=== PATIENT | female | born 1960 | race Two or more races ===

== ENCOUNTER → 2019-04-19 13:14 | Outpatient (BNVA) | payer MEDICARE, MEDICAID, SELFPAY | PROVIDERS: Family Provider Internal Medicine; PCP Internal Medicine; Visit Provider Specialist | DX: G43.711 Chronic migraine without aura, intractable, with status migrainosus (principal) | CPT/HCPCS: 64615; J0585 ==

== ENCOUNTER 2019-05-02 14:40 | Outpatient (CLI) | payer MEDICARE, MEDICAID, SELFPAY ==
--- NOTE | 2019-05-02 14:50 | XRR_ITS ---
PROCEDURE INFORMATION: Exam: XR Chest, 2 Views Exam date and time: 05/02/2019 2:54 PM Age: 58 years old Clinical indication: Chest pain; Additional info: Back pain L thoracic region/copd TECHNIQUE: Imaging protocol: XR of the chest Views: 2 views. COMPARISON: CR Chest 2 views* [id number] 03/19/2019 4:09 PM FINDINGS: Lungs: Diffuse diffuse hyperexpanded lungs consistent with bilateral COPD the lungs are otherwise clear. Pleural space: Unremarkable. No pleural effusion. No pneumothorax. Heart/Mediastinum: Unremarkable. No cardiomegaly. Bones/joints: Unremarkable. Similar findings are seen compared to prior XR/XR chest 2V* [id number] IMPRESSION: Stable COPD Otherwise No acute findings.
== END 2019-05-02 14:41 | disposition home or self-care (01) ==
LOC: RAD 14:45
PROVIDERS: Family Provider Internal Medicine; PCP Internal Medicine; Visit Provider Nurse Practitioner Family
DX: J41.1 Mucopurulent chronic bronchitis (principal)
CPT/HCPCS: 71046

== ENCOUNTER → 2019-08-09 13:37 | Outpatient (BNVA) | payer MEDICARE, MEDICAID, SELFPAY | PROVIDERS: Family Provider Internal Medicine; PCP Internal Medicine; Visit Provider Specialist | DX: G43.711 Chronic migraine without aura, intractable, with status migrainosus (principal); G25.81 Restless legs syndrome | CPT/HCPCS: 64615; 99213; J0585 ==

== ENCOUNTER 2019-10-29 13:50 | Outpatient (CLI) | payer MEDICARE, MEDICAID, SELFPAY ==
[2019-10-29 14:12] LABS: Basophils # 0.1 10^3/uL (0.0-0.1); Basophils % 0.6 %; Eosinophils # 0.1 10^3/uL (0.0-0.8); Hematocrit 38.7 % (37.0-47.0); Hemoglobin 12.5 g/dL (11.5-15.3); Lymphocytes # 1.4 10^3/uL (0.8-4.8); Mean Corpuscular HGB Conc 32.3 g/dL (30.0-36.0); Mean Corpuscular Hemoglobin 30.3 pg (28.0-34.0); Mean Corpuscular Volume 93.9 fL (81-99); Mean Platelet Volume 10.3 fL (7.4-10.4); Monocytes # 0.7 10^3/uL (0.2-0.9); Monocytes % 9.1 %; Neutrophils # 5.81 10^3/uL (1.8-7.7); Neutrophils % 72.1 %; Nucleated Red Blood Cells % 0 %; Platelet Count 280 10^3/cmm (130-400); Red Blood Count 4.12 10^6/uL (4.1-5.3); Red Cell Distribution Width 13.5 % (12.1-15.1); White Blood Count 8.1 10^3/uL (4.0-10.0)
[2019-10-29 15:07] LABS: Alanine Aminotransferase 17 U/L (0-33); Albumin Level 4.5 g/dL (3.5-5.2); Alkaline Phosphatase 84 IU/L (35-105); Anion Gap 11.2 (5-19); Aspartate Amino Transferase 27 U/L (0-32); Blood Urea Nitrogen 11 mg/dL (6-20); Calcium 10.2 mg/dL (8.5-10.5); Carbon Dioxide 31 mmol/L (22-29); Chloride 102 mmol/L (98-107); Globulin 2.6 g/dL (1.3-4.6); Glucose 94 mg/dL (65-115); Osmolality Calculated 286 mOsm/kg (285-295); Potassium 4.2 mmol/L (3.5-5.1); Sodium 140 mmol/L (136-145); Total Bilirubin 0.6 mg/dL (0.15-1.2); Total Protein 7.1 g/dL (6.6-8.7)
== END 2019-10-29 13:51 | disposition home or self-care (01) ==
LOC: LAB 13:54
PROVIDERS: Family Provider Internal Medicine; PCP Internal Medicine; Visit Provider Internal Medicine Critical Care Medicine
DX: J44.9 Chronic obstructive pulmonary disease, unspecified (principal)
CPT/HCPCS: 36415; 80053; 85025

== ENCOUNTER 2019-11-12 11:00 | Outpatient (CLI) | payer MEDICARE, MEDICAID, SELFPAY | END 2019-11-12 11:01 | disposition home or self-care (01) | LOC: SLEEP 11-15 14:45 | PROVIDERS: Family Provider Internal Medicine; PCP Internal Medicine; Visit Provider Internal Medicine Critical Care Medicine | DX: J44.9 Chronic obstructive pulmonary disease, unspecified (principal) | CPT/HCPCS: 94762 ==

== ENCOUNTER 2019-11-12 13:25 | Outpatient (CLI) | payer MEDICARE, MEDICAID, SELFPAY ==
--- NOTE | 2019-11-12 13:29 | CT_ITS ---
WS: [id number] CT LUNG CANCER SCREENING DLP: 87.15 mGy.cm DIvol: 2.43 mGy CLINICAL INFORMATION SCREENING VISIT: Baseline COMPARISON: 11/13/2014 FINDINGS Diagnostic quality: Satisfactory Comments: None. Lung Nodules: None. Lungs: Marked pulmonary hyperexpansion. There is extensive bullous and bleb disease bilaterally but g reatest in the upper lung dawson. Pleural thickening and scarring present bilaterally. No effusions. Heart: Normal size. Other findings: Mild atherosclerosis aorta. No aneurysmal dilatation. Pulmonary artery size is equal to the aorta. No coronary artery calcifications. Mild anterior compression of T12. CT/CT lung screening [id number] IMPRESSION: LUNG-RADS: 1-Negative FOLLOW UP: 12 Month: Continue annual screening with LDCT
[2019-11-12 13:49] VITALS: O2SAT 93
--- NOTE | 2019-11-12 13:59 | PFTS_ITS ---
Date of Study:11/12/19 Date of Dictation: MECHANICS: Forced vital capacity (FVC) is reduced. Forced expiratory volume in one second (FEV1) is reduced. FEV1/FVC is reduced. FLOW VOLUME LOOP: Reduced flow at all lung volumes with significant scooping. LUNG VOLUMES: Total lung capacity (TLC) is normal. Residual volume (RV) is increased. DIFFUSING CAPACITY FOR CARBON MONOXIDE: Severely reduced. INTERPRETATION: The pulmonary function tests are consistent with very severe airflow obstruction. There is postbronchodilator response. Lung volumes are consistent with air trapping. Gas exchange (DLCO) is severely reduced. MTDD
== END 2019-11-12 13:26 | disposition home or self-care (01) ==
LOC: CT 13:26
PROVIDERS: Family Provider Internal Medicine; PCP Internal Medicine; Visit Provider Internal Medicine
DX: Z87.891 Personal history of nicotine dependence (principal); Z12.2 Encounter for screening for malignant neoplasm of respiratory organs; J44.9 Chronic obstructive pulmonary disease, unspecified
CPT/HCPCS: 94060; 94726; 94729; 94762; G0297; J7611

== ENCOUNTER → 2019-11-29 10:45 | Outpatient (BNVA) | payer MEDICARE, MEDICAID, SELFPAY | PROVIDERS: Family Provider Internal Medicine; PCP Internal Medicine; Visit Provider Specialist | DX: G43.711 Chronic migraine without aura, intractable, with status migrainosus (principal); G25.81 Restless legs syndrome | CPT/HCPCS: 64615; 99213; J0585 ==

== ENCOUNTER 2019-12-20 12:51 | Outpatient (RCR) | payer MEDICARE, MEDICAID, SELFPAY | END 2020-01-09 23:59 | disposition home or self-care (01) | LOC: PULRHB 12:51 | PROVIDERS: PCP Internal Medicine; Visit Provider Internal Medicine | DX: J44.9 Chronic obstructive pulmonary disease, unspecified (principal) | CPT/HCPCS: 94618; G0424 ==

== ENCOUNTER → 2020-01-02 14:25 | Outpatient (BNVA) | payer MEDICARE, MEDICAID, SELFPAY | PROVIDERS: PCP Internal Medicine; Visit Provider Specialist | DX: G43.711 Chronic migraine without aura, intractable, with status migrainosus (principal); G25.81 Restless legs syndrome; F17.200 Nicotine dependence, unspecified, uncomplicated; F41.9 Anxiety disorder, unspecified | CPT/HCPCS: 99213 ==

== ENCOUNTER 2020-01-10 06:00 | Outpatient (RCR) | payer MEDICARE, MEDICAID, SELFPAY | END 2020-02-09 23:59 | disposition home or self-care (01) | LOC: PULRHB 06:00 | PROVIDERS: PCP Internal Medicine; Visit Provider Internal Medicine | DX: J44.9 Chronic obstructive pulmonary disease, unspecified (principal) | CPT/HCPCS: G0424 ==

== ENCOUNTER 2020-01-23 13:02 | Outpatient (CLI) | payer MEDICARE, MEDICAID, SELFPAY ==
[2020-01-23 13:37] LABS: Basophils # 0.1 10^3/uL (0.0-0.1); Basophils % 1.4 %; Eosinophils # 0.1 10^3/uL (0.0-0.8); Eosinophils % 1.4 %; Hemoglobin 12.3 g/dL (11.5-15.3); Lymphocytes # 1.4 10^3/uL (0.8-4.8); Lymphocytes % 41.5 %; Mean Corpuscular HGB Conc 32.4 g/dL (30.0-36.0); Mean Corpuscular Hemoglobin 30.3 pg (28.0-34.0); Mean Corpuscular Volume 93.6 fL (81-99); Mean Platelet Volume 10.6 fL (7.4-10.4); Monocytes # 0.5 10^3/uL (0.2-0.9); Neutrophils # 1.48 10^3/uL (1.8-7.7); Neutrophils % 42.7 %; Nucleated Red Blood Cells % 0 %; Platelet Count 242 10^3/cmm (130-400); Red Blood Count 4.06 10^6/uL (4.1-5.3); Red Cell Distribution Width 12.9 % (12.1-15.1); White Blood Count 3.5 10^3/uL (4.0-10.0)
== END 2020-01-23 13:03 | disposition home or self-care (01) ==
LOC: ONCMED 13:05
PROVIDERS: PCP Internal Medicine; Visit Provider Internal Medicine Hematology & Oncology
DX: D70.9 Neutropenia, unspecified (principal)
CPT/HCPCS: 36415; 80500; 85025

== ENCOUNTER 2020-01-24 05:47 | Outpatient (CLI) | payer MEDICARE, MEDICAID, SELFPAY ==
--- NOTE | 2020-01-24 10:41 | ONC CON_ITS ---
Dr. Marcus New Patient Note Patient: Mely Wang Unit #: [id number]: [id number] Dicatated By: Nathaly Marcus M.D.Date of Visit: Jan 24, 2020 Onc MED New Patient/Consult Referring Physician: No 'Referrals from' exist for this patient. History of Present Illness: Ms. Mely Wang, is a 59-year-old female with history of COPD, on home oxygen, neuropathy, migraine, chronic smoking, was found to have isolated leukopenia/neutropenia during her routine labs checked on January 02, 2020 had repeat labs on January 15, 2020 showed further drop in her white blood count to 2.8 with a neutrophil 1.2 and normal hemoglobin and platelet count, patient was referred to hematology clinic for evaluation. Patient denies any history of recurrent infection or recent acute infection, denies any flulike symptoms recently. Denies any night sweats, denies any abdominal fullness, denies any peripheral lymphadenopathy, denies any weight loss, denies any sore throat, denies any signs symptom suggestive of urine tract infection. Patient denies alcohol use. Denies any recent traveling. Denies any tick bite. Denies any change in medication recently but in addition to her prescribed medication she is also taking lots of supplements and wpfm-act-qcguerz health supplements including biotin, hair skin nails capsules, multivitamin, and prescribed medication including Lyrica, methocarbamol, Daliresp, amitriptyline, and Percocet Past Medical History: Ms. Wang's medical history consists of chronic obstructive pulmonary disease and peripheral neuropathy. Past Surgical History: Ms. Wang's surgical/procedural history consists of hysterectomy/bilateral salpingectomy-oophorectomy. Medications: Amitriptyline HCl 1 Tablet (of 25 mg) Oral at bedtime, B Complex 1 CA 125 Units/mL Capsule Oral daily, Biotin 1 Capsule (of 5000 mcg) Oral daily, Hvshpytcej-LLPE-Bmqsktdp 1 Tablet (of 50-325-40 mg) Oral q 6 hours PRN, Daliresp 1 Tablet (of 500 mcg) Oral daily, Hair Skin Nails 1 Capsule Oral daily, HYDROcodone-Acetaminophen 1 - 2 Tablet (of 5-325 mg) Oral q 4 hours PRN, Methocarbamol 0.5 - 1 Tablet (of 500 mg) Oral t.i.d. PRN, Multivitamin 1 Tablet Oral daily, Pregabalin 1 Capsule (of 150 mg) Oral t.i.d., rOPINIRole HCl 1 Tablet (of 2 mg) Oral t.i.d., valACYclovir HCl 1 Tablet (of 1 g) Oral b.i.d. PRN, Vitamin C 1 Capsule (of 500 mg) Oral daily, Vitamin D3 1 Capsule Oral daily, Vitamin E 1 Capsule Oral daily Allergies: Albuterol Sulfate and Aspirin. Social History: Ms. Wang is legally . Ms. Wang quit smoking less than one year ago but had smoked 1.0 pack/day for 42 years. She has no history of drinking. Family History: There is no documented family history. Review Of Symptoms: Review of Systems is not available for this patient. Vital Signs: Most recent vitals are not available for this patient. Performance Status: 1 - No physically strenuous activity, but ambulatory and able to carry out light or sedentary work (e.g. office work, light house work). (ECOG) Physical Examination: ENMT - No mouth sores, no thrush, no jaundice, Respiratory - Poor air entry otherwise clear, Cardiovascular - Regular rate and rhythm of heart, Abdomen - Soft, bowel sounds present, Extremities - No visible edema. Lab/Imaging: Most recent lab results are not available for this patient. Impression: Isolated leukopenia/neutropenia initially seen on January 02, 2020 at that time her CBC shows white blood count 3.2 hemoglobin 12.7 hematocrit 38.3 platelets 247,000 with a normal differential and repeat CBC on January 15, 2020 showed white blood count 2.8 with a neutrophil 1.2, normal hemoglobin and platelets. Etiology unclear could be medications or subacute infections or nutritional like B12 deficiency, or endocrine like hypothyroidism or underlying myelodysplasia. COPD, on home oxygen Neuropathy Plan: Discussed with patient regarding her labs white blood count 3.5 hemoglobin 12.3 hematocrit 38 platelets 248,000 ANC 1480 Clinically, patient is doing well with no signs symptom suggestive of infection, her CBC shows mild isolated leukopenia/neutropenia with a normal hemoglobin and platelet count. Etiology, could be multifactorial but most likely medication induced or could be nutritional/endocrinopathy, or underlying myelodysplasia or idiopathic At this point, will review peripheral blood smear, we will hold all her health supplements/multivitamin for 2 weeks and then patient return to clinic in 2 weeks with CBC if her neutropenia/leukopenia resolves then we will retry her supplements one by one to identify the agent causing neutropenia/leukopenia on the other hand if her white blood count still low then will consider exploring prescribed medication as a possibility of causing isolated leukopenia and if still remained inconclusive, will consider B12 level, folate level, copper level and TSH and abdominal sonogram to rule out splenomegaly, if normal, then will consider bone marrow evaluation. Return to clinic in 2 weeks with CBC. Signed By: Nathaly Marcus M.D. <<Signature on File>>
[2020-01-24 21:48] LABS: LAB Peripheral Smear Sent for Review
== END 2020-01-24 05:48 | disposition home or self-care (01) ==
LOC: ONCMED 05:49
PROVIDERS: PCP Internal Medicine; Visit Provider Internal Medicine Hematology & Oncology
DX: D70.9 Neutropenia, unspecified (principal); J44.9 Chronic obstructive pulmonary disease, unspecified; Z99.81 Dependence on supplemental oxygen; G62.9 Polyneuropathy, unspecified
CPT/HCPCS: 99203

== ENCOUNTER 2020-02-05 07:58 | Outpatient (CLI) | payer MEDICARE, MEDICAID, SELFPAY ==
[2020-02-05 11:14] LABS: Basophils % 1.3 %; Eosinophils % 1.3 %; Hematocrit 38.3 % (37.0-47.0); Hemoglobin 12.2 g/dL (11.5-15.3); Lymphocytes # 1.1 10^3/uL (0.8-4.8); Lymphocytes % 35.5 %; Mean Corpuscular HGB Conc 31.9 g/dL (30.0-36.0); Mean Corpuscular Hemoglobin 30.2 pg (28.0-34.0); Mean Corpuscular Volume 94.8 fL (81-99); Mean Platelet Volume 10.5 fL (7.4-10.4); Monocytes # 0.5 10^3/uL (0.2-0.9); Neutrophils % 45.6 %; Nucleated Red Blood Cells % 0 %; Platelet Count 216 10^3/cmm (130-400); Red Blood Count 4.04 10^6/uL (4.1-5.3); Red Cell Distribution Width 13.2 % (12.1-15.1); White Blood Count 3.1 10^3/uL (4.0-10.0)
[2020-02-05 11:38] LABS: Alanine Aminotransferase 13 U/L (0-33); Albumin Level 4.4 g/dL (3.5-5.2); Alkaline Phosphatase 57 IU/L (35-105); Anion Gap 8.5 (5-19); Aspartate Amino Transferase 21 U/L (0-32); Blood Urea Nitrogen 10 mg/dL (6-20); Carbon Dioxide 30 mmol/L (22-29); Chloride 106 mmol/L (98-107); Globulin 2.3 g/dL (1.3-4.6); Glucose 92 mg/dL (65-115); Osmolality Calculated 289 mOsm/kg (285-295); Potassium 4.5 mmol/L (3.5-5.1); Sodium 140 mmol/L (136-145); Total Bilirubin 0.5 mg/dL (0.15-1.2); Total Protein 6.7 g/dL (6.6-8.7)
== END 2020-02-05 07:59 | disposition home or self-care (01) ==
LOC: ONCMED 08:00
PROVIDERS: PCP Internal Medicine; Visit Provider Internal Medicine Hematology & Oncology
DX: D70.9 Neutropenia, unspecified (principal)
CPT/HCPCS: 36415; 80053; 80500; 85025

== ENCOUNTER 2020-02-06 05:43 | Outpatient (CLI) | payer MEDICARE, MEDICAID, SELFPAY ==
--- NOTE | 2020-02-06 09:59 | ONC FU_ITS ---
Dr. Marcus follow up note Patient: Mely Wang Unit #: [id number]: 1960 Dicatated By: Nathaly Marcus M.D.Date of Visit:Feb 06, 2020 Onc Med Follow-up/Prog Note History of Present Illness: Ms. Mely Wang, is a 59-year-old female with history of COPD, on home oxygen, neuropathy, migraine, chronic smoking, was found to have isolated leukopenia/neutropenia during her routine labs checked on January 02, 2020 had repeat labs on January 15, 2020 showed further drop in her white blood count to 2.8 with a neutrophil 1.2 and normal hemoglobin and platelet count, patient was referred to hematology clinic for evaluation. Patient denies any history of recurrent infection or recent acute infection, denies any flulike symptoms recently. Denies any night sweats, denies any abdominal fullness, denies any peripheral lymphadenopathy, denies any weight loss, denies any sore throat, denies any signs symptom suggestive of urine tract infection. Patient denies alcohol use. Denies any recent traveling. Denies any tick bite. Denies any change in medication recently but in addition to her prescribed medication she is also taking lots of supplements and icuk-rjh-lunjdsn health supplements including biotin, hair skin nails capsules, multivitamin, and prescribed medication including Lyrica, methocarbamol, Daliresp, amitriptyline, and Percocet Came for follow-up, denies any specific complaints, no fever chills, no nausea or vomiting, no diarrhea or constipation, no sinus problem no dysuria. Medications: Amitriptyline HCl 1 Tablet (of 25 mg) Oral at bedtime, B Complex 1 CA 125 Units/mL Capsule Oral daily, Biotin 1 Capsule (of 5000 mcg) Oral daily, Mqclalmddu-QPLW-Ecldvmqs 1 Tablet (of 50-325-40 mg) Oral q 6 hours PRN, Daliresp 1 Tablet (of 500 mcg) Oral daily, Hair Skin Nails 1 Capsule Oral daily, HYDROcodone-Acetaminophen 1 - 2 Tablet (of 5-325 mg) Oral q 4 hours PRN, Methocarbamol 0.5 - 1 Tablet (of 500 mg) Oral t.i.d. PRN, Multivitamin 1 Tablet Oral daily, Pregabalin 1 Capsule (of 150 mg) Oral t.i.d., rOPINIRole HCl 1 Tablet (of 2 mg) Oral t.i.d., valACYclovir HCl 1 Tablet (of 1 g) Oral b.i.d. PRN, Vitamin C 1 Capsule (of 500 mg) Oral daily, Vitamin D3 1 Capsule Oral daily, Vitamin E 1 Capsule Oral daily Allergies: Albuterol Sulfate and Aspirin. Review of Systems: Review of Systems is not available for this patient. Vital Signs: Performed on Feb 06, 2020 09:25 Height - 67.5 in Weight - 115.4 lbs (HIGH) BSA - 1.61 sq.m BMI - 17.81 (LOW) Temperature - 98.0 F (LOW) Pulse - 64 /min Respiration - 16 /min BP - 125/76 mm(hg) O2 Sat - 100 % Pain - 6 Performance Status: 0 - Fully active, able to carry on all predisease activities without restrictions. (ECOG) Physical Examination: ENMT - No mouth sores, no thrush, no jaundice, Respiratory - Lungs are clear to auscultation, Cardiovascular - Regular rate and rhythm of heart, Abdomen - Soft, bowel sounds present, Extremities - No visible edema. Lab/Imaging: Test performed on Feb 05, 2020 10:45 WBC 3.1 10 3/uL RBC 4.04 10 6/uL HGB 12.2 g/dL HCT 38.3 % MCV 94.8 fL MCH 30.2 pg MCHC 31.9 g/dL RDW 13.2 % Platelet Count 216 10 3/cmm MPV 10.5 fL Neutrophils 1.40 10 3/uL Lymphocytes 1.1 10 3/uL Monocytes 0.5 10 3/uL Eosinophils 0.0 10 3/uL Basophils 0.0 10 3/uL Neutrophil % 45.6 % Lymphocyte % 35.5 % Monocyte % 16.0 % Eosinophil % 1.3 % Basophils % 1.3 % NRBC % 0 % Impression: Isolated leukopenia/neutropenia initially seen on January 02, 2020 at that time her CBC shows white blood count 3.2 hemoglobin 12.7 hematocrit 38.3 platelets 247,000 with a normal differential and repeat CBC on January 15, 2020 showed white blood count 2.8 with a neutrophil 1.2, normal hemoglobin and platelets. Etiology unclear could be medications or subacute infections or nutritional like B12 deficiency, or endocrine like hypothyroidism or underlying myelodysplasia. COPD, on home oxygen Neuropathy Plan: Discussed with patient regarding her labs white blood count 3.1k compared to 3500 on January 23, 2020 ANC 1400, hemoglobin 12.2 g hematocrit 38.3 platelets 216,000 CMP within normal limits Peripheral blood smear was not done Clinically, patient doing well, no new signs symptom, she is off opnx-wkd-jnnzokq supplements for the last 2 weeks, her follow-up labs showed no improvement in her isolated leukopenia/neutropenia, at this point we will proceed with B12 level, folate, copper and TSH level and also consider abdominal sonogram to rule out splenomegaly and then she will return to clinic in 2 weeks. In the meantime also review her peripheral blood smear if above-mentioned work-up remained inconclusive then We may consider bone marrow evaluation. Signed By: Nathaly Marcus M.D. <<Signature on File>>
[2020-02-07 07:11] LABS: LAB Peripheral Smear Sent for Review
[2020-02-07 07:26] LABS: Thyroid Stimulating Hormone 0.35 uIU/mL (0.27-4.20); Vitamin B12 1629 pg/mL (232-1245)
[2020-02-09 12:03] LABS: Copper Level 106 mcg/dL (70-175)
== END 2020-02-06 05:44 | disposition home or self-care (01) ==
LOC: ONCMED 05:45
PROVIDERS: PCP Internal Medicine; Visit Provider Internal Medicine Hematology & Oncology
DX: D70.9 Neutropenia, unspecified (principal); J44.9 Chronic obstructive pulmonary disease, unspecified; G62.9 Polyneuropathy, unspecified; Z99.81 Dependence on supplemental oxygen
CPT/HCPCS: 36415; 82525; 82607; 84443; 99214

== ENCOUNTER 2020-02-10 06:00 | Outpatient (RCR) | payer MEDICARE, MEDICAID, SELFPAY | END 2020-03-10 23:59 | disposition home or self-care (01) | LOC: PULRHB 06:00 | PROVIDERS: PCP Internal Medicine; Visit Provider Internal Medicine | DX: J44.9 Chronic obstructive pulmonary disease, unspecified (principal) | CPT/HCPCS: G0424 ==

== ENCOUNTER 2020-02-18 07:57 | Outpatient (CLI) | payer MEDICARE, MEDICAID, SELFPAY ==
--- NOTE | 2020-02-18 08:16 | US_ITS ---
WS: [id number] ULTRASOUND ABDOMEN CLINICAL INFORMATION: LEUKOPENIA/NEUTROPENIA COMPARISON: None. FINDINGS: Liver Size: Normal Echogenicity: Normal. Surface nodularity: None. Mass (size and location): None. Bile ducts Intrahepatic ducts: Normal. Common bile duct diameter: 0.2 cm. Gallbladder Normal. Gallstones: None. Gallbladder sludge: None. Gallbladder wall thickening: None. Pericholecystic fluid: None. Sonographic Dorantes sign: Absent. Pancreas Normal as visualized. Spleen Splenomegaly: None. Craniocaudal length: 9.2 cm. Right kidney: Normal. Hydronephrosis: None. Size: 11.1 cm x 7.4 cm x 7.1 cm Left kidney: Normal. Hydronephrosis: None. Size: 10.7 cm x 4.8 cm x 4.8 cm. Abdominal aorta and IVC Visualized portions are normal. Ascites: None. US/US abdomen complete* [id number] IMPRESSION: 1. Normal abdominal ultrasound 2. No hydronephrosis in either kidney. 3. Normal spleen measuring 9.2 CM.
== END 2020-02-18 07:58 | disposition home or self-care (01) ==
LOC: RAD 08:07
PROVIDERS: PCP Internal Medicine; Visit Provider Internal Medicine Hematology & Oncology
DX: D70.9 Neutropenia, unspecified (principal)
CPT/HCPCS: 76700

== ENCOUNTER 2020-02-27 05:44 | Outpatient (CLI) | payer MEDICARE, MEDICAID, SELFPAY ==
[2020-02-27 08:30] LABS: Basophils % 0.9 %; Eosinophils # 0.1 10^3/uL (0.0-0.8); Eosinophils % 1.5 %; Hematocrit 38.2 % (37.0-47.0); Hemoglobin 12.1 g/dL (11.5-15.3); Lymphocytes # 1.3 10^3/uL (0.8-4.8); Lymphocytes % 37.5 %; Mean Corpuscular HGB Conc 31.7 g/dL (30.0-36.0); Mean Corpuscular Hemoglobin 30.2 pg (28.0-34.0); Mean Corpuscular Volume 95.3 fL (81-99); Mean Platelet Volume 10.5 fL (7.4-10.4); Monocytes # 0.4 10^3/uL (0.2-0.9); Monocytes % 12.7 %; Neutrophils % 47.1 %; Nucleated Red Blood Cells % 0 %; Platelet Count 212 10^3/cmm (130-400); Red Blood Count 4.01 10^6/uL (4.1-5.3); Red Cell Distribution Width 13.1 % (12.1-15.1); White Blood Count 3.4 10^3/uL (4.0-10.0)
[2020-02-27 08:50] LABS: Alanine Aminotransferase 15 U/L (0-33); Albumin Level 4.1 g/dL (3.5-5.2); Alkaline Phosphatase 56 IU/L (35-105); Anion Gap 10.7 (5-19); Aspartate Amino Transferase 23 U/L (0-32); Blood Urea Nitrogen 11 mg/dL (6-20); Calcium 9.8 mg/dL (8.5-10.5); Carbon Dioxide 30 mmol/L (22-29); Chloride 102 mmol/L (98-107); Globulin 2.4 g/dL (1.3-4.6); Glomerular Filtration Rate 127.2 mL/min (90-130); Glucose 104 mg/dL (65-115); Osmolality Calculated 288 mOsm/kg (285-295); Potassium 3.7 mmol/L (3.5-5.1); Sodium 139 mmol/L (136-145); Total Bilirubin 0.4 mg/dL (0.15-1.2); Total Protein 6.5 g/dL (6.6-8.7)
--- NOTE | 2020-02-27 14:19 | ONC FU_ITS ---
Dr. Marcus follow up note Patient: Mely Wang Unit #: [id number]: 1960 Dicatated By: Nathaly Marcus M.D.Date of Visit:Feb 27, 2020 Onc Med Follow-up/Prog Note History of Present Illness: Ms. Mely Wang, is a 59-year-old female with history of COPD, on home oxygen, neuropathy, migraine, chronic smoking, was found to have isolated leukopenia/neutropenia during her routine labs checked on January 02, 2020 had repeat labs on January 15, 2020 showed further drop in her white blood count to 2.8 with a neutrophil 1.2 and normal hemoglobin and platelet count, patient was referred to hematology clinic for evaluation. Patient denies any history of recurrent infection or recent acute infection, denies any flulike symptoms recently. Denies any night sweats, denies any abdominal fullness, denies any peripheral lymphadenopathy, denies any weight loss, denies any sore throat, denies any signs symptom suggestive of urine tract infection. Patient denies alcohol use. Denies any recent traveling. Denies any tick bite. Denies any change in medication recently but in addition to her prescribed medication she is also taking lots of supplements and xwxf-rau-wsrakbn health supplements including biotin, hair skin nails capsules, multivitamin, and prescribed medication including Lyrica, methocarbamol, Daliresp, amitriptyline, and Percocet Came for follow-up, denies any specific complaints, no fever chills, no nausea or vomiting, no diarrhea constipation, no dysuria no hematuria, no nosebleed and no gum bleed no sinus tenderness. Medications: Amitriptyline HCl 1 Tablet (of 25 mg) Oral at bedtime, B Complex 1 CA 125 Units/mL Capsule Oral daily, Biotin 1 Capsule (of 5000 mcg) Oral daily, Pkmrxzajqw-ZZXY-Nuhndokt 1 Tablet (of 50-325-40 mg) Oral q 6 hours PRN, Daliresp 1 Tablet (of 500 mcg) Oral daily, Hair Skin Nails 1 Capsule Oral daily, HYDROcodone-Acetaminophen 1 - 2 Tablet (of 5-325 mg) Oral q 4 hours PRN, Methocarbamol 0.5 - 1 Tablet (of 500 mg) Oral t.i.d. PRN, Multivitamin 1 Tablet Oral daily, Pregabalin 1 Capsule (of 150 mg) Oral t.i.d., rOPINIRole HCl 1 Tablet (of 2 mg) Oral t.i.d., valACYclovir HCl 1 Tablet (of 1 g) Oral b.i.d. PRN, Vitamin C 1 Capsule (of 500 mg) Oral daily, Vitamin D3 1 Capsule Oral daily, Vitamin E 1 Capsule Oral daily Allergies: Albuterol Sulfate and Aspirin. Review of Systems: Review of Systems is not available for this patient. Vital Signs: Performed on Feb 27, 2020 10:12 Height - 67.50 in Weight - 114.2 lbs (LOW) BSA - 1.60 sq.m BMI - 17.62 (LOW) Temperature - 97.9 F (LOW) Pulse - 68 /min Respiration - 16 /min BP - 116/74 mm(hg) O2 Sat - 99 % Pain - 0 Performance Status: 0 - Fully active, able to carry on all predisease activities without restrictions. (ECOG) Physical Examination: ENMT - No mouth sores, no thrush, no jaundice, Respiratory - Lungs are clear to auscultation, Cardiovascular - Regular rate and rhythm of heart, Abdomen - Soft, bowel sounds present, Extremities - No visible edema or rash. Lab/Imaging: Test performed on Feb 06, 2020 10:10 Copper 106 mcg/dL Test performed on Feb 05, 2020 10:45 Sodium 140 mmol/L TSH 0.35 uIU/mL Vitamin B12 1629 pg/mL Potassium 4.5 mmol/L Chloride 106 mmol/L CO2 30 mmol/L Anion Gap 8.5 BUN 10 mg/dL Creatinine 0.6 mg/dL Cr Clearance (Est) 85.49 mL/min eGFR 103.0 mL/min Glucose 92 mg/dL Osmolality - Calculated 289 mOsm/kg Calcium 10.0 mg/dL Protein, Total 6.7 g/dL Albumin 4.4 g/dL Globulin 2.3 g/dL Bilirubin, Total 0.5 mg/dL ALT (SGPT) 13 U/L AST (SGOT) 21 U/L Alkaline Phosphatase 57 IU/L WBC 3.1 10 3/uL RBC 4.04 10 6/uL HGB 12.2 g/dL HCT 38.3 % MCV 94.8 fL MCH 30.2 pg MCHC 31.9 g/dL RDW 13.2 % Platelet Count 216 10 3/cmm MPV 10.5 fL Neutrophils 1.40 10 3/uL Lymphocytes 1.1 10 3/uL Monocytes 0.5 10 3/uL Eosinophils 0.0 10 3/uL Basophils 0.0 10 3/uL Neutrophil % 45.6 % Lymphocyte % 35.5 % Monocyte % 16.0 % Eosinophil % 1.3 % Basophils % 1.3 % NRBC % 0 % Impression: Isolated leukopenia/neutropenia initially seen on January 02, 2020 at that time her CBC shows white blood count 3.2 hemoglobin 12.7 hematocrit 38.3 platelets 247,000 with a normal differential and repeat CBC on January 15, 2020 showed white blood count 2.8 with a neutrophil 1.2, normal hemoglobin and platelets. Etiology unclear could be medications or subacute infections or nutritional like B12 deficiency, or endocrine like hypothyroidism or underlying myelodysplasia. Serum copper 106 normal being 70-1 75, B12 1629, TSH 0.35, abdominal sonogram done on February 18, 2020 showed spleen size normal COPD, on home oxygen Neuropathy Plan: Discussed with patient regarding her labs white blood count 3.4 hemoglobin 12.1 hematocrit 38.2 platelets 212,000 ANC 1600, copper 106, B12 1629, TSH 0.35, ultrasound abdomen shows no splenomegaly Clinically, patient doing well with no new signs symptoms follow-up labs shows white blood count has improved but still low, today 3400 compared to 3100 on February 05, 2020. Her abdominal sonogram shows no splenomegaly her copper level is normal as well as B12 level and TSH, discussed with patient regarding bone marrow evaluation to rule out primary bone marrow disorder. Patient wants to wait and watch unless white blood count continues to go down. In that case we will see her back in 2 months with CBC if there is no improvement or there is a worsening of isolated leukopenia/neutropenia will consider bone marrow evaluation Signed By: Nathaly Marcus M.D. <<Signature on File>>
== END 2020-02-27 05:45 | disposition home or self-care (01) ==
LOC: ONCMED 05:47
PROVIDERS: PCP Internal Medicine; Visit Provider Internal Medicine Hematology & Oncology
DX: D70.9 Neutropenia, unspecified (principal); J44.9 Chronic obstructive pulmonary disease, unspecified; G62.9 Polyneuropathy, unspecified; F17.200 Nicotine dependence, unspecified, uncomplicated; Z99.81 Dependence on supplemental oxygen
CPT/HCPCS: 36415; 80053; 85025; G0463

== ENCOUNTER 2020-03-12 08:51 | Outpatient (CLI) | payer MEDICARE, MEDICAID, SELFPAY ==
--- NOTE | 2020-03-12 09:00 | MR_ITS ---
WS: [id number] MRI HEAD WITH CONTRAST WITH ATTENTION TO THE INTERNAL AUDITORY CANALS TECHNIQUE: Sagittal T1, T2 axial, T2 axial flair, axial susceptibility weighted imaging, axial diffus ion weighted images, and coronal T2 images were obtained. Pre and post T1 axial and post T1 coronal i mages. ADC and FSPGR images. Post gadolinium images with attention to the internal auditory canals. A xial fiesta imaging. CLINICAL INFORMATION: BILATERAL TINNITUS COMPARISON: MRI 4 12,016 FINDINGS: No evidence of restricted diffusion to suggest acute ischemia. Ventricular system and basal cisterns are patent. Normal more-white differentiation. No hydrocephalus. No suspicious intracranial signal ab normalities. Normal posterior fossa. Normal vascular flow voids at base. No extra-axial fluid collect ions. Paranasal sinuses and mastoid air cells are well aerated. Mild mucosal thickening ethmoid air c ells. No hemosiderin on susceptibly weighted images. Proximal 7th and 8th cranial nerves are normal in appearance. Normal trigeminal nerve root entry zone s. No evidence of enhancing IAC or CP angle mass. Normal optic chiasm and pituitary infundibulum. Nor mal cavernous sinuses and Meckel's cave. No abnormal intracranial enhancement. Normal dural venous si nuses. 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 Mild crowding of the foramen magnum. No hydrocephalus. MR/MR iac's wo/w con* [id number] IMPRESSION: 1. No evidence of enhancing IAC or CP angle mass. Normal trigeminal nerve root entry zones. 2. Proximal 7th and 8th cranial nerves appear normal. 3. No suspicious intracranial signal abnormalities. 4. Paranasal sinuses and mastoid air cells are well aerated. 5. No abnormal intracranial enhancement. 6. Incidental cerebellar tonsillar ectopia unchanged. No hydrocephalus.
== END 2020-03-12 08:52 | disposition home or self-care (01) ==
LOC: RADSHAW 08:55
PROVIDERS: PCP Internal Medicine; Visit Provider Specialist
DX: H93.13 Tinnitus, bilateral (principal)
CPT/HCPCS: 70553; A9579

== ENCOUNTER → 2020-03-27 11:04 | Outpatient (BNVA) | payer MEDICARE, MEDICAID, SELFPAY | PROVIDERS: PCP Internal Medicine; Visit Provider Specialist | DX: G43.711 Chronic migraine without aura, intractable, with status migrainosus (principal); G25.81 Restless legs syndrome; F41.9 Anxiety disorder, unspecified; J44.9 Chronic obstructive pulmonary disease, unspecified; D70.9 Neutropenia, unspecified; Z87.891 Personal history of nicotine dependence | CPT/HCPCS: 64615; 99214; J0585 ==

== ENCOUNTER 2020-04-28 11:05 | Outpatient (CLI) | payer MEDICARE, MEDICAID, SELFPAY ==
[2020-04-28 11:55] LABS: Basophils # 0.1 10^3/uL (0.0-0.1); Basophils % 1.1 %; Eosinophils % 0.9 %; Hemoglobin 12.2 g/dL (11.5-15.3); Lymphocytes # 0.9 10^3/uL (0.8-4.8); Lymphocytes % 20.4 %; Mean Corpuscular HGB Conc 32.1 g/dL (30.0-36.0); Mean Corpuscular Volume 96.7 fL (81-99); Mean Platelet Volume 10.6 fL (7.4-10.4); Monocytes # 0.5 10^3/uL (0.2-0.9); Monocytes % 11.4 %; Nucleated Red Blood Cells % 0 %; Platelet Count 246 10^3/cmm (130-400); Red Blood Count 3.93 10^6/uL (4.1-5.3); Red Cell Distribution Width 13.2 % (12.1-15.1); White Blood Count 4.6 10^3/uL (4.0-10.0)
[2020-04-28 12:27] LABS: Alanine Aminotransferase 19 U/L (0-33); Albumin Level 4.3 g/dL (3.5-5.2); Alkaline Phosphatase 67 IU/L (35-105); Anion Gap 11.1 (5-19); Aspartate Amino Transferase 27 U/L (0-32); Blood Urea Nitrogen 12 mg/dL (6-20); Calcium 9.9 mg/dL (8.5-10.5); Carbon Dioxide 28 mmol/L (22-29); Chloride 103 mmol/L (98-107); Globulin 2.5 g/dL (1.3-4.6); Glucose 104 mg/dL (65-115); Osmolality Calculated 286 mOsm/kg (285-295); Potassium 4.1 mmol/L (3.5-5.1); Sodium 138 mmol/L (136-145); Total Bilirubin 0.4 mg/dL (0.15-1.2); Total Protein 6.8 g/dL (6.6-8.7)
--- NOTE | 2020-04-28 13:22 | ONC FU_ITS ---
Dr. Marcus follow up note Patient: Mely Wang Unit #: [id number]: 1960 Dicatated By: Nathaly Marcus M.D.Date of Visit:Apr 28, 2020 Onc Med Follow-up/Prog Note History of Present Illness: Ms. Mely Wang, is a 59-year-old female with history of COPD, on home oxygen, neuropathy, migraine, chronic smoking, was found to have isolated leukopenia/neutropenia during her routine labs checked on January 02, 2020 had repeat labs on January 15, 2020 showed further drop in her white blood count to 2.8 with a neutrophil 1.2 and normal hemoglobin and platelet count, patient was referred to hematology clinic for evaluation. Patient denies any history of recurrent infection or recent acute infection, denies any flulike symptoms recently. Denies any night sweats, denies any abdominal fullness, denies any peripheral lymphadenopathy, denies any weight loss, denies any sore throat, denies any signs symptom suggestive of urine tract infection. Patient denies alcohol use. Denies any recent traveling. Denies any tick bite. Denies any change in medication recently but in addition to her prescribed medication she is also taking lots of supplements and nhoi-vfh-kdqxkue health supplements including biotin, hair skin nails capsules, multivitamin, and prescribed medication including Lyrica, methocarbamol, Daliresp, amitriptyline, and Percocet Came for follow-up, denies any specific complaints, no fever chills, no nausea or vomiting, no diarrhea constipation, no fever chills Medications: Amitriptyline HCl 1 Tablet (of 25 mg) Oral at bedtime, B Complex 1 CA 125 Units/mL Capsule Oral daily, Biotin 1 Capsule (of 5000 mcg) Oral daily, Xvziateiur-SJVF-Sumcvnpg 1 Tablet (of 50-325-40 mg) Oral q 6 hours PRN, Daliresp 1 Tablet (of 500 mcg) Oral daily, Gabapentin 2 Caplet (of 100 mg) Capsule Oral t.i.d., Hair Skin Nails 1 Capsule Oral daily, HYDROcodone-Acetaminophen 1 - 2 Tablet (of 5-325 mg) Oral q 4 hours PRN, Methocarbamol 0.5 - 1 Tablet (of 500 mg) Oral t.i.d. PRN, Multivitamin 1 Tablet Oral daily, Pregabalin 1 Capsule (of 150 mg) Oral t.i.d., rOPINIRole HCl 1 Tablet (of 2 mg) Oral t.i.d., Trilogy Aerosol, powder Inhalation Take as Directed, valACYclovir HCl 1 Tablet (of 1 g) Oral b.i.d. PRN, Vitamin C 1 Capsule (of 500 mg) Oral daily, Vitamin D3 1 Capsule Oral daily, Vitamin E 1 Capsule Oral daily Allergies: Albuterol Sulfate and Aspirin. Review of Systems: Review of Systems is not available for this patient. Vital Signs: Vitals are not available for this patient. Performance Status: 2 - Ambulatory/capable of all self-care, unable to perform any work activities. Up and about more than 50% of waking hours. (ECOG) Physical Examination: ENMT - No mouth sores, no thrush, no jaundice no peripheral lymphadenopathy, Respiratory - Poor air entry otherwise clear, Cardiovascular - Regular rate and rhythm of heart, Abdomen - Soft, bowel sounds present, Extremities - No visible edema. Lab/Imaging: Test performed on Feb 27, 2020 08:12 Sodium 139 mmol/L Potassium 3.7 mmol/L Chloride 102 mmol/L CO2 30 mmol/L Anion Gap 10.7 BUN 11 mg/dL Creatinine 0.5 mg/dL Cr Clearance (Est) 101.52 mL/min eGFR 127.2 mL/min Glucose 104 mg/dL Osmolality - Calculated 288 mOsm/kg Calcium 9.8 mg/dL Protein, Total 6.5 g/dL Albumin 4.1 g/dL Globulin 2.4 g/dL Bilirubin, Total 0.4 mg/dL ALT (SGPT) 15 U/L AST (SGOT) 23 U/L Alkaline Phosphatase 56 IU/L WBC 3.4 10 3/uL RBC 4.01 10 6/uL HGB 12.1 g/dL HCT 38.2 % MCV 95.3 fL MCH 30.2 pg MCHC 31.7 g/dL RDW 13.1 % Platelet Count 212 10 3/cmm MPV 10.5 fL Neutrophils 1.60 10 3/uL Lymphocytes 1.3 10 3/uL Monocytes 0.4 10 3/uL Eosinophils 0.1 10 3/uL Basophils 0.0 10 3/uL Neutrophil % 47.1 % Lymphocyte % 37.5 % Monocyte % 12.7 % Eosinophil % 1.5 % Basophils % 0.9 % NRBC % 0 % Test performed on Feb 06, 2020 10:10 Copper 106 mcg/dL Test performed on Feb 05, 2020 10:45 TSH 0.35 uIU/mL Vitamin B12 1629 pg/mL Impression: Isolated leukopenia/neutropenia initially seen on January 02, 2020 at that time her CBC shows white blood count 3.2 hemoglobin 12.7 hematocrit 38.3 platelets 247,000 with a normal differential and repeat CBC on January 15, 2020 showed white blood count 2.8 with a neutrophil 1.2, normal hemoglobin and platelets. Etiology unclear could be medications or subacute infections or nutritional like B12 deficiency, or endocrine like hypothyroidism or underlying myelodysplasia. Serum copper 106 normal being 70-1 75, B12 1629, TSH 0.35, abdominal sonogram done on February 18, 2020 showed spleen size normal COPD, on home oxygen Neuropathy Plan: Discussed with patient regarding her labs white blood count 4.6 compared to 3.4 on February 27, 2020 hemoglobin 12.2 hematocrit 38 platelets 246,000 CMP within normal limits Clinically, patient is doing well with no signs symptom suggestive of infections or any other new symptom, her follow-up CBC done today showed normalization of mild leukopenia and hemoglobin and platelet count remained within normal range and CMP is also within normal range and peripheral blood smear done earlier showed no evidence of abnormal cell. At this point as her follow-up CBC shows resolution of leukopi???a with normal differential and normal hemoglobin/platelets, will continue to monitor and she will return to clinic in 3 months with CBC and if remains within normal range, then will see her on as-needed basis. Signed By: Nathaly Marcus M.D. <<Signature on File>>
== END 2020-04-28 11:06 | disposition home or self-care (01) ==
LOC: ONCMED 11:09
PROVIDERS: PCP Internal Medicine; Visit Provider Internal Medicine Hematology & Oncology
DX: D70.9 Neutropenia, unspecified (principal)
CPT/HCPCS: 36415; 80053; 85025; G0463

== ENCOUNTER 2020-06-05 11:47 | Outpatient (CLI) | payer MEDICARE, MEDICAID, SELFPAY ==
--- NOTE | 2020-06-05 11:55 | USCV_ITS ---
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 Dr Kulwinder Vo MD [facility] (Electronically Signed) Final Date: 05 June 2020 19:59 S
== END 2020-06-05 11:48 | disposition home or self-care (01) ==
LOC: RAD 11:49
PROVIDERS: PCP Internal Medicine; Visit Provider Internal Medicine
DX: I73.00 Raynaud's syndrome without gangrene (principal)
CPT/HCPCS: 93922

== ENCOUNTER 2020-06-11 09:39 | Outpatient (CLI) | payer MEDICARE, MEDICAID, SELFPAY ==
--- NOTE | 2020-06-11 09:44 | XR_ITS ---
WS: [id number] Right hand, 3 views, 06/11/2020 Clinical Data: FALL/RIGHT THUMB PAIN Comparison: Right hand, 10/29/2014. Findings: No new fractures or dislocations are seen. The soft tissues are unremarkable. The joint s paces are normal There is an old fracture of the distal right fifth metacarpal. The right thumb is normal. XR/XR hand RT min 3V* [id number] Impression: Negative right hand.
--- NOTE | 2020-06-11 09:44 | XR_ITS ---
WS: [id number] Right elbow, 3 views, 06/11/2020 Clinical Data: UNSPECIFIED FALL/RIGHT JOINT ELBOW PAIN Comparison: None. Findings: No fractures or dislocations are seen. The radial head is normal. The soft tissues are unremarkable. XR/XR elbow RT min 3V* [id number] Impression: Negative right elbow.
== END 2020-06-11 09:40 | disposition home or self-care (01) ==
LOC: RAD 09:43
PROVIDERS: PCP Internal Medicine; Visit Provider Nurse Practitioner Family
DX: M25.521 Pain in right elbow (principal); M79.644 Pain in right finger(s); W19.XXXA Unspecified fall, initial encounter
CPT/HCPCS: 73080; 73130

== ENCOUNTER 2020-06-26 07:47 | Outpatient (CLI) | payer MEDICARE, MEDICAID, SELFPAY ==
--- NOTE | 2020-06-26 08:06 | CT_ITS ---
WS: [id number] CT scan of the lower extremity arteries. Additional two-dimensional coronal and sagittal reconstructi on was performed. MIP images were also performed. 06/26/2020 Clinical Data: PERIPHERAL ARTERY DISEASE Comparison: CTA of the abdominal aorta with lower extremity runoff, 09/18/2015. DLP: 1121.[address] scans at [facility] use at least one of these dose optimization techniques: automat ed exposure control; mA and/or kV adjustment per patient size (includes targeted exams where dose is matched to clinical indication); or iterative reconstruction. Findings: Vascular: Abdominal aorta is normal in size. The bifurcation of the common iliac vessels is normal. Bilaterally the common femoral, deep femoral popliteal and arteries of the trifurcation show no stenoses or occl usions. There has been no change from the previous study. Soft tissues of the lower abdomen and pelvis: The gallbladder and lower portion of the liver are unremarkable. The portions of the small bowel and colon which are visualized demonstrate only fecal material in the colon. The bladder is unremarkable. The bones of the lumbar spine, pelvis and lower extremities show no abnormalities. There is a fusion of the left great toe. There is a metal foreign body adjacent to the distal portion of the right fir st metatarsal. The soft tissues are normal. [place] [id number] Impression: Negative for stenosis or occlusion of the abdominal aorta, pelvic arteries and arteries of the lower extremities.
[2020-06-26] MEDS: iohexol 350 mg/mL 100 mL Btl IV (08:39)
== END 2020-06-26 07:48 | disposition home or self-care (01) ==
LOC: RADWPI 07:48
PROVIDERS: PCP Internal Medicine; Visit Provider Internal Medicine
DX: I73.9 Peripheral vascular disease, unspecified (principal)
CPT/HCPCS: 73706; Q9967

== ENCOUNTER 2020-07-30 12:28 | Outpatient (CLI) | payer MEDICARE, MEDICAID, SELFPAY ==
[2020-07-30 13:19] LABS: Basophils # 0.1 10^3/uL (0.0-0.1); Basophils % 1.3 %; Eosinophils # 0.1 10^3/uL (0.0-0.8); Eosinophils % 1.1 %; Hematocrit 36.7 % (37.0-47.0); Hemoglobin 11.9 g/dL (11.5-15.3); Lymphocytes % 22.4 %; Mean Corpuscular HGB Conc 32.4 g/dL (30.0-36.0); Mean Corpuscular Hemoglobin 30.5 pg (28.0-34.0); Mean Corpuscular Volume 94.1 fL (81-99); Mean Platelet Volume 10.4 fL (7.4-10.4); Monocytes # 0.7 10^3/uL (0.2-0.9); Monocytes % 14.3 %; Neutrophils # 2.76 10^3/uL (1.8-7.7); Neutrophils % 60.7 %; Nucleated Red Blood Cells % 0 %; Platelet Count 249 10^3/cmm (130-400); Red Cell Distribution Width 12.4 % (12.1-15.1); White Blood Count 4.6 10^3/uL (4.0-10.0)
--- NOTE | 2020-07-30 16:20 | ONC FU_ITS ---
Dr. Marcus follow up note Patient: Mely Wang Unit #: [id number]: 1960 Dicatated By: Nathaly Marcus M.D.Date of Visit:Jul 30, 2020 Onc Med Follow-up/Prog Note History of Present Illness: Ms. Mely Wang, is a 59-year-old female with history of COPD, on home oxygen, neuropathy, migraine, chronic smoking, was found to have isolated leukopenia/neutropenia during her routine labs checked on January 02, 2020 had repeat labs on January 15, 2020 showed further drop in her white blood count to 2.8 with a neutrophil 1.2 and normal hemoglobin and platelet count, patient was referred to hematology clinic for evaluation. Patient denies any history of recurrent infection or recent acute infection, denies any flulike symptoms recently. Denies any night sweats, denies any abdominal fullness, denies any peripheral lymphadenopathy, denies any weight loss, denies any sore throat, denies any signs symptom suggestive of urine tract infection. Patient denies alcohol use. Denies any recent traveling. Denies any tick bite. Denies any change in medication recently but in addition to her prescribed medication she is also taking lots of supplements and wesj-gae-jlyuvgi health supplements including biotin, hair skin nails capsules, multivitamin, and prescribed medication including Lyrica, methocarbamol, Daliresp, amitriptyline, and Percocet Came for follow-up, denies any specific complaints, no fever chills, no nausea or vomiting, no diarrhea or constipation, no recurrent infections, no abdominal fullness, no peripheral lymphadenopathy, no night sweats Medications: Amitriptyline HCl 1 Tablet (of 25 mg) Oral at bedtime, B Complex 1 CA 125 Units/mL Capsule Oral daily, Biotin 1 Capsule (of 5000 mcg) Oral daily, Jgxdslvanx-TRVI-Agavyqkh 1 Tablet (of 50-325-40 mg) Oral q 6 hours PRN, Cetirizine HCl (10 mg) Capsule Oral daily, Daliresp 1 Tablet (of 500 mcg) Oral daily, DULoxetine HCl (30 mg) Capsule Delayed Release Particles Oral daily, Gabapentin 2 Caplet (of 100 mg) Capsule Oral t.i.d., Hair Skin Nails 1 Capsule Oral daily, HYDROcodone-Acetaminophen 1 - 2 Tablet (of 5-325 mg) Oral q 4 hours PRN, Methocarbamol 0.5 - 1 Tablet (of 500 mg) Oral t.i.d. PRN, Multivitamin 1 Tablet Oral daily, Pregabalin 1 Capsule (of 150 mg) Oral t.i.d., rOPINIRole HCl 1 Tablet (of 2 mg) Oral t.i.d., Trilogy Aerosol, powder Inhalation Take as Directed, valACYclovir HCl 1 Tablet (of 1 g) Oral b.i.d. PRN, Vitamin C 1 Capsule (of 500 mg) Oral daily, Vitamin D3 1 Capsule Oral daily, Vitamin E 1 Capsule Oral daily Allergies: Albuterol Sulfate and Aspirin. Review of Systems: Review of Systems is not available for this patient. Vital Signs: Performed on Jul 30, 2020 14:12 Height - 67.50 in Weight - 123 lbs (HIGH) BSA - 1.65 sq.m BMI - 18.98 Temperature - 95.7 F (LOW) Pulse - 71 /min Respiration - 18 /min BP - 121/74 mm(hg) O2 Sat - 99 % Pain - 6 Fatigue - 5 Performance Status: 0 - Fully active, able to carry on all predisease activities without restrictions. (ECOG) Physical Examination: ENMT - No mouth sores, no thrush, no jaundice, Respiratory - Poor air entry otherwise clear, Cardiovascular - Regular rate and rhythm of heart, Abdomen - Soft, bowel sounds present, Extremities - No visible edema. Lab/Imaging: Test performed on Apr 28, 2020 11:28 Sodium 138 mmol/L Potassium 4.1 mmol/L Chloride 103 mmol/L CO2 28 mmol/L Anion Gap 11.1 BUN 12 mg/dL Creatinine 0.6 mg/dL Cr Clearance (Est) 83.71 mL/min eGFR 103.0 mL/min Glucose 104 mg/dL Osmolality - Calculated 286 mOsm/kg Calcium 9.9 mg/dL Protein, Total 6.8 g/dL Albumin 4.3 g/dL Globulin 2.5 g/dL Bilirubin, Total 0.4 mg/dL ALT (SGPT) 19 U/L AST (SGOT) 27 U/L Alkaline Phosphatase 67 IU/L WBC 4.6 10 3/uL RBC 3.93 10 6/uL HGB 12.2 g/dL HCT 38.0 % MCV 96.7 fL MCH 31.0 pg MCHC 32.1 g/dL RDW 13.2 % Platelet Count 246 10 3/cmm MPV 10.6 fL Neutrophils 3.00 10 3/uL Lymphocytes 0.9 10 3/uL Monocytes 0.5 10 3/uL Eosinophils 0.0 10 3/uL Basophils 0.1 10 3/uL Neutrophil % 66.0 % Lymphocyte % 20.4 % Monocyte % 11.4 % Eosinophil % 0.9 % Basophils % 1.1 % NRBC % 0 % Test performed on Feb 06, 2020 10:10 Copper 106 mcg/dL Test performed on Feb 05, 2020 10:45 TSH 0.35 uIU/mL Vitamin B12 1629 pg/mL Impression: Isolated leukopenia/neutropenia initially seen on January 02, 2020 at that time her CBC shows white blood count 3.2 hemoglobin 12.7 hematocrit 38.3 platelets 247,000 with a normal differential and repeat CBC on January 15, 2020 showed white blood count 2.8 with a neutrophil 1.2, normal hemoglobin and platelets. Etiology unclear could be medications or subacute infections or nutritional like B12 deficiency, or endocrine like hypothyroidism or underlying myelodysplasia. Serum copper 106 normal being 70-1 75, B12 1629, TSH 0.35, abdominal sonogram done on February 18, 2020 showed spleen size normal COPD, on home oxygen Neuropathy Plan: Discussed with patient regarding her labs white blood count 4.6 hemoglobin 11.9 hematocrit 36.7 platelets 249,000 Clinically, patient doing well with no new signs symptoms or follow-up CBC shows in normal range including white blood cell and neutrophils. No further work-up at this point, patient will follow with her PMD on regular basis and will see her on as-needed basis Signed By: Nathaly Marcus M.D. <<Signature on File>>
== END 2020-07-30 12:29 | disposition home or self-care (01) ==
LOC: ONCMED 12:31
PROVIDERS: PCP Internal Medicine; Visit Provider Internal Medicine Hematology & Oncology
DX: D70.9 Neutropenia, unspecified (principal); D51.9 Vitamin B12 deficiency anemia, unspecified; E03.9 Hypothyroidism, unspecified; J44.9 Chronic obstructive pulmonary disease, unspecified; Z99.81 Dependence on supplemental oxygen; G62.9 Polyneuropathy, unspecified; Z79.899 Other long term (current) drug therapy
CPT/HCPCS: 36415; 85025; G0463

== ENCOUNTER 2020-08-05 14:02 | Outpatient (CLI) | payer MEDICARE, MEDICAID, SELFPAY | END 2020-08-05 14:03 | LOC: SPT 14:03 | PROVIDERS: PCP Internal Medicine; Visit Provider Orthopaedic Surgery | DX: Z46.89 Encounter for fitting and adjustment of other specified devices (principal); S53.31XD Traumatic rupture of right ulnar collateral ligament, subsequent encounter; X58.XXXD Exposure to other specified factors, subsequent encounter | CPT/HCPCS: 97760; L3923 ==

== ENCOUNTER 2020-09-16 15:24 | Outpatient (CLI) | payer BC, MEDICAID, SELFPAY ==
--- NOTE | 2020-09-16 15:41 | XR_ITS ---
WS: [id number] PROCEDURE: XR chest 2V* [id number] CLINICAL INFORMATION: UPPER RESPIRATORY INFECTION, ACUTE COMPARISON: Comparison May 02, 2019 FINDINGS: Heart: Normal cardiac silhouette. Lungs: Hyperinflation. Advanced chronic emphysematous changes. Tiny amount of infiltrate in the left lower lobe posteriorly. Biapical fibrosis. Bones: Mild thoracic kyphosis. Osteopenia. a XR/XR chest 2V* [id number] IMPRESSION: 1. Hyperinflation with moderate chronic emphysematous changes. 2. Tiny amount of infiltrate in the left lower lobe posteriorly. Recommend cor relation for pneumonitis. 3. No other significant changes from previous.
== END 2020-09-16 15:25 | disposition home or self-care (01) ==
PROVIDERS: PCP Internal Medicine; Visit Provider Internal Medicine
DX: J06.9 Acute upper respiratory infection, unspecified (principal)
CPT/HCPCS: 71046

== ENCOUNTER 2020-12-30 09:44 | Outpatient (CLI) | payer MEDICARE, MEDICAID, SELFPAY ==
--- NOTE | 2020-12-30 09:50 | CT_ITS ---
WS: [id number] LDCT LUNG CANCER SCREENING TECHNIQUE: Noncontrast CT of the chest with coronal and sagittal reformatted images. CLINICAL INFORMATION: History of Nicotine Dependence COMPARISON: None. DLP: 58.15 mGy.cm DIvol: 1.[address] scans at [facility] use at least one of these dose optimization techniques: automat ed exposure control; mA and/or kV adjustment per patient size (includes targeted exams where dose is matched to clinical indication); or iterative reconstruction. FINDINGS: Advanced chronic emphysematous changes. Bulla formation in the upper lobes. Micronodular and hazy yara undglass infiltrates within the right middle lobe and right lower lobe. This is likely infectious or inflammatory. Noncalcified nodule right middle lobe measuring 4 mm and right lower lobe measuring 4 mm. 5 mm subple ural nodule right lower lobe laterally along the fissure. Normal thyroid gland. No mediastinal or hilar lymphadenopathy. Aortic calcification. Chronic anterior wedging T12. CT/CT lung screening [id number] IMPRESSION: Small amount of Micronodular hazy infiltrates in right middle lobe and right lower lobe likely infectious or inflammatory. LUNG-RADS: 2S-Benign Appearance or Behavior with Significant Findings FOLLOW UP: 12 Month: Continue annual screening with LDCT
== END 2020-12-30 09:45 | disposition home or self-care (01) ==
LOC: CT 09:47
PROVIDERS: PCP Internal Medicine; Visit Provider Internal Medicine Critical Care Medicine
DX: Z12.2 Encounter for screening for malignant neoplasm of respiratory organs (principal); Z87.891 Personal history of nicotine dependence; R91.8 Other nonspecific abnormal finding of lung field
CPT/HCPCS: 71271

== ENCOUNTER 2021-04-22 12:18 | Emergency (ER) | payer MEDICARE, MEDICAID, SELFPAY ==
[2021-04-22 12:42] VITALS: BP 96/60; PULSE 83; RESP 24; TEMP 36.7; O2SAT 90; BMI 18.8
--- NOTE | 2021-04-22 13:06 | XRR_ITS ---
PROCEDURE INFORMATION: Exam: XR Chest Exam date and time: 04/22/2021 1:06 PM Age: 60 years old Clinical indication: Cough and shortness of breath; Additional info: Chest pain dyspnea TECHNIQUE: Imaging protocol: XR of the chest. Views: 1 view. COMPARISON: CR XR chest 2V* [id number] 09/16/2020 3:48 PM FINDINGS: Lungs: There are bibasilar interstitial pulmonary infiltrates. These are more prominent than on previous radiographs could be due to an interstitial pneumonia. Pleural spaces: Unremarkable. No pleural effusion. No pneumothorax. Heart/Mediastinum: Unremarkable. No cardiomegaly. Bones/joints: Unremarkable. XR/XR chest 1V portable [id number] IMPRESSION: There are bibasilar interstitial pulmonary infiltrates. This could be due to an interstitial viral pneumonia.
--- NOTE | 2021-04-22 13:07 | ECG_ITS ---
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 Measurements Intervals [place] Rate: 78 P: 86 ME: 153 QRS: 73 QRSD: 105 T: 89 QT: 375 QTc: 428 Interpretive Statements SINUS RHYTHM INCOMPLETE RIGHT BUNDLE BRANCH BLOCK [90+ ms QRS DURATION, TERMINAL R IN V1/V2, 40+ ms S IN I/aVL/V4/V5/V6] MODERATE T-WAVE ABNORMALITY, CONSIDER ANTEROLATERAL ISCHEMIA [-0.1+ mV T-WAVE IN V3-V6] Compared to ECG 04/22/2021 12:55:30 T-wave abnormality now present Possible ischemia now present Myocardial infarct finding no longer present ST (T wave) deviation no longer present Electronically Signed On 04-22-2021 19:58:04 HEATER WORKER by Kulwinder Vo M.D. [id number]
[2021-04-22 13:26] LABS: Basophils # 0.1 10^3/uL (0.0-0.1); Basophils % 0.4 %; Hematocrit 39.7 % (37.0-47.0); Hemoglobin 12.9 g/dL (11.5-15.3); Lymphocytes # 0.4 10^3/uL (0.8-4.8); Lymphocytes % 2.1 %; Mean Corpuscular HGB Conc 32.5 g/dL (30.0-36.0); Mean Corpuscular Hemoglobin 29.1 pg (28.0-34.0); Mean Corpuscular Volume 89.6 fl (81-99); Mean Platelet Volume 10.5 fL (7.4-10.4); Monocytes # 1.1 10^3/uL (0.2-0.9); Monocytes % 5.7 %; Neutrophils # 18.08 10^3/uL (1.8-7.7); Neutrophils % 91.4 %; Nucleated Red Blood Cells % 0 %; Platelet Count 307 10^3/cmm (130-400); Red Blood Count 4.43 10^6/uL (4.1-5.3); Red Cell Distribution Width 13.7 % (12.1-15.1); White Blood Count 19.8 10^3/uL (4.0-10.0)
--- NOTE | 2021-04-22 13:33 | W.ED.GENADLT ---
HPI - General Adult General: Chief complaint: Shortness of Breath/Dyspnea Stated complaint: Trouble Breathing/Congestion/Fatigue Time Seen by Provider: 04/22/21 12:57 History of Present Illness: HPI narrative: Patient is a 60-year-old female with history of COPD on 2 L home oxygen presenting to the emergency room with increased dyspnea and chest pressure since this morning. Patient tells me that when she woke up this morning, she had significant chest pressure sensation lasting for few minutes at a time. Since then, patient also feels short of breath. Over the last 3 days, patient has had increased work of breathing and inability to tolerate activity without feeling fatigued. Patient also reports exertional shortness of breath. She has no cardiac history, no family history of cardiac diseases, denies smoking, or any recent drug use. Denies any nausea/vomiting, fever/chills, cough, runny nose, sore throat, abdominal pain, diarrhea, melena/hematochezia, or urinary complaints. Onset: 6 hrs ago chest pain and dyspnea, 2 days of exertional dyspnea Duration:6 hrs Location:home Severity:moderate Associated symptoms: Reports chest pain, dyspnea and palpitations; Deny nausea, rash or vomiting Review of Systems Const: Denies: fever(s) or chills Eyes: Denies: change in vision ENMT: Denies: mouth pain Card: Reports: chest pain and palpitations Resp: Reports: dyspnea; Denies: non-productive cough GI: Denies: abdominal pain, nausea, vomiting or diarrhea : Denies: dysuria Musc: Denies: extremity pain Skin/Breast: Denies: rash or new lesions Neuro: Denies: weakness in extremities Psych: Reports: other (Normal mood) Familia/Lymph: Denies: easy bruising [facility] ED PFSH: Medical History (Updated 04/22/21 @ 15:25 by Malou Preston MD) Chronic obstructive pulmonary disease Social History Smoking and tobacco status: former smoker Quit status (tobacco): has quit using tobacco Year quit tobacco: 2019 1PPD x 42 Years Second hand smoke exposure: Yes Smoking risk assessment/counseling performed?: No Alcohol intake: never Desire information about alcohol rehabilitation?: No Counseling given: No Desire information about substance/drug rehabilitation?: No Counseling given: No Lives independently: Yes Household members: none Marital status: Legally Current occupational status: disabled History of recent travel: No Current gender identity: Female Physical Exam Const: COMMON NORMALS: alert HENMT: COMMON NORMALS: atraumatic HEAD & SCALP: atraumatic MOUTH: moist mucous membranes not abnormal Eye: COMMON NORMALS: EOMs intact bilaterally and conjunctivae normal CONJUNCTIVA: Yes conjunctivae normal Neck/C-Spine: COMMON NORMALS: full ROM and supple Resp: COMMON NORMALS: normal respiratory effort and clear to auscultation bilaterally AUSCULTATION: clear to auscultation bilaterally Cardio: COMMON NORMALS: regular rate RATE: regular rate GI: COMMON NORMALS: Soft to palpation and non-tender PALPATION: Yes Soft to palpation Extremity: COMMON NORMALS: full ROM Neuro: SENSORIUM/ORIENTATION: Yes alert MOTOR EXAM: No Abnormal motor strength present and Other motor observations present (no focal motor deficits) Psych: COMMON NORMALS: speech normal SPEECH: Yes normal speech MOOD & AFFECT: Yes euthymic mood Course Vital Signs: Vital signs: Vital Signs Temperature 98.0 F 04/22/21 12:42 Pulse Rate 69 04/22/21 16:16 Respiratory Rate 18 04/22/21 16:16 Blood Pressure 98/59 04/22/21 16:16 Pulse Oximetry 99 04/22/21 16:16 MDM - General Adult MDM Narrative: Medical decision making narrative: Patient is a 60-year-old female with history of COPD on 2 L oxygen presenting to the emergency room for evaluation of dyspnea and chest pain since this morning. Exam: Patient is noted to be on 3 L satting at 94%. Patient has no coarse breath sounds or wheezing. X-ray chest showed interstitial pattern consistent with possible pneumonia. White count of 18-19.8. COVID antigen negative. COVID PCR pending. Patient was observed in the emergency room no respiratory distress. Patient is on 2.5 L of oxygen with sats greater than 94%. WBC of 19K and XR consistent with PNA (w/ covid antigen negative) AND mild increased shortness of breath and oxygen requirement, I have offered admission versus discharge. Patient elects to go home at this time for outpatient antibiotic treatment. I have given patient strict return precaution for any worsening dyspnea, chest pain, cough, fever, any new or concerning issues, worsening hypoxemia or inability to tolerate medicine. EKG showing regular sinus rhythm at HT of [78]. Normal axis. No ST elevations/depressions to suggest coronary occlusion.T wave inversions in V3-V6, no prior EKG for comparison Normal MA, QRS, QT intervals. Given T wave inversion in V3-V6 w/ no prior EKG, I have given patient follow up with our patient case coordinator to be seen by Cardiologists for cardiac evaluation. Patient aware of a call from our patient case coordinator to schedule for appointment(s) and verbalizes understanding of the importance of following up. I do not think patient's symptoms Doubt ACS/PE or other emergent causes of chest pain currently patient has had 2 negative troponins, patient is not currently actively having chest pain. Patient has a white count of 19.8 with finding on chest x-ray consistent with pneumonia. No suspicion for aortic dissection given no widened mediastinum, 2+ upper extremity pulses, or tearing pain. No suspicion for PE given no pleuritic chest pain, recent immobilization or surgery hemoptysis, or other VTE risk factors. EKG is non-ischemic. XR normal. Rx: doxycycline and augmentin for outpatient treatment of PNA w/ comorbidities I have given patient follow up with our patient case coordinator to be seen by our PCP Dr. Narcisa Tejeda for reevaluation in 48-72 for pneumonia. Patient aware of a call from our patient case coordinator to schedule for appointment(s) and verbalizes understanding of the importance of following up. Disposition: Discharge. Patient counseled regarding diagnostic impression, treatment plan. Patient given ED strict return precautions to return for continuation, worsening, or development of new symptoms. Instructed to f/u w/ PCP and Cardiology regarding symptoms today. Patient verbalized understanding. Lab Data: Labs: Lab Results 04/22/21 04/22/21 04/22/21 13:13 13:13 13:13 WBC 19.8 10^3/uL H 10 ^3/uL (4.0-10.0) RBC 4.43 10^6/uL 10^6 /uL (4.1-5.3) Hgb 12.9 g/dL g/dL (11.5-15.3) Hct 39.7 % % (37.0-47.0) MCV 89.6 fl fl (81-99) MCH 29.1 pg pg (28.0-34.0) MCHC 32.5 g/dL g/dL (30.0-36.0) RDW 13.7 % % (12.1-15.1) Plt Count 307 10^3/cmm 10^3 /cmm (130-400) MPV 10.5 fL H fL (7.4-10.4) Neut % (Auto) 91.4 % % Lymph % (Auto) 2.1 % % [place] % (Auto) 5.7 % % Eos % (Auto) 0.0 % % Baso % (Auto) 0.4 % % Neut # (Auto) 18.08 10^3/uL H 1 0^3/uL (1.8-7.7) Lymph # (Auto) 0.4 10^3/uL L 10^ 3/uL (0.8-4.8) [place] # (Auto) 1.1 10^3/uL H 10^ 3/uL (0.2-0.9) Eos # (Auto) 0.0 10^3/uL 10^3/ uL (0.0-0.8) Baso # (Auto) 0.1 10^3/uL 10^3/ uL (0.0-0.1) Nucleated RBC % (a uto) 0 % % Nucleated RBCs # 0.0 /100WBC /100W BC Sodium 136 mmol/L mmol/L (136-145) Potassium 4.2 mmol/L mmol/L (3.5-5.1) Chloride 101 mmol/L mmol/L (98-107) Carbon Dioxide 21 mmol/L L mmol/ L (22-29) Anion Gap 18.2 (5-19) BUN 17 mg/dL mg/dL (6-20) Creatinine 0.4 mg/dL L mg/dL (0.5-0.9) GFR Calculation 163.9 mL/min H mL /min (90-130) Glucose 113 mg/dL mg/dL (65-115) Calculated Osmolal ity 284 mOsm/kg L mOs m/kg (285-295) Calcium 9.4 mg/dL mg/dL (8.5-10.5) Total Bilirubin 0.4 mg/dL mg/dL (0.15-1.2) AST 26 U/L U/L (0-32) ALT 13 U/L U/L (0-33) Alkaline Phosphata se 114 IU/L H IU/L (35-105) Troponin T Baselin e 6 ng/L ng/L (0-10) Troponin T 120 Min marshall Delta Troponin T NT-Pro-B Natriuret Pep 132 pg/mL H pg/mL (0-125) Total Protein 6.6 g/dL g/dL (6.6-8.7) Albumin 4.1 g/dL g/dL (3.5-5.2) Globulin 2.5 g/dL g/dL (1.3-4.6) Lipase 16 U/L U/L (13-60) Coronavirus 229E ( PCR) Human Metapneumovi r PCR Entero/Rhino (PCR) SARS-CoV-2 (PCR) SARS-CoV-2 Ag (Rap id) 04/22/21 04/22/21 04/22/21 14:03 14:28 14:53 WBC RBC Hgb Hct MCV MCH MCHC RDW Plt Count MPV Neut % (Auto) Lymph % (Auto) [place] % (Auto) Eos % (Auto) Baso % (Auto) Neut # (Auto) Lymph # (Auto) [place] # (Auto) Eos # (Auto) Baso # (Auto) Nucleated RBC % (a uto) Nucleated RBCs # Sodium Potassium Chloride Carbon Dioxide Anion Gap BUN Creatinine GFR Calculation Glucose Calculated Osmolal ity Calcium Total Bilirubin AST ALT Alkaline Phosphata se Troponin T Baselin e Troponin T 120 Min marshall 6.00 ng/L ng/L (0-10) Delta Troponin T 0 ABS# ABS# (0-10) NT-Pro-B Natriuret Pep Total Protein Albumin Globulin Lipase Coronavirus 229E ( PCR) Not detected (NOT DETECT) Human Metapneumovi r PCR Entero/Rhino (PCR) SARS-CoV-2 (PCR) Not detected (NOT DETECT) SARS-CoV-2 Ag (Rap id) Negative (Negative) 04/22/21 16:10 WBC RBC Hgb Hct MCV MCH MCHC RDW Plt Count MPV Neut % (Auto) Lymph % (Auto) [place] % (Auto) Eos % (Auto) Baso % (Auto) Neut # (Auto) Lymph # (Auto) [place] # (Auto) Eos # (Auto) Baso # (Auto) Nucleated RBC % (a uto) Nucleated RBCs # Sodium Potassium Chloride Carbon Dioxide Anion Gap BUN Creatinine GFR Calculation Glucose Calculated Osmolal ity Calcium Total Bilirubin AST ALT Alkaline Phosphata se Troponin T Baselin e Troponin T 120 Min marshall Delta Troponin T NT-Pro-B Natriuret Pep Total Protein Albumin Globulin Lipase Coronavirus 229E ( PCR) Human Metapneumovi r PCR Not detected (NOT DETECT) Entero/Rhino (PCR) Detected A (NOT DETECT) SARS-CoV-2 (PCR) SARS-CoV-2 Ag (Rap id) Imaging Data^: Other Imaging: Radiologist's impression: [employer] [id number] ReportSigned Patient: eMly Wang #: [id number]: 1960Acct#:[id number]/Sex: 60 / FADM Date: 04/22/21Loc: ERRoom/Bed:Attending Dr: Ordering Provider/Ordering MD: Malou Preston MD Date of Service: 04/22/21 Procedure(s): XR chest 1V portable [id number] Accession Number(s): [id number] Report Number: [id number] PROCEDURE INFORMATION: Exam: XR Chest Exam date and time: 04/22/2021 1:06 PM Age: 60 years old Clinical indication: Cough and shortness of breath; Additional info: Chest pain dyspnea TECHNIQUE: Imaging protocol: XR of the chest. Views: 1 view. COMPARISON: CR XR chest 2V* [id number] 09/16/2020 3:48 PM FINDINGS: Lungs: There are bibasilar interstitial pulmonary infiltrates. These are more prominent than on previous radiographs could be due to an interstitial pneumonia. Pleural spaces: Unremarkable. No pleural effusion. No pneumothorax. Heart/Mediastinum: Unremarkable. No cardiomegaly. Bones/joints: Unremarkable. XR/XR chest 1V portable [id number] IMPRESSION: There are bibasilar interstitial pulmonary infiltrates. This could be due to an interstitial viral pneumonia. Dictated By:Rosalie Sands By:Rosalie Sands Date/Time:04/22/21 1336DD/ 1306 Discharge Plan Discharge Patient Disposition: Home Clinical Impression: Pneumonia, Dyspnea, Chest pain Condition: Stable Prescriptions: New acetaminophen 500 mg tablet 500 mg PO Q6H PRN (Reason: pain) 5 Days Qty: 20 RF: 0 doxycycline hyclate 100 mg capsule 100 mg PO BID 7 Days Qty: 14 RF: 0 Augmentin 875-125 mg tablet 1 tab PO Q12H 7 Days Qty: 14 RF: 0 No Action fluticasone propionate [Flonase Allergy Relief] 50 mcg/actuation spray,suspension 2 spray intranasal DAILY PRNRF: 0 amitriptyline 100 mg tablet 25 mg PO ONCE RF: 0 pregabalin [Lyrica] 150 mg capsule 150 mg PO TID Qty: 90 RF: 5 Aimovig Autoinjector 70 mg/mL auto-injector 70 mg SUBCUT .Monthly RF: 0 duloxetine 60 mg capsule,delayed release(DR/EC) 60 mg PO DAILY RF: 0 cetirizine [Zyrtec] 10 mg tablet 10 mg PO DAILY RF: 0 biotin 1 mg tablet 1 mg PO ONCE RF: 0 Botox 100 unit recon soln 155 unit SUBCUT ONCE RF: 0 Daliresp 500 mcg tablet 500 mcg PO ONCE RF: 0 multivitamin with minerals [Hair,Skin and Nails] Tablet 1 tab PO ONCE RF: 0 methocarbamol 500 mg tablet 500 mg PO TID RF: 0 Multiple Vitamin, Womens Tablet PO RF: 0 vitamin B complex [B Complex-Vitamin B12] Tablet 1 tab PO ONCE RF: 0 cholecalciferol (vitamin D3) 50,000 unit capsule 50,000 unit PO ONCE RF: 0 valacyclovir 1 gram tablet 1,000 mg PO BID RF: 0 hydrocodone-acetaminophen [Cornelius] 7.5-325 mg tablet 1 tab PO Q6H PRNRF: 0 magnesium oxide 250 mg magnesium tablet 250 mg PO DAILY RF: 0 albuterol sulfate [ProAir HFA] 90 mcg/actuation HFA aerosol inhaler 2 puff INHALATION Q6H PRNRF: 0 (DME) hand based thumb spica fast form See Rx Instructions .Route .MEDSUPPLY Qty: 1 RF: 0 ropinirole 2 mg tablet 2 mg PO TID Qty: 90 RF: 0 Trelegy Ellipta 100-62.5-25 mcg blister with device See Rx Instructions .ROUTE .COMPLEX Qty: 60 RF: 4 Discharge Orders: Discharge ED (Routine); Ordered 04/22/21 Ordered By: Malou Ansari: Narcisa Tejeda MD [Primary Care Provider] - Discharge Diet: Advance as tolerated Discharge Activity: Resume usual activity Patient Instructions: Pneumonia (ED) Activity Restrictions/Additional Instructions: Come back to the emergency room if your symptoms worsen, have any shortness of breath, fever/chills, dehydration, inability tolerate p.o., any difficulty breathing, or any new or concerning complaints. Our patient case coordinator will have you follow-up with a [employer] in the next few days for evaluation of your EKG. You would be expected to have a phone call with our patient case coordinator who will put you on the schedule. Coding Level of Care Code ED Chuck Wagon Cook for Chg Fwd Exam Comprehensive
[2021-04-22 13:46] VITALS: PULSE 77; RESP 16; O2SAT 93
[2021-04-22] MEDS: ipratropium-albuterol 3 mL Neb INHALATION ×3 (13:46→13:59)
[2021-04-22 13:50] LABS: Troponin(5th) Baseline 6 ng/L (0-10)
[2021-04-22 13:59] LABS: Alanine Aminotransferase 13 U/L (0-33); Albumin Level 4.1 g/dL (3.5-5.2); Alkaline Phosphatase 114 IU/L (35-105); Anion Gap 18.2 (5-19); Aspartate Amino Transferase 26 U/L (0-32); Blood Urea Nitrogen 17 mg/dL (6-20); Calcium 9.4 mg/dL (8.5-10.5); Carbon Dioxide 21 mmol/L (22-29); Chloride 101 mmol/L (98-107); Globulin 2.5 g/dL (1.3-4.6); Glomerular Filtration Rate 163.9 mL/min (90-130); Glucose 113 mg/dL (65-115); Lipase 16 U/L (13-60); NT Pro B Type Natriuretic Pept 132 pg/mL (0-125); Osmolality Calculated 284 mOsm/kg (285-295); Potassium 4.2 mmol/L (3.5-5.1); Sodium 136 mmol/L (136-145); Total Bilirubin 0.4 mg/dL (0.15-1.2); Total Protein 6.6 g/dL (6.6-8.7)
[2021-04-22] MEDS: cefTRIAXone 1,000 MG in sodium chloride 0.9% (plus) 50 ML 100 MG IV (14:03)
[2021-04-22 14:05] VITALS: PULSE 78; RESP 16; O2SAT 93
[2021-04-22 15:06] LABS: SARS Covid-2 Antigen Negative (Negative)
[2021-04-22 15:33] LABS: Troponin 5 2HR Delta 0 ABS# (0-10)
[2021-04-22 16:02] LABS: Adenovirus Not Detected (NOT DETECT); Chlamydia Pneumoniae Not Detected (NOT DETECT); Coronavirus 229E,HKU1,NL63,OC4 Not Detected (NOT DETECT); Human Metapneumovirus Not Detected (NOT DETECT); Human Rhinovirus/Enterovirus Detected (NOT DETECT); Influenza A Not Detected (NOT DETECT); Influenza A H1 Not Detected (NOT DETECT); Influenza A H1-2009 Not Detected (NOT DETECT); Influenza A H3 Not Detected (NOT DETECT); Influenza B Not Detected (NOT DETECT); Mycoplasma Pneumoniae Not Detected (NOT DETECT); Parainfluenza Virus Type 1 Not Detected (NOT DETECT); Parainfluenza Virus Type 2 Not Detected (NOT DETECT); Parainfluenza Virus Type 3 Not Detected (NOT DETECT); Parainfluenza Virus Type 4 Not Detected (NOT DETECT); Respiratory Syncytial Virus A Not Detected (NOT DETECT); Respiratory Syncytial Virus B Not Detected (NOT DETECT); SARS-COV-2 Not Detected (NOT DETECT)
[2021-04-22 16:11] LABS: Human Metapneumovirus Not Detected (NOT DETECT); Human Rhinovirus/Enterovirus Detected (NOT DETECT); Results from GEN
[2021-04-22 16:16] VITALS: BP 98/59; PULSE 69; RESP 18; O2SAT 99
--- NOTE | 2021-04-22 19:07 | ECG_ITS ---
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 Measurements Intervals Lorman Rate: 85 P: 81 IN: 157 QRS: 84 QRSD: 93 T: 87 QT: 357 QTc: 426 Interpretive Statements SINUS RHYTHM LOW QRS VOLTAGE IN EXTREMITY LEADS [QRS DEFLECTION < 0.5 mV IN LIMB LEADS] INCOMPLETE RIGHT BUNDLE BRANCH BLOCK [90+ ms QRS DURATION, TERMINAL R IN V1/V2, 40+ ms S IN I/aVL/V4/V5/V6] SEPTAL MYOCARDIAL INFARCTION , OF INDETERMINATE AGE [40+ ms Q WAVE IN V1/V2] MARKED ST ELEVATION, CONSIDER INFERIOR INJURY [MARKED ST ELEVATION W/O NORMALLY INFLECTED T-WAVE IN II/aVF] ACUTE FL Compared to ECG 07/30/2016 04:15:12 Low QRS voltage now present Incomplete right bundle-branch block now present Myocardial infarct finding now present ST (T wave) deviation now present T-wave abnormality no longer present Electronically Signed On 04-22-2021 20:11:01 MEDICAL CSR by Kulwinder Vo M.D. [email or web address]
== END 2021-04-22 16:17 | disposition home or self-care (01) ==
PROVIDERS: Emergency Provider Emergency Medicine; PCP Internal Medicine
DX: R06.00 Dyspnea, unspecified (principal); R07.9 Chest pain, unspecified; J18.9 Pneumonia, unspecified organism; J44.0 Chronic obstructive pulmonary disease with (acute) lower respiratory infection; Z99.81 Dependence on supplemental oxygen; Z20.822 Contact with and (suspected) exposure to COVID-19
CPT/HCPCS: 71045; 80053; 83690; 83880; 84484; 85025; 87426; 87635; 87801; 93005; 94640; 96365; 99283; J0696

== ENCOUNTER 2021-05-05 12:23 | Outpatient (CLI) | payer MEDICARE, MEDICAID, SELFPAY ==
--- NOTE | 2021-05-05 12:54 | XR_ITS ---
WS: [email or web address] Chest 2 views, 05/05/2021 Clinical Data: COPD/FOLLOW UP PNEUMONIA Comparison: Portable chest, 04/22/2021. Findings: No nodules, masses or effusions are seen. The heart is normal. The pulmonary vascularity is not increased. No pneumothorax is seen. The bilateral patchy pulmonary opacities have cleared signif icantly. The diaphragms are flattened. There is bullous emphysema and scarring in both upper lobes. XR/XR chest 2V* [id number] Impression: 1. Significant clearing of bibasilar pulmonary opacities and there is only a sm all residual. 2. Chronic pulmonary disease with hyperinflation.
== END 2021-05-05 12:24 | disposition home or self-care (01) ==
PROVIDERS: PCP Internal Medicine; Visit Provider Internal Medicine
DX: J44.9 Chronic obstructive pulmonary disease, unspecified (principal); J18.9 Pneumonia, unspecified organism
CPT/HCPCS: 71046

== ENCOUNTER → 2021-06-17 08:37 | Outpatient (BNVA) | payer MEDICARE, MEDICAID, SELFPAY | PROVIDERS: PCP Internal Medicine; Visit Provider Internal Medicine Rheumatology | DX: I73.00 Raynaud's syndrome without gangrene (principal); M19.90 Unspecified osteoarthritis, unspecified site; R76.8 Other specified abnormal immunological findings in serum; Z79.899 Other long term (current) drug therapy; Z11.59 Encounter for screening for other viral diseases; Z11.1 Encounter for screening for respiratory tuberculosis; J44.9 Chronic obstructive pulmonary disease, unspecified; Z82.61 Family history of arthritis; M62.838 Other muscle spasm | CPT/HCPCS: 71046; 73130; 82040; 82306; 82310; 83735; 84100; 84132; 85025; 85651; 86038; 86140; 86200; 86431; 86480; 86704; 86803; 87340; 87522; 99204 ==

== ENCOUNTER 2021-06-17 10:54 | Outpatient (CLI) | payer MEDICARE, MEDICAID, SELFPAY ==
--- NOTE | 2021-06-17 11:16 | XR_ITS ---
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 Findings: No new fractures or dislocations are seen. The soft tissues are unremarkable. The joint s paces are normal There is an old fracture of the head of the right fifth metacarpal. No periarticular demineralization or calcifications are seen. XR/XR hand RT min 3V* [id number] Impression: Negative right hand.
--- NOTE | 2021-06-17 11:16 | XR_ITS ---
WS: [id number] Chest 2 views, 06/17/2021 Clinical Data: Z79.899 - Other fpc (current) drug therapy Comparison: PA and lateral chest, 05/05/2021. Findings: No nodules, masses or effusions are seen. The heart is normal. The pulmonary vascularity is not increased. No pneumonia or pneumothorax is seen. The diaphragms are flattened. There is bullous emphysema and apical fibrotic changes. XR/XR chest 2V* [id number] Impression: Hyperinflation.
--- NOTE | 2021-06-17 11:16 | XR_ITS ---
WS: [email or web address] Left hand, 3 views, 06/17/2021 Clinical Data: Z79.899 - Other fdc (current) drug therapy Comparison: None. Findings: No fractures or dislocations are seen. The soft tissues are unremarkable. The joint spaces are normal No periarticular demineralization or calcifications are seen. XR/XR hand LT min 3V* [id number] Impression: Negative left hand.
[2021-06-17 11:45] LABS: Basophils # 0.1 10^3/uL (0.0-0.1); Basophils % 1.5 %; Eosinophils # 0.1 10^3/uL (0.0-0.8); Eosinophils % 1.3 %; Hemoglobin 12.5 g/dL (11.5-15.3); Lymphocytes # 0.9 10^3/uL (0.8-4.8); Lymphocytes % 23.1 %; Mean Corpuscular HGB Conc 32.1 g/dL (30.0-36.0); Mean Corpuscular Hemoglobin 29.5 pg (28.0-34.0); Mean Platelet Volume 10.3 fL (7.4-10.4); Monocytes # 0.6 10^3/uL (0.2-0.9); Monocytes % 14.9 %; Neutrophils % 58.9 %; Nucleated Red Blood Cells % 0 %; Platelet Count 285 10^3/cmm (130-400); Red Blood Count 4.24 10^6/uL (4.1-5.3); Red Cell Distribution Width 14.2 % (12.1-15.1); White Blood Count 3.9 10^3/uL (4.0-10.0)
[2021-06-17 11:48] LABS: Erythrocyte Sedimentation Rate 6 mm/hr (0-15)
[2021-06-17 12:44] LABS: Hepatitis B Core AB, Total Equivocal (Nonreactive); Hepatitis B Surface Antigen Non-Reactive (Nonreactive); Hepatitis C Virus Antibody Reactive (Nonreactive)
[2021-06-17 13:40] LABS: Calcium 10.9 mg/dL (8.5-10.5); Magnesium 2.1 mg/dL (1.7-2.3); Phosphorus 3.5 mg/dL (2.5-4.5); Potassium 4.2 mmol/L (3.5-5.1)
[2021-06-17 14:26] LABS: Albumin Level 4.5 g/dL (3.5-5.2)
[2021-06-17 14:42] LABS: 25 Hydroxy Vitamin D 94 ng/mL (30-100)
[2021-06-18 15:32] LABS: Anti-Nuclear Antibody Screen NEGATIVE (NEGATIVE)
[2021-06-18 19:28] LABS: HEP C RNA Viral Load Quant <1.18 NOT DETECTED Log IU/mL (NOT DETECTED); HEP C RNA Viral Load Quant <15 NOT DETECTED IU/mL (NOT DETECTED)
[2021-06-19 13:28] LABS: Quantiferon Mitogen 5.85 IU/mL; Quantiferon Nil 0.01 IU/mL; Quantiferon TB Gold NEGATIVE (NEGATIVE)
== END 2021-06-17 10:55 | disposition home or self-care (01) ==
LOC: RAD 10:57
PROVIDERS: PCP Internal Medicine; Visit Provider Internal Medicine Rheumatology
DX: M19.90 Unspecified osteoarthritis, unspecified site (principal); M62.838 Other muscle spasm; Z79.899 Other long term (current) drug therapy; Z11.59 Encounter for screening for other viral diseases
CPT/HCPCS: 71046; 73130; 82040; 82306; 82310; 83735; 84100; 84132; 85025; 85651; 86038; 86140; 86200; 86431; 86480; 86704; 86803; 87340; 87522

== ENCOUNTER → 2021-06-25 14:03 | Outpatient (BNVA) | payer MEDICARE, MEDICAID, SELFPAY | PROVIDERS: PCP Internal Medicine; Visit Provider Internal Medicine Critical Care Medicine | DX: R94.31 Abnormal electrocardiogram [ECG] [EKG] (principal); J44.9 Chronic obstructive pulmonary disease, unspecified; R07.9 Chest pain, unspecified; G43.711 Chronic migraine without aura, intractable, with status migrainosus; F41.9 Anxiety disorder, unspecified; R76.8 Other specified abnormal immunological findings in serum; I73.00 Raynaud's syndrome without gangrene | CPT/HCPCS: 99204; 99214 ==

== ENCOUNTER 2021-07-09 09:12 | Outpatient (CLI) | payer MEDICARE, MEDICAID, SELFPAY ==
[2021-07-09 09:17] VITALS: BMI 20.5
--- NOTE | 2021-07-09 09:20 | ECG_ITS ---
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 Interpretive Statements NAME OF STUDY: LEXISCAN SESTAMIBI STRESS TEST INDICATION: Chest Pain, Abnormal EKG PROCEDURE: At the baseline, the blood pressure was 121/78 mmHg, oxygen saturation 94% with a heart rate of 61 bpm. The electrocardiogram showed normal sinus rhythm, normal axis. Right bundle branch block. ST depression T wave inversion in V4 and V5. The Lexiscan was infused over a period of 20 seconds. A total of 0.4 milligrams of Lexiscan was infused. The stress phase was continued for a total of 5 minutes. Heart rate at the end of the stress phase was 82 bpm, oxygen saturation 96% with a blood pressure of 105/64 mmHg. The EKG at the peak infusion revealed sinus rhythm at 83 bpm with no significant ST-T wave changes. Sestamibi was injected 20 seconds after the Lexiscan infusion. Blood pressure at the end of the recovery phase was 111/67 mmHg, oxygen saturation 94% with a heart rate of 77 beats per minute. CONCLUSION: 1. No significant EKG changes with the LexiScan infusion. 2. No LexiScan induced chest pain or cardiac arrhythmia. 3. Normal blood pressure and heart rate response. 4. Sestamibi/sestamibi perfusion scan pending; see separate report. Electronically Signed On 07-13-2021 14:17:19 CDT by Roberta Hartman M.D. [id number]
--- NOTE | 2021-07-09 09:20 | NMCV_ITS ---
NM liam perf SPECT r/s* [id number] AugustMely Age: 60 Gender: F : 1960 Exam Date: 07/09/2021 10:37 Ordering Phys: Roberta Hartman MD ([email or web address]) Technologist: LILLY Lea Exam Location: [facility] Indications: ABNORMAL EKG STRESS TEST Please see separate stress test report in [facility] for full findings IMAGE PROTOCOL Rest/Stress 1 Lexiscan Day Radiopharmaceutical Dose (mCi) Administration Site Administered by Rest: Tc-99m 10.6 IV LILLY Lea Sestamibi Stress:Tc-99m 32.6 IV LILLY Lea Sestamibi Rest: 09-Jul-2021 60 Discovery 630 Stress: 09-Jul-2021 30 Discovery 630 0.4mg Lexiscan. Images obtained in supine and prone position. SPECT RESULTS Technical Quality: Excellent Raw Data Analysis: Normal Image Corrections: No attenuation or motion correction applied Summed Stress Score: 0 Summed Rest Score: 1 Summed Difference Score: 0 PERFUSION FINDINGS SPECT images demonstrate homogeneous tracer distribution throughout the myocardium on stress images. FUNCTIONAL RESULTS (calculated via Gated SPECT) Stress Image LV EF (%): 80 Stress EDV (mL):80 TID: 1.1 Stress ESV (mL):16 FUNCTIONAL FINDINGS: The left ventricle is normal in size. Transient Ischemia Dilatation of 1.1. There is normal left ventricular systolic function. The left ventricular ejection fraction is normal with a value of 80%. There is normal left ventricular wall thickening with no regional wall motion abnormality. Normal end-diastolic and end-systolic volumes. IMPRESSIONS 1. Myocardial perfusion imaging is normal. Attenuation artifact in apical wall. 2. Overall left ventricular systolic function is normal without regional wall motion abnormalities. 3. The left ventricular ejection fraction is normal with a value of 80%. 4. EKG portion of the study will be reported separately. 5. No prior similar studies to compare. Roberta Hartman MD (Electronically Signed) Final Date: 13 July 2021 13:43 S
[2021-07-09] MEDS: regadenoson 0.4 Mg/5 ml Syringe IVP (11:26)
[2021-07-09 11:43] VITALS: BP 111/76; PULSE 69
== END 2021-07-09 09:13 | disposition home or self-care (01) ==
LOC: CDL 09:13
PROVIDERS: PCP Internal Medicine; Visit Provider Internal Medicine Cardiovascular Disease
DX: R07.9 Chest pain, unspecified (principal); R94.31 Abnormal electrocardiogram [ECG] [EKG]
CPT/HCPCS: 78452; 93017; A9500; J2785

== ENCOUNTER 2021-07-27 15:37 | Outpatient (CLI) | payer MEDICARE, MEDICAID, SELFPAY ==
--- NOTE | 2021-07-27 | MM_ITS ---
WS: [email or web address] VIEWS: MLO and CC views both breasts. 3D digital tomosynthesis is also included in this exam. Comparison made with prior exam of 06/18/2010, 07/19/2014, 09/10/2015, 10/27/2016, and 08/15/2018.. Findings: There was no sign of mass, architectural distortion or suspicious calcification in either breast. Sta ble appearing nodular densities in both breasts. Scattered fibroglandular densities MM/[place] [id number] Impression: BI-RADS: 2-Benign FOLLOW-UP: 1 Year Follow-up This mammogram was also analyzed by the Computer Aided Detection System R2 Imag e Medical Lab Specialist.
== END 2021-07-27 15:38 | disposition home or self-care (01) ==
LOC: RAD 15:39
PROVIDERS: PCP Internal Medicine; Visit Provider Internal Medicine
DX: Z12.31 Encounter for screening mammogram for malignant neoplasm of breast (principal)
CPT/HCPCS: 77063; 77067

== ENCOUNTER 2021-08-11 09:06 | Inpatient (IN) | payer MEDICARE, MEDICAID, SELFPAY ==
[2021-08-11] VITALS (23 sets, daily range): BP systolic 83–108; BP diastolic 51–67; PULSE 10–118; RESP 15–28; TEMP 36.1–37.3; O2SAT 85–95; BMI 19.4
--- NOTE | 2021-08-11 09:25 | ED_ITS ---
HPI - SOB/Dyspnea General: Chief Complaint: Shortness of Breath/Dyspnea Stated Complaint: SOB Time Seen by Provider: 08/11/21 09:21 Source: patient Mode of arrival: ambulatory Limitations: no limitations History of Present Illness: HPI Narrative: 60-year-old female presents emergency room with complaints of shortness of breath the last 2 days. She has a history of COPD stop smoking a few years ago she is currently chronically on 2 L by nasal cannula with a concentrator. Her oxygen sats are 85% on the 2 L which initially presented toTriage. She has some mild chest comfort radiating to her back she has no history of coronary disease she has increasing productive cough of sputum that changed in color and character and quantity. She is denies any fever sweats or chills. Patient has known COPD is using a regular maintenance medicine but has not used any albuterol recently. She has no known history of coronary artery disease. She has been increasing her oxygen at home but is getting minimal relief. She does state that her chest discomfort and back discomfort are when she takes a deep breath. MD elicited complaint: shortness of breath and cough Pertinent past history: COPD Context: occurred during exertion Timing: constant Severity: moderate Exacerbating factors: exertion, coughing, inspiration and talking Relieving factors: oxygen and rest Known history of: COPD Associated symptoms: Reports chest congestion, chest pain and cough; Deny abdominal pain, diaphoresis, dizziness, extremity pain, fever(s), hemoptysis, lightheadedness, myalgias, nausea, orthopnea, palpitations, paresthesias, polydipsia, polyuria, rash, sense of impending doom, syncope or vomiting Treatment prior to arrival: oxygen Related Data: Home oxygen amount: 2 liters Review of Systems Const: Reports: malaise; Denies: fever(s), chills, body aches, change in appetite, fatigue or diaphoresis ENMT: Denies: throat pain, ear or mastoid pain, nasal discharge or nasal congestion Card: Reports: chest pain; Denies: palpitations, lightheadedness, syncope or orthopnea Resp: Reports: dyspnea, productive cough, wheezing and chest congestion; Denies: hemoptysis GI: Denies: abdominal pain, nausea or vomiting : Denies: flank pain, difficulty voiding, dysuria, urinary frequency or urinary urgency Musc: Reports: back pain; Denies: neck pain or extremity pain Skin/Breast: Denies: rash or pruritus Neuro: Denies: dizziness Endo: Denies: polyuria or polydipsia PFSH ED PFSH: Medical History Allergies Back pain Chronic obstructive pulmonary disease H/O nephrolithotomy with removal of calculi Hepatitis C antibody positive in blood High risk medication use Inflammatory arthritis Kidney stones Muscle spasm Raynaud phenomenon Surgical History History of delivery x2 History of hysterectomy with bilateral oophorectomy Family History Other Acute rheumatoid arthritis CAD (coronary artery disease) Cancer Chronic kidney disease (CKD) Diabetes Hypertension Lung disease Stroke Denies family history of Lupus Hyperlipidemia Social History Smoking and tobacco status: former smoker Quit status (tobacco): has quit using tobacco Year quit tobacco: 2019PD x 42 Years Second hand smoke exposure: Yes Smoking risk assessment/counseling performed?: No Alcohol intake: never Desire information about alcohol rehabilitation?: No Counseling given: No Desire information about substance/drug rehabilitation?: No Counseling given: No Lives independently: Yes Household members: none Marital status: Legally Current occupational status: disabled History of recent travel: No Current gender identity: Female Physical Exam Const: COMMON NORMALS: no acute distress GENERAL APPEARANCE: cooperative and comfortable ORIENTATION/CONSCIOUSNESS: Yes awake, Yes oriented to person, Yes oriented to place and Yes oriented to time HENMT: COMMON NORMALS: normocephalic, atraumatic and hearing grossly normal bilaterally HEAD & SCALP: normocephalic and atraumatic Resp: COMMON NORMALS: normal respiratory effort, No retractions and No use of accessory muscles AUSCULTATION: crackles Laterality: bilateral and posterior and wheezes expiratory wheezes Cardio: COMMON NORMALS: regular rhythm and No murmurs present (Cardio) RATE: tachycardic RHYTHM: regular rhythm GI: COMMON NORMALS: Soft to palpation and No hepatosplenomegaly present AUSCULTATION: Yes normoactive bowel sounds PALPATION: Yes Soft to palpation, No Tenderness to palpation present (GI), No Guarding due to palpation present (GI) and Yes No hepatosplenomegaly present Extremity: COMMON NORMALS: normal to inspection, capillary refill normal, no clubbing, cyanosis or edema, no calf tenderness and no pedal edema Neuro: SENSORIUM/ORIENTATION: Yes oriented to person, Yes oriented to place and Yes oriented to time Skin: COMMON NORMALS: no rashes or lesions noted GENERAL SKIN EXAM: no rash es or lesions noted Course Vital Signs: Vital signs: Vital Signs Temperature 99.1 F 08/11/21 09:25 Pulse Rate 90 08/11/21 12:04 Respiratory Rate 22 H 08/11/21 12:04 Blood Pressure 106/63 08/11/21 12:04 Pulse Oximetry 95 08/11/21 12:04 MDM - SOB/Dyspnea Medical Decision Making COPD exacerbation right lower lobe pneumonia discussed with hospitalist. Patient requiring high flow oxygen at 50% white count 20,000 with a left shift cultures done we will admit Medical Records I reviewed the patient's medical records. Lab Data I reviewed the patient's lab results. : 08/11/21 09:30 08/11/21 09:30 Labs/Radiology: Radiology Impressions Chest X-Ray 08/11/21 09:26 IMPRESSION: Right basilar pneumonia. Laboratory Results WBC 20.8 10^3/uL (4.0-10.0) H 08/11/21 09:30 RBC 4.43 10^6/uL (4.1-5.3) 08/11/21 09:30 Hgb 12.7 g/dL (11.5-15.3) 08/11/21 09:30 Hct 38.7 % (37.0-47.0) 08/11/21 09:30 MCV 87.4 fl (81-99) 08/11/21 09:30 MCH 28.7 pg (28.0-34.0) 08/11/21 09:30 MCHC 32.8 g/dL (30.0-36.0) 08/11/21 09:30 RDW 13.9 % (12.1-15.1) 08/11/21 09:30 Plt Count 383 10^3/cmm (130-400) 08/11/21 09:30 MPV 9.9 fL (7.4-10.4) 08/11/21 09:30 Neut % (Auto) 93.3 % 08/11/21 09:30 Lymph % (Auto) 1.2 % 08/11/21 09:30 [place] % (Auto) 4.5 % 08/11/21 09:30 Eos % (Auto) 0.0 % 08/11/21 09:30 Baso % (Auto) 0.6 % 08/11/21 09:30 Neut # (Auto) 19.37 10^3/uL (1.8-7.7) H 08/11/21 09:30 Lymph # (Auto) 0.2 10^3/uL (0.8-4.8) L 08/11/21 09:30 [place] # (Auto) 0.9 10^3/uL (0.2-0.9) 08/11/21 09:30 Eos # (Auto) 0.0 10^3/uL (0.0-0.8) 08/11/21 09:30 Baso # (Auto) 0.1 10^3/uL (0.0-0.1) 08/11/21 09:30 Nucleated RBC % (auto) 0 % 08/11/21 09:30 Nucleated RBCs # 0.0 /100WBC 08/11/21 09:30 Specimen Type Arterial 08/11/21 09:49 Sample Site Radial, right 08/11/21 09:49 ABG pH 7.43 (7.35-7.45) 08/11/21 09:49 ABG pCO2 41.6 mmHg (35-45) 08/11/21 09:49 ABG pO2 58.0 mmHg (80.0-100.0) L 08/11/21 09:49 ABG HCO3 27.9 mmol/L (22-26) H 08/11/21 09:49 ABG O2 Saturation 91.1 08/11/21 09:49 ABG Base Excess 3.3 mmol/L (-2.0-2.0) H 08/11/21 09:49 Shayan Test Pos 08/11/21 09:49 Hematocrit 39.0 % (37-47) 08/11/21 09:49 Hgb O2 Saturation 90.4 % (95-100) L 08/11/21 09:49 Carboxyhemoglobin 0.7 %THgb (0.4-20.1) 08/11/21 09:49 Methemoglobin 0.1 % (0.4-1.5) L 08/11/21 09:49 Total Hemoglobin 12.7 g/dL (12-16) 08/11/21 09:49 Sodium 140.0 mmol/L (131-143) 08/11/21 09:49 Potassium 3.2 mmol/L (3.5-5.0) L 08/11/21 09:49 Glucose 119.0 mg/dL (70-115) H 08/11/21 09:49 Ionized Calcium 1.3 mmol/L (1.1-1.4) 08/11/21 09:49 O2 Delivery Device Nc 08/11/21 09:49 FiO2 5.0 % 08/11/21 09:49 Bundles Hanger ID Amanuel 08/11/21 09:49 Sodium 136 mmol/L (136-145) 08/11/21 09:30 Potassium 3.4 mmol/L (3.5-5.1) L 08/11/21 09:30 Chloride 98 mmol/L (98-107) 08/11/21 09:30 Carbon Dioxide 26 mmol/L (22-29) 08/11/21 09:30 Anion Gap 15.4 (5-19) 08/11/21 09:30 BUN 9 mg/dL (6-20) 08/11/21 09:30 Creatinine 0.7 mg/dL (0.5-0.9) 08/11/21 09:30 GFR Calculation 85.9 mL/min (90-130) L 08/11/21 09:30 Glucose 121 mg/dL (65-115) H 08/11/21 09:30 Calculated Osmolality 282 mOsm/kg (285-295) L 08/11/21 09:30 Calcium 9.2 mg/dL (8.5-10.5) 08/11/21 09:30 Total Bilirubin 0.2 mg/dL (0.15-1.2) 08/11/21 09:30 AST 14 U/L (0-32) 08/11/21 09:30 ALT 10 U/L (0-33) 08/11/21 09:30 Alkaline Phosphatase 117 IU/L (35-105) H 08/11/21 09:30 Total Protein 6.9 g/dL (6.6-8.7) 08/11/21 09:30 Albumin 3.6 g/dL (3.5-5.2) 08/11/21 09:30 Globulin 3.3 g/dL (1.3-4.6) 08/11/21 09:30 Discharge Plan Discharge Patient Disposition: Admitted As Inpatient Clinical Impression: Acute exacerbation of chronic obstructive airways disease, Community acquired pneumonia Condition: Stable Prescriptions: No Action fluticasone propionate [Flonase Allergy Relief] 50 mcg/actuation spray,suspension 2 spray intranasal DAILY PRN (Reason: Allergy Symptoms) 0RF Rx Instructions: administer into each nostril Aimovig Autoinjector 70 mg/mL auto-injector 70 mg SUBCUT Q30D 0RF duloxetine 60 mg capsule,delayed release(DR/EC) 60 mg PO DAILY 0RF cetirizine [Zyrtec] 10 mg tablet 10 mg PO BID 0RF prednisone 5 mg tablet 5 mg PO DAILY 30 Days Qty: 30 0RF multivitamin with minerals [Hair,Skin and Nails] Tablet 1 tab PO DAILY 0RF methocarbamol 500 mg tablet 250 - 500 mg PO TID PRN (Reason: Spasms) 0RF biotin 1 mg tablet 1 mg PO DAILY 0RF Daliresp 500 mcg tablet 500 mcg PO DAILY 0RF valacyclovir 1 gram tablet 1,000 mg PO BID PRN (Reason: unknown) 0RF vitamin B complex [B Complex-Vitamin B12] Tablet 1 tab PO DAILY 0RF magnesium oxide 250 mg magnesium tablet 250 mg PO DAILY 0RF albuterol sulfate [ProAir HFA] 90 mcg/actuation HFA aerosol inhaler 2 puff INHALATION QID PRN (Reason: Shortness Of Breath) 0RF hydroxychloroquine 200 mg tablet See Rx Instructions PO .COMPLEX Qty: 45 3RF Rx Instructions: Alternate taking 1 tab today then 2 tabs tomorrow. prednisone 20 mg tablet See Rx Instructions PO .COMPLEX PRN (Reason: joint pain flare) Qty: 30 1RF Rx Instructions: take 1 tab po daily for 3-7 days as needed for arthritis flare cholecalciferol (vitamin D3) 25 mcg (1,000 unit) capsule 25 mcg PO DAILY 0RF ascorbic acid (vitamin C) 500 mg tablet 500 mg PO DAILY 0RF diclofenac sodium [Arthritis Pain (diclofenac)] 1 % gel 2 g topical QID PRN (Reason: Pain) 0RF Rx Instructions: apply to single elbow, wrist or hand; for hand includes palm/fingers/back of hand multivitamin Tablet 1 tab PO DAILY 0RF cyclobenzaprine 10 mg tablet 5 - 10 mg PO Q6H PRN (Reason: Muscle Spasm) 0RF amitriptyline 25 mg tablet 25 mg PO BEDTIME 0RF Calcium 500 500 mg calcium (1,250 mg) Tablet 500 mg PO DAILY 0RF hydrocodone-acetaminophen 7.5-325 mg tablet 1 - 2 tab PO Q4H PRN (Reason: Pain) 0RF pregabalin 200 mg capsule 200 mg PO TID 0RF Trelegy Ellipta 100-62.5-25 mcg blister with device 1 ea inhalation DAILY 0RF Referrals: Narcisa Tejeda MD [Primary Care Provider] - Coding Level of Care Code ED Depilatory Painter for Chg Fwd Exam Detailed
--- NOTE | 2021-08-11 09:26 | ECG_ITS ---
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 Measurements Intervals [place] Rate: 112 P: 70 [place]: 144 QRS: 109 QRSD: 111 T: 72 QT: 350 QTc: 479 Interpretive Statements SINUS TACHYCARDIA POSSIBLE LEFT ATRIAL ENLARGEMENT [-0.1mV P-WAVE IN V1/V2] RIGHT AXIS DEVIATION [QRS AXIS > 100] INCOMPLETE RIGHT BUNDLE BRANCH BLOCK [90+ ms QRS DURATION, TERMINAL R IN V1/V2, 40+ ms S IN I/aVL/V4/V5/V6] POSSIBLE INFERIOR MYOCARDIAL INFARCTION , PROBABLY OLD [30 ms Q WAVE IN II/aVF] MODERATE T-WAVE ABNORMALITY, CONSIDER ANTEROLATERAL ISCHEMIA [-0.1+ mV T-WAVE IN V3-V6] Compared to ECG 04/22/2021 13:01:39 Right-axis deviation now present Myocardial infarct finding now present Sinus rhythm no longer present T-wave abnormality still present Possible ischemia still present Electronically Signed On 08-11-2021 20:50:02 CDT by Demond Early M.D. [email or web address]
--- NOTE | 2021-08-11 09:26 | XRR_ITS ---
PROCEDURE INFORMATION: Exam: XR Chest Exam date and time: 08/11/2021 9:43 AM Age: 60 years old Clinical indication: Cough and dyspnea; Additional info: Dyspnea/cough TECHNIQUE: Imaging protocol: XR of the chest. Views: 1 view. COMPARISON: CR XR chest 2V* [id number] 06/17/2021 11:23 AM FINDINGS: Lungs: There is right basilar consolidation consistent with a pneumonia. Mild atelectasis is present along the left hemidiaphragm. Pleural spaces: Unremarkable. No pleural effusion. No pneumothorax. Heart/Mediastinum: Unremarkable. No cardiomegaly. Bones/joints: Unremarkable. XR/XR chest 1V portable [id number] IMPRESSION: Right basilar pneumonia.
[2021-08-11 09:54] LABS: Basophils # 0.1 10^3/uL (0.0-0.1); Basophils % 0.6 %; Hematocrit 38.7 % (37.0-47.0); Hemoglobin 12.7 g/dL (11.5-15.3); Lymphocytes # 0.2 10^3/uL (0.8-4.8); Lymphocytes % 1.2 %; Mean Corpuscular HGB Conc 32.8 g/dL (30.0-36.0); Mean Corpuscular Hemoglobin 28.7 pg (28.0-34.0); Mean Corpuscular Volume 87.4 fl (81-99); Mean Platelet Volume 9.9 fL (7.4-10.4); Monocytes # 0.9 10^3/uL (0.2-0.9); Monocytes % 4.5 %; Neutrophils # 19.37 10^3/uL (1.8-7.7); Neutrophils % 93.3 %; Nucleated Red Blood Cells % 0 %; Platelet Count 383 10^3/cmm (130-400); Red Blood Count 4.43 10^6/uL (4.1-5.3); Red Cell Distribution Width 13.9 % (12.1-15.1); White Blood Count 20.8 10^3/uL (4.0-10.0)
[2021-08-11] MEDS: levofloxacin-dextrose 5 % 750 MG/150 ML PREMIX 100 MG IV (09:57)
[2021-08-11 09:59] LABS: ABG PCO2 41.6 mmHg (35-45); ABG PH Result 7.43 (7.35-7.45); Base Excess ABG 3.3 mmol/L (-2.0-2.0); Blood Gas Allen Test Pos; Blood Gas Sample Site Radial, right; Blood Gas Sample Type Arterial; Carboxyhemoglobin 0.7 %THgb (0.4-20.1); HCO3 ABG 27.9 mmol/L (22-26); HGB O2 Sat 90.4 % (95-100); Ionized Calcium Level - ABG 1.3 mmol/L (1.1-1.4); Methemoglobin 0.1 % (0.4-1.5); Oxygen Device NC; Oxygen Saturation ABG 91.1; Potassium Level - ABG 3.2 mmol/L (3.5-5.0); Total Hemoglobin 12.7 g/dL (12-16)
[2021-08-11 10:10] LABS: Alanine Aminotransferase 10 U/L (0-33); Albumin Level 3.6 g/dL (3.5-5.2); Alkaline Phosphatase 117 IU/L (35-105); Anion Gap 15.4 (5-19); Aspartate Amino Transferase 14 U/L (0-32); Blood Urea Nitrogen 9 mg/dL (6-20); Calcium 9.2 mg/dL (8.5-10.5); Carbon Dioxide 26 mmol/L (22-29); Chloride 98 mmol/L (98-107); Globulin 3.3 g/dL (1.3-4.6); Glomerular Filtration Rate 85.9 mL/min (90-130); Glucose 121 mg/dL (65-115); Osmolality Calculated 282 mOsm/kg (285-295); Potassium 3.4 mmol/L (3.5-5.1); Sodium 136 mmol/L (136-145); Total Bilirubin 0.2 mg/dL (0.15-1.2); Total Protein 6.9 g/dL (6.6-8.7)
[2021-08-11] MEDS: ipratropium-albuterol 3 mL Neb INHALATION ×2 (10:44→19:56)
--- NOTE | 2021-08-11 12:11 | PC.PHAR ---
pt states she takes care of her own medications-pt states she is not taking amlodipine 2.5mg daily last filled on 07/05/21 90d/s-
[2021-08-11 13:28] LABS: Adenovirus Not Detected (NOT DETECT); Chlamydia Pneumoniae Not Detected (NOT DETECT); Coronavirus 229E,HKU1,NL63,OC4 Not Detected (NOT DETECT); Human Metapneumovirus Not Detected (NOT DETECT); Human Rhinovirus/Enterovirus Not Detected (NOT DETECT); Influenza A Not Detected (NOT DETECT); Influenza A H1 Not Detected (NOT DETECT); Influenza A H1-2009 Not Detected (NOT DETECT); Influenza A H3 Not Detected (NOT DETECT); Influenza B Not Detected (NOT DETECT); Mycoplasma Pneumoniae Not Detected (NOT DETECT); Parainfluenza Virus Type 1 Not Detected (NOT DETECT); Parainfluenza Virus Type 2 Not Detected (NOT DETECT); Parainfluenza Virus Type 3 Not Detected (NOT DETECT); Parainfluenza Virus Type 4 Not Detected (NOT DETECT); Respiratory Syncytial Virus A Not Detected (NOT DETECT); Respiratory Syncytial Virus B Not Detected (NOT DETECT); SARS-COV-2 Not Detected (NOT DETECT)
--- NOTE | 2021-08-11 13:30 | CT_ITS ---
WS: [id number] CTA OF THE CHEST WITH PULMONARY EMBOLISM PROTOCOL TECHNIQUE: High-resolution contrast enhanced CTA of the chest with coronal and sagittal reformatted i mages with pulmonary embolism protocol. MIP images are also reviewed. CLINICAL INFORMATION: sob COMPARISON: CTA chest . CT lung screen December 30, 2020 DLP: 492.[address] scans at [facility] use at least one of these dose optimization techniques: automated e xposure control; mA and/or kV adjustment per patient size (includes targeted exams where dose is matc hed to clinical indication); or iterative reconstruction. FINDINGS: Proximal main pulmonary artery arteries are normal. Normal segmental and subsegmental pulmonary arter ies. No evidence of pulmonary embolus. Aortic calcification. Normal caliber thoracic aorta. No medias tinal or hilar lymphadenopathy. Adrenal glands are normal. Small esophageal hiatal hernia. Normal celiac and SMA in the upper abdomen . No axillary lymphadenopathy. Advanced chronic emphysematous changes. Patchy infiltrates with partial airspace consolidation RIGHT lower lobe. Recommend correlation for pneumonia. Hazy groundglass opacities in the lingula and LEFT u pper lobe subpleural in location likely infectious or inflammatory. Compressive atelectasis LEFT lowe r lobe. Mild thoracic kyphosis. Mild thoracic curve. Mild chronic anterior wedging T12 vertebral body . CT/CT angio chest PE protcl [id number] IMPRESSION: 1. Proximal main pulmonary arteries are normal. Normal segmental and subsegmen elisha pulmonary arteries. No evidence of pulmonary embolus. 2. Patchy airspace infiltrates in the RIGHT lower lobe with partial consolidat ion. Recommend correlation for pneumonia. 3. Hazy ground glass infiltrates in the lingula and LEFT upper lobe subpleural in location likely infectious or inflammatory. 4. Slight atelectasis LEFT lower lobe with endobronchial secretions. 5. Advanced chronic emphysematous changes. 6. No mediastinal or hilar lymphadenopathy. 7. Small esophageal hiatal hernia.
--- NOTE | 2021-08-11 13:30 | ECG_ITS ---
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 Measurements Intervals [place] Rate: 79 P: 75 [place]: 177 QRS: 56 QRSD: 113 T: 68 QT: 385 QTc: 443 Interpretive Statements SINUS RHYTHM LOW QRS VOLTAGE IN EXTREMITY LEADS [QRS DEFLECTION < 0.5 mV IN LIMB LEADS] INCOMPLETE RIGHT BUNDLE BRANCH BLOCK [90+ ms QRS DURATION, TERMINAL R IN V1/V2, 40+ ms S IN I/aVL/V4/V5/V6] NONSPECIFIC ST & T-WAVE ABNORMALITY Compared to ECG 08/11/2021 09:41:23 Low QRS voltage now present Sinus tachycardia no longer present Right-axis deviation no longer present Myocardial infarct finding no longer present Possible ischemia no longer present T-wave abnormality still present Electronically Signed On 08-11-2021 20:48:13 CDT by Demond Early M.D. [id number]
--- NOTE | 2021-08-11 13:36 | PM.HP ---
Providers/Chief Complaint Admitting Physician: Jassi Cruz MD Primary Care Provider: Narcisa Tejeda MD Chief Complaint: SOB History of Present Illness Mely Wang is a 60 year old female with a past medical history of gold D COPD, on 2 L, centrilobular and paraseptal emphysema with bullous disease, hep C, hypertension, chronic pain on Graham, Soma, Lyrica who presents to [facility] for worsening shortness of breath. Patient tells me for the last few weeks, she has had progressive increased shortness of breath, shortness of breath now progressing to rest, with fatigue, malaise, has not received COVID-vaccine, has received flu vaccine, no fevers, does have a cough, she quit smoking many years ago, no sick contacts, no recent travel. No hemoptysis, no calf pain, no calf swelling. No chest pain, no palpitations. She also has a new rash on her chest, targetoid in appearance, for the last few days, no known history of tick bites Review of Systems Const: Denies: fever(s) or chills Eyes: Denies: change in vision ENMT: Denies: nasal congestion Card: Denies: chest pain or palpitations Resp: Reports: dyspnea and non-productive cough GI: Denies: abdominal pain, nausea, vomiting or diarrhea : Denies: flank pain or dysuria Skin/Breast: Reports: rash Neuro: Denies: headache(s) or vertigo Endo: Denies: polyuria or polydipsia Medications/Allergies Home Medications Medication Instructions Recorded Confirmed Last Taken Type methocarbamol 500 mg tablet 250 - 500 mg PO TID PRN 04/19/19 08/11/21 Unknown History multivitamin with minerals 1 tab PO DAILY 04/19/19 08/11/21 Unknown History (Hair,Skin and Nails) magnesium oxide 250 mg PO DAILY 08/09/19 08/11/21 Unknown History albuterol sulfate 90 mcg/actuation 2 puff INHALATION QID PRN 10/29/19 08/11/21 Unknown History aerosol inhaler (ProAir HFA) fluticasone propionate 50 2 spray INTRANASAL DAILY PRN 03/27/20 08/11/21 Unknown History mcg/actuation nasal spray,suspension (Flonase Allergy Relief) cetirizine 10 mg tablet (Zyrtec) 10 mg PO BID 12/09/20 08/11/21 Unknown History duloxetine 60 mg capsule,delayed 60 mg PO DAILY 12/09/20 08/11/21 08/10/21 History release erenumab-aooe 70 mg/mL 70 mg SUBCUT Q30D ml 12/09/20 08/11/21 Unknown History subcutaneous auto-injector (Aimovig Autoinjector) hydroxychloroquine 200 mg tablet See Rx Instructions PO .COMPLEX 06/17/21 08/11/21 08/10/21 Rx #45 tab 1 tab prednisone 20 mg tablet See Rx Instructions PO .COMPLEX 06/17/21 08/11/21 Unknown Rx PRN #30 tab ascorbic acid (vitamin C) 500 mg 500 mg PO DAILY 06/25/21 08/11/21 Unknown History tablet biotin 1 mg tablet 1 mg PO DAILY tab 06/25/21 08/11/21 Unknown History cholecalciferol (vitamin D3) 25 25 mcg PO DAILY 06/25/21 08/11/21 Unknown History mcg (1,000 unit) capsule diclofenac sodium 1 % topical gel 2 g TOPICAL QID PRN g 06/25/21 08/11/21 Unknown History (Arthritis Pain (diclofenac)) prednisone 5 mg tablet 5 mg PO DAILY 30 Days #30 tab 06/25/21 08/11/21 Unknown Rx roflumilast 500 mcg tablet 500 mcg PO DAILY tab 06/25/21 08/11/21 08/10/21 History (Daliresp) valacyclovir 1 gram tablet 1,000 mg PO BID PRN 06/25/21 08/11/21 Unknown History vitamin B complex (B 1 tab PO DAILY tab 06/25/21 08/11/21 Unknown History Complex-Vitamin B12) amitriptyline 25 mg tablet 25 mg PO BEDTIME 08/11/21 08/11/21 08/10/21 History calcium carbonate 500 mg calcium 500 mg PO DAILY 08/11/21 08/11/21 Unknown History (1,250 mg) tablet cyclobenzaprine 10 mg tablet 5 - 10 mg PO Q6H PRN 08/11/21 08/11/21 Unknown History fluticasone fur. 100 mcg-umeclid 1 ea INHALATION DAILY 08/11/21 08/11/21 Unknown History 62.5 mcg-vilant 25 mcg inhalat.powder (Trelegy Ellipta) hydrocodone 7.5 mg-acetaminophen 1 - 2 tab PO Q4H PRN 08/11/21 08/11/21 Unknown History 325 mg tablet multivitamin 1 tab PO DAILY 08/11/21 08/11/21 Unknown History pregabalin 200 mg capsule 200 mg PO TID 08/11/21 08/11/21 08/10/21 History Allergies Allergy/AdvReac Type Severity Reaction Status Date / Time aspirin Allergy Bleeding Verified 08/11/21 09:27 PFSH Acute PFSH: Medical History Allergies Back pain Chronic obstructive pulmonary disease H/O nephrolithotomy with removal of calculi Hepatitis C antibody positive in blood High risk medication use Inflammatory arthritis Kidney stones Muscle spasm Raynaud phenomenon Surgical History History of delivery x2 History of hysterectomy with bilateral oophorectomy Family History Other Acute rheumatoid arthritis CAD (coronary artery disease) Cancer Chronic kidney disease (CKD) Diabetes Hypertension Lung disease Stroke Denies family history of Lupus Hyperlipidemia Social History Smoking and tobacco status: former smoker Quit status (tobacco): has quit using tobacco Year quit tobacco: 2019 1PPD x 42 Years Second hand smoke exposure: Yes Smoking risk assessment/counseling performed?: No Alcohol intake: never Desire information about alcohol rehabilitation?: No Counseling given: No Desire information about substance/drug rehabilitation?: No Counseling given: No Lives independently: Yes Household members: none Marital status: Legally Current occupational status: disabled History of recent travel: No Current gender identity: Female Vitals/I&O/Wt Last Vital Signs Temp 99.1 F 08/11/21 09:25 Pulse 87 08/11/21 13:03 Resp 26 H 08/11/21 13:03 BP 98/63 08/11/21 13:03 Pulse Ox 95 08/11/21 13:03 08/10/21 08/11/21 08/11/21 22:59 06:59 14:59 Intake Total 150 / 150 Balance 150 / 150 Weight last 48 hrs Weight 56.245 kg Physical Exam Const: COMMON NORMALS: no acute distress and patient oriented x3 GENERAL APPEARANCE: cooperative, well kempt and well developed HENMT: COMMON NORMALS: normocephalic HEAD & SCALP: normocephalic NOSE: Normal external nose present Eye: COMMON NORMALS: Equal, round and reactive pupils present and EOMs intact bilaterally Neck/C-Spine: COMMON NORMALS: full ROM and no lymphadenopathy THYROID: Thyroid normal Lymph: LYMPHATIC: no lymphadenopathy noted Chest: COMMONS NORMALS: normal inspection of the chest Resp: EFFORT & INSPECTION: Yes able to speak in complete sentences and Yes symmetric chest movement AUSCULTATION: diminished lung sounds diffuse Cardio: COMMON NORMALS: regular rate, regular rhythm, S1 normal heart sound present, S2 normal heart sound present, No murmurs present (Cardio) and Peripheral pulses 2+ throughout RATE: regular rate RHYTHM: regular rhythm HEART SOUNDS: S1 normal heart sound present and S2 normal heart sound present PERIPHERAL PULSES: Peripheral pulses 2+ throughout GI: COMMON NORMALS: Normal to inspection, nondistended, normoactive bowel sounds present, Soft to palpation, non-tender and No hepatosplenomegaly present PALPATION: Yes Soft to palpation and Yes No hepatosplenomegaly present Extremity: COMMON NORMALS: normal to inspection, no calf tenderness and no pedal edema Neuro: COMMON NORMALS: patient oriented x3, CN's II-XII intact bilaterally, moves all extremities and no focal motor deficits Psych: COMMON NORMALS: mental status grossly normal, Normal thought process present, cooperative and speech normal APPEARANCE: Yes well kempt SPEECH: Yes normal speech THOUGHT PROCESS: Normal thought process present Skin: COMMON NORMALS: no jaundice NARRATIVE SKIN EXAM: Chest, 2 x 2 centimeter round targetoid lesion Data : 08/11/21 09:30 08/11/21 09:30 Micro: Microbiology 08/11/21 09:30 Blood Culture - Preliminary Blood SPECIMEN COLLECTED 08/11/21 09:30 Blood Culture - Preliminary Blood SPECIMEN COLLECTED A&P Assessment and plan (1) Acute respiratory failure with hypoxia: Status: Acute (2) Acute exacerbation of chronic obstructive airways disease: Status: Acute (3) Community acquired pneumonia: Status: Acute Plan Acute hypoxic respiratory failure -Secondary to COPD, pneumonia -Underlying COPD -Immunocompromised, on Plaquenil -Currently on heated high flow 50% Plan -COVID, rapid flu -Sputum cultures, blood cultures, urine bacterial antigens, Legionella -MRSA nares -For now continue broad-spectrum antibiotic therapy vancomycin, cefepime -Does have a targetoid lesion on the chest, measuring 2 x 2 cm, cover for tick -Tick panel ordered -Solu-Medrol 40 every 8 hours -DuoNeb, budesonide -CT angiogram ordered -Troponin series, BNP -D-dimer -Full code -Lovenox for DVT prophylaxis -Reduced dose of Lyrica 100 every 8 hours -Hold Soma -Continue home [place] -Monitor respiratory status closely Attestations Medical Necessity Statement*: Patient requires hospitalization for acute hypoxic respiratory failure, pneumonia Coding Level of Care Code Acute Civil Defense Director for [facility] Diagnoses Acute respiratory failure with hypoxia J96.01 Acute exacerbation of chronic obstructive airways disease J44.1 Community acquired pneumonia J18.9
[2021-08-11 14:33] LABS: Troponin(5th) Baseline 13 ng/L (0-10)
[2021-08-11] MEDS: iohexol 350 mg/mL 100 mL Btl IV (15:08)
[2021-08-11] MEDS: pantoprazole 40 mg SDV IVP (15:32)
[2021-08-11] MEDS: enoxaparin 40 mg/0.4 mL Syringe SUBCUT (15:32)
[2021-08-11] MEDS: cefepime 2,000 MG in sodium chloride 0.9% (plus) 50 ML 100 MG IV (15:33)
[2021-08-11] MEDS: pregabalin 100 mg Capsule PO ×2 (15:33→20:31)
[2021-08-11] MEDS: vancomycin 750 MG in sodium chloride 0.9% 250 ML 250 MG IV (15:34)
[2021-08-11] MEDS: doxycycline 100 MG in sodium chloride 0.9% (plus) 100 ML IV (16:47)
--- NOTE | 2021-08-11 16:50 | PC.NURSE ---
Pt was admitted to ICU at 1510 via bed on 3L NC. Circular rash was noted to chest area. The only belongings in room are pants, shirt, robe and shoes. Family in room with patient at this time.
[2021-08-11 17:08] LABS: Erythrocyte Sedimentation Rate 29 mm/hr (0-15)
[2021-08-11 17:41] LABS: Troponin 5 2HR 10.06 ng/L (0-10)
[2021-08-11 17:56] LABS: Troponin 5 2HR Delta -2.94 ABS# (0-10)
[2021-08-11 18:01] LABS: D Dimer 1.45 ug/mIFEU (0-0.59)
[2021-08-11 18:25] LABS: NT Pro B Type Natriuretic Pept 496 pg/mL (0-125)
[2021-08-11 18:36] LABS: C Reactive Protein 158.2 mg/L (0.0-4.9)
--- NOTE | 2021-08-11 19:24 | ECG_ITS ---
[facility] Test Date: 2021-08-11 Pat Name: Mely Wang Department: Room: ICU06 Gender: Female Director Money: : [id number] Requested By: Jassi Cruz Order Number: [id number] Howard MD: Demond Early M.D. Measurements Intervals [place] Rate: 75 P: 70 WV: 170 QRS: 59 QRSD: 115 T: 57 QT: 434 QTc: 487 Interpretive Statements SINUS RHYTHM INCOMPLETE RIGHT BUNDLE BRANCH BLOCK [90+ ms QRS DURATION, TERMINAL R IN V1/V2, 40+ ms S IN I/aVL/V4/V5/V6] ST DEVIATION AND MODERATE T-WAVE ABNORMALITY, CONSIDER ANTERIOR ISCHEMIA [-0.1+ mV T-WAVE IN V3/V4] Compared to ECG 08/11/2021 14:07:16 Possible ischemia now present T-wave abnormality still present Electronically Signed On 08-11-2021 22:33:06 CDT by Demond Early M.D. [id number]
[2021-08-11] MEDS: budesonide 0.5 mg/2 mL Neb INHALATION (19:55)
[2021-08-11] MEDS: HYDROcodone-acetaminophen 7.5-325 mg Tablet 1 TAB PO (20:31)
[2021-08-11] MEDS: amitriptyline 25 mg Tablet PO (20:32)
[2021-08-11 22:23] LABS: Troponin 5 6HR 6.96 ng/L (0-10)
[2021-08-11 22:35] LABS: Troponin 5 6HR Delta -6.04 ng/L (0-12)
[2021-08-11 22:38] LABS: Add Urine Microscopic? NO; Bilirubin Urine Neg (Negative); Blood Urine Neg (Negative); Charge for UA Resulting for Rev; Glucose Urine UA Norm (Normal); Ketones Urine 1+ (Negative); Leukocyte Esterase Urine Negative (Negative); Nitrate Urine Negative (Negative); Protein Urine Neg (Negative); Specific Gravity, Urine 1.005 (1.005-1.030); Urine Appearance Clear (CLEAR); Urine Color Yellow (Yellow); Urobilinogen Urine Norm (Negative); pH Urine 5 (5-7)
[2021-08-11 22:45] LABS: Influenza A by IFA Negative (Negative); Influenza B by IFA Negative (Negative)
[2021-08-12] VITALS (24 sets, daily range): BP systolic 82–107; BP diastolic 51–63; PULSE 68–90; RESP 16–23; TEMP 36.6–36.9; O2SAT 90–96
[2021-08-12] MEDS: ipratropium-albuterol 3 mL Neb INHALATION ×6 (00:12→19:51)
[2021-08-12] MEDS: cefepime 2,000 MG in sodium chloride 0.9% (plus) 50 ML 100 MG IV ×2 (02:58→15:21)
[2021-08-12] MEDS: vancomycin 750 MG in sodium chloride 0.9% 250 ML 250 MG IV ×2 (03:37→16:36)
[2021-08-12] MEDS: doxycycline 100 MG in sodium chloride 0.9% (plus) 100 ML IV ×2 (03:37→16:35)
[2021-08-12 04:58] LABS: ABG PCO2 37.7 mmHg (35-45); ABG PH Result 7.45 (7.35-7.45); Arterial Blood Gas Hematocrit 35.8 % (37-47); Base Excess ABG 1.9 mmol/L (-2.0-2.0); Blood Gas Allen Test Pos; Blood Gas Sample Site Brachial, left; Blood Gas Sample Type Arterial; PO2 ABG 54.6 mmHg (80.0-100.0)
[2021-08-12 05:01] LABS: Blood Gas LPM 3.5 %; Blood Gas Operator Identificat JB; Oxygen Device NC
[2021-08-12 06:18] LABS: Basophils # 0.1 10^3/uL (0.0-0.1); Basophils % 0.5 %; Eosinophils % 0.1 %; Hematocrit 34.1 % (37.0-47.0); Lymphocytes # 0.5 10^3/uL (0.8-4.8); Lymphocytes % 2.1 %; Mean Corpuscular HGB Conc 32.3 g/dL (30.0-36.0); Mean Corpuscular Hemoglobin 28.4 pg (28.0-34.0); Mean Corpuscular Volume 88.1 fl (81-99); Monocytes % 4.3 %; Neutrophils # 22.04 10^3/uL (1.8-7.7); Neutrophils % 92.5 %; Nucleated Red Blood Cells % 0 %; Platelet Count 362 10^3/cmm (130-400); Red Blood Count 3.87 10^6/uL (4.1-5.3); White Blood Count 23.8 10^3/uL (4.0-10.0)
--- NOTE | 2021-08-12 07:00 | XRR_ITS ---
PROCEDURE INFORMATION: Exam: XR Chest Exam date and time: 08/12/2021 4:35 AM Age: 60 years old Clinical indication: Condition or disease; Lung condition and disease; Pneumonia; Shortness of breath; Additional info: SOB TECHNIQUE: Imaging protocol: XR of the chest. Views: 1 view. COMPARISON: CR XR chest 1V portable [id number] 08/11/2021 9:43 AM FINDINGS: Tubes, catheters and devices: Monitor leads project over the chest. Lungs: Hyperinflated upper lung zones consistent with emphysema. Persistent lower lung zone and bibasilar pneumonia right greater than left. Pleural spaces: No significant costophrenic angle blunting. No pneumothorax. Heart/Mediastinum: Heart size is normal. Bones/joints: No acute osseous abnormality. XR/XR chest 1V portable [id number] IMPRESSION: 1. Persistent lower lung zone and bibasilar pneumonia right greater than left. 2. Upper lung zone emphysema.
[2021-08-12 07:01] LABS: Alanine Aminotransferase 7 U/L (0-33); Alkaline Phosphatase 105 IU/L (35-105); Anion Gap 13.6 (5-19); Aspartate Amino Transferase 10 U/L (0-32); Blood Urea Nitrogen 12 mg/dL (6-20); Calcium 9.3 mg/dL (8.5-10.5); Carbon Dioxide 26 mmol/L (22-29); Chloride 104 mmol/L (98-107); Globulin 3.3 g/dL (1.3-4.6); Glomerular Filtration Rate 126.7 mL/min (90-130); Glucose 151 mg/dL (65-115); Osmolality Calculated 293 mOsm/kg (285-295); Potassium 3.6 mmol/L (3.5-5.1); Sodium 140 mmol/L (136-145); Total Bilirubin 0.2 mg/dL (0.15-1.2); Total Protein 6.3 g/dL (6.6-8.7)
[2021-08-12 07:04] LABS: Creatine Phosphokinase 14 U/L (26-192); Magnesium 2.1 mg/dL (1.7-2.3); Phosphorus 2.7 mg/dL (2.5-4.5)
[2021-08-12 07:16] LABS: INR 1.42 (0.8-1.2)
[2021-08-12] MEDS: ascorbic acid 500 mg Tablet PO (08:11)
[2021-08-12] MEDS: pregabalin 100 mg Capsule PO ×3 (08:12→20:30)
[2021-08-12] MEDS: cholecalciferol (vitamin D3) 1,000 unit Tablet 1000 UNIT PO (08:12)
[2021-08-12] MEDS: sodium chloride 0.9% 500 ML IV (08:13)
[2021-08-12] MEDS: duloxetine 60 mg Capsule PO (08:13)
[2021-08-12] MEDS: budesonide 0.5 mg/2 mL Neb INHALATION ×2 (08:13→19:51)
--- NOTE | 2021-08-12 09:02 | P.PN_ITS ---
Subjective Subjective: Patient was seen this morning, she is currently 3 L, she tells me that she feels a lot better, no fevers overnight, has a cough, Vitals/I&O/Wt Last Vital Signs Temp 97.0 F L 08/11/21 16:00 Pulse 78 08/12/21 08:00 Resp 22 H 08/12/21 08:00 BP 101/58 08/12/21 08:00 Pulse Ox 93 08/12/21 08:00 08/11/21 08/12/21 08/12/21 22:59 06:59 14:59 Intake Total 400 / 550 400 / 950 Balance 400 / 550 400 / 950 Weight last 48 hrs Weight 61 kg Weight 56.245 kg Physical Exam Const: COMMON NORMALS: no acute distress and patient oriented x3 Resp: COMMON NORMALS: normal respiratory effort, No retractions and No use of accessory muscles OTHER: Decreased breath sounds bilaeral lung field Cardio: COMMON NORMALS: regular rate, regular rhythm, S1 normal heart sound present and S2 normal heart sound present RATE: regular rate RHYTHM: regular rhythm HEART SOUNDS: S1 normal heart sound present and S2 normal heart sound present GI: COMMON NORMALS: Normal to inspection, nondistended, normoactive bowel sounds present, Soft to palpation and non-tender PALPATION: Yes Soft to palpation Extremity: COMMON NORMALS: no pedal edema Neuro: COMMON NORMALS: patient oriented x3 Psych: COMMON NORMALS: mental status grossly normal Data : 08/12/21 05:53 08/12/21 05:53 Micro: Microbiology 08/11/21 20:13 Legionella Urinary Antigen - Final Urine,Clean Catch Bacterial Antigens - Final 08/11/21 09:30 Blood Culture - Preliminary Blood SPECIMEN COLLECTED 08/11/21 09:30 Blood Culture - Preliminary Blood SPECIMEN COLLECTED A&P Assessment and plan (1) Acute respiratory failure with hypoxia: Status: Acute (2) Acute exacerbation of chronic obstructive airways disease: Status: Acute (3) Community acquired pneumonia: Status: Acute Plan Acute hypoxic respiratory failure -Secondary to COPD, pneumonia -Underlying COPD -Immunocompromised, on Plaquenil -Currently on 3 L nasal cannula Plan -COVID, rapid flu negative -Sputum cultures, blood cultures, urine bacterial antigens, Legionella -MRSA nares -For now continue broad-spectrum antibiotic therapy vancomycin, cefepime -Does have a targetoid lesion on the chest, measuring 2 x 2 cm, cover for tick bite -Tick panel ordered -Solu-Medrol 40 every 8 hours -DuoNeb, budesonide -CT angiogram no pulmonary emboli 1.? Proximal main pulmonary arteries are normal. Normal segmental and subsegmental pulmonary arteries. No evidence of pulmonary embolus. 2.? Patchy airspace infiltrates in the RIGHT lower lobe with partial consolidation. Recommend correlation for pneumonia. 3.? Hazy ground glass infiltrates in the lingula and LEFT upper lobe subpleural in location likely infectious or inflammatory. 4.? Slight atelectasis LEFT lower lobe with endobronchial secretions. 5.? Advanced chronic emphysematous changes. 6.? No mediastinal or hilar lymphadenopathy. 7.? Small esophageal hiatal hernia. -Elevated BNP, hold off on Lasix, looks dehydrated we will give fluids -Full code -Lovenox for DVT prophylaxis -Reduced dose of Lyrica 100 every 8 hours -Hold Soma -Continue home [place] -Monitor respiratory status closely Attestations Medical Necessity Statement*: Patient requires hospitalization for acute hypoxic respiratory failure, pneumonia Coding Level of Care Code Acute Highway Engineering Technician for [facility] Diagnoses Acute respiratory failure with hypoxia J96.01 Acute exacerbation of chronic obstructive airways disease J44.1 Community acquired pneumonia J18.9
--- NOTE | 2021-08-12 10:25 | PC.CHAP ---
Pastoral Care Encounter/Spiritual Assessment Type of Contact [] Declined retail management keyholder visit [] Patient/Family/Request visit [] Outpatient visit [] Follow-up visit [] Physician referral [] Code/Alert [x] Routine visit [] Staff referral [] Actively dying [] Patient sleeping [] Family support [] [] Out of room [] Palliative care [] [] Receiving care in room [] Pre-surgical visit [] Trauma [] Long length of stay [x] ICU visit [] Other: Relational/Emotional Strength [] Patient feels connected with others/family/visitors/staff [] Distress [] Loneliness/isolation [] Abandonment Spirituality of Patient [] Person of Candida [] Attends Mandaen of their Candida [] Believes in Prayer [] Reads Bible or Orthodox materials [] There are Spiritual issues to be addressed Anodizer Interventions [x] Prayer [] Active listening [] Non-anxious presence [] Spiritual/emotional support [] Crisis/trauma care [] Spiritual counseling [] Bereavement support [] Provided bereavement packet [] Provided Bible/devotional materials [] Provided toy/stuffed animal, coloring book to patient or family member [] Provided Communion [] Anointing/[place] [] Salvation [x] Completed spiritual assessment [] Other: Impact on Illness or Injury [] Angry [] Fearful [] Anxious [] Often cries [] Exhaustion [] Unable to work [] Unable to attend jewish [] Unable to walk/stand [] Unable to read [] Unable to drive [] Unable to eat/drink [] Unable to sleep [] Unable to be with family [] Patient intubated [] Other: Summary Time spent with patient
--- NOTE | 2021-08-12 10:54 | PC.NURSE ---
Addendum entered by Fredi Odonnell RN 08/12/21 11:27: Pt transferred to [facility]-2. Tolerated well. Assisted to bed. HOB elevated, SR up 1, CLWR. Original Note: Report called to Stormy FISHER.
[2021-08-12] MEDS: HYDROcodone-acetaminophen 7.5-325 mg Tablet 1 TAB PO ×2 (11:38→20:32)
[2021-08-12] MEDS: pantoprazole 40 mg SDV IVP (15:20)
[2021-08-12] MEDS: enoxaparin 40 mg/0.4 mL Syringe SUBCUT (15:20)
[2021-08-12 17:57] LABS: Lyme AB Screen <0.90 index
[2021-08-12] MEDS: amitriptyline 25 mg Tablet PO (20:30)
[2021-08-13] VITALS (13 sets, daily range): BP systolic 108–117; BP diastolic 63–70; PULSE 74–87; RESP 16–18; TEMP 36.4–36.9; O2SAT 81–94
[2021-08-13] MEDS: ipratropium-albuterol 3 mL Neb INHALATION ×3 (00:32→11:23)
[2021-08-13] MEDS: HYDROcodone-acetaminophen 7.5-325 mg Tablet 1 TAB PO ×3 (00:47→11:01)
[2021-08-13] MEDS: cefepime 2,000 MG in sodium chloride 0.9% (plus) 50 ML 100 MG IV (02:03)
[2021-08-13] MEDS: doxycycline 100 MG in sodium chloride 0.9% (plus) 100 ML IV (02:35)
[2021-08-13 03:25] LABS: Basophils # 0.1 10^3/uL (0.0-0.1); Basophils % 0.2 %; Hematocrit 32.2 % (37.0-47.0); Hemoglobin 10.3 g/dL (11.5-15.3); Lymphocytes # 0.4 10^3/uL (0.8-4.8); Lymphocytes % 1.4 %; Mean Corpuscular Hemoglobin 28.4 pg (28.0-34.0); Mean Corpuscular Volume 88.7 fl (81-99); Mean Platelet Volume 10.3 fL (7.4-10.4); Monocytes # 0.5 10^3/uL (0.2-0.9); Monocytes % 1.8 %; Neutrophils # 23.77 10^3/uL (1.8-7.7); Neutrophils % 95.6 %; Nucleated Red Blood Cells % 0 %; Platelet Count 361 10^3/cmm (130-400); Red Blood Count 3.63 10^6/uL (4.1-5.3); Red Cell Distribution Width 14.2 % (12.1-15.1); White Blood Count 24.9 10^3/uL (4.0-10.0)
[2021-08-13 03:40] LABS: INR 1.14 (0.8-1.2)
[2021-08-13 03:55] LABS: Alanine Aminotransferase 8 U/L (0-33); Alkaline Phosphatase 110 IU/L (35-105); Anion Gap 13.4 (5-19); Aspartate Amino Transferase 11 U/L (0-32); Blood Urea Nitrogen 13 mg/dL (6-20); Calcium 9.7 mg/dL (8.5-10.5); Carbon Dioxide 25 mmol/L (22-29); Chloride 104 mmol/L (98-107); Glomerular Filtration Rate 163.9 mL/min (90-130); Glucose 132 mg/dL (65-115); Magnesium 2.1 mg/dL (1.7-2.3); Osmolality Calculated 290 mOsm/kg (285-295); Potassium 3.4 mmol/L (3.5-5.1); Sodium 139 mmol/L (136-145); Total Bilirubin 0.2 mg/dL (0.15-1.2)
[2021-08-13 03:57] LABS: Creatine Phosphokinase 16 U/L (26-192)
--- NOTE | 2021-08-13 04:01 | PC.NURSE ---
VANC TROUGH Vanc trough 7.0. Pharmacy aware and is changing dose
[2021-08-13 04:02] LABS: Creatinine Clr Calc Pharmacy 148.4997
--- NOTE | 2021-08-13 04:02 | PC.PHAR ---
VANCOMYCIN TROUGH 7.0 08/13/21 0200, INCREASE DOSE TO 1GM Q12H Prachi Torres h
[2021-08-13] MEDS: vancomycin 1,000 MG in sodium chloride 0.9% 250 ML 250 MG IV (04:11)
[2021-08-13 06:08] LABS: ABG PCO2 39.3 mmHg (35-45); ABG PH Result 7.42 (7.35-7.45); Arterial Blood Gas Hematocrit 34.8 % (37-47); Blood Gas Allen Test Pos; Blood Gas Sample Site Radial, left; Blood Gas Sample Type Arterial; HCO3 ABG 25.5 mmol/L (22-26); Oxygen Device NC; PO2 ABG 41.7 mmHg (80.0-100.0)
[2021-08-13] MEDS: budesonide 0.5 mg/2 mL Neb INHALATION (07:27)
[2021-08-13] MEDS: duloxetine 60 mg Capsule PO (08:30)
[2021-08-13] MEDS: ascorbic acid 500 mg Tablet PO (08:30)
[2021-08-13] MEDS: calcium carbonate 500 mg Chew Tablet PO (08:30)
[2021-08-13] MEDS: cholecalciferol (vitamin D3) 1,000 unit Tablet 1000 UNIT PO (08:30)
[2021-08-13] MEDS: pregabalin 100 mg Capsule PO (08:31)
[2021-08-13] MEDS: predniSONE 20 mg Tablet 40 MG PO (09:20)
--- NOTE | 2021-08-13 10:21 | P.DS_ITS ---
Discharge Providers Date of Admission: 08/11/21 14:10 Date of Discharge: August 13, 2021 Attending Provider at Admission: Jassi Cruz MD Attending Provider at Discharge: Jassi Cruz MD Primary Care Provider: Narcisa Tejeda MD Diagnoses at Discharge Discharge Diagnosis (1) Acute respiratory failure with hypoxia: Status: Acute (2) Acute exacerbation of chronic obstructive airways disease: Status: Acute (3) Community acquired pneumonia: Status: Acute Reason for Visit Reason for Visit: SOB Hospital Course Hospital Course Mely Wang is a 60 year old female with a past medical history of gold D COPD, on 2 L, 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 Patient was admitted to [facility] for acute respiratory failure secondary to COPD exacerbation, pneumonia, with immunocompromise state on Plaquenil. She received broad-spectrum antibiotic therapy, steroid therapy, oxygen therapy, inhaler therapy, and clinically monitor. Her CT angiogram 1.? Proximal main pulmonary arteries are normal. Normal segmental and subsegmental pulmonary arteries. No evidence of pulmonary embolus. 2.? Patchy airspace infiltrates in the RIGHT lower lobe with partial consolidation. Recommend correlation for pneumonia. 3.? Hazy ground glass infiltrates in the lingula and LEFT upper lobe subpleural in location likely infectious or inflammatory. 4.? Slight atelectasis LEFT lower lobe with endobronchial secretions. 5.? Advanced chronic emphysematous changes. 6.? No mediastinal or hilar lymphadenopathy. 7.? Small esophageal hiatal hernia. - She clinically improved, ambulating without significant symptomatology, discharged on a prednisone burst with oxygen therapy, and Augmentin -Patient was also found to have a targetoid lesion on her chest, with possible history of tick exposure, he was managed with doxycycline, discharged on a total of 14 days of doxycycline follow-up with tick panel as outpatient Physical Exam Const: COMMON NORMALS: no acute distress and patient oriented x3 Resp: COMMON NORMALS: normal respiratory effort, No retractions, No use of accessory muscles and clear to auscultation bilaterally AUSCULTATION: clear to auscultation bilaterally Cardio: COMMON NORMALS: regular rate, regular rhythm, S1 normal heart sound present and S2 normal heart sound present RATE: regular rate RHYTHM: r egular rhythm HEART SOUNDS: S1 normal heart sound present and S2 normal heart sound present GI: COMMON NORMALS: Normal to inspection, nondistended, normoactive bowel sounds present, Soft to palpation and non-tender PALPATION: Yes Soft to palpation Extremity: COMMON NORMALS: no pedal edema Neuro: COMMON NORMALS: patient oriented x3 Discharge Data Studies Completed and Pending Completed Studies During Hospitalization Category Date Time Status CT angio chest PE protcl [id number] Stat Cat Scan 08/11/21 13:30 Completed XR chest 1V portable [id number] Routine Exams 08/12/21 07:00 Completed XR chest 1V portable [id number] Stat Exams 08/11/21 09:26 Completed Pending at discharge Category Date Time Status Arterial Blood Gas Full Stat Lab 08/11/21 09:49 Results Arterial Blood Gas W/O Coox AM LABS Lab 08/13/21 05:56 Received Arterial Blood Gas W/O Coox AM LABS Lab 08/14/21 04:00 Ordered Blood Culture Stat Lab 08/11/21 09:30 Results Complete Blood Count w/Auto AM LABS Lab 08/14/21 04:00 Ordered Complete Blood Count w/Auto AM LABS Lab 08/15/21 04:00 Ordered Comprehensive Metabolic Panel AM LABS Lab 08/14/21 04:00 Ordered Comprehensive Metabolic Panel AM LABS Lab 08/15/21 04:00 Ordered Creatine Phosphokinase AM LABS Lab 08/14/21 04:00 Ordered Magnesium AM LABS Lab 08/14/21 04:00 Ordered Phosphorus AM LABS Lab 08/14/21 04:00 Ordered Prothrombin Time INR AM LABS Lab 08/14/21 04:00 Ordered Sputum Culture and Gram Stain Stat Lab 08/11/21 09:34 Uncollected Tick Panel Stat Lab 08/11/21 14:00 Results Radiology Impressions Chest CTA 08/11/21 13:30 IMPRESSION: 1. Proximal main pulmonary arteries are normal. Normal segmental and subsegmental pulmonary arteries. No evidence of pulmonary embolus. 2. Patchy airspace infiltrates in the RIGHT lower lobe with partial consolidation. Recommend correlation for pneumonia. 3. Hazy ground glass infiltrates in the lingula and LEFT upper lobe subpleural in location likely infectious or inflammatory. 4. Slight atelectasis LEFT lower lobe with endobronchial secretions. 5. Advanced chronic emphysematous changes. 6. No mediastinal or hilar lymphadenopathy. 7. Small esophageal hiatal hernia. Chest X-Ray 08/12/21 07:00 IMPRESSION: 1. Persistent lower lung zone and bibasilar pneumonia right greater than left. 2. Upper lung zone emphysema. Laboratory Results WBC 24.9 10^3/uL (4.0-10.0) H 08/13/21 01:58 RBC 3.63 10^6/uL (4.1-5.3) L 08/13/21 01:58 Hgb 10.3 g/dL (11.5-15.3) L 08/13/21 01:58 Hct 32.2 % (37.0-47.0) L 08/13/21 01:58 MCV 88.7 fl (81-99) 08/13/21 01:58 MCH 28.4 pg (28.0-34.0) 08/13/21 01:58 MCHC 32.0 g/dL (30.0-36.0) 08/13/21 01:58 RDW 14.2 % (12.1-15.1) 08/13/21 01:58 Plt Count 361 10^3/cmm (130-400) 08/13/21 01:58 MPV 10.3 fL (7.4-10.4) 08/13/21 01:58 Neut % (Auto) 95.6 % 08/13/21 01:58 Lymph % (Auto) 1.4 % 08/13/21 01:58 [place] % (Auto) 1.8 % 08/13/21 01:58 Eos % (Auto) 0.0 % 08/13/21 01:58 Baso % (Auto) 0.2 % 08/13/21 01:58 Neut # (Auto) 23.77 10^3/uL (1.8-7.7) H 08/13/21 01:58 Lymph # (Auto) 0.4 10^3/uL (0.8-4.8) L 08/13/21 01:58 [place] # (Auto) 0.5 10^3/uL (0.2-0.9) 08/13/21 01:58 Eos # (Auto) 0.0 10^3/uL (0.0-0.8) 08/13/21 01:58 Baso # (Auto) 0.1 10^3/uL (0.0-0.1) 08/13/21 01:58 Nucleated RBC % (auto) 0 % 08/13/21 01:58 Nucleated RBCs # 0.0 /100WBC 08/13/21 01:58 ESR 29 mm/hr (0-15) H 08/11/21 17:00 PT 14.90 SECONDS (12.1-14.9) 08/13/21 01:58 INR 1.14 (0.8-1.2) 08/13/21 01:58 D-Dimer 1.45 ug/mIFEU (0-0.59) H 08/11/21 17:00 Specimen Type Arterial 08/12/21 04:44 Sample Site Brachial, left 08/12/21 04:44 ABG pH 7.45 (7.35-7.45) 08/12/21 04:44 ABG pCO2 37.7 mmHg (35-45) 08/12/21 04:44 ABG pO2 54.6 mmHg (80.0-100.0) L 08/12/21 04:44 ABG HCO3 26.0 mmol/L (22-26) 08/12/21 04:44 ABG O2 Saturation 91.1 08/11/21 09:49 ABG Base Excess 1.9 mmol/L (-2.0-2.0) 08/12/21 04:44 Shayan Test Pos 08/12/21 04:44 Hematocrit 35.8 % (37-47) L 08/12/21 04:44 Hgb O2 Saturation 90.4 % (95-100) L 08/11/21 09:49 Carboxyhemoglobin 0.7 %THgb (0.4-20.1) 08/11/21 09:49 Methemoglobin 0.1 % (0.4-1.5) L 08/11/21 09:49 Total Hemoglobin 12.7 g/dL (12-16) 08/11/21 09:49 Sodium 140.0 mmol/L (131-143) 08/11/21 09:49 Potassium 3.2 mmol/L (3.5-5.0) L 08/11/21 09:49 Glucose 119.0 mg/dL (70-115) H 08/11/21 09:49 Ionized Calcium 1.3 mmol/L (1.1-1.4) 08/11/21 09:49 O2 Delivery Device Nc 08/12/21 04:44 O2 Liters/Min 3.5 % 08/12/21 04:44 FiO2 5.0 % 08/11/21 09:49 Recruiter Specialist ID [place] 08/12/21 04:44 Sodium 139 mmol/L (136-145) 08/13/21 01:58 Potassium 3.4 mmol/L (3.5-5.1) L 08/13/21 01:58 Chloride 104 mmol/L (98-107) 08/13/21 01:58 Carbon Dioxide 25 mmol/L (22-29) 08/13/21 01:58 Anion Gap 13.4 (5-19) 08/13/21 01:58 BUN 13 mg/dL (6-20) 08/13/21 01:58 Creatinine 0.4 mg/dL (0.5-0.9) L 08/13/21 01:58 GFR Calculation 163.9 mL/min (90-130) H 08/13/21 01:58 Glucose 132 mg/dL (65-115) H 08/13/21 01:58 Calculated Osmolality 290 mOsm/kg (285-295) 08/13/21 01:58 Calcium 9.7 mg/dL (8.5-10.5) 08/13/21 01:58 Phosphorus 2.0 mg/dL (2.5-4.5) L 08/13/21 01:58 Phosphorus Cancelled 08/13/21 01:58 Magnesium 2.1 mg/dL (1.7-2.3) 08/13/21 01:58 Magnesium Cancelled 08/13/21 01:58 Total Bilirubin 0.2 mg/dL (0.15-1.2) 08/13/21 01:58 AST 11 U/L (0-32) 08/13/21 01:58 ALT 8 U/L (0-33) 08/13/21 01:58 Alkaline Phosphatase 110 IU/L (35-105) H 08/13/21 01:58 Creatine Kinase 16 U/L (26-192) L 08/13/21 01:58 Troponin T Baseline 13 ng/L (0-10) H 08/11/21 14:00 Troponin T 120 Minute 10.06 ng/L (0-10) H 08/11/21 17:00 Delta Troponin T -2.94 ABS# (0-10) L 08/11/21 17:00 Troponin T Hi Sens 6Hr 6.96 ng/L (0-10) 08/11/21 21:19 Troponin T Hi Sens 6Hr Delta -6.04 ng/L (0-12) L 08/11/21 21:19 C-Reactive Protein 158.2 mg/L (0.0-4.9) H 08/11/21 17:00 NT-Pro-B Natriuret Pep 496 pg/mL (0-125) H 08/11/21 17:00 Total Protein 6.0 g/dL (6.6-8.7) L 08/13/21 01:58 Albumin 3.0 g/dL (3.5-5.2) L 08/13/21 01:58 Globulin 3.0 g/dL (1.3-4.6) 08/13/21 01:58 Procalcitonin 17.70 ng/mL (0-0.5) H 08/11/21 17:00 Urine Color Yellow (Yellow) 08/11/21 20:11 Urine Appearance Clear (CLEAR) 08/11/21 20:11 Urine pH 5 (5-7) 08/11/21 20:11 Ur Specific Sellers 1.005 (1.005-1.030) 08/11/21 20:11 Urine Protein Neg (Negative) 08/11/21 20:11 Urine Glucose (UA) Norm (Normal) 08/11/21 20:11 Urine Ketones 1+ (Negative) H 08/11/21 20:11 Urine Blood Neg (Negative) 08/11/21 20:11 Urine Nitrate Negative (Negative) 08/11/21 20:11 Urine Bilirubin Neg (Negative) 08/11/21 20:11 Urine Urobilinogen Norm mg/dL (Negative) 08/11/21 20:11 Ur Leukocyte Esterase Negative (Negative) 08/11/21 20:11 Vancomycin Trough 7.0 ug/mL (10-15) L 08/13/21 01:58 Lyme Ab (Western Blot) <0.90 index 08/11/21 14:00 Coronavirus 229E (PCR) Not detected (NOT DETECT) 08/11/21 11:35 Influenza Type A Ag Negative (Negative) 08/11/21 20:13 Influenza Type B Ag Negative (Negative) 08/11/21 20:13 SARS-CoV-2 (PCR) Not detected (NOT DETECT) 08/11/21 11:35 Vitals Last Vital Signs Temp 97.6 F 08/13/21 07:53 Pulse 78 08/13/21 07:53 Resp 18 08/13/21 07:53 BP 112/63 08/13/21 07:53 Pulse Ox 81 L 08/13/21 10:05 Discharge Plan Discharge Patient Disposition: Home Condition: Stable Prescriptions: New prednisone 20 mg tablet 20 mg PO BID 5 Days Qty: 10 0RF amoxicillin-pot clavulanate 875-125 mg tablet 1 tab PO BID 7 Days Qty: 14 0RF doxycycline hyclate 100 mg capsule 100 mg PO BID 14 Days Qty: 28 0RF nystatin 100,000 unit/mL suspension 1 ml PO QID 7 Days Qty: 28 0RF Rx Instructions: swish and swallow Continued fluticasone propionate [Flonase Allergy Relief] 50 mcg/actuation spray,suspension 2 spray intranasal DAILY PRN (Reason: Allergy Symptoms) 0RF Rx Instructions: administer into each nostril Aimovig Autoinjector 70 mg/mL auto-injector 70 mg SUBCUT Q30D 0RF duloxetine 60 mg capsule,delayed release(DR/EC) 60 mg PO DAILY 0RF cetirizine [Zyrtec] 10 mg tablet 10 mg PO BID 0RF multivitamin with minerals [Hair,Skin and Nails] Tablet 1 tab PO DAILY 0RF methocarbamol 500 mg tablet 250 - 500 mg PO TID PRN (Reason: Spasms) 0RF biotin 1 mg tablet 1 mg PO DAILY 0RF Daliresp 500 mcg tablet 500 mcg PO DAILY 0RF valacyclovir 1 gram tablet 1,000 mg PO BID PRN (Reason: unknown) 0RF vitamin B complex [B Complex-Vitamin B12] Tablet 1 tab PO DAILY 0RF magnesium oxide 250 mg magnesium tablet 250 mg PO DAILY 0RF albuterol sulfate [ProAir HFA] 90 mcg/actuation HFA aerosol inhaler 2 puff INHALATION QID PRN (Reason: Shortness Of Breath) 0RF prednisone 20 mg tablet See Rx Instructions PO .COMPLEX PRN (Reason: joint pain flare) Qty: 30 1RF Rx Instructions: take 1 tab po daily for 3-7 days as needed for arthritis flare cholecalciferol (vitamin D3) 25 mcg (1,000 unit) capsule 25 mcg PO DAILY 0RF ascorbic acid (vitamin C) 500 mg tablet 500 mg PO DAILY 0RF diclofenac sodium [Arthritis Pain (diclofenac)] 1 % gel 2 g topical QID PRN (Reason: Pain) 0RF Rx Instructions: apply to single elbow, wrist or hand; for hand includes palm/fingers/back of hand multivitamin Tablet 1 tab PO DAILY 0RF cyclobenzaprine 10 mg tablet 5 - 10 mg PO Q6H PRN (Reason: Muscle Spasm) 0RF amitriptyline 25 mg tablet 25 mg PO BEDTIME 0RF Calcium 500 500 mg calcium (1,250 mg) Tablet 500 mg PO DAILY 0RF hydrocodone-acetaminophen 7.5-325 mg tablet 1 - 2 tab PO Q4H PRN (Reason: Pain) 0RF pregabalin 200 mg capsule 200 mg PO TID 0RF Trelegy Ellipta 100-62.5-25 mcg blister with device 1 ea inhalation DAILY 0RF prednisone 5 mg tablet 5 mg PO DAILY 30 Days Qty: 30 0RF Rx Instructions: start after steroid taper Held hydroxychloroquine 200 mg tablet See Rx Instructions PO .COMPLEX Qty: 45 3RF Hold Instructions: Resume on 08/27/21. hold for 2 weeks or until you see rheumatology Rx Instructions: Alternate taking 1 tab today then 2 tabs tomorrow. Discharge Orders: Discharge Order (Routine); Ordered 08/13/21 Ordered By: Jassi Cruz Other Ambulatory Orders: DME: Oxygen (Order) Location: None Selected Ordered By: Jassi Cruz Referrals: Narcisa Tejeda MD [Primary Care Provider] - 08/18/21 10:30 am Discharge Diet: Cardiac Discharge Activity: Resume usual activity Patient Instructions: Using Oxygen at Home (DC), Pneumonia (GEN), Opioid Safety, Pneumonia Stoplight Activity Restrictions/Additional Instructions: - Please take steroids and antibiotics as prescribed -Please use inhaler as prescribed -Follow-up with pulmonary -Use oxygen as prescribed Discharge Attestations Time Spent in Discharge Care*: less than 30 min Quality Metrics Clinical Quality Measures [ No reported AMI, CVA or VTE this stay] Coding Level of Care Code Acute Chg FW DC note Diagnoses Acute respiratory failure with hypoxia J96.01 Acute exacerbation of chronic obstructive airways disease J44.1 Community acquired pneumonia J18.9
--- NOTE | 2021-08-13 10:42 | PC.CHAP ---
Pastoral Care Encounter/Spiritual Assessment Type of Contact [] Declined cabin equipment supervisor visit [] Patient/Family/Request visit [] Outpatient visit [] Follow-up visit [] Physician referral [] Code/Alert [x] Routine visit [] Staff referral [] Actively dying [] Patient sleeping [] Family support [] [] Out of room [] Palliative care [] [x] Receiving care in room [] Pre-surgical visit [] Trauma [x] Long length of stay [] ICU visit [] Other: Relational/Emotional Strength [x] Patient feels connected with others/family/visitors/staff [] Distress [] Loneliness/isolation [] Abandonment Spirituality of Patient [x] Person of Candida [] Attends Gnosticism of their Candida [x] Believes in Prayer [] Reads Bible or Scientology materials [] There are Spiritual issues to be addressed Ditcher Operator Interventions [x] Prayer [x] Active listening [x] Non-anxious presence [x] Spiritual/emotional support [] Crisis/trauma care [x] Spiritual counseling [] Bereavement support [] Provided bereavement packet [] Provided Bible/devotional materials [] Provided toy/stuffed animal, coloring book to patient or family member [] Provided Communion [] Anointing/[place] [] Salvation [x] Completed spiritual assessment [] Other: Impact on Illness or Injury [] Angry [] Fearful [x] Anxious [] Often cries [] Exhaustion [] Unable to work [] Unable to attend roman catholic [] Unable to walk/stand [] Unable to read [] Unable to drive [] Unable to eat/drink [] Unable to sleep [] Unable to be with family [] Patient intubated [] Other: Summary had a negative reponse will going home Time spent with patient 10 mins
[2021-08-13] MEDS: nystatin 100,000 unit/mL UDC 5 mL 100000 UNIT PO (11:02)
--- NOTE | 2021-08-13 12:15 | PC.OT ---
OT EVALUATION ORDERS RECEIVED. PATIENT IS BEING DISCHARGED TODAY.
[2021-08-16 19:44] LABS: E. Chaffeensis AB IGG <1:64; E. Chaffeensis AB IGM <1:20
[2021-08-18 17:18] LABS: RMSF IGG NOT DETECTED; RMSF IGM NOT DETECTED
== END 2021-08-13 13:00 | disposition home or self-care (01) | DRG 193 ==
LOC: ER 12:59 → ICU 16:39 → MEDSURG 08-12 11:20
PROVIDERS: Admitting Provider Family Medicine; Emergency Provider Family Medicine; PCP Internal Medicine; Visit Provider Family Medicine
DX: J18.9 Pneumonia, unspecified organism (principal); J96.01 Acute respiratory failure with hypoxia; D84.821 Immunodeficiency due to drugs; Z87.891 Personal history of nicotine dependence; Z99.81 Dependence on supplemental oxygen; J43.2 Centrilobular emphysema; B19.20 Unspecified viral hepatitis C without hepatic coma; I10 Essential (primary) hypertension; G89.29 Other chronic pain; Z28.310 Unvaccinated for COVID-19; Z79.899 Other long term (current) drug therapy; Z79.51 Long term (current) use of inhaled steroids; Z79.52 Long term (current) use of systemic steroids; Z79.891 Long term (current) use of opiate analgesic
CPT/HCPCS: 36415; 36600; 71045; 71275; 80051; 80053; 80202; 81003; 82330; 82550; 82803; 82805; 83735; 83880; 84100; 84145; 84484; 85025; 85378; 85610; 85651; 86140; 86403; 86618; 86666; 86757; 87040; 87449; 87635; 87641; 87804; 93005; 94640; 96365; 96375; 97110; 97161; 99285; C9113; J0692; J1650; J1956; J2920; J2930; J3370; J3490; J7040; J7050; J7512; J7626; Q9967

== ENCOUNTER → 2021-08-26 14:10 | Outpatient (BNVA) | payer MEDICARE, MEDICAID, SELFPAY | PROVIDERS: PCP Internal Medicine; Visit Provider Internal Medicine Critical Care Medicine | DX: J44.9 Chronic obstructive pulmonary disease, unspecified (principal); J96.11 Chronic respiratory failure with hypoxia; Z87.891 Personal history of nicotine dependence; Z99.81 Dependence on supplemental oxygen | CPT/HCPCS: 99214 ==

== ENCOUNTER → 2021-09-28 15:03 | Outpatient (BNVA) | payer MEDICARE, MEDICAID, SELFPAY | PROVIDERS: PCP Internal Medicine; Visit Provider Internal Medicine Cardiovascular Disease | DX: R94.31 Abnormal electrocardiogram [ECG] [EKG] (principal); J44.9 Chronic obstructive pulmonary disease, unspecified; G43.711 Chronic migraine without aura, intractable, with status migrainosus; F41.9 Anxiety disorder, unspecified; R76.8 Other specified abnormal immunological findings in serum; I73.00 Raynaud's syndrome without gangrene; Z87.891 Personal history of nicotine dependence | CPT/HCPCS: 99214 ==

== ENCOUNTER → 2021-11-02 13:38 | Outpatient (BNVA) | payer MEDICARE, MEDICAID, SELFPAY | PROVIDERS: PCP Internal Medicine; Visit Provider Internal Medicine Rheumatology | DX: I73.00 Raynaud's syndrome without gangrene (principal); M06.00 Rheumatoid arthritis without rheumatoid factor, unspecified site; M18.9 Osteoarthritis of first carpometacarpal joint, unspecified; Z79.899 Other long term (current) drug therapy; J44.9 Chronic obstructive pulmonary disease, unspecified; J96.90 Respiratory failure, unspecified, unspecified whether with hypoxia or hypercapnia; Z82.61 Family history of arthritis | CPT/HCPCS: 99214 ==

== ENCOUNTER → 2021-11-27 09:10 | Outpatient (BNVA) | payer MEDICARE, MEDICAID, SELFPAY | PROVIDERS: PCP Internal Medicine; Visit Provider Internal Medicine Critical Care Medicine | DX: J43.2 Centrilobular emphysema (principal); J43.8 Other emphysema; Z99.81 Dependence on supplemental oxygen; Z87.891 Personal history of nicotine dependence; J96.11 Chronic respiratory failure with hypoxia | CPT/HCPCS: 99214 ==

== ENCOUNTER 2022-01-05 13:29 | Outpatient (CLI) | payer MEDICARE, MEDICAID, SELFPAY ==
--- NOTE | 2022-01-05 13:46 | XR_ITS ---
WS: [id number] Exam: XR ribs LT 2V* [id number] Date/Time of Exam: 01/05/2022 2:50 PM Reason For Exam: MUSCULOSKELETAL CHEST PAIN/COUGH No acute left rib fracture. No pleural or pulmonary reactive changes. The lungs are hyperinflated and bilaterally clear. Normal cardiomediastinal silhouette. XR/XR ribs LT 2V* [id number] IMPRESSION: 1. No acute left rib fracture or pneumothorax. 2. Pulmonary hyperinflation. No acute cardiopulmonary finding.
--- NOTE | 2022-01-05 13:46 | XR_ITS ---
WS: [id number] Exam: XR chest 2V* [id number] Date/Time of Exam: 01/05/2022 2:50 PM Reason For Exam: COUGH/MUSCULOSKELETAL CHEST PAIN Comparison 08/12/2021. The lungs are hyperinflated and clear. Fibrous scarring in pulmonary bleb formation in the lung apice s. Normal cardiomediastinal silhouette. No pleural effusions. XR/XR chest 2V* [id number] IMPRESSION: 1. No acute cardiopulmonary process. 2. Pulmonary hyperinflation with emphysematous bleb formation and fibrous scarr ing in the bilateral upper lobes.
== END 2022-01-05 13:30 | disposition home or self-care (01) ==
PROVIDERS: PCP Internal Medicine; Visit Provider Nurse Practitioner Family
DX: R07.89 Other chest pain (principal); R05.9 Cough, unspecified
CPT/HCPCS: 71046; 71100

== ENCOUNTER → 2022-01-20 11:10 | Outpatient (BNVA) | payer MEDICARE, MEDICAID, SELFPAY | PROVIDERS: PCP Internal Medicine; Visit Provider Internal Medicine Critical Care Medicine | DX: J96.11 Chronic respiratory failure with hypoxia; J43.2 Centrilobular emphysema; Z87.891 Personal history of nicotine dependence; R07.9 Chest pain, unspecified; Z99.81 Dependence on supplemental oxygen | CPT/HCPCS: 99213 ==

== ENCOUNTER 2022-02-05 14:31 | Outpatient (CLI) | payer MEDICARE, MEDICAID, SELFPAY ==
--- NOTE | 2022-02-05 | CT_ITS ---
WS: [id number] CT CHEST TECHNIQUE: Contrast enhanced CT of the chest with coronal and sagittal reformatted images. CLINICAL INFORMATION: Localized swelling, mass and lump, trunk COMPARISON: CTA August 11, [address] screening 12/30 DLP: 575.[address] scans at [facility] use at least one of these dose optimization techniques: automated e xposure control; mA and/or kV adjustment per patient size (includes targeted exams where dose is matc hed to clinical indication); or iterative reconstruction. FINDINGS: Moderate to advanced chronic emphysematous changes. No acute pulmonary infiltrates. No focal pneumoni a or pleural fluid. Tiny 4 mm pleural nodule RIGHT lower lobe along the fissure unchanged. Other prev iously described tiny nodules not well seen today. Normal caliber thoracic aorta. Normal thyroid gland. No mediastinal or hilar lymphadenopathy. No axil brant lymphadenopathy. Adrenal glands are normal. Small bilateral renal cysts. Tiny esophageal hiatal hernia. Adrenal glands are normal. No axillary lymphadenopathy. Mild thoracic kyphosis. Mild chronic appearing compression superior endp late T12. This is unchanged from previous. CT/CT chest w con* [id number] IMPRESSION: 1. No visualized subpectoral or axillary lymph nodes or lesions to correspond to the area of reported concern. No subpectoral or LEFT axillary lymphadenopath y. 2. Moderate to advanced chronic emphysematous changes. No acute pulmonary infi ltrates. 3. No focal pneumonia or pleural fluid. 4. Previously described areas of infiltrates in the RIGHT lower lobe and RIGHT middle lobe have resolved. 5. No suspicious pulmonary parenchymal opacities today. 6. No other suspicious findings.
[2022-02-05] MEDS: iohexol 350 mg/mL 100 mL Btl IV (14:43)
== END 2022-02-05 14:32 | disposition home or self-care (01) ==
PROVIDERS: PCP Internal Medicine; Visit Provider Internal Medicine
DX: R22.2 Localized swelling, mass and lump, trunk (principal)
CPT/HCPCS: 71260

== ENCOUNTER → 2022-02-22 13:37 | Outpatient (BNVA) | payer MEDICARE, MEDICAID, SELFPAY | PROVIDERS: PCP Internal Medicine; Visit Provider Internal Medicine Rheumatology | DX: I73.00 Raynaud's syndrome without gangrene (principal); Z79.899 Other long term (current) drug therapy; M06.041 Rheumatoid arthritis without rheumatoid factor, right hand; M06.042 Rheumatoid arthritis without rheumatoid factor, left hand; Z71.85 Encounter for immunization safety counseling; Z82.61 Family history of arthritis; M18.9 Osteoarthritis of first carpometacarpal joint, unspecified; J44.9 Chronic obstructive pulmonary disease, unspecified; J96.10 Chronic respiratory failure, unspecified whether with hypoxia or hypercapnia; Z87.891 Personal history of nicotine dependence | CPT/HCPCS: 99214 ==

== ENCOUNTER 2022-05-31 15:45 | Inpatient (IN) | payer MEDICARE, MEDICAID, SELFPAY ==
[2022-05-31 15:51] VITALS: BP 97/69; PULSE 79; RESP 16; TEMP 36.6; O2SAT 95
--- NOTE | 2022-05-31 16:00 | XRR_ITS ---
PROCEDURE INFORMATION: Exam: XR Right Hip Exam date and time: 05/31/2022 4:28 PM Age: 61 years old Clinical indication: Injury or trauma; Fall; Blunt trauma (contusions or hematomas); Right; Hip; Additional info: Fall/injury; One view pelvis too please TECHNIQUE: Imaging protocol: Radiologic exam of the Right hip. Views: 1 view hip with pelvis when performed. COMPARISON: CT angio [facility] [id number] 06/26/2020 8:28 AM FINDINGS: Bones/joints: Right hip subcapital fracture with impaction and approximately 1/4 shaft displacement. Soft tissues: Unremarkable. XR/XR hip RT 2-3V wo/w pel* [id number] IMPRESSION: Right hip subcapital fracture with impaction and approximately 1/4 shaft displacement.
[2022-05-31] MEDS: HYDROcodone-acetaminophen 10-325 mg Tablet 1 TAB PO (16:30)
--- NOTE | 2022-05-31 16:54 | XRR_ITS ---
PROCEDURE INFORMATION: Exam: XR Chest Exam date and time: 05/31/2022 5:04 PM Age: 61 years old Clinical indication: Cough and shortness of breath; Additional info: Dyspnea/cough broken hip TECHNIQUE: Imaging protocol: Radiologic exam of the chest. Views: 1 view. COMPARISON: CT chest w con* [id number] 02/05/2022 2:56 PM FINDINGS: Lungs: Emphysematous changes. Pleural spaces: Minimal left costophrenic angle probable pleural scarring. Heart/Mediastinum: Unremarkable. No cardiomegaly. Bones/joints: Unremarkable. XR/XR chest 1V portable [id number] IMPRESSION: 1. Emphysematous changes, negative for infiltrate. 2. Minimal left costophrenic angle probable pleural scarring.
--- NOTE | 2022-05-31 17:04 | ED_ITS ---
HPI - Extremity Problem General: Chief complaint: Extremity Injury, Lower Stated complaint: fall/ right hip pain Time Seen by Provider: 05/31/22 15:59 Source: patient Mode of arrival: ambulatory History of Present Illness: 61-year-old female who presents to the emergency room with complaints of right hip pain after a fall down the stairs. She stumbled and fell when she landed she could not get up she was brought in by private vehicle she initially seen in the walk-in and her midlevel ordered a x- ray on her she has a subcapital hip fracture on the right and she is brought back to an exam room. She not strike her head she not lose conscious she denies any other injuries MD Complaint: joint pain Onset (ago): minute(s) Pain Consistency: constant Location: right (Hip) Radiation: distal Relieving factors: immobilization Exacerbating factors: palpation Associated symptoms: Deny arthralgias, chest pain, fever(s), myalgias, rash, short of breath or other Review of Systems Const: Denies: fever(s), chills, fatigue or malaise ENMT: Denies: throat pain, ear or mastoid pain, nasal discharge or nasal congestion Card: Denies: chest pain, palpitations or irregular heart rhythm Resp: Denies: dyspnea, productive cough or non-productive cough GI: Denies: abdominal pain, nausea, vomiting, hematemesis, coffee ground emesis, diarrhea, constipation, bloating, hematochezia or melena : Denies: flank pain, difficulty voiding, dysuria, urinary frequency or urinary urgency Musc: Denies: neck pain or back pain Skin/Breast: Denies: rash or pruritus PFSH ED PFSH: Medical History Allergies Back pain Chronic obstructive pulmonary disease H/O nephrolithotomy with removal of calculi Hepatitis C antibody positive in blood High risk medication use Immunization counseling Inflammatory arthritis Kidney stones Muscle spasm Raynaud phenomenon Seronegative rheumatoid arthritis of both hands Surgical History History of delivery x2 History of hysterectomy with bilateral oophorectomy Family History Other Acute rheumatoid arthritis CAD (coronary artery disease) Cancer Chronic kidney disease (CKD) Diabetes Hypertension Lung disease Stroke Denies family history of Lupus Hyperlipidemia Social History Smoking and tobacco status: former smoker Quit status (tobacco): has quit using tobacco Year quit tobacco: 2019 - 1PPD x 42 Years Second hand smoke exposure: Yes Smoking risk assessment/counseling performed?: No Alcohol intake: never Desire information about alcohol rehabilitation?: No Counseling given: No Desire information about substance/drug rehabilitation?: No Counseling given: No Lives independently: Yes Household members: none Marital status: Legally Current occupational status: disabled Current gender identity: Female Physical Exam Const: GENERAL APPEARANCE: cooperative and comfortable ORIENTATION/CONSCIOUSNESS: Yes awake, Yes oriented to person, Yes oriented to place and Yes oriented to time HENMT: COMMON NORMALS: normocephalic, atraumatic and hearing grossly normal bilaterally HEAD & SCALP: normocephalic and atraumatic Resp: COMMON NORMALS: normal respiratory effort, No retractions, No use of accessory muscles and clear to auscultation bilaterally AUSCULTATION: clear to auscultation bilaterally Cardio: COMMON NORMALS: regular rate, regular rhythm and No murmurs present (Cardio) RATE: regular rate RHYTHM: regular rhythm GI: COMMON NORMALS: Soft to palpation and No hepatosplenomegaly present AUSCULTATION: Yes normoactive bowel sounds PALPATION: Yes Soft to palpation, No Tenderness to palpation present (GI), No Guarding due to palpation present (GI) and Yes No hepatosplenomegaly present Extremity: OTHER: Dorsalis pedis posterior tibialis pulse sensation and movement at the foot are normal in the right Neuro: SENSORIUM/ORIENTATION: Yes oriented to person, Yes oriented to place and Yes oriented to time Skin: COMMON NORMALS: no rashes or lesions noted GENERAL SKIN EXAM: no rashes or lesions noted Course Vital Signs: Vital signs: Vital Signs Temperature 97.9 F 05/31/22 15:51 Pulse Rate 79 05/31/22 15:51 Respiratory Rate 16 05/31/22 15:51 Blood Pressure 97/69 05/31/22 15:51 Pulse Oximetry 95 05/31/22 15:51 Oxygen Delivery Me thod 05/31/22 15:51 Oxygen Flow Rate 2 05/31/22 15:51 MDM - Extremity (Nontraumatic) Medical Decision Making Right subtrochanteric hip fracture with moderate displacement no other injuries. Patient has a history of COPD she had a stress test 11 months ago that was normal. She has a baseline cough. She also makes comments she is chronically mildly hypotensive but Illes remains stable. Discussed Dr. Dennis will admit and consult Dr. Barnett for orthopedics.. Medical Records I reviewed the patient's medical records. Lab Data I reviewed the patient's lab results. Radiology Impressions Hip/Pelvis X-Ray 05/31/22 16:00 IMPRESSION: Right hip subcapital fracture with impaction and approximately 1/4 shaft displacement. Discharge Plan Discharge Patient Disposition: Admitted As Inpatient Clinical Impression: Closed subtrochanteric fracture of right femur, Hepatitis C antibody positive in blood, Chronic obstructive pulmonary disease Condition: Stable Coding Level of Care Code ED [employer] for [employer]
--- NOTE | 2022-05-31 17:38 | ECG_ITS ---
[facility] Test Date: 2022-05-31 Pat Name: Mely Wang Department: Room: Gender: Female Hospitalist Program Director: : 1960 Requested By: Vickey Roger Order Number: [id number] Howard MD: Kulwinder Vo M.D. Measurements Intervals [place] Rate: 66 P: 78 [place]: 162 QRS: 67 QRSD: 113 T: 73 QT: 412 QTc: 433 Interpretive Statements SINUS RHYTHM INCOMPLETE RIGHT BUNDLE BRANCH BLOCK [90+ ms QRS DURATION, TERMINAL R IN V1/V2, 40+ ms S IN I/aVL/V4/V5/V6] MODERATE T-WAVE ABNORMALITY, CONSIDER ANTERIOR ISCHEMIA [-0.1+ mV T-WAVE IN V3/V4] Compared to ECG 08/11/2021 22:10:04 No significant changes Electronically Signed On 05-31-2022 19:11:30 DEWER by Kulwinder Vo M.D. [id number]
[2022-05-31 17:41] VITALS: RESP 18
[2022-05-31] MEDS: morphine 4 mg/mL SDV 1 mL IVP ×2 (17:41→20:42)
--- NOTE | 2022-05-31 17:41 | P.HP_ITS ---
Providers/Chief Complaint Admitting Physician: Yocasta Dennis MD Primary Care Provider: Narcisa Tejeda MD Chief Complaint: fall/ right hip pain History of Present Illness Mely Wang is a 61 year old female with a past medical history of COPD, chronic hypercapnic respiratory failure, on home O2 2 L/min, seronegative inflammatory arthritis presented to the hospital today after sustaining a mechanical fall when she fell down the stairs. She could not get back up. X- ray showed a subcapital hip fracture on the right side. She denies any history of loss of consciousness, palpitation syncope prior to the event. Review of Systems General: Reports: 10 or more systems reviewed and unremarkable except in HPI and below Const: Denies: fever(s), chills or body aches Eyes: Denies: change in vision, blurry vision or photophobia ENMT: Reports: hoarseness; Denies: throat pain, enlarged tonsils, odynophagia or nasal congestion Card: Denies: chest pain, palpitations, irregular heart rhythm, edema, swelling of feet/ankles, lightheadedness, pre-syncope, dyspnea on exertion or orthopnea Resp: Denies: dyspnea, productive cough, non-productive cough, wheezing, stridor, pain on inspiration, change in phlegm color, hemoptysis or chest congestion GI: Denies: abdominal pain, nausea, vomiting, hematemesis, coffee ground emesis, dysphagia, heartburn, diarrhea, constipation, GI cramping, change in stool character, hematochezia or melena : Denies: flank pain, difficulty voiding, dysuria, urinary frequency, urinary urgency, urinary hesitancy or hematuria Musc: Denies: neck pain, back pain, extremity pain, joint swelling, joint warmth or deformity Neuro: Denies: headache(s), numbness in extremities, weakness in extremities, sensory changes, difficulty walking, frequent falls, dizziness, vertigo, behavioral changes, Slurred speech present or seizure-like activity Psych: Denies: anxiety, depression, suicidal ideation or homicidal ideation Endo: Denies: polyuria, polydipsia, tired all the time, cold intolerance or hot flashes Familia/Lymph: Denies: easy bruising or easy bleeding Medications/Allergies Home Medications Medication Instructions Recorded Confirmed Last Taken Type methocarbamol 500 mg tablet 250 - 500 mg PO TID PRN Spasms 04/19/19 05/31/22 Unknown History multivitamin with minerals 1 tab PO DAILY 04/19/19 05/31/22 05/30/22 History (Hair,Skin and Nails tablet) magnesium oxide 250 mg PO DAILY 08/09/19 05/31/22 05/30/22 History fluticasone propionate 50 2 spray intranasal DAILY PRN 03/27/20 05/31/22 Unknown History mcg/actuation nasal Allergy Symptoms spray,suspension (Flonase Allergy Relief) cetirizine 10 mg tablet (Zyrtec) 10 mg PO BID 12/09/20 05/31/22 05/30/22 History duloxetine 60 mg capsule,delayed 60 mg PO BEDTIME 12/09/20 05/31/22 05/30/22 History release erenumab-aooe 70 mg/mL 70 mg SUBCUT Q30D 12/09/20 05/31/22 Unknown History subcutaneous auto-injector (Aimovig Autoinjector) ascorbic acid (vitamin C) 500 mg 500 mg PO DAILY 06/25/21 05/31/22 05/30/22 History tablet biotin 1 mg tablet 1 mg PO DAILY 06/25/21 05/31/22 05/30/22 History cholecalciferol (vitamin D3) 25 25 mcg PO DAILY 06/25/21 05/31/22 05/30/22 History mcg (1,000 unit) capsule roflumilast 500 mcg tablet 500 mcg PO DAILY 06/25/21 05/31/22 05/31/22 History (Daliresp) valacyclovir 1 gram tablet 1,000 mg PO BID PRN unknown 06/25/21 05/31/22 Unknown History vitamin B complex (B 1 tab PO DAILY 06/25/21 05/31/22 05/30/22 History Complex-Vitamin B12 tablet) amitriptyline 25 mg tablet 25 mg PO BEDTIME 08/11/21 05/31/22 05/30/22 History calcium carbonate 500 mg calcium 500 mg PO DAILY 08/11/21 05/31/22 05/30/22 History (1,250 mg) tablet fluticasone fur. 100 mcg-umeclid 1 ea inhalation DAILY 08/11/21 05/31/22 05/31/22 History 62.5 mcg-vilant 25 mcg inhalat.powder (Trelegy Ellipta) hydrocodone 7.5 mg-acetaminophen 1 - 2 tab PO Q4H PRN Pain 08/11/21 05/31/22 05/31/22 History 325 mg tablet pregabalin 200 mg capsule 200 mg PO TID 08/11/21 05/31/22 05/31/22 History albuterol sulfate 90 mcg/actuation 2 puff inhalation QID PRN 11/27/21 05/31/22 Unknown Rx aerosol inhaler (ProAir HFA) Shortness Of Breath #8.5 grams azithromycin 500 mg tablet 500 mg PO .three times per week 11/27/21 05/31/22 05/28/22 Rx #36 tabs diclofenac sodium 1 % topical gel 2 g topical QID PRN Pain #100 grams 02/22/22 05/31/22 Unknown Rx (Arthritis Pain (diclofenac)) hydroxychloroquine 200 mg tablet See Rx Instructions .Route 02/22/22 05/31/22 05/31/22 Rx .COMPLEX #135 tabs 200 MG leflunomide 10 mg tablet 10 mg PO DAILY #30 tabs 02/22/22 05/31/22 05/31/22 Rx Allergies Allergy/AdvReac Type Severity Reaction Status Date / Time almond Allergy ALGY-Anaphy Verified 02/22/22 13:54 laxis aspirin Allergy Bleeding Verified 02/22/22 13:54 PFSH Acute PFSH: Medical History Allergies Back pain Chronic obstructive pulmonary disease H/O nephrolithotomy with removal of calculi Hepatitis C antibody positive in blood High risk medication use Immunization counseling Inflammatory arthritis Kidney stones Muscle spasm Raynaud phenomenon Seronegative rheumatoid arthritis of both hands Surgical History History of delivery x2 History of hysterectomy with bilateral oophorectomy Family History Other Acute rheumatoid arthritis CAD (coronary artery disease) Cancer Chronic kidney disease (CKD) Diabetes Hypertension Lung disease Stroke Denies family history of Lupus Hyperlipidemia Social History Smoking and tobacco status: former smoker Quit status (tobacco): has quit using tobacco Year quit tobacco: 2019 - 1PPD x 42 Years Second hand smoke exposure: Yes Smoking risk assessment/counseling performed?: No Alcohol intake: never Desire information about alcohol rehabilitation?: No Counseling given: No Desire information about substance/drug rehabilitation?: No Counseling given: No Lives independently: Yes Household members: none Marital status: Legally Current occupational status: disabled Current gender identity: Female Vitals/I&O/Wt Last Vital Signs Temp 97.9 F 05/31/22 15:51 Pulse 79 05/31/22 15:51 Resp 16 05/31/22 15:51 BP 97/69 05/31/22 15:51 Pulse Ox 95 05/31/22 15:51 O2 Del Method 05/31/22 15:51 O2 Flow Rate 2 05/31/22 15:51 Weight last 48 hrs Weight 54.431 kg Physical Exam Narrative: General: No acute distress, AO x3 HEENT: PERRLA, pupils bilaterally equal and reactive, pallors not present Chest: Normal vesicular breath sounds, no added sounds, equal good air entry bilaterally CVS: S1-S2 regular, no murmurs, no tachycardia, no gallops, no rubs Abdomen: Soft, nontender, no organomegaly, bowel sounds present Neuro: No focal deficits, no facial deformity, AO x3, power 5/5 in all limbs Extremity: Right side hip fracture, no neurovascular involvement Data 05/31/22 17:30 05/31/22 17:30 A&P Assessment and plan (1) Subcapital fracture of right hip: Sustained after mechanical fall. Orthopedics has been consulted. Bedrest until orthopedic assessment. Patient denies any current complaints of chest pain dyspnea palpitations or syncope. (2) Chronic respiratory failure with hypoxia: No signs of current exacerbation. Continue DuoNeb and budesonide inhalation as scheduled. Continue Roflumilast as she takes at home. We will start IV steroids if needed, currently no signs of exacerbation. (3) Chronic obstructive pulmonary disease: Attestations Medical Necessity Statement*: Admission for more than 2 midnights for management of subcapital right hip fracture requiring ORIF Diagnoses Subcapital fracture of right hip S72.011A Chronic respiratory failure with hypoxia J96.11 Chronic obstructive pulmonary disease J44.9
[2022-05-31] MEDS: ondansetron 2 mg/ML SDV 2 mL 4 MG IVP (17:42)
[2022-05-31 17:43] LABS: Basophils # 0.1 10^3/uL (0.0-0.1); Basophils % 0.7 %; Eosinophils # 0.1 10^3/uL (0.0-0.8); Eosinophils % 0.6 %; Hematocrit 36.9 % (37.0-47.0); Hemoglobin 11.7 g/dL (11.5-15.3); Lymphocytes # 0.7 10^3/uL (0.8-4.8); Lymphocytes % 8.8 %; Mean Corpuscular HGB Conc 31.7 g/dL (30.0-36.0); Mean Corpuscular Hemoglobin 28.3 pg (28.0-34.0); Mean Corpuscular Volume 89.1 fl (81-99); Mean Platelet Volume 9.8 fL (7.4-10.4); Monocytes # 0.9 10^3/uL (0.2-0.9); Monocytes % 11.1 %; Neutrophils # 6.35 10^3/uL (1.8-7.7); Neutrophils % 78.3 %; Nucleated Red Blood Cells % 0 %; Platelet Count 280 10^3/cmm (130-400); Red Blood Count 4.14 10^6/uL (4.1-5.3); Red Cell Distribution Width 14.4 % (12.1-15.1); White Blood Count 8.1 10^3/uL (4.0-10.0)
[2022-05-31 17:56] LABS: INR 0.98 (0.8-1.2); Partial Thromboplastin Time 32.9 SECONDS (23.9-36.7)
[2022-05-31 18:01] VITALS: BP 131/82; PULSE 69; RESP 20; O2SAT 96
[2022-05-31 18:03] LABS: Alanine Aminotransferase 11 U/L (0-33); Albumin Level 3.7 g/dL (3.5-5.2); Alkaline Phosphatase 116 U/L (35-105); Anion Gap 11.6 (5-19); Aspartate Amino Transferase 18 U/L (0-32); Blood Urea Nitrogen 8 mg/dL (6-20); Calcium 9.3 mg/dL (8.5-10.5); Carbon Dioxide 30 mmol/L (22-29); Chloride 96 mmol/L (98-107); Globulin 3.2 g/dL (1.3-4.6); Glomerular Filtration Rate 163.4 mL/min (90-130); Glucose 80 mg/dL (65-115); Osmolality Calculated 275 mOsm/kg (285-295); Potassium 3.6 mmol/L (3.5-5.1); Sodium 134 mmol/L (136-145); Total Bilirubin 0.2 mg/dL (0.15-1.2); Total Protein 6.9 g/dL (6.6-8.7)
[2022-05-31 18:30] VITALS: BP 135/75; PULSE 69; RESP 19; O2SAT 96
[2022-05-31 18:50] LABS: Add Urine Microscopic? YES; Bilirubin Urine Neg (Negative); Blood Urine Neg (Negative); Glucose Urine UA Norm (Normal); Ketones Urine 1+ (Negative); Leukocyte Esterase Urine Trace (Negative); Nitrate Urine Positive (Negative); Protein Urine Neg (Negative); Specific Gravity, Urine 1.015 (1.005-1.030); Urine Appearance Clear (CLEAR); Urine Color Dark Yellow (Yellow); Urobilinogen Urine Norm (Negative); pH Urine 6 (5-7)
[2022-05-31 18:51] LABS: Add Urine Culture? Yes; Bacteria Urine 3+ /hpf; Squamous Epithelial Cell Urine 0-4 /hpf (0-5); WBC Urine 15-25 /hpf (0-5)
--- NOTE | 2022-05-31 19:59 | P.CONIM_ITS ---
Providers/Reason For Consult Consulting Physician/Specialty*: Basilio Barnett MD; Orthopedic Surgery Reason for Consult*: Right femoral neck fracture Attending Physician: Yocasta Dennis MD Primary Care Provider: Narcisa Tejeda MD History of Present Illness History of Present Illness Mely Wang is a 61 year old female who fell down steps at home with resulting right hip pain. Transferred to ER where radiographs revealed right femoral neck fracture. Previously oxygen dependent but ambulatory without aids. Medications/Allergies Home Medications Medication Instructions Recorded Confirmed Last Taken Type methocarbamol 500 mg tablet 250 - 500 mg PO TID PRN Spasms 04/19/19 05/31/22 Unknown History multivitamin with minerals 1 tab PO DAILY 04/19/19 05/31/22 05/30/22 History (Hair,Skin and Nails tablet) magnesium oxide 250 mg PO DAILY 08/09/19 05/31/22 05/30/22 History fluticasone propionate 50 2 spray intranasal DAILY PRN 03/27/20 05/31/22 Unknown History mcg/actuation nasal Allergy Symptoms spray,suspension (Flonase Allergy Relief) cetirizine 10 mg tablet (Zyrtec) 10 mg PO BID 12/09/20 05/31/22 05/30/22 History duloxetine 60 mg capsule,delayed 60 mg PO BEDTIME 12/09/20 05/31/22 05/30/22 History release erenumab-aooe 70 mg/mL 70 mg SUBCUT Q30D 12/09/20 05/31/22 Unknown History subcutaneous auto-injector (Aimovig Autoinjector) ascorbic acid (vitamin C) 500 mg 500 mg PO DAILY 06/25/21 05/31/22 05/30/22 History tablet biotin 1 mg tablet 1 mg PO DAILY 06/25/21 05/31/22 05/30/22 History cholecalciferol (vitamin D3) 25 25 mcg PO DAILY 06/25/21 05/31/22 05/30/22 History mcg (1,000 unit) capsule roflumilast 500 mcg tablet 500 mcg PO DAILY 06/25/21 05/31/22 05/31/22 History (Daliresp) valacyclovir 1 gram tablet 1,000 mg PO BID PRN unknown 06/25/21 05/31/22 Unknown History vitamin B complex (B 1 tab PO DAILY 06/25/21 05/31/22 05/30/22 History Complex-Vitamin B12 tablet) amitriptyline 25 mg tablet 25 mg PO BEDTIME 08/11/21 05/31/22 05/30/22 History calcium carbonate 500 mg calcium 500 mg PO DAILY 08/11/21 05/31/22 05/30/22 History (1,250 mg) tablet fluticasone fur. 100 mcg-umeclid 1 ea inhalation DAILY 08/11/21 05/31/22 05/31/22 History 62.5 mcg-vilant 25 mcg inhalat.powder (Trelegy Ellipta) hydrocodone 7.5 mg-acetaminophen 1 - 2 tab PO Q4H PRN Pain 08/11/21 05/31/22 05/31/22 History 325 mg tablet pregabalin 200 mg capsule 200 mg PO TID 08/11/21 05/31/22 05/31/22 History albuterol sulfate 90 mcg/actuation 2 puff inhalation QID PRN 11/27/21 05/31/22 Unknown Rx aerosol inhaler (ProAir HFA) Shortness Of Breath #8.5 grams azithromycin 500 mg tablet 500 mg PO .three times per week 11/27/21 05/31/22 05/28/22 Rx #36 tabs diclofenac sodium 1 % topical gel 2 g topical QID PRN Pain #100 grams 02/22/22 05/31/22 Unknown Rx (Arthritis Pain (diclofenac)) hydroxychloroquine 200 mg tablet See Rx Instructions .Route 02/22/22 05/31/22 05/31/22 Rx .COMPLEX #135 tabs 200 MG leflunomide 10 mg tablet 10 mg PO DAILY #30 tabs 02/22/22 05/31/22 05/31/22 Rx Allergies Allergy/AdvReac Type Severity Reaction Status Date / Time almond Allergy ALGY-Anaphy Verified 02/22/22 13:54 laxis aspirin Allergy Bleeding Verified 02/22/22 13:54 PFSH Acute PFSH: Medical History Allergies Back pain Chronic obstructive pulmonary disease H/O nephrolithotomy with removal of calculi Hepatitis C antibody positive in blood High risk medication use Immunization counseling Inflammatory arthritis Kidney stones Muscle spasm Raynaud phenomenon Seronegative rheumatoid arthritis of both hands Surgical History History of delivery x2 History of hysterectomy with bilateral oophorectomy Family History Other Acute rheumatoid arthritis CAD (coronary artery disease) Cancer Chronic kidney disease (CKD) Diabetes Hypertension Lung disease Stroke Denies family history of Lupus Hyperlipidemia Social History Smoking and tobacco status: former smoker Quit status (tobacco): has quit using tobacco Year quit tobacco: 2019 1PPD x 42 Years Second hand smoke exposure: Yes Smoking risk assessment/counseling performed?: No Alcohol intake: never Desire information about alcohol rehabilitation?: No Counseling given: No Desire information about substance/drug rehabilitation?: No Counseling given: No Lives independently: Yes Household members: none Marital status: Legally Current occupational status: disabled Current gender identity: Female Vitals/I&O/Wt Last Vital Signs Temp 97.9 F 05/31/22 15:51 Pulse 69 05/31/22 18:30 Resp 19 H 05/31/22 18:30 BP 135/75 05/31/22 18:30 Pulse Ox 96 05/31/22 18:30 O2 Del Method 05/31/22 15:51 O2 Flow Rate 2 05/31/22 15:51 Weight last 48 hrs Weight 120 lb Physical Exam Narrative: Right hip with shortenning and external rotation Pain right hip with any motion Flexes and extends toes and ankle on right. Palpable dorsalis pedis pulse Sensation intact right foot and toes. Urinary Catheter Management: Mohan: Cath Placed During This Visit: yes Reason for Continuing Indwelling Catheter: Other Urinary Catheter Date of Insertion: 05/31/22 Urinary Catheter Time of Insertion: 18:35 Data 05/31/22 17:30 05/31/22 17:30 Xray Ortho: My impression: Fracture right femoral neck with valgus and posterior angulation. Osteopenic bobby ne. A&P Assessment and plan (1) Subcapital fracture of right hip: I discussed options with patient and family at bedside. I discussed the possibilty of surgical fixation of fracture. There is some displacement and bone quality may be suboptimal as a result. Risk with pinning including nonunion malunion and hardware complications were discussed. Other option would be hip arthroplasty. This would be more reliable in allowing immediate weight bearing. It would be a larger procedure with greater intraoperative risks. Surgical risks of bleeding, infection, deep veous thrombosis, pulmonary embboli all noted. Patient and family feel more comfortable with more certain results with arthorplasty. Ms. Wang is 61 years old and fairly active. Total hip arthoplasty may offer the best chance of pain relief. Dr. Blackwell will see patient to be sure she is medically optimzed and risks are acceptable. Coding Level of Care Code Acute Code for [facility] Fwd Diagnoses Subcapital fracture of right hip S72.011A
[2022-05-31 20:00] VITALS: BP 114/67; PULSE 61; RESP 14; TEMP 36.6; O2SAT 93
[2022-05-31 20:42] VITALS: RESP 20
[2022-05-31] MEDS: enoxaparin 40 mg/0.4 mL Syringe SUBCUT (20:50)
[2022-05-31] MEDS: D5-NS 0.45% + KCL 20 mEq 20 MEQ/1,000 ML BAG 100 MEQ IV (20:52)
[2022-06-01] VITALS (29 sets, daily range): BP systolic 105–149; BP diastolic 66–85; PULSE 55–76; RESP 14–24; TEMP 36.2–36.8; O2SAT 90–98
[2022-06-01] MEDS: HYDROcodone-acetaminophen 5-325 mg Tablet 1 TAB PO ×3 (00:06→17:04)
[2022-06-01] MEDS: morphine 4 mg/mL SDV 1 mL 2 MG IVP ×5 (01:07→19:45)
[2022-06-01] MEDS: ipratropium 0.5 mg/2.5 mL Neb INHALATION ×3 (01:40→22:05)
[2022-06-01] MEDS: albuterol 2.5 mg/3 mL Neb INHALATION ×3 (01:41→22:06)
[2022-06-01 05:22] LABS: Basophils % 0.8 %; Eosinophils # 0.1 10^3/uL (0.0-0.8); Eosinophils % 1.3 %; Hematocrit 33.9 % (37.0-47.0); Hemoglobin 11.1 g/dL (11.5-15.3); Lymphocytes # 0.7 10^3/uL (0.8-4.8); Lymphocytes % 15.2 %; Mean Corpuscular HGB Conc 32.7 g/dL (30.0-36.0); Mean Corpuscular Hemoglobin 29.3 pg (28.0-34.0); Mean Corpuscular Volume 89.4 fl (81-99); Mean Platelet Volume 9.9 fL (7.4-10.4); Monocytes # 0.9 10^3/uL (0.2-0.9); Monocytes % 18.1 %; Neutrophils # 3.05 10^3/uL (1.8-7.7); Neutrophils % 64.2 %; Nucleated Red Blood Cells % 0 %; Platelet Count 246 10^3/cmm (130-400); Red Blood Count 3.79 10^6/uL (4.1-5.3); Red Cell Distribution Width 14.6 % (12.1-15.1); White Blood Count 4.8 10^3/uL (4.0-10.0)
[2022-06-01 05:52] LABS: Alanine Aminotransferase 9 U/L (0-33); Albumin Level 3.1 g/dL (3.5-5.2); Alkaline Phosphatase 105 U/L (35-105); Anion Gap 10.1 (5-19); Aspartate Amino Transferase 15 U/L (0-32); Blood Urea Nitrogen 6 mg/dL (6-20); Calcium 8.9 mg/dL (8.5-10.5); Carbon Dioxide 29 mmol/L (22-29); Chloride 101 mmol/L (98-107); Globulin 2.7 g/dL (1.3-4.6); Glomerular Filtration Rate 163.4 mL/min (90-130); Glucose 125 mg/dL (65-115); Osmolality Calculated 281 mOsm/kg (285-295); Potassium 4.1 mmol/L (3.5-5.1); Sodium 136 mmol/L (136-145); Total Bilirubin 0.2 mg/dL (0.15-1.2); Total Protein 5.8 g/dL (6.6-8.7)
[2022-06-01] MEDS: D5-NS 0.45% + KCL 20 mEq 20 MEQ/1,000 ML BAG 100 MEQ IV (07:11)
[2022-06-01] MEDS: pantoprazole DR 40 mg Tablet PO (07:53)
[2022-06-01] MEDS: roflumilast 500 mcg Tablet PO (07:53)
[2022-06-01] MEDS: budesonide 0.5 mg/2 mL Neb INHALATION ×2 (08:04→22:05)
[2022-06-01] MEDS: CELEcoxib 200 mg Capsule 400 MG PO (12:38)
[2022-06-01] MEDS: acetaminophen 500 mg Tablet 1000 MG PO ×2 (12:38→21:51)
[2022-06-01] MEDS: sodium chloride 0.9% 1,000 ML 30 ML IV (12:38)
[2022-06-01] MEDS: oxyCODONE 20 mg ER (12 HR) Tablet PO (12:38)
--- NOTE | 2022-06-01 12:40 | ANES.PREANE2 ---
Pre-Anesthetic Assessment Height/Weight: Height 1.7 m Weight 54.431 kg Temp Pulse Resp BP Pulse Ox O2 Del Method O2 Flow Rate 97.6 F 69 16 117/66 92 3 06/01/22 11:36 06/01/22 11:36 06/01/22 11:36 06/01/22 11:36 06/01/22 11:36 06/01/22 11:36 06/01/22 07:35 Preop Diagnosis: Right femoral neck fracture Operation Date: 06/01/22 13:00 Proposed Procedures p Hemiarthroplasty Hip(Right) - Basilio Barnett MD Familial anesthetic complications: None Was Beta Jaqueline taken within 24 hours: N/A Was Clonidine taken within 24 hours: N/A Last intake: > 8 hrs Social No alcohol and No tobacco former smoker Exam alert, oriented x 3, clear to auscultation bilaterally and regular rate & rhythm Airway Mallampati: Class II Dentition: full Pulmonary Chronic Obstructive Pulmonary Disease Home O2 (2 L/min) [facility] [place]ud[place] Anesthetic Plan ASA status: 4 Anesthesia: Regional (specify below) (Spinal) Risk of > 500 ml blood loss (7ml/kg in children): No Medications/Allergies Home Medications Medication Instructions Recorded Confirmed Last Taken Type methocarbamol 500 mg tablet 250 - 500 mg PO TID PRN Spasms 04/19/19 05/31/22 Unknown History multivitamin with minerals 1 tab PO DAILY 04/19/19 05/31/22 05/30/22 History (Hair,Skin and Nails tablet) magnesium oxide 250 mg PO DAILY 08/09/19 05/31/22 05/30/22 History fluticasone propionate 50 2 spray intranasal DAILY PRN 03/27/20 05/31/22 Unknown History mcg/actuation nasal Allergy Symptoms spray,suspension (Flonase Allergy Relief) cetirizine 10 mg tablet (Zyrtec) 10 mg PO BID 12/09/20 05/31/22 05/30/22 History duloxetine 60 mg capsule,delayed 60 mg PO BEDTIME 12/09/20 05/31/22 05/30/22 History release erenumab-aooe 70 mg/mL 70 mg SUBCUT Q30D 12/09/20 05/31/22 Unknown History subcutaneous auto-injector (Aimovig Autoinjector) ascorbic acid (vitamin C) 500 mg 500 mg PO DAILY 06/25/21 05/31/22 05/30/22 History tablet biotin 1 mg tablet 1 mg PO DAILY 06/25/21 05/31/22 05/30/22 History cholecalciferol (vitamin D3) 25 25 mcg PO DAILY 06/25/21 05/31/22 05/30/22 History mcg (1,000 unit) capsule roflumilast 500 mcg tablet 500 mcg PO DAILY 06/25/21 05/31/22 05/31/22 History (Daliresp) valacyclovir 1 gram tablet 1,000 mg PO BID PRN unknown 06/25/21 05/31/22 Unknown History vitamin B complex (B 1 tab PO DAILY 06/25/21 05/31/22 05/30/22 History Complex-Vitamin B12 tablet) amitriptyline 25 mg tablet 25 mg PO BEDTIME 08/11/21 05/31/22 05/30/22 History calcium carbonate 500 mg calcium 500 mg PO DAILY 08/11/21 05/31/22 05/30/22 History (1,250 mg) tablet fluticasone fur. 100 mcg-umeclid 1 ea inhalation DAILY 08/11/21 05/31/22 05/31/22 History 62.5 mcg-vilant 25 mcg inhalat.powder (Trelegy Ellipta) hydrocodone 7.5 mg-acetaminophen 1 - 2 tab PO Q4H PRN Pain 08/11/21 05/31/22 05/31/22 History 325 mg tablet pregabalin 200 mg capsule 200 mg PO TID 08/11/21 05/31/22 05/31/22 History albuterol sulfate 90 mcg/actuation 2 puff inhalation QID PRN 11/27/21 05/31/22 Unknown Rx aerosol inhaler (ProAir HFA) Shortness Of Breath #8.5 grams azithromycin 500 mg tablet 500 mg PO .three times per week 11/27/21 05/31/22 05/28/22 Rx #36 tabs diclofenac sodium 1 % topical gel 2 g topical QID PRN Pain #100 grams 02/22/22 05/31/22 Unknown Rx (Arthritis Pain (diclofenac)) hydroxychloroquine 200 mg tablet See Rx Instructions .Route 02/22/22 05/31/22 05/31/22 Rx .COMPLEX #135 tabs 200 MG leflunomide 10 mg tablet 10 mg PO DAILY #30 tabs 02/22/22 05/31/22 05/31/22 Rx Allergies Allergy/AdvReac Type Severity Reaction Status Date / Time almond Allergy ALGY-Anaphy Verified 02/22/22 13:54 laxis aspirin Allergy Bleeding Verified 02/22/22 13:54 Current Medications Generic Name Dose Route Start Last Admin Trade Name Freq PRN Reason Stop Dose Admin Hydrocodone Bitart/Acetaminophen 1 tab 05/31/22 23:50 06/01/22 07:30 Hydrocodone-Acetaminophen 5-325 Mg Tablet PO 1 tab Q6H PRN Administration MODERATE PAIN Albuterol Sulfate 2.5 mg 05/31/22 20:00 06/01/22 07:31 Albuterol 2.5 Mg/3 Ml Neb INHALATION 2.5 mg Q6H.RESP JUNI Administration Budesonide 0.5 mg 05/31/22 20:00 06/01/22 08:04 Budesonide 0.5 Mg/2 Ml Neb INHALATION 0.5 mg BID.RESPIRATORY JUNI Administration Enoxaparin Sodium 40 mg 05/31/22 18:30 05/31/22 20:50 Enoxaparin 40 Mg/0.4 Ml Syringe SUBCUT 40 mg Q24H JUNI Administration Potassium Chloride/Dextrose/Sod Cl 20 meq in 1,000 mls @ 100 mls/hr 05/31/22 19:51 06/01/22 07:11 D5-Ns 0.45% + Kcl 20 Meq IV 100 mls/hr .Q10H JUNI Administration Sodium Chloride 1,000 mls @ 30 mls/hr 06/01/22 12:30 06/01/22 12:38 Sodium Chloride 0.9% IV 06/02/22 12:29 30 mls/hr .Q24H JUNI Administration Ipratropium [place] 0.5 mg 05/31/22 20:00 06/01/22 07:31 Ipratropium 0.5 Mg/2.5 Ml Neb INHALATION 0.5 mg Q6H.RESP JUNI Administration Morphine Sulfate 2 mg 05/31/22 17:36 06/01/22 10:09 Morphine 4 Mg/Ml Sdv 1 Ml IVP 2 mg Q4H PRN Administration SEVERE PAIN Pantoprazole Sodium 40 mg 06/01/22 09:00 06/01/22 07:[address] 40 Mg Tablet PO 40 mg DAILY JUNI Administration Roflumilast 500 mcg 06/01/22 09:00 06/01/22 07:53 Roflumilast 500 Mcg Tablet PO 500 mcg DAILY JUNI Administration [facility] Anesthesia Medical History Allergies Back pain Chronic obstructive pulmonary disease H/O nephrolithotomy with removal of calculi Hepatitis C antibody positive in blood High risk medication use Immunization counseling Inflammatory arthritis Kidney stones Muscle spasm Raynaud phenomenon Seronegative rheumatoid arthritis of both hands Surgical History History of delivery x2 History of hysterectomy with bilateral oophorectomy Family History Other Acute rheumatoid arthritis CAD (coronary artery disease) Cancer Chronic kidney disease (CKD) Diabetes Hypertension Lung disease Stroke Denies family history of Lupus Hyperlipidemia Social History Smoking and tobacco status: former smoker Quit status (tobacco): has quit using tobacco Year quit tobacco: 2020 - 1PPD x 42 Years Second hand smoke exposure: Yes Smoking risk assessment/counseling performed?: No Alcohol intake: never Desire information about alcohol rehabilitation?: No Counseling given: No Desire information about substance/drug rehabilitation?: No Counseling given: No Lives independently: Yes Household members: none Marital status: Legally Current occupational status: disabled Current gender identity: Female Data Anesthesia 06/01/22 05:07 06/01/22 05:07 Short CBC 05/31/22 06/01/22 Range/Units 17:30 05:07 WBC 8.1 4.8 (4.0-10.0) 10^3/uL Hgb 11.7 11.1 L (11.5-15.3) g/dL Hct 36.9 L 33.9 L (37.0-47.0) % MCV 89.1 89.4 (81-99) fl Plt Count 280 246 (130-400) 10^3/cmm Neut % (Auto) 78.3 64.2 % Neut # (Auto) 6.35 3.05 (1.8-7.7) 10^3/uL BMP 05/31/22 06/01/22 17:30 05:07 Sodium 134 L 136 Potassium 3.6 4.1 Chloride 96 L 101 Carbon Dioxide 30 H 29 BUN 8 6 Creatinine 0.4 L 0.4 L Glucose 80 125 H Calcium 9.3 8.9 Liver Function 05/31/22 06/01/22 Range/Units 17:30 05:07 Total Bilirubin 0.2 0.2 (0.15-1.2) mg/dL AST 18 15 (0-32) U/L ALT 11 9 (0-33) U/L Alkaline Phosphatase 116 H 105 (35-105) U/L Albumin 3.7 3.1 L (3.5-5.2) g/dL Urine 05/31/22 Range/Units 14:30 Urine Color Dark yellow (Yellow) Urine Appearance Clear (CLEAR) Urine pH 6 (5-7) Ur Specific Barnard 1.015 (1.005-1.030) Urine Protein Neg (Negative) Urine Glucose (UA) Norm (Normal) Urine Ketones 1+ H (Negative) Urine Nitrate Positive H (Negative) Urine Bilirubin Neg (Negative) Ur Leukocyte Esterase Trace H (Negative) Urine RBC None (0-2) /hpf Urine WBC 15-25 H (0-5) /hpf Coags 05/31/22 17:30 PT 13.30 INR 0.98 APTT 32.9 Cardiac Studies: Sestamibi Stress Test (Cardiology) 07/09/21
[2022-06-01] MEDS: ceFAZolin 2,000 MG in sodium chloride 0.9% (plus) 50 ML 100 MG IV ×2 (13:41→21:53)
--- NOTE | 2022-06-01 15:54 | XRR_ITS ---
PROCEDURE INFORMATION: Exam: XR Right Hip Exam date and time: 06/01/2022 4:13 PM Age: 61 years old Clinical indication: Device placement; Other: Total hip arthroplasty; Prior surgery; Surgery date: Post-operative (0-2 days) TECHNIQUE: Imaging protocol: Radiologic exam of the right hip. Views: 1 view hip with pelvis when performed. COMPARISON: CR XR hip RT 2-3V wo/w pel* [id number] 05/31/2022 4:28 PM FINDINGS: Bones/joints: Right-sided total hip arthroplasty postoperative changes are present since the previous study with intact hardware and anatomic alignment. No fracture. Soft tissues: Soft tissue gas is seen related to surgery. XR/XR hip RT 1V wo/w pel [id number] IMPRESSION: Normal postoperative changes of right-sided total hip replacement for fracture fixation.
--- NOTE | 2022-06-01 15:55 | PM.OP ---
Operative Report Date of procedure: June 01, 2022 Pre-op diagnosis: Preop Diagnosis Right femoral neck fracture Post-op diagnosis: same Post-op diagnosis: Same Procedure done: Right total hip arthroplasty for fracture Implants: 1) Raissa 52 mm Trident 2 solid back acetabular shell 2) Size 4 Raissa 127 degree neck angle cemented Accolade stem 3} 28mm -2 standard ceramic femoral head 4} Size E MDM metal liner Pathology: none sent Surgeon: Basilio Barnett Anesthesia: Nerve Block (Spinal) Estimated blood loss (mL): 200 Findings: Patient had a unstable right femoral neck fracture with valgus and posterior angulation of the femoral head Condition: stable Disposition: PACU Brief History: Patient is a 61-year-old female, previously fully amatory without aids who had a mechanical fall at home while hanging pictures standing on her couch. Due to her young age and functional level total hip arthroplasty was chosen to address the fracture. Procedure: The patient was taken to the operating room and anesthesia provided by the anesthesia service. The patient was placed in the lateral position on a pegboard. A timeout was performed. The patient was draped in the usual fashion. A 15 cm long incision was made beginning just proximal to the greater trochanter and extending posteriorly to a point just distal to the trochanter on the posterior border of the trochanter. Dissection was carried down with electrocautery through the subcutaneous fat to the fascia isaiah which was divided proximally and distally with curved scissors. The anterior two thirds of the gluteus medius and minimus were elevated off the hip with electrocautery. The capsule was divided in a H-like fashion. The hip was dislocated and a neck cut made just above the level of the lesser trochanter. Exposure of the acetabulum was facilitated with the acetabular retractors. Remnants of labrum and peripheral osteophytes were removed with electrocautery and a rongeur. A reamer 2 mm under the size the femoral head was utilized to ream medially to the base of the palm and are. Reaming was then increased in 1 mm intervals until a healthy rim a trabecular bone was encountered. The rim was touched with the reamer the size of the final acetabular shell to be placed. A final Trident 2 acetabular cup of the same size as the final reaming was press-fit into place. The ADM liner was secured. Attention was then focused on the femur. The canal was localized with a canal finder. Broaching was then accomplished until a stable broach size was obtained. A trial reduction with the head and neck provided excellent stability. The wound was irrigated with saline and antibiotic solution. The final Raissa Accolade II stem was press-fit into place. The femoral head was placed and the hip was reduced. The hip was brought through range of motion and found to be free of impingement and stable. The anterior capsule was reapproximated with 1 Ethibond. The gluteus medius and minimus were repaired through bone with 5 Ethibond and reinforced with 1 Ethibond. The fascial isaiah was closed with a running 0 Stratafix suture. Deep pelvic tissues were closed with 2-0 Stratafix and the skin with a running 4-0 l Stratafix. The skin was covered with a Prineo dressing and op site dressings.
--- NOTE | 2022-06-01 16:29 | ANE.PACU2 ---
Inpatient post-anesthesia follow up: Airway intact: Yes Vital signs: Temperature 97.2 F Pulse Rate 57 Respiratory Rate 18 Blood Pressure 122/70 Pulse Oximetry 96 Oxygen Delivery Me thod Room Air Oxygen Flow Rate 6 Fraction of Inspir ed Oxygen Hydration adequate: Yes Nausea and vomiting: No Pain level: 1 Mental status: Baseline
--- NOTE | 2022-06-01 17:08 | PM.PN ---
Subjective Subjective: Patient seen postoperatively in the PACU. She underwent a right total hip arthroplasty under spinal anesthesia. Overall procedure was uneventful. Patient reports that her pain is tolerable at this time. This morning her IV fluids were discontinued as there was concern for developing edema. At the time of my assessment now patient has clear breath sounds bilaterally. She has a's higher oxygen requirement at 4 L/min after the surgery right now. Medications: Reviewed: Yes Vitals/I&O/Wt Last Vital Signs Temp 97.2 F L 06/01/22 16:24 Pulse 57 L 06/01/22 16:24 Resp 18 06/01/22 16:24 BP 122/70 06/01/22 16:24 Pulse Ox 96 06/01/22 16:24 O2 Del Method 06/01/22 16:24 O2 Flow Rate 6 06/01/22 15:49 06/01/22 06/01/22 06/01/22 06:59 14:59 22:59 Intake Total 1000 / 1480 50 / 50 300 / 350 Output Total 1450 / 1450 200 / 1650 Balance 1000 / 1480 -1400 / -1400 100 / -1300 Weight last 48 hrs Weight 54.431 kg Physical Exam Narrative: General: No acute distress, AO x3 HEENT: PERRLA, pupils bilaterally equal and reactive, pallors not present Chest: Normal vesicular breath sounds, no added sounds, equal good air entry bilaterally CVS: S1-S2 regular, no murmurs, no tachycardia, no gallops, no rubs Abdomen: Soft, nontender, no organomegaly, bowel sounds present Neuro: No focal deficits, no facial deformity, AO x3, power 5/5 in all limbs Extremities: Able to move bile, no distal neurovascular deficit Urinary Catheter Management: Mohan: Cath Placed During This Visit: yes Reason for Continuing Indwelling Catheter: Perioperative Use in Selected Surgeries Urinary Catheter Date of Insertion: 05/31/22 Urinary Catheter Time of Insertion: 18:35 Data 06/01/22 05:07 06/01/22 05:07 A&P Assessment and plan (1) Subcapital fracture of right hip: Sustained after mechanical fall. Status postsurgical fixation today. Tolerated the procedure well. Patient denies any current complaints of chest pain dyspnea palpitations or syncope. (2) Chronic respiratory failure with hypoxia: No signs of current exacerbation. Continue DuoNeb and budesonide inhalation as scheduled. Continue Roflumilast as she takes at home. We will start IV steroids if needed, currently no signs of exacerbation. (3) Chronic obstructive pulmonary disease: Plan Resume patient's weekly azithromycin prophylaxis, duloxetine, hydroxychloroquine and leflunomide Attestations Medical Necessity Statement*: Needs ongoing admission for post surgical care, therapy assessments , post op pain mgmt Coding Level of Care Code Acute Code for [facility] Diagnoses Subcapital fracture of right hip S72.011A Chronic respiratory failure with hypoxia J96.11 Chronic obstructive pulmonary disease J44.9
[2022-06-01] MEDS: enoxaparin 40 mg/0.4 mL Syringe SUBCUT (17:35)
[2022-06-01] MEDS: ketorolac 30 mg/mL INJ 15 MG IVP (19:55)
[2022-06-01] MEDS: HYDROmorphone 1 mg/mL INJ 1 mL 0.5 MG IVP (21:00)
[2022-06-01] MEDS: CELEcoxib 200 mg Capsule PO (21:52)
[2022-06-01] MEDS: amitriptyline 25 mg Tablet PO (21:52)
[2022-06-01] MEDS: duloxetine 60 mg Capsule PO (21:52)
[2022-06-01] MEDS: pregabalin 100 mg Capsule 200 MG PO (21:53)
[2022-06-01] MEDS: HYDROcodone-acetaminophen 7.5-325 mg Tablet 1 TAB PO (23:08)
[2022-06-02] VITALS (14 sets, daily range): BP systolic 99–135; BP diastolic 63–80; PULSE 73–741; RESP 15–20; TEMP 36.6–37; O2SAT 90–94
[2022-06-02] MEDS: HYDROmorphone 1 mg/mL INJ 1 mL 0.5 MG IVP ×3 (01:02→12:33)
[2022-06-02] MEDS: acetaminophen 500 mg Tablet 1000 MG PO ×2 (05:46→21:03)
[2022-06-02] MEDS: ceFAZolin 2,000 MG in sodium chloride 0.9% (plus) 50 ML 100 MG IV ×2 (05:47→12:33)
[2022-06-02 06:05] LABS: Basophils # 0.1 10^3/uL (0.0-0.1); Basophils % 0.7 %; Eosinophils # 0.1 10^3/uL (0.0-0.8); Eosinophils % 1.2 %; Hematocrit 32.2 % (37.0-47.0); Hemoglobin 10.1 g/dL (11.5-15.3); Lymphocytes # 0.5 10^3/uL (0.8-4.8); Lymphocytes % 7.6 %; Mean Corpuscular HGB Conc 31.4 g/dL (30.0-36.0); Mean Corpuscular Hemoglobin 28.2 pg (28.0-34.0); Mean Corpuscular Volume 89.9 fl (81-99); Mean Platelet Volume 10.9 fL (7.4-10.4); Monocytes # 0.9 10^3/uL (0.2-0.9); Monocytes % 13.3 %; Neutrophils # 5.13 10^3/uL (1.8-7.7); Neutrophils % 76.9 %; Nucleated Red Blood Cells % 0 %; Platelet Count 219 10^3/cmm (130-400); Red Blood Count 3.58 10^6/uL (4.1-5.3); Red Cell Distribution Width 14.6 % (12.1-15.1); White Blood Count 6.7 10^3/uL (4.0-10.0)
[2022-06-02 06:33] LABS: Alanine Aminotransferase 10 U/L (0-33); Albumin Level 3.2 g/dL (3.5-5.2); Alkaline Phosphatase 107 U/L (35-105); Aspartate Amino Transferase 25 U/L (0-32); Blood Urea Nitrogen 8 mg/dL (6-20); Calcium 8.7 mg/dL (8.5-10.5); Carbon Dioxide 24 mmol/L (22-29); Chloride 102 mmol/L (98-107); Globulin 2.5 g/dL (1.3-4.6); Glomerular Filtration Rate 163.4 mL/min (90-130); Glucose 73 mg/dL (65-115); Osmolality Calculated 279 mOsm/kg (285-295); Sodium 136 mmol/L (136-145); Total Bilirubin 0.4 mg/dL (0.15-1.2); Total Protein 5.7 g/dL (6.6-8.7)
[2022-06-02] MEDS: albuterol 2.5 mg/3 mL Neb INHALATION ×2 (08:11→14:14)
[2022-06-02] MEDS: budesonide 0.5 mg/2 mL Neb INHALATION (08:11)
[2022-06-02] MEDS: sennosides-docusate Tablet 2 TAB PO ×2 (09:20→17:31)
[2022-06-02] MEDS: pregabalin 100 mg Capsule 200 MG PO ×3 (09:21→21:03)
[2022-06-02] MEDS: roflumilast 500 mcg Tablet PO (09:21)
[2022-06-02] MEDS: CELEcoxib 200 mg Capsule PO ×2 (09:21→21:03)
[2022-06-02] MEDS: pantoprazole DR 40 mg Tablet PO (09:22)
[2022-06-02] MEDS: azithromycin 250 mg Tablet 500 MG PO (09:22)
[2022-06-02] MEDS: hydroxychloroquine 200 mg Tablet PO (09:22)
[2022-06-02] MEDS: HYDROcodone-acetaminophen 7.5-325 mg Tablet 1 TAB PO (11:17)
--- NOTE | 2022-06-02 13:10 | P.PN_ITS ---
Subjective Subjective: Patient complains of quite a bit of pain. Difficult time with therapy this morning Vitals/I&O/Wt Last Vital Signs Temp 98.5 F 06/02/22 12:00 Pulse 79 06/02/22 12:00 Resp 20 H 06/02/22 12:33 BP 135/75 06/02/22 12:00 Pulse Ox 92 06/02/22 12:00 O2 Del Method 06/02/22 12:00 O2 Flow Rate 3 06/02/22 08:20 06/01/22 06/02/22 06/02/22 22:59 06:59 14:59 Intake Total 350 / 400 1350 / 1750 120 / 120 Output Total 600 / 2050 150 / 2200 Balance -250 / -1650 1200 / -450 120 / 120 Weight last 48 hrs Weight 120 lb Physical Exam Narrative: Hip dressing clean and dry. Expected swelling right thigh Urinary Catheter Management: Mohan: Cath Placed During This Visit: yes, but has since been removed by the nurse Reason for Continuing Indwelling Catheter: Perioperative Use in Selected S urgeries Urinary Catheter Date of Insertion: 05/31/22 Urinary Catheter Time of Insertion: 18:35 Date Urinary Catheter Removed: 06/02/22 Time Urinary Catheter Discontinued: 06:00 Data 06/02/22 05:28 06/02/22 05:28 Micro: Microbiology 05/31/22 14:30 Urine Culture - Preliminary Urine,Clean Catch Gram Negative Rods A&P Assessment and plan (1) Subcapital fracture of right hip: (2) Status post total hip replacement, right: Continue to mobilize with therapy. Patient wishes discharge home. Progress with therapy has been slow to this point. Attestations Medical Necessity Statement*: Discharge home once sufficiently ambulatory Coding Level of Care Code Acute Code for [facility] Diagnoses Subcapital fracture of right hip S72.011A Status post total hip replacement, right Z96.641
[2022-06-02] MEDS: ipratropium 0.5 mg/2.5 mL Neb INHALATION (14:14)
[2022-06-02] MEDS: fentaNYL 25 mcg Patch 1 PATCH TRANSDERMA (14:21)
--- NOTE | 2022-06-02 14:55 | P.PN_ITS ---
Subjective Subjective: Patient underwent right total hip arthroplasty yesterday. Tolerated the procedure well. Postop hemoglobin is stable. She has had complaints of inadequate pain control. Morphine was changed to Dilaudid as morphine did not help significantly. Patient was able to participate with PT once her pain was better controlled. Medications: Reviewed: Yes Vitals/I&O/Wt Last Vital Signs Temp 98.5 F 06/02/22 12:00 Pulse 77 06/02/22 14:25 Resp 20 H 06/02/22 14:25 BP 135/75 06/02/22 12:00 Pulse Ox 93 06/02/22 14:25 O2 Del Method 06/02/22 14:25 O2 Flow Rate 3 06/02/22 14:25 06/01/22 06/02/22 06/02/22 22:59 06:59 14:59 Intake Total 350 / 400 1350 / 1750 410 / 410 Output Total 600 / 2050 150 / 2200 Balance -250 / -1650 1200 / -450 410 / 410 Weight last 48 hrs Weight 54.431 kg Physical Exam Narrative: General: No acute distress, AO x3 HEENT: PERRLA, pupils bilaterally equal and reactive, pallors not present Chest: Normal vesicular breath sounds, no added sounds, equal good air entry bilaterally CVS: S1-S2 regular, no murmurs, no tachycardia, no gallops, no rubs Abdomen: Soft, nontender, no organomegaly, bowel sounds present Neuro: No focal deficits, no facial deformity, AO x3, power 5/5 in all limbs Extremities: Postop dressing in place over right hip, not open by me for exam Urinary Catheter Management: Mohan: Cath Placed During This Visit: yes, but has since been removed by the nurse Reason for Continuing Indwelling Catheter: Perioperative Use in Selected Surgeries Urinary Catheter Date of Insertion: 05/31/22 Urinary Catheter Time of Insertion: 18:35 Date Urinary Catheter Removed: 06/02/22 Time Urinary Catheter Discontinued: 06:00 Data 06/02/22 05:28 06/02/22 05:28 Micro: Microbiology 05/31/22 14:30 Urine Culture - Preliminary Urine,Clean Catch Gram Negative Rods A&P Assessment and plan (1) Subcapital fracture of right hip: Sustained after mechanical fall. Status post right hip arthroplasty on June 01, 2022. Tolerated procedure well. Stable hemoglobin postoperatively. Currently patient's chief complaint remains inadequate pain control. She has been resumed on her home dose of hydrocodone APAP 7.5/325 1 tablet every 4 hours as needed. In addition Dilaudid has been increased from 0.5 mg every 4 hours to 1 mg IV every 4 hours. Add fentanyl patch 25 claudy today for more sustained pain relief through the day. Home doses of Lyrica 200 mg p.o. 3 times daily and Cymbalta has also been resumed. Patient also remains on Celebrex 200 mg p.o. every 12 hours. Closely monitor her mental status with increasing doses of opiates. (2) Chronic respiratory failure with hypoxia: No signs of current exacerbation. Continue DuoNeb and budesonide inhalation as scheduled. Continue Roflumilast as she takes at home. We will start IV steroids if needed, currently no signs of exacerbation. Remains on her baseline oxygen requirement of 3 L/min. (3) Chronic obstructive pulmonary disease: (4) UTI (urinary tract infection): Positive UA, urine culture showing gram-negative rods greater than 100,000 CFU. Start ceftriaxone 1 g IV every 24 hours empirically. (5) Status post total hip replacement, right: Attestations Medical Necessity Statement*: Needs continued admission for postop care, pain management, therapy assessments, IV antibiotics for UTI. Coding Level of Care Code Acute Code for [facility] Diagnoses Subcapital fracture of right hip S72.011A Chronic respiratory failure with hypoxia J96.11 Chronic obstructive pulmonary disease J44.9 UTI (urinary tract infection) N39.0 Status post total hip replacement, right Z96.641
[2022-06-02] MEDS: cefTRIAXone 1,000 MG in sodium chloride 0.9% (plus) 50 ML 100 MG IV (15:37)
[2022-06-02] MEDS: enoxaparin 40 mg/0.4 mL Syringe SUBCUT (17:31)
[2022-06-02] MEDS: HYDROmorphone 1 mg/mL INJ 1 mL IVP (20:41)
[2022-06-02] MEDS: amitriptyline 25 mg Tablet PO (21:03)
[2022-06-02] MEDS: duloxetine 60 mg Capsule PO (21:03)
[2022-06-03] VITALS: BP 111/73; PULSE 80; RESP 17; TEMP 36.7; O2SAT 96
[2022-06-03 01:43] VITALS: PULSE 78; RESP 16; O2SAT 96
[2022-06-03 03:54] VITALS: BP 105/65; PULSE 75; RESP 16; TEMP 36.6; O2SAT 95
[2022-06-03] MEDS: acetaminophen 500 mg Tablet 1000 MG PO (04:22)
[2022-06-03 04:26] VITALS: RESP 15
[2022-06-03] MEDS: HYDROmorphone 1 mg/mL INJ 1 mL IVP (04:26)
[2022-06-03 08:55] VITALS: PULSE 68; RESP 18; O2SAT 97
[2022-06-03] MEDS: ipratropium 0.5 mg/2.5 mL Neb INHALATION (08:58)
[2022-06-03] MEDS: budesonide 0.5 mg/2 mL Neb INHALATION (08:58)
[2022-06-03] MEDS: albuterol 2.5 mg/3 mL Neb INHALATION (08:58)
--- NOTE | 2022-06-03 09:15 | PC.SOCIAL ---
IMM update IMM Updated with patient. Verbalized an understanding. Copy Pg 2 provided. Initialled, dated, timed, and placed in chart.
--- NOTE | 2022-06-03 09:15 | PC.CHAP ---
Pastoral Care Encounter/Spiritual Assessment Type of Contact [] Declined rehabilitator visit [] Patient/Family/Request visit [] Outpatient visit [] Follow-up visit [] Physician referral [] Code/Alert [x] Routine visit [] Staff referral [] Actively dying [] Patient sleeping [x] Family support [] [] Out of room [] Palliative care [] [] Receiving care in room [] Pre-surgical visit [] Trauma [] Long length of stay [] ICU visit [] Other: Relational/Emotional Strength [x] Patient feels connected with others/family/visitors/staff [] Distress [] Loneliness/isolation [] Abandonment Spirituality of Patient [x] Person of Candida [] Attends Voodoo of their Candida [x] Believes in Prayer [] Reads Bible or Christianity materials [] There are Spiritual issues to be addressed Audio Recording Engineer Interventions [x] Prayer [x] Active listening [x] Non-anxious presence x[] Spiritual/emotional support [] Crisis/trauma care [] Spiritual counseling [] Bereavement support [] Provided bereavement packet [] Provided Bible/devotional materials [] Provided toy/stuffed animal, coloring book to patient or family member [] Provided Communion [] Anointing/[place] [] Salvation [x] Completed spiritual assessment [] Other: x Impact on Illness or Injury [] Angry [] Fearful [] Anxious [] Often cries [] Exhaustion [] Unable to work [] Unable to attend quaker [] Unable to walk/stand [] Unable to read [] Unable to drive [] Unable to eat/drink [] Unable to sleep [] Unable to be with family [] Patient intubated [] Other: Summary Time spent with patient 10 min
--- NOTE | 2022-06-03 10:01 | PM.DCS ---
Discharge Providers Date of Admission: 05/31/22 19:14 Date of Discharge: June 03, 2022 Attending Provider at Admission: Yocasta Dennis MD Attending Provider at Discharge: Yocasta Dennis MD Primary Care Provider: Narcisa Tejeda MD Diagnoses at Discharge Discharge Diagnosis (1) Subcapital fracture of right hip: Status: Resolved (2) Chronic respiratory failure with hypoxia: Status: Acute (3) Chronic obstructive pulmonary disease: Status: Acute (4) UTI (urinary tract infection): Status: Acute (5) Status post total hip replacement, right: Status: Acute Reason for Visit Reason for Visit: fall/ right hip pain Hospital Course Hospital Course Mely Wang is a 61 year old female with a past medical history of COPD, chronic hypercapnic respiratory failure, on home O2 2 L/min, seronegative inflammatory arthritis presented to the hospital today after sustaining a mechanical fall when she fell down the stairs.? She could not get back up.? X-ray showed a subcapital hip fracture on the right side.? She denies any history of loss of consciousness, palpitation syncope prior to the event.Status post right hip arthroplasty on June 01, 2022. Tolerated procedure well. Stable hemoglobin postoperatively. Pain regimen needed to be optimized with addition of fentanyl 25 claudy patch in addition to continuing her home doses of Lyrica, Cymbalta, hydrocodone APAP. She is being discharged today in stable condition. Her COPD remained under control during course of her admission here. No indication for steroids. Her urine culture showed gram-negative rods which are still pending identification. She received treatment with cefazolin and then ceftriaxone during admission and is is being discharged with 2 days of levofloxacin. She is currently asymptomatic in this regard. Physical Exam Narrative: General: No acute distress, AO x3 HEENT: PERRLA, pupils bilaterally equal and reactive, pallors not present Chest: Normal vesicular breath sounds, no added sounds, equal good air entry bilaterally CVS: S1-S2 regular, no murmurs, no tachycardia, no gallops, no rubs Abdomen: Soft, nontender, no organomegaly, bowel sounds present Neuro: No focal deficits, no facial deformity, AO x3, power 5/5 in all limbs Urinary Catheter Management: Mohan: Cath Placed During This Visit: yes, but has since been removed by the nurse Reason for Continuing Indwelling Catheter: Perioperative Use in Selected Surgeries Urinary Catheter Date of Insertion: 05/31/22 Urinary Catheter Time of Insertion: 18:35 Date Urinary Catheter Removed: 06/02/22 Time Urinary Catheter Discontinued: 06:00 Discharge Data Studies Completed and Pending Completed Studies During Hospitalization Category Date Time Status XR chest 1V portable [id number] Stat Exams 05/31/22 16:54 Completed XR hip RT 1V wo/w pel [id number] Routine Exams 06/01/22 15:54 Completed XR hip RT 2-3V wo/w pel* [id number] Stat Exams 05/31/22 16:00 Completed Pending at discharge Category Date Time Status Urine Culture Stat Lab 05/31/22 14:30 Results Radiology Impressions Hip/Pelvis X-Ray 05/31/22 16:00 IMPRESSION: Right hip subcapital fracture with impaction and approximately 1/4 shaft displacement. Chest X-Ray 05/31/22 16:54 IMPRESSION: 1. Emphysematous changes, negative for infiltrate. 2. Minimal left costophrenic angle probable pleural scarring. Hip X-Ray 06/01/22 15:54 IMPRESSION: Normal postoperative changes of right-sided total hip replacement for fracture fixation. Laboratory Results WBC 6.7 10^3/uL (4.0-10.0) 06/02/22 05:28 RBC 3.58 10^6/uL (4.1-5.3) L 06/02/22 05:28 Hgb 10.1 g/dL (11.5-15.3) L 06/02/22 05:28 Hct 32.2 % (37.0-47.0) L 06/02/22 05:28 MCV 89.9 fl (81-99) 06/02/22 05:28 MCH 28.2 pg (28.0-34.0) 06/02/22 05:28 MCHC 31.4 g/dL (30.0-36.0) 06/02/22 05:28 RDW 14.6 % (12.1-15.1) 06/02/22 05:28 Plt Count 219 10^3/cmm (130-400) 06/02/22 05:28 MPV 10.9 fL (7.4-10.4) H 06/02/22 05:28 Neut % (Auto) 76.9 % 06/02/22 05:28 Lymph % (Auto) 7.6 % 06/02/22 05:28 [place] % (Auto) 13.3 % 06/02/22 05:28 Eos % (Auto) 1.2 % 06/02/22 05:28 Baso % (Auto) 0.7 % 06/02/22 05:28 Neut # (Auto) 5.13 10^3/uL (1.8-7.7) 06/02/22 05:28 Lymph # (Auto) 0.5 10^3/uL (0.8-4.8) L 06/02/22 05:28 [place] # (Auto) 0.9 10^3/uL (0.2-0.9) 06/02/22 05:28 Eos # (Auto) 0.1 10^3/uL (0.0-0.8) 06/02/22 05:28 Baso # (Auto) 0.1 10^3/uL (0.0-0.1) 06/02/22 05:28 Nucleated RBC % (auto) 0 % 06/02/22 05:28 Nucleated RBCs # 0.0 /100WBC 06/02/22 05:28 PT 13.30 SECONDS (12.1-14.9) 05/31/22 17:30 INR 0.98 (0.8-1.2) 05/31/22 17:30 APTT 32.9 SECONDS (23.9-36.7) 05/31/22 17:30 Sodium 136 mmol/L (136-145) 06/02/22 05:28 Potassium 4.0 mmol/L (3.5-5.1) 06/02/22 05:28 Chloride 102 mmol/L (98-107) 06/02/22 05:28 Carbon Dioxide 24 mmol/L (22-29) 06/02/22 05:28 Anion Gap 14.0 (5-19) 06/02/22 05:28 BUN 8 mg/dL (6-20) 06/02/22 05:28 Creatinine 0.4 mg/dL (0.5-0.9) L 06/02/22 05:28 GFR Calculation 163.4 mL/min (90-130) H 06/02/22 05:28 Glucose 73 mg/dL (65-115) 06/02/22 05:28 Calculated Osmolality 279 mOsm/kg (285-295) L 06/02/22 05:28 Calcium 8.7 mg/dL (8.5-10.5) 06/02/22 05:28 Total Bilirubin 0.4 mg/dL (0.15-1.2) 06/02/22 05:28 AST 25 U/L (0-32) 06/02/22 05:28 ALT 10 U/L (0-33) 06/02/22 05:28 Alkaline Phosphatase 107 U/L (35-105) H 06/02/22 05:28 Total Protein 5.7 g/dL (6.6-8.7) L 06/02/22 05:28 Albumin 3.2 g/dL (3.5-5.2) L 06/02/22 05:28 Globulin 2.5 g/dL (1.3-4.6) 06/02/22 05:28 Urine Color Dark yellow (Yellow) 05/31/22 14:30 Urine Appearance Clear (CLEAR) 05/31/22 14:30 Urine pH 6 (5-7) 05/31/22 14:30 Ur Specific [place] 1.015 (1.005-1.030) 05/31/22 14:30 Urine Protein Neg (Negative) 05/31/22 14:30 Urine Glucose (UA) Norm (Normal) 05/31/22 14:30 Urine Ketones 1+ (Negative) H 05/31/22 14:30 Urine Blood Neg (Negative) 05/31/22 14:30 Urine Nitrate Positive (Negative) H 05/31/22 14:30 Urine Bilirubin Neg (Negative) 05/31/22 14:30 Urine Urobilinogen Norm mg/dL (Negative) 05/31/22 14:30 Ur Leukocyte Esterase Trace (Negative) H 05/31/22 14:30 Urine RBC None /hpf (0-2) 05/31/22 14:30 Urine WBC 15-25 /hpf (0-5) H 05/31/22 14:30 Ur Squamous Epith Cells 0-4 /hpf (0-5) H 05/31/22 14:30 Amorphous Sediment Not Reportable 05/31/22 14:30 Urine Bacteria 3+ /hpf (NONE) H 05/31/22 14:30 Vitals Last Vital Signs Temp 97.9 F 06/03/22 03:54 Pulse 68 06/03/22 08:55 Resp 18 06/03/22 08:55 BP 105/65 06/03/22 03:54 Pulse Ox 97 06/03/22 08:55 O2 Del Method 06/03/22 08:55 O2 Flow Rate 3 06/03/22 08:55 Discharge Plan Discharge Patient Disposition: Home Condition: Stable Prescriptions: New fentanyl 25 mcg/hr Patch 72 Hour 1 patch transdermal Q72H 15 Days Qty: 5 0RF enoxaparin 40 mg/0.4 mL Syringe 40 mg SUBCUT Q24H 14 Days Qty: 5.6 0RF levofloxacin 500 mg tablet 500 mg PO DAILY 2 Days Qty: 2 0RF Continued fluticasone propionate [Flonase Allergy Relief] 50 mcg/actuation spray,suspension 2 spray intranasal DAILY PRN (Reason: Allergy Symptoms) Rx Instructions: administer into each nostril Aimovig Autoinjector 70 mg/mL auto-injector 70 mg SUBCUT Q30D duloxetine 60 mg capsule,delayed release(DR/EC) 60 mg PO BEDTIME cetirizine [Zyrtec] 10 mg tablet 10 mg PO BID multivitamin with minerals [Hair,Skin and Nails] Tablet 1 tab PO DAILY methocarbamol 500 mg tablet 250 - 500 mg PO TID PRN (Reason: Spasms) biotin 1 mg tablet 1 mg PO DAILY Daliresp 500 mcg tablet 500 mcg PO DAILY valacyclovir 1 gram tablet 1,000 mg PO BID PRN (Reason: unknown) vitamin B complex [B Complex-Vitamin B12] Tablet 1 tab PO DAILY magnesium oxide 250 mg magnesium tablet 250 mg PO DAILY cholecalciferol (vitamin D3) 25 mcg (1,000 unit) capsule 25 mcg PO DAILY ascorbic acid (vitamin C) 500 mg tablet 500 mg PO DAILY albuterol sulfate [ProAir HFA] 90 mcg/actuation HFA aerosol inhaler 2 puff INHALATION QID PRN (Reason: Shortness Of Breath) Qty: 8.5 3RF azithromycin 500 mg tablet 500 mg PO .three times per week Qty: 36 3RF Rx Instructions: 1 500 mg tab on Mondays, Wednesdays, and Fridays diclofenac sodium [Arthritis Pain (diclofenac)] 1 % gel 2 g topical QID PRN (Reason: Pain) Qty: 100 3RF Rx Instructions: apply to single elbow, wrist or hand; for hand includes palm/fingers/back of hand leflunomide 10 mg tablet 10 mg PO DAILY Qty: 30 3RF hydroxychloroquine 200 mg tablet See Rx Instructions .ROUTE .COMPLEX Qty: 135 1RF Hold Instructions: Resume on 08/27/21. hold for 2 weeks or until you see rheumatology Dose Instruction: ALTERNATE TAKING 1 TABLET BY MOUTH TODAY THEN 2 TABLETS TOMORROW Rx Instructions: ALTERNATE TAKING 1 TABLET BY MOUTH THEN 2 TABLETS EVERY OTHER DAY amitriptyline 25 mg tablet 25 mg PO BEDTIME calcium carbonate 500 mg calcium (1,250 mg) Tablet 500 mg PO DAILY hydrocodone-acetaminophen 7.5-325 mg tablet 1 - 2 tab PO Q4H PRN (Reason: Pain) pregabalin 200 mg capsule 200 mg PO TID Trelegy Ellipta 100-62.5-25 mcg blister with device 1 ea inhalation DAILY Discharge Orders: Discharge Order (Routine); Ordered 06/03/22 Ordered By: Basilio Sabillon Other Ambulatory Orders: DME: Shower Chair (Order) Location: None Selected Ordered By: Yocasta Dennis DME: Walker (Order) Location: None Selected Ordered By: Yocasta Dennis Physical Therapy Eval and Treat Outpatient (Order) Timeframe: 4 Weeks Facility: [facility] - Location: Physical Therapy Ordered By: Basilio Sabillon Referrals: Narcisa Tejeda MD [Primary Care Provider] - 06/08/22 11:30 am Basilio Sabillon MD [Physician] - 06/29/22 8:00 am Discharge Diet: Advance as tolerated Discharge Activity: Limit activity as instructed Patient Instructions: Fentanyl (Absorbed through the skin), Enoxaparin (By injection), Precautions after Total Joint Replacement Surgery (GEN), Total Hip Replacement (GEN), Opioid Safety, Pain Management Activity Restrictions/Additional Instructions: Okay to shower. No soaking incision in tub Apply FirstIce up to 20 min/hr for pain and swelling Use fentanyl patch for next 15 days Take previously described [place] 10 for breakthrough pain Exercises per physical therapy. May weight-bear as tolerated on total hip arthroplasty IF HAVE ANY PROBLEMS OR QUESTIONS CALL HOSPITAL BUSINESS ADVISOR AT AND ASK TO HAVE DR. SABILLON PAGED. Discharge Attestations Time Spent in Discharge Care*: greater than 30 min Quality Metrics Clinical Quality Measures [ No reported AMI, CVA or VTE this stay] Coding Level of Care Code Acute Code for Chg Fwd Diagnoses Subcapital fracture of right hip S72.011A Chronic respiratory failure with hypoxia J96.11 Chronic obstructive pulmonary disease J44.9 UTI (urinary tract infection) N39.0 Status post total hip replacement, right Z96.641
[2022-06-03] MEDS: pantoprazole DR 40 mg Tablet PO (10:04)
[2022-06-03] MEDS: roflumilast 500 mcg Tablet PO (10:05)
[2022-06-03] MEDS: HYDROcodone-acetaminophen 7.5-325 mg Tablet 1 TAB PO (10:05)
[2022-06-03] MEDS: CELEcoxib 200 mg Capsule PO (10:05)
[2022-06-03] MEDS: pregabalin 100 mg Capsule 200 MG PO (10:05)
[2022-06-03] MEDS: hydroxychloroquine 200 mg Tablet PO (10:47)
--- NOTE | 2022-06-03 11:53 | PC.OT ---
OT TREATMENT ATTEMPTED. PATIENT REPORTS THAT SHE IS FINE AT THIS TIME. QUIZZED HER ON POSTERIOR HIP PX AND SHE REQUIRED MAX CUEING TO STATE CORRECTLY. SHE INITIALLY STATES, 95 DEGREE ONE OF THE RULES BUT DOES NOT ELABORATE. OTHER RULES SHE STATES ARE KEEP THE PURPLE PILLOW BETWEEN MY LEGS WHEN I SLEEP BUT NOT STRAPPED DOWN. ALL 3 POSTERIOR HIP PXs REVIEWED AGAIN VERBAL/DEMONSTRATED TO BOTH PATIENT AND HER SPOUSE. SHE THEN STATES, WE GOT THIS . PATIENT WOULD BENEFIT FROM CONTINUED THERAPY TO PROMOTE INDEPENDENCE AND SAFETY WITH ADLS AND ADHERENCE TO POSTERIOR HIP PX.
[2022-06-03 11:55] VITALS: BP 102/63; PULSE 83; RESP 14; TEMP 36.7; O2SAT 95
== END 2022-06-03 14:29 | disposition home or self-care (01) | DRG 522 ==
LOC: ER 18:13 → MEDSURG 19:15
PROVIDERS: Orthopaedic Surgery; Admitting Provider Student in an Organized Health Care Education/Training Program; Emergency Provider Family Medicine; PCP Internal Medicine; Visit Provider Student in an Organized Health Care Education/Training Program
PROC: 0SR90J9 Replacement of Right Hip Joint with Synthetic Substitute, Cemented, Open Approach (ICD-10-PCS; CPT 27130; 2022-06-01 13:00)
DX: S72.011A Unspecified intracapsular fracture of right femur, initial encounter for closed fracture (principal); J96.10 Chronic respiratory failure, unspecified whether with hypoxia or hypercapnia; N39.0 Urinary tract infection, site not specified; W10.9XXA Fall (on) (from) unspecified stairs and steps, initial encounter; J44.9 Chronic obstructive pulmonary disease, unspecified; Z99.81 Dependence on supplemental oxygen; M06.042 Rheumatoid arthritis without rheumatoid factor, left hand; M06.041 Rheumatoid arthritis without rheumatoid factor, right hand; Z79.51 Long term (current) use of inhaled steroids; Z79.891 Long term (current) use of opiate analgesic; B19.20 Unspecified viral hepatitis C without hepatic coma; Z86.73 Personal history of transient ischemic attack (TIA), and cerebral infarction without residual deficits; I73.00 Raynaud's syndrome without gangrene; Z87.891 Personal history of nicotine dependence
CPT/HCPCS: 36415; 51702; 71045; 73501; 73502; 80053; 81001; 85025; 85610; 85730; 87077; 87086; 87186; 93005; 94640; 96361; 96372; 96374; 96375; 97110; 97116; 97161; 97167; 97530; 97535; 99285; C1776; J0690; J0696; J1170; J1580; J1650; J1885; J2270; J2405; J2704; J7030; J7613; J7626; J7644; Q0144

== ENCOUNTER → 2022-06-08 12:52 | Outpatient (BNVA) | payer MEDICARE, MEDICAID, SELFPAY | PROVIDERS: PCP Internal Medicine; Visit Provider Internal Medicine Rheumatology | DX: M06.041 Rheumatoid arthritis without rheumatoid factor, right hand (principal); M06.042 Rheumatoid arthritis without rheumatoid factor, left hand; Z79.899 Other long term (current) drug therapy; Z71.85 Encounter for immunization safety counseling | CPT/HCPCS: 99214 ==

== ENCOUNTER → 2022-06-17 11:03 | Outpatient (BNVA) | payer MEDICARE, MEDICAID, SELFPAY | PROVIDERS: PCP Internal Medicine; Visit Provider Nurse Practitioner Family | DX: Z96.641 Presence of right artificial hip joint (principal) | CPT/HCPCS: 73502; 99024 ==

== ENCOUNTER 2022-07-08 11:07 | Outpatient (CLI) | payer MEDICARE, MEDICAID, SELFPAY ==
--- NOTE | 2022-07-08 11:29 | XR_ITS ---
WS: [id number] Exam: XR knee RT 1-2V [id number] Date/Time of Exam: 07/08/2022 11:47 AM Reason For Exam: R KNEE JOINT PAIN No fracture or dislocation. No joint effusion. Joint compartments are well preserved. XR/XR knee RT 1-2V [id number] IMPRESSION: 1. Normal right knee.
== END 2022-07-08 11:08 | disposition home or self-care (01) ==
LOC: RAD 11:10
PROVIDERS: PCP Internal Medicine; Visit Provider Nurse Practitioner Family
DX: M25.561 Pain in right knee (principal)
CPT/HCPCS: 73560

== ENCOUNTER 2022-07-15 10:57 | Outpatient (CLI) | payer MEDICARE, MEDICAID, SELFPAY ==
--- NOTE | 2022-07-15 11:25 | XR_ITS ---
WS: [email or web address] XR chest 2V* [id number] REASON FOR EXAM: COUGH FINDINGS: General chest on lung configuration indicative of obstructive lung disease. The heart and the mediastinum are within normal limits. Coarse reticular interstitial lung opacities in the right middle lobe, right lower lobe, lingular seg ment of the left lung and the left lower lobe. These findings were not present on the previous chest x-ray of 05/31/2022. Bony thorax is intact without significant abnormality. XR/XR chest 2V* [id number] IMPRESSION: Interval development of lung opacities as above. Most compatible with acute or subacute pneumonitis.
== END 2022-07-15 10:58 | disposition home or self-care (01) ==
LOC: RAD 11:11
PROVIDERS: PCP Internal Medicine; Visit Provider Nurse Practitioner Family
DX: J44.1 Chronic obstructive pulmonary disease with (acute) exacerbation (principal)
CPT/HCPCS: 71046

== ENCOUNTER → 2022-07-20 09:28 | Outpatient (BNVA) | payer MEDICARE, MEDICAID, SELFPAY | PROVIDERS: PCP Internal Medicine; Visit Provider Nurse Practitioner Family | DX: Z96.641 Presence of right artificial hip joint (principal) | CPT/HCPCS: 73502; 99024; 99213 ==

== ENCOUNTER 2022-09-15 15:06 | Outpatient (CLI) | payer MEDICARE, MEDICAID, SELFPAY ==
--- NOTE | 2022-09-15 15:19 | XR_ITS ---
WS: [email or web address] SCREENING DEXA SCAN [facility] CLINICAL INFORMATION: OSTEOPOROSIS COMPARISON: 2019 FINDINGS: The L1-L4 bone mineral density measures 0.950 g/cm2. This corresponds to a T score score of -1.9 and Z score of -0.3. Left femoral neck bone mineral density measures 0.606 (g/cm2). This corresponds to a T score of -3.2 (no units) and Z score of -1.9 (no units). LEFT forearm bone mineral density measures 0.692. This corresponds to a T score -2.1of and Z score of 1.2. XR/XR DEXA axial skeleton* [id number] IMPRESSION: Osteopenia lumbar spine. Osteoporosis LEFT femoral neck. Osteopenia LEFT forear m. Patient's FRAX calculated 10 year probability for major osteoporotic fracture i s 25.6 % and osteoporotic hip fracture is 8.4%. Since 2019: Bone mineral density lumbar spine has increased 7.6% Bone mineral density LEFT femoral neck has decreased -0.7%
== END 2022-09-15 15:07 | disposition home or self-care (01) ==
LOC: RAD 15:10
PROVIDERS: PCP Internal Medicine; Visit Provider Internal Medicine
DX: Z13.820 Encounter for screening for osteoporosis (principal); M81.0 Age-related osteoporosis without current pathological fracture; M85.89 Other specified disorders of bone density and structure, multiple sites
CPT/HCPCS: 77080

== ENCOUNTER → 2022-10-04 14:41 | Outpatient (BNVA) | payer MEDICARE, MEDICAID, SELFPAY | PROVIDERS: PCP Internal Medicine; Visit Provider Internal Medicine Rheumatology | DX: M06.041 Rheumatoid arthritis without rheumatoid factor, right hand (principal); M06.042 Rheumatoid arthritis without rheumatoid factor, left hand; Z79.899 Other long term (current) drug therapy; Z71.85 Encounter for immunization safety counseling; I73.00 Raynaud's syndrome without gangrene | CPT/HCPCS: 36415; 80076; 82565; 85025; 86140; 99214 ==

== ENCOUNTER → 2022-10-08 09:11 | Outpatient (BNVA) | payer MEDICARE, MEDICAID, SELFPAY | PROVIDERS: PCP Internal Medicine; Visit Provider Internal Medicine Pulmonary Disease | DX: J44.9 Chronic obstructive pulmonary disease, unspecified (principal); Z87.891 Personal history of nicotine dependence; J96.11 Chronic respiratory failure with hypoxia; Z99.81 Dependence on supplemental oxygen | CPT/HCPCS: 99214 ==

== ENCOUNTER → 2022-10-19 09:43 | Outpatient (BNVA) | payer MEDICARE, MEDICAID, SELFPAY | PROVIDERS: PCP Internal Medicine; Visit Provider Nurse Practitioner Family | DX: Z96.641 Presence of right artificial hip joint (principal) | CPT/HCPCS: 73502; 99213 ==

== ENCOUNTER → 2023-01-03 13:51 | Outpatient (BNVA) | payer MEDICARE, MEDICAID, SELFPAY | PROVIDERS: PCP Internal Medicine; Visit Provider Internal Medicine Rheumatology | DX: M06.041 Rheumatoid arthritis without rheumatoid factor, right hand (principal); M06.042 Rheumatoid arthritis without rheumatoid factor, left hand; Z79.899 Other long term (current) drug therapy; Z71.85 Encounter for immunization safety counseling; I73.00 Raynaud's syndrome without gangrene | CPT/HCPCS: 36415; 80076; 82565; 85025; 86140; 99214 ==

== ENCOUNTER 2023-02-24 11:42 | Outpatient (CLI) | payer MEDICARE, MEDICAID, SELFPAY ==
--- NOTE | 2023-02-24 11:30 | MM_ITS ---
WS: [id number] SCREENING DIGITAL TOMOSYNTHESIS MAMMOGRAM WITH CAD HISTORY: SCREENING COMPARISON: 07/27/2021 Bilateral CC and MLO with tomosynthesis views submitted. Synthetic mammography reviewed. Computer aid ed detection analyzed. Breast composition: There are scattered areas of fibroglandular density. No suspicious masses, microc alcifications or architectural distortion. IMPRESSION: MM/[place] [id number] BI-RADS: 1-Negative FOLLOW UP: 1 Year Follow-up
== END 2023-02-24 11:43 | disposition home or self-care (01) ==
LOC: MOBLMAM 11:47
PROVIDERS: PCP Internal Medicine; Visit Provider Internal Medicine
DX: Z12.31 Encounter for screening mammogram for malignant neoplasm of breast (principal)
CPT/HCPCS: 77063; 77067

== ENCOUNTER → 2023-03-28 13:23 | Outpatient (BNVA) | payer MEDICARE, MEDICAID, SELFPAY | PROVIDERS: PCP Internal Medicine; Visit Provider Internal Medicine Rheumatology | DX: Z79.899 Other long term (current) drug therapy (principal); M06.041 Rheumatoid arthritis without rheumatoid factor, right hand; M06.042 Rheumatoid arthritis without rheumatoid factor, left hand; Z11.1 Encounter for screening for respiratory tuberculosis; Z71.85 Encounter for immunization safety counseling; I73.00 Raynaud's syndrome without gangrene | CPT/HCPCS: 36415; 80076; 82565; 85025; 86140; 86480; 99214 ==

== ENCOUNTER 2023-04-03 14:41 | Emergency (ER) | payer MEDICARE, MEDICAID, SELFPAY ==
[2023-04-03] VITALS (7 sets, daily range): BP systolic 119–128; BP diastolic 74–80; PULSE 84–92; RESP 16–17; TEMP 36.8; O2SAT 91–95
--- NOTE | 2023-04-03 15:02 | ED_ITS ---
HPI - Eye Problem 2 General: Chief complaint: Eye Problems Stated complaint: rt eye inj Time Seen by Provider: 04/03/23 15:02 History of Present Illness: 62-year-old female comes in today with c omplaints of swelling and pain to the right eye starting yesterday. Patient reports the lid of the eye was completely swollen shut today. Patient has a medical history for rheumatoid arthritis and use of Humira. Patient did report some fever and chills 2 days ago. Patient is alert and oriented. Patient appears nontoxic. Patient appears in mild to moderate pain. Significant swelling is noted to the right periorbital region of the face. Patient reports tenderness to the skin. Associated symptoms: Denies headache(s), nausea or vomiting Review of Systems 2 General: Reports: 10 or more systems reviewed and unremarkable except in HPI and below Eyes: Reports: other (Swelling of the right eyelids.) ENMT: Reports: other (Right facial swelling) Card: Denies: chest pain Resp: Denies: dyspnea GI: Denies: nausea, vomiting, diarrhea or constipation : Denies: difficulty voiding Skin/Breast: Reports: erythema Neuro: Denies: headache(s) PFSH ED 2 PFSH: Medical History (Updated 04/03/23 @ 17:47 by DAMIÁN Walker) Skin rash PsO? Immunization counseling Seronegative rheumatoid arthritis of both hands High risk medication use Hepatitis C antibody positive in blood Raynaud phenomenon Inflammatory arthritis Back pain Muscle spasm Allergies Kidney stones H/O nephrolithotomy with removal of calculi Chronic obstructive pulmonary disease Surgical History History of hysterectomy with bilateral oophorectomy History of delivery x2 Family History Other Acute rheumatoid arthritis CAD (coronary artery disease) Cancer Chronic kidney disease (CKD) Diabetes Hypertension Lung disease Stroke Denies family history of Lupus Hyperlipidemia Social History Smoking and tobacco/nicotine status: former use of tobacco/nicotine Quit status (tobacco/nicotine): has quit using Year quit tobacco: 2020 - 1PPD x 42 Years Second hand smoke exposure: Yes Alcohol intake: never Substance/Drug Use: never Lives independently: Yes Household members: none Marital status: Legally Current occupational status: disabled Do you think of yourself as: Straight/Heterosexual Current gender identity: Female Physical Exam 2 Const: COMMON NORMALS: alert HENMT: COMMON NORMALS: normocephalic and Normal external nose present HEAD & SCALP: normocephalic FACE & SINUS: edema (Right periorbital swelling and erythema.) NOSE: Normal external nose present MOUTH: Normal oral and palatal mucosa present Neck/C-Spine: COMMON NORMALS: full ROM Resp: COMMON NORMALS: normal respiratory effort and clear to auscultation bilaterally AUSCULTATION: clear to auscultation bilaterally Cardio: COMMON NORMALS: regular rate and regular rhythm RATE: regular rate RHYTHM: regular rhythm GI: COMMON NORMALS: non-tender Extremity: COMMON NORMALS: full ROM Neuro: SENSORIUM/ORIENTATION: Yes alert Skin: COMMON NORMALS: turgor normal GENERAL SKIN EXAM: turgor normal Course 2 Vital Signs: Vital signs: Vital Signs Temperature 98.2 F 04/03/23 14:51 Pulse Rate 87 04/03/23 17:00 Respiratory Rate 16 04/03/23 17:00 Blood Pressure 122/74 04/03/23 17:00 Pulse Oximetry 93 04/03/23 17:00 Oxygen Delivery Me thod Nasal Cannula 04/03/23 15:32 Oxygen Flow Rate 2 04/03/23 15:32 MDM - Eye Problem Medical Decision Making 62-year-old female comes in today with right-sided facial swelling and tenderness starting approximately 2 days ago. Patient has had increasing swelling noted this morning to the point that she was not able to open her eye. Patient reports pain to the face. Patient has a history of COPD and rheumatoid arthritis. Patient has a history of use of biological agents such as Humira for the treatment of rheumatoid arthritis. On exam EOM movement does not elicit pain. Patient reports tenderness to the face. Bilateral TMs are normal. Nasal bridge is slightly flattened due to the swelling in the face. Minimal swelling is noted to the left side of the face but excessive swelling in the periorbital region is noted on the right side. Vital signs are normal. Differential diagnosis includes but not limited to preseptal/orbital cellulitis, periorbital cellulitis, cellulitis of the face, sinusitis. CBC noted a 22,000 white count. CMP was unremarkable except for some mild hyponatremia at 129. Lactic was negative. Patient CT scan noted preseptal cellulitis without involvement of the optic nerve or orbital fat. Reviewed exam with Dr. Torres who agreed with plans for oral antibiotics double coverage and follow-up for worsening symptoms. Discussed with patient who agreed to plan of care and need for follow-up or return to the ER. Lab Data 04/03/23 15:27 04/03/23 15:[address] 04/03/23 15:08 IMPRESSION: 1. Right preseptal cellulitis extending to the orbital septum without infiltration of the intraconal fat. 2. Cellulitis of the right facial soft tissues. Laboratory Results WBC 22.15 10^3/uL (3.29-11.43) H 04/03/23 15: RBC 4.31 10^6/uL (3.85-5.65) 04/03/23 15: Hgb 12.20 g/dL (11.27-16.99) 04/03/23 15: Hct 37.3 % (36-47) 04/03/23 15: MCV 86.5 fl (85-98) 04/03/23 15: MCH 28.3 pg (27-33) 04/03/23 15: MCHC 32.7 g/dL (30-55) 04/03/23 15: RDW 14.3 % (12.1-15.1) 04/03/23 15: Plt Count 296 10^3/cmm (157-399) 04/03/23 15: MPV 9.4 fL (7.4-10.4) 04/03/23 15: Neut % (Auto) 86.0 % 04/03/23 15:27 Lymph % (Auto) 3.0 % 04/03/23 15:27 [place] % (Auto) 9.2 % 04/03/23 15: Eos % (Auto) 0.0 % 04/03/23 15: Baso % (Auto) 0.4 % 04/03/23 15:27 Neut # (Auto) 19.03 10^3/uL (1.8-7.7) H 04/03/23 15: Lymph # (Auto) 0.7 10^3/uL (0.8-4.8) L 04/03/23 15:27 [place] # (Auto) 2.0 10^3/uL (0.2-0.9) H 04/03/23 15:27 Eos # (Auto) 0.0 10^3/uL (0.0-0.8) 04/03/23 15:27 Baso # (Auto) 0.1 10^3/uL (0.0-0.1) 04/03/23 15:27 Nucleated RBC % (auto) 0 % 04/03/23 15:27 Nucleated RBCs # 0.0 /100WBC 04/03/23 15:27 Sodium 129 mmol/L (136-145) L 04/03/23 15:27 Potassium 3.7 mmol/L (3.5-5.1) 04/03/23 15:27 Chloride 91 mmol/L (98-107) L 04/03/23 15:27 Carbon Dioxide 28 mmol/L (22-29) 04/03/23 15:27 Anion Gap 13.7 (5-19) 04/03/23 15:27 BUN 9 mg/dL (8-23) 04/03/23 15:27 Creatinine 0.5 mg/dL (0.5-0.9) 04/03/23 15:27 GFR Calculation 125.9 mL/min (90-130) 04/03/23 15:27 Glucose 103 mg/dL (65-115) 04/03/23 15:27 Calculated Osmolality 267 mOsm/kg (285-295) L 04/03/23 15:27 Lactic Acid 0.8 mmol/L (0.5-2.2) 04/03/23 15:27 Calcium 9.4 mg/dL (8.5-10.5) 04/03/23 15:27 Total Bilirubin 0.4 mg/dL (0.15-1.2) 04/03/23 15:27 AST 16 U/L (0-32) 04/03/23 15:27 ALT 9 U/L (0-33) 04/03/23 15:27 Alkaline Phosphatase 114 U/L (35-105) H 04/03/23 15:27 Total Protein 7.1 g/dL (6.6-8.7) 04/03/23 15:27 Albumin 3.9 g/dL (3.5-5.2) 04/03/23 15:27 Globulin 3.2 g/dL (1.3-4.6) 04/03/23 15:27 All radiology interpretation(s) finalized by discharge Discharge Plan Discharge Patient Disposition: Home Clinical Impression: Preseptal cellulitis of right eye Condition: Stable Prescriptions: New amoxicillin-pot clavulanate 875-125 mg tablet 1 tab PO BID Qty: 14 0RF sulfamethoxazole-trimethoprim 800-160 mg tablet 1 tab PO BID 7 Days Qty: 14 0RF No Action fluticasone propionate [Flonase Allergy Relief] 50 mcg/actuation spray,suspension 2 spray intranasal DAILY PRN (Reason: Allergy Symptoms) Rx Instructions: administer into each nostril Aimovig Autoinjector 70 mg/mL auto-injector 70 mg SUBCUT Q30D duloxetine 60 mg capsule,delayed release(DR/EC) 60 mg PO BEDTIME cetirizine [Zyrtec] 10 mg tablet 10 mg PO BID multivitamin with minerals [Hair,Skin and Nails] Tablet 1 tab PO DAILY methocarbamol 500 mg tablet 250 - 500 mg PO TID PRN (Reason: Spasms) biotin 1 mg tablet 1 mg PO DAILY Daliresp 500 mcg tablet 500 mcg PO DAILY valacyclovir 1 gram tablet 1,000 mg PO BID PRN (Reason: unknown) vitamin B complex [B Complex-Vitamin B12] Tablet 1 tab PO DAILY magnesium oxide 250 mg magnesium tablet 250 mg PO DAILY cholecalciferol (vitamin D3) 25 mcg (1,000 unit) capsule 25 mcg PO DAILY ascorbic acid (vitamin C) 500 mg tablet 500 mg PO DAILY albuterol sulfate [ProAir HFA] 90 mcg/actuation HFA aerosol inhaler 2 puff INHALATION QID PRN (Reason: Shortness Of Breath) Qty: 8.5 3RF azithromycin 500 mg tablet 500 mg PO .three times per week Qty: 36 3RF Rx Instructions: 1 500 mg tab on Mondays, Wednesdays, and Fridays diclofenac sodium [Arthritis Pain (diclofenac)] 1 % gel 2 g topical QID PRN (Reason: Pain) Qty: 100 3RF Rx Instructions: apply to single elbow, wrist or hand; for hand includes palm/fingers/back of hand prednisone 20 mg tablet See Rx Instructions PO .COMPLEX PRN (Reason: joint pain flare) Qty: 30 1RF Rx Instructions: take 2 tab daily for 7 days as needed for arthritis flare PO PRN; clobetasol 0.05 % cream 1 applic topical BID 14 Days Qty: 45 1RF Enbrel 50 mg/mL (1 mL) syringe 50 mg SUBCUT .Q7days Qty: 4 3RF hydroxychloroquine 200 mg tablet See Rx Instructions .ROUTE .COMPLEX Qty: 135 1RF Hold Instructions: Resume on 08/27/21. hold for 2 weeks or until you see rheumatology Dose Instruction: ALTERNATE TAKING 1 TABLET BY MOUTH TODAY THEN 2 TABLETS TOMORROW Rx Instructions: ALTERNATE TAKING 1 TABLET BY MOUTH THEN 2 TABLETS EVERY OTHER DAY leflunomide 20 mg tablet 20 mg PO DAILY Qty: 90 1RF amlodipine 5 mg tablet 5 mg PO DAILY Qty: 90 1RF amitriptyline 25 mg tablet 25 mg PO BEDTIME calcium carbonate 500 mg calcium (1,250 mg) Tablet 500 mg PO DAILY hydrocodone-acetaminophen 7.5-325 mg tablet 1 - 2 tab PO Q4H PRN (Reason: Pain) pregabalin 200 mg capsule 200 mg PO TID Trelegy Ellipta 100-62.5-25 mcg blister with device 1 ea inhalation DAILY Discharge Orders: Discharge ED (Routine); Ordered 04/03/23 Ordered By: Edouard Clifford Referrals: Narcisa Tejeda MD [Primary Care Provider] - Discharge Diet: Usual diet Discharge Activity: Increase activity as tolerated Patient Instructions: Periorbital Cellulitis (ED) Activity Restrictions/Additional Instructions: Take antibiotics as directed. You can use warm or cool packs to the eye to help with pain and swelling. Elevate head is much as possible. Take antibiotics as directed. Follow-up with primary care as needed. Return to ED for worsening symptoms such as high fever greater than 100.4, inability to hold fluids down, or difficulty breathing. Coding Level of Care Code ED [employer] Programmer for Jacinto Costello
--- NOTE | 2023-04-03 15:08 | CTR_ITS ---
PROCEDURE INFORMATION: Exam: CT Orbits With Contrast Exam date and time: 04/03/2023 4:33 PM Age: 62 years old Clinical indication: Eye pain; Right; Additional info: R/O orbital cellulitis TECHNIQUE: Imaging protocol: Computed tomography of the orbits with contrast. Radiation optimization: All CT scans at this facility use at least one of these dose optimization techniques: automated exposure control; mA and/or kV adjustment per patient size (includes targeted exams where dose is matched to clinical indication); or iterative reconstruction. Contrast material: OMNI 350; Contrast volume: 80 ml; Contrast route: INTRAVENOUS (IV); REPORTING DATA: Count of CT and Cardiac NM exams in prior 12 months: This patient has received 0 known CTs and 0 known cardiac nuclear medicine studies in the 12 months prior to the current study. COMPARISON: MR rodriguez wo/w con* [id number] 03/12/2020 9:47 AM RADIATION DOSE METRICS: Total DLP (mGy-cm): 365.45 FINDINGS: Paranasal sinuses: Mucosal thickening of the anterior ethmoid air cells. Orbital cavities: There is cellulitis of the right preseptal soft tissues extending to the orbital septum. There is inflammatory stranding in the periseptal soft tissues without infiltration into the intraconal fat. Bones/joints: No acute fracture. Soft tissues: There is cellulitis of the right facial soft tissues. CT/CT orbit BI w con [id number] IMPRESSION: 1. Right preseptal cellulitis extending to the orbital septum without infiltration of the intraconal fat. 2. Cellulitis of the right facial soft tissues.
[2023-04-03] MEDS: cefTRIAXone 2,000 MG in sodium chloride 0.9% (plus) 50 ML 100 MG IV (15:27)
[2023-04-03] MEDS: dexamethasone 10 mg/mL INJ IVP (15:27)
[2023-04-03 16:00] LABS: Basophils # 0.1 10^3/uL (0.0-0.1); Basophils % 0.4 %; Hematocrit 37.3 % (36-47); Lymphocytes # 0.7 10^3/uL (0.8-4.8); Mean Corpuscular HGB Conc 32.7 g/dL (30-55); Mean Corpuscular Hemoglobin 28.3 pg (27-33); Mean Corpuscular Volume 86.5 fl (85-98); Mean Platelet Volume 9.4 fL (7.4-10.4); Monocytes % 9.2 %; Neutrophils # 19.03 10^3/uL (1.8-7.7); Nucleated Red Blood Cells % 0 %; Platelet Count 296 10^3/cmm (157-399); Red Blood Count 4.31 10^6/uL (3.85-5.65); Red Cell Distribution Width 14.3 % (12.1-15.1); White Blood Count 22.15 10^3/uL (3.29-11.43)
[2023-04-03 16:23] LABS: Alanine Aminotransferase 9 U/L (0-33); Albumin Level 3.9 g/dL (3.5-5.2); Alkaline Phosphatase 114 U/L (35-105); Anion Gap 13.7 (5-19); Aspartate Amino Transferase 16 U/L (0-32); Blood Urea Nitrogen 9 mg/dL (8-23); Calcium 9.4 mg/dL (8.5-10.5); Carbon Dioxide 28 mmol/L (22-29); Chloride 91 mmol/L (98-107); Globulin 3.2 g/dL (1.3-4.6); Glomerular Filtration Rate 125.9 mL/min (90-130); Glucose 103 mg/dL (65-115); Osmolality Calculated 267 mOsm/kg (285-295); Potassium 3.7 mmol/L (3.5-5.1); Sodium 129 mmol/L (136-145); Total Bilirubin 0.4 mg/dL (0.15-1.2); Total Protein 7.1 g/dL (6.6-8.7)
[2023-04-03 16:27] LABS: Lactic Sepsis W/Reflex 0.8 mmol/L (0.5-2.2)
[2023-04-03] MEDS: iohexol 350 mg/mL 500 mL Btl (per mL) IV (16:36)
[2023-04-03] MEDS: amoxicillin-clav 875-125 mg Tablet 2 TAB PO (18:23)
[2023-04-03] MEDS: sulfamethoxazole-trimeth DS 160-800 mg Tablet 3 TAB PO (18:23)
== END 2023-04-03 18:32 | disposition home or self-care (01) ==
PROVIDERS: Emergency Provider Nurse Practitioner Family; PCP Internal Medicine
DX: L03.213 Periorbital cellulitis (principal); Z87.891 Personal history of nicotine dependence; Z86.19 Personal history of other infectious and parasitic diseases; J44.9 Chronic obstructive pulmonary disease, unspecified
CPT/HCPCS: 36415; 70481; 80053; 83605; 85025; 87040; 96365; 96375; 99285; J0696; J1100; Q9967

== ENCOUNTER → 2023-04-25 12:11 | Outpatient (BNVA) | payer MEDICARE, MEDICAID, SELFPAY | PROVIDERS: PCP Internal Medicine; Visit Provider Internal Medicine Pulmonary Disease | DX: J43.2 Centrilobular emphysema (principal); J96.11 Chronic respiratory failure with hypoxia; Z12.2 Encounter for screening for malignant neoplasm of respiratory organs; Z99.81 Dependence on supplemental oxygen; Z87.891 Personal history of nicotine dependence | CPT/HCPCS: 99214 ==

== ENCOUNTER → 2023-07-07 14:11 | Outpatient (BNVA) | payer MEDICARE, MEDICAID, SELFPAY | PROVIDERS: PCP Internal Medicine; Visit Provider Physician Assistant | DX: Z96.641 Presence of right artificial hip joint (principal) | CPT/HCPCS: 73502; 99213 ==

== ENCOUNTER → 2023-09-21 13:09 | Outpatient (BNVA) | payer MEDICARE, MEDICAID, SELFPAY | PROVIDERS: PCP Internal Medicine; Visit Provider Internal Medicine Rheumatology | DX: M06.041 Rheumatoid arthritis without rheumatoid factor, right hand (principal); M06.042 Rheumatoid arthritis without rheumatoid factor, left hand; Z79.899 Other long term (current) drug therapy; Z11.59 Encounter for screening for other viral diseases; I73.00 Raynaud's syndrome without gangrene; J44.9 Chronic obstructive pulmonary disease, unspecified; M19.041 Primary osteoarthritis, right hand; M19.042 Primary osteoarthritis, left hand; R21 Rash and other nonspecific skin eruption; Z87.891 Personal history of nicotine dependence; Z71.85 Encounter for immunization safety counseling | CPT/HCPCS: 80076; 82306; 82565; 85025; 85651; 86140; 86704; 86803; 87340; 87522; 99214 ==

== ENCOUNTER 2023-12-27 08:50 | Outpatient (CLI) | payer MEDICARE, MEDICAID, SELFPAY ==
--- NOTE | 2023-12-27 08:55 | US_ITS ---
WS: [id number] THYROID ULTRASOUND HISTORY: HYPERTHYROIDISM COMPARISON: None available. Right lobe: 1.5 cm x 1.3 cm x 3.8 cm (w x ap x l). Volume: 3.6 cm3. Normal size and echotexture. No significant are dominant nodules are present. Left lobe: 1.3 cm x 1.3 cm x 3.5 cm (w x ap x l). Volume: 2.9 cm3. Normal size and echotexture. No significant or dominant nodules are present. There is a small thyroid nodule 5 x 3 x 4 mm. Isthmus: 0.2 cm. US/US thyroid [id number] IMPRESSION: No concerning or suspicious thyroid nodules. Normal sized gland. No follow-up n ecessary.
--- NOTE | 2023-12-27 08:55 | CT_ITS ---
WS: [id number] CT PARANASAL SINUSES with contrast HISTORY: CHRONIC SINUSITIS TECHNIQUE: Contiguous 2.0 mm axial images obtained through the sinuses. Images are reconstructed in s agittal and coronal planes. All CT scans at [facility] use at least one of these dose optimiz ation techniques: automated exposure control; mA and/or kV adjustment per patient size (includes targ eted exams where dose is matched to clinical indication); or iterative reconstruction. Contrast: Omnipaque 350; 100 mL. DLP: 388.18 mGy COMPARISON: 04/03/[address] Frontal sinuses: Normal. Sphenoid sinus: Normal. Ethmoid sinuses: Very mild mucoperiosteal thickening in the anterior ethmoid air cells. Maxillary sinus: No air-fluid levels or mucoperiosteal disease. Ostiomeatal unit: Ostiomeatal units are patent bilaterally. There is some very mild mucoperiosteal th ickening but no obstruction. Mild S-shaped curvature of the nasal septum with a 5 mm bony spur to the LEFT. No enhancing masses. CT/CT sinus w con [id number] IMPRESSION: 1. No evidence for acute sinusitis. No air-fluid levels. 2. Ostiomeatal units are patent. 3. Mild S-shaped curvature of the nasal septum is a 5 mm bony spur to the LEFT .
[2023-12-27 09:55] LABS: Blood Urea Nitrogen 8 mg/dL (8-23); Glomerular Filtration Rate 101.6 mL/min (90-130)
[2023-12-27] MEDS: iohexol 350 mg/mL 500 mL Btl (per mL) IV (10:16)
== END 2023-12-27 08:51 | disposition home or self-care (01) ==
LOC: RAD 08:50
PROVIDERS: Radiology Neuroradiology; PCP Internal Medicine; Visit Provider Internal Medicine
DX: E05.90 Thyrotoxicosis, unspecified without thyrotoxic crisis or storm (principal); J32.9 Chronic sinusitis, unspecified
CPT/HCPCS: 70487; 76536; 82565; 84520

== ENCOUNTER 2024-01-17 12:47 | Outpatient (CLI) | payer MEDICARE, MEDICAID, SELFPAY | END 2024-01-17 12:48 | disposition home or self-care (01) | LOC: RT 12:48 | PROVIDERS: PCP Internal Medicine; Visit Provider Internal Medicine | DX: J44.9 Chronic obstructive pulmonary disease, unspecified (principal); R94.2 Abnormal results of pulmonary function studies | CPT/HCPCS: 94010; 94726; 94729 ==

== ENCOUNTER → 2024-01-24 13:45 | Outpatient (BNVA) | payer MEDICARE, MEDICAID, SELFPAY | PROVIDERS: PCP Internal Medicine; Visit Provider Internal Medicine | DX: R07.9 Chest pain, unspecified (principal); R94.31 Abnormal electrocardiogram [ECG] [EKG]; J43.2 Centrilobular emphysema; G43.711 Chronic migraine without aura, intractable, with status migrainosus; F41.9 Anxiety disorder, unspecified; R76.8 Other specified abnormal immunological findings in serum; I73.00 Raynaud's syndrome without gangrene; Z87.891 Personal history of nicotine dependence | CPT/HCPCS: 99214 ==

== ENCOUNTER 2024-01-25 15:18 | Outpatient (CLI) | payer MEDICARE, MEDICAID, SELFPAY ==
--- NOTE | 2024-01-25 15:25 | XRR_ITS ---
PROCEDURE INFORMATION: Exam: XR Thoracic Spine Exam date and time: 01/25/2024 4:04 PM Age: 63 years old Clinical indication: Pain in thoracic spine TECHNIQUE: Imaging protocol: Radiologic exam of the thoracic spine. Views: 3 views. COMPARISON: CR XR thoracic spine 3V* [id number] 03/19/2019 4:09 PM FINDINGS: Bones/joints: No acute fracture. Normal alignment. There is osteopenia.Degenerative change is identified in the spine. Soft tissues: Unremarkable. XR/XR thoracic spine 3V* [id number] IMPRESSION: No acute findings.
== END 2024-01-25 15:19 | disposition home or self-care (01) ==
LOC: RAD 15:20
PROVIDERS: PCP Internal Medicine; Visit Provider Anesthesiology Pain Medicine
DX: M54.6 Pain in thoracic spine (principal)
CPT/HCPCS: 72072

== ENCOUNTER → 2024-02-01 13:35 | Outpatient (BNVA) | payer MEDICARE, MEDICAID, SELFPAY | PROVIDERS: PCP Internal Medicine; Visit Provider Internal Medicine Rheumatology | DX: M06.041 Rheumatoid arthritis without rheumatoid factor, right hand (principal); M06.042 Rheumatoid arthritis without rheumatoid factor, left hand; Z79.899 Other long term (current) drug therapy; Z71.85 Encounter for immunization safety counseling; I73.00 Raynaud's syndrome without gangrene | CPT/HCPCS: 99214 ==

== ENCOUNTER 2024-03-14 17:39 | Inpatient (IN) | payer MEDICARE, MEDICAID, SELFPAY ==
[2024-03-14] VITALS (15 sets, daily range): BP systolic 114–140; BP diastolic 66–81; PULSE 83–109; RESP 16–26; TEMP 36.8–37.7; O2SAT 91–97; BMI 20.8; BMI 20.4
--- NOTE | 2024-03-14 17:54 | XRR_ITS ---
PROCEDURE INFORMATION: Exam: XR Chest Exam date and time: 03/14/2024 6:05 PM Age: 63 years old Clinical indication: Cough and shortness of breath; Additional info: SOA, hypoxic, on o2 daily, HX copd TECHNIQUE: Imaging protocol: Radiologic exam of the chest. Views: 1 view. COMPARISON: CR XR chest 2V* [id number] 07/15/2022 11:25 AM FINDINGS: Lungs: No focal consolidation. Severe emphysematous changes. Left basilar hazy opacities compatible with atelectasis or developing infection in the proper clinical setting. Pleural spaces: No evidence of pneumothorax. No evidence of pleural effusion. Heart/Mediastinum: Cardiomediastinal silhouette is within normal limits. Bones/joints: No evidence of acute osseous abnormality. XR/XR chest 1V [id number] IMPRESSION: 1. Left basilar hazy opacities compatible with atelectasis or developing infection in the proper clinical setting. 2. Severe emphysematous changes
--- NOTE | 2024-03-14 17:57 | ED_ITS ---
HPI - SOB/Dyspnea 2 General: Chief Complaint: Shortness of Breath/Dyspnea Stated Complaint: SOB Time Seen by Provider: 03/14/24 17:50 Source: patient and family Mode of arrival: wheelchair Limitations: no limitations History of Present Illness: HPI Narrative: Patient presents emergency department today accompanied by her for evaluation and treatment of acute worsening shortness of breath and cough over the last week. Acutely worsened over the last 24 hours. Patient has a history of COPD and is chronically on 2 L by nasal cannula however, patient has been having to increase her oxygen to 3 L. She has been using her breathing treatments but, is not noticing any improvement at this time. Patient is leaning forward and speaking only 1-2 word sentences. She looks incredibly fatigued. She reports a cough but states it is not productive. No known fevers. Denies abdominal pains, diarrhea, vomiting, or urinary symptoms. Has not noticed any peripheral edema developing. Patient does have a pulmonology specialist. Related Data Home Medications Medication Instructions Recorded Confirmed methocarbamol 500 mg tablet 250 - 500 mg PO TID PRN Spasms 04/19/19 02/01/24 multivitamin with minerals 1 tab PO DAILY 04/19/19 02/01/24 (Hair,Skin and Nails tablet) magnesium oxide 250 mg PO DAILY 08/09/19 02/01/24 fluticasone propionate 50 2 spray intranasal DAILY PRN 03/27/20 02/01/24 mcg/actuation nasal Allergy Symptoms spray,suspension (Flonase Allergy Relief) cetirizine 10 mg tablet (Zyrtec) 10 mg PO BID 12/09/20 02/01/24 duloxetine 60 mg capsule,delayed 60 mg PO BEDTIME 12/09/20 02/01/24 release erenumab-aooe 70 mg/mL 70 mg SUBCUT Q30D 12/09/20 02/01/24 subcutaneous auto-injector (Aimovig Autoinjector) ascorbic acid (vitamin C) 500 mg 500 mg PO DAILY 06/25/21 02/01/24 tablet biotin 1 mg tablet 1 mg PO DAILY 06/25/21 02/01/24 cholecalciferol (vitamin D3) 25 25 mcg PO DAILY 06/25/21 02/01/24 mcg (1,000 unit) capsule roflumilast 500 mcg tablet 500 mcg PO DAILY 06/25/21 02/01/24 (Daliresp) valacyclovir 1 gram tablet 1,000 mg PO BID PRN unknown 06/25/21 02/01/24 vitamin B complex (B 1 tab PO DAILY 06/25/21 02/01/24 Complex-Vitamin B12 tablet) amitriptyline 25 mg tablet 25 mg PO BEDTIME 08/11/21 02/01/24 calcium carbonate 500 mg PO DAILY 08/11/21 02/01/24 hydrocodone 7.5 mg-acetaminophen 1 - 2 tab PO Q4H PRN Pain 08/11/21 02/01/24 325 mg tablet pregabalin 200 mg capsule 200 mg PO TID 08/11/21 02/01/24 budesonide-formoterol HFA 80 2 puff inhalation BID 01/24/24 02/01/24 mcg-4.5 mcg/actuation aerosol inhaler (Symbicort) tiotropium bromide 1.25 2 puff inhalation DAILY 01/24/24 02/01/24 mcg/actuation mist for inhalation (Spiriva Respimat) infliximab-abda [Renflexis] IV 02/01/24 02/01/24 Previous Rx's Medication Instructions Recorded albuterol sulfate 90 mcg/actuation 2 puff inhalation QID PRN 11/27/21 aerosol inhaler (ProAir HFA) Shortness Of Breath #8.5 grams amlodipine 10 mg tablet 10 mg PO DAILY #90 tabs 09/21/23 prednisone 20 mg tablet See Rx Instructions PO .COMPLEX 11/22/23 PRN joint pain flare #30 tabs diclofenac sodium 1 % topical gel 2 g topical QID PRN Pain #100 grams 02/01/24 (Arthritis Pain (diclofenac)) leflunomide 20 mg tablet 20 mg PO DAILY #90 tabs 02/01/24 omeprazole 20 mg capsule,delayed See Rx Instructions PO DAILY #90 02/01/24 release caps prednisone 10 mg tablet 10 mg PO DAILY joint pain #90 tabs 02/01/24 Allergies Allergy/AdvReac Type Severity Reaction Status Date / Time almond Allergy ALGY-Anaphy Verified 02/01/24 13:41 laxis aspirin Allergy Bleeding Verified 02/01/24 13:41 adalimumab [From Humira] AdvReac Intermediate skin Verified 02/01/24 13:41 reactions oranges Allergy Intermediate ALGY-Bliste Uncoded 02/01/24 13:41 r Review of Systems 2 General: Reports: 10 or more systems reviewed and unremarkable except in HPI and below PFSH ED 2 PFSH: Medical History Skin rash PsO? Immunization counseling Seronegative rheumatoid arthritis of both hands High risk medication use Hepatitis C antibody positive in blood Raynaud phenomenon Inflammatory arthritis Back pain Muscle spasm Allergies Kidney stones H/O nephrolithotomy with removal of calculi Chronic obstructive pulmonary disease Surgical History History of hysterectomy with bilateral oophorectomy History of delivery x2 Family History Other Acute rheumatoid arthritis CAD (coronary artery disease) Cancer Chronic kidney disease (CKD) Diabetes Hypertension Lung disease Stroke Denies family history of Lupus Hyperlipidemia Social History Smoking and tobacco/nicotine status: never used tobacco/nicotine Quit status (tobacco/nicotine): has quit using Year quit tobacco: 2020 - 1PPD x 42 Years Second hand smoke exposure: Yes Alcohol intake: never Substance/Drug Use: never Lives independently: Yes Household members: none Marital status: Legally Current occupational status: disabled Do you think of yourself as: Straight/Heterosexual Current gender identity: Female Physical Exam 2 Const: COMMON NORMALS: patient oriented x3 and alert OTHER: Patient is answering her own history but, is obviously in some distress. Patient is leaning forward in the bed. Eye: COMMON NORMALS: Equal, round and reactive pupils present, EOMs intact bilaterally and conjunctivae normal CONJUNCTIVA: Yes conjunctivae normal P UPIL: Yes Equal, round and reactive pupils present Lymph: LYMPHATIC: no lymphadenopathy noted Resp: OTHER: Patient has significant increased effort of respiration. She is on 3 L by nasal cannula and in the room, is 89 to 90%. Patient has diminished lung sounds throughout without obvious active wheezing. Patient is using abdominal muscles to breathe and is sitting forward. Cardio: OTHER: Mild tachycardia Back/Pelvis: COMMON NORMALS: thoracic and lumbar spine normal to inspection and thoraco-lumbar ROM normal Extremity: COMMON NORMALS: normal to inspection, full ROM and no pedal edema Neuro: COMMON NORMALS: patient oriented x3 SENSORIUM/ORIENTATION: Yes alert Skin: COMMON NORMALS: no rashes or lesions noted and turgor normal GENERAL SKIN EXAM: no rashes or lesions noted and turgor normal Course 2 Vital Signs: Vital signs: Vital Signs Temperature 99.9 F H 03/14/24 19:53 Pulse Rate 95 03/14/24 21:09 Respiratory Rate 20 H 03/14/24 21:00 Blood Pressure 129/76 03/14/24 20:30 Pulse Oximetry 95 03/14/24 21:00 Oxygen Delivery Me thod Nasal Cannula 03/14/24 21:00 Oxygen Flow Rate 4 03/14/24 21:00 MDM - SOB/Dyspnea Medical Decision Making Patient presents emergency department today accompanied by her for evaluation treatment of increased effort of respiration and cough. Patient reports being ill for about a week with acute worsening over the last couple of days. Patient increased her nasal cannula oxygen flow from 2 L to 3 L taking that might help but, has not provided her much relief. Has not had a lot of relief with any of her breathing treatments. Patient was afebrile upon arrival but, is warm here in her room. Recheck of the patient's temperature shows 99.9 degrees now. Patient has a noticeably elevated white blood cell count of 19. I did confirm with her that she is not currently on any steroids. Patient's lactic is 0.6 and baseline troponin is 7. She showed a sinus tachycardia but no ST change on EKG. She had 2 DuoNeb treatments, 125 Solu-Medrol and, with a chest x-ray showing concerns for left basilar pneumonia, was given IV azithromycin and Rocephin. Patient seems to be compensating as her ABG shows a pH of 7.4, CO2 of 51 but a pO2 of 77 currently. She tested negative for COVID, flu, and RSV. We did attempt to walk the patient at her typical 2 L by nasal cannula but, oxygen dropped to 86% patient became extremely lightheaded. Oxygen saturation were returned to the mid 90%'s with 5 L by nasal cannula and the patient seated and resting. I did discuss the case with Dr. Sanz. After discussing her evaluation here, he is admitting her for CAP and COPD exacerbation. This was discussed with the patient who is in agreement to be admitted. We will defer further care and intervention of this patient to the hospitalist services for appropriate management at this time. Differential Diagnosis Likely acute exacerbation of chronic obstructive airways disease and community acquired pneumonia; Unlikely congestive heart failure or asthma with exacerbation Lab Data 03/14/24 18:33 03/14/24 18:33 Labs/Radiology: Radiology Impressions Chest X-Ray 03/14/24 17:54 IMPRESSION: 1. Left basilar hazy opacities compatible with atelectasis or developing infection in the proper clinical setting. 2. Severe emphysematous changes Laboratory Results WBC 19.12 10^3/uL (3.29-11.43) H 03/14/24 18:33 RBC 4.37 10^6/uL (3.85-5.65) 03/14/24 18:33 Hgb 12.60 g/dL (11.27-16.99) 03/14/24 18:33 Hct 38.5 % (36-47) 03/14/24 18:33 MCV 88.1 fl (85-98) 03/14/24 18:33 MCH 28.8 pg (27-33) 03/14/24 18:33 MCHC 32.7 g/dL (30-55) 03/14/24 18:33 RDW 14.6 % (12.1-15.1) 03/14/24 18:33 Plt Count 532 10^3/cmm (157-399) H 03/14/24 18:33 MPV 8.9 fL (7.4-10.4) 03/14/24 18:33 Neut % (Auto) 88.3 % 03/14/24 18:33 Lymph % (Auto) 4.8 % 03/14/24 18:33 [place] % (Auto) 5.4 % 03/14/24 18:33 Eos % (Auto) 0.6 % 03/14/24 18:33 Baso % (Auto) 0.4 % 03/14/24 18:33 Neut # (Auto) 16.91 10^3/uL (1.8-7.7) H 03/14/24 18:33 Lymph # (Auto) 0.9 10^3/uL (0.8-4.8) 03/14/24 18:33 [place] # (Auto) 1.0 10^3/uL (0.2-0.9) H 03/14/24 18:33 Eos # (Auto) 0.1 10^3/uL (0.0-0.8) 03/14/24 18:33 Baso # (Auto) 0.1 10^3/uL (0.0-0.1) 03/14/24 18:33 Nucleated RBC % (auto) 0 % 03/14/24 18:33 Nucleated RBCs # 0.0 /100WBC 03/14/24 18:33 D-Dimer 1.11 ug/mLFEU (0-0.59) H 03/14/24 18:33 Specimen Type Arterial 03/14/24 18:54 Sample Site Radial, right 03/14/24 18:54 ABG pH 7.41 (7.35-7.45) 03/14/24 18:54 ABG pCO2 51.2 mmHg (35-45) H 03/14/24 18:54 ABG pO2 77.8 mmHg (80.0-100.0) L 03/14/24 18:54 ABG PO2/FiO2 Ratio 216 03/14/24 18:54 ABG HCO3 32.0 mmol/L (22-26) H 03/14/24 18:54 ABG Base Excess 6.0 mmol/L (-2.0-2.0) H 03/14/24 18:54 Shayan Test Pos 03/14/24 18:54 Hematocrit 40.1 % (37-47) 03/14/24 18:54 O2 Delivery Device Nc 03/14/24 18:54 O2 Liters/Min 4.0 % 03/14/24 18:54 FiO2 36.0 % 03/14/24 18:54 Bank Credit Card Collection Clerk ID glc 03/14/24 18:54 Sodium 129 mmol/L (136-145) L 03/14/24 18:33 Potassium 4.5 mmol/L (3.5-5.1) 03/14/24 18:33 Chloride 91 mmol/L (98-107) L 03/14/24 18:33 Carbon Dioxide 29 mmol/L (22-29) 03/14/24 18:33 Anion Gap 13.5 (5-19) 03/14/24 18:33 BUN 7 mg/dL (8-23) L 03/14/24 18:33 Creatinine 0.3 mg/dL (0.5-0.9) L 03/14/24 18:33 GFR Calculation 226.2 mL/min (90-130) H 03/14/24 18:33 Glucose 102 mg/dL (65-115) 03/14/24 18:33 Calculated Osmolality 266 mOsm/kg (285-295) L 03/14/24 18:33 Lactic Acid 0.6 mmol/L (0.5-2.2) 03/14/24 18:33 Calcium 9.9 mg/dL (8.5-10.5) 03/14/24 18:33 Total Bilirubin 0.3 mg/dL (0.15-1.2) 03/14/24 18:33 AST 19 U/L (0-32) 03/14/24 18:33 ALT 14 U/L (0-33) 03/14/24 18:33 Alkaline Phosphatase 122 U/L (35-105) H 03/14/24 18:33 Troponin T Baseline 7 ng/L (0-10) 03/14/24 18:33 Troponin T 120 Minute 6.42 ng/L (0-10) 03/14/24 20:36 Delta Troponin T -0.58 ABS# (0-10) L 03/14/24 20:36 NT-Pro-B Natriuret Pep 45 pg/mL (0-125) 03/14/24 18:33 Total Protein 6.7 g/dL (6.6-8.7) 03/14/24 18:33 Albumin 3.9 g/dL (3.5-5.2) 03/14/24 18:33 Globulin 2.8 g/dL (1.3-4.6) 03/14/24 18:33 Procalcitonin 0.08 ng/mL (0-0.5) 03/14/24 20:06 Urine Color Yellow (Yellow) 03/14/24 20:37 Urine Appearance Clear (CLEAR) 03/14/24 20:37 Urine pH 7.5 (5-7) 03/14/24 20:37 Ur Specific [place] 1.010 (1.005-1.030) 03/14/24 20:37 Urine Protein Negative (Negative) 03/14/24 20:37 Urine Glucose (UA) Negative (Normal) 03/14/24 20:37 Urine Ketones Negative (Negative) 03/14/24 20:37 Urine Blood Negative (Negative) 03/14/24 20:37 Urine Nitrate Negative (Negative) 03/14/24 20:37 Urine Bilirubin Negative (Negative) 03/14/24 20:37 Urine Urobilinogen 0.2 mg/dL (Negative) 03/14/24 20:37 Ur Leukocyte Esterase Negative (Negative) 03/14/24 20:37 Urine RBC 0-2 /hpf (0-2) 03/14/24 20:37 Urine WBC 0-5 /hpf (0-5) 03/14/24 20:37 Ur Squamous Epith Cells 0-5 /hpf (0-5) 03/14/24 20:37 Amorphous Sediment Not Reportable 03/14/24 20:37 Urine Bacteria None seen /hpf (NONE) 03/14/24 20:37 Hyaline Casts 0.81 /lpf 03/14/24 20:37 Coronavirus (PCR) Negative (Negative) 03/14/24 18:42 Influenza A (PCR) Negative (Negative) 03/14/24 18:42 Influenza Type B (PCR) Negative (Negative) 03/14/24 18:42 RSV (PCR) Negative (Negative) 03/14/24 18:42 All radiology interpretation(s) finalized by discharge Discharge Plan Discharge Patient Disposition: Admitted As Inpatient Admit Provider: Ashly Holder Clinical Impression: Acute exacerbation of chronic obstructive airways disease, Community acquired pneumonia Condition: Stable Coding Level of Care Code ED Mine Manager for Jacinto Costello
[2024-03-14] MEDS: ipratropium-albuterol 3 mL Neb INHALATION ×4 (18:17→20:59)
[2024-03-14] MEDS: methylPREDNISolone sod succ 125 mg/2 mL INJ IVP (18:39)
[2024-03-14 18:50] LABS: Basophils # 0.1 10^3/uL (0.0-0.1); Basophils % 0.4 %; Eosinophils # 0.1 10^3/uL (0.0-0.8); Eosinophils % 0.6 %; Hematocrit 38.5 % (36-47); Lymphocytes # 0.9 10^3/uL (0.8-4.8); Lymphocytes % 4.8 %; Mean Corpuscular HGB Conc 32.7 g/dL (30-55); Mean Corpuscular Hemoglobin 28.8 pg (27-33); Mean Corpuscular Volume 88.1 fl (85-98); Mean Platelet Volume 8.9 fL (7.4-10.4); Monocytes % 5.4 %; Neutrophils # 16.91 10^3/uL (1.8-7.7); Neutrophils % 88.3 %; Nucleated Red Blood Cells % 0 %; Platelet Count 532 10^3/cmm (157-399); Red Blood Count 4.37 10^6/uL (3.85-5.65); Red Cell Distribution Width 14.6 % (12.1-15.1); White Blood Count 19.12 10^3/uL (3.29-11.43)
[2024-03-14 19:04] LABS: ABG PCO2 51.2 mmHg (35-45); ABG PH Result 7.41 (7.35-7.45); Arterial Blood Gas Hematocrit 40.1 % (37-47); Blood Gas Allen Test Pos; Blood Gas Operator Identificat glc; Blood Gas Sample Site Radial, right; Blood Gas Sample Type Arterial; Oxygen Device NC; PO2 ABG 77.8 mmHg (80.0-100.0); PO2 FiO2 Ratio Arterial Blood 216
[2024-03-14 19:10] LABS: Troponin(5th) Baseline 7 ng/L (0-10)
[2024-03-14 19:17] LABS: Lactic Sepsis W/Reflex 0.6 mmol/L (0.5-2.2)
[2024-03-14 19:19] LABS: Alanine Aminotransferase 14 U/L (0-33); Albumin Level 3.9 g/dL (3.5-5.2); Alkaline Phosphatase 122 U/L (35-105); Anion Gap 13.5 (5-19); Aspartate Amino Transferase 19 U/L (0-32); Blood Urea Nitrogen 7 mg/dL (8-23); Calcium 9.9 mg/dL (8.5-10.5); Carbon Dioxide 29 mmol/L (22-29); Chloride 91 mmol/L (98-107); Creatinine Clr Calc Pharmacy 189.9201; Globulin 2.8 g/dL (1.3-4.6); Glomerular Filtration Rate 226.2 mL/min (90-130); Glucose 102 mg/dL (65-115); NT Pro B Type Natriuretic Pept 45 pg/mL (0-125); Osmolality Calculated 266 mOsm/kg (285-295); Potassium 4.5 mmol/L (3.5-5.1); Sodium 129 mmol/L (136-145); Total Bilirubin 0.3 mg/dL (0.15-1.2); Total Protein 6.7 g/dL (6.6-8.7)
[2024-03-14 19:26] LABS: Covid PCR NEGATIVE (Negative); Influenza A NEGATIVE (Negative); Influenza B NEGATIVE (Negative); Respiratory Syncytial Virus Ce NEGATIVE (Negative)
[2024-03-14] MEDS: AZITHROMYCIN ADD-Vantage 500 MG in 0.9% NaCl ADD-Vantage 250 ML 250 MG IV (20:25)
[2024-03-14] MEDS: acetaminophen 500 mg Tablet 1000 MG PO (20:26)
[2024-03-14] MEDS: cefTRIAXone 1,000 mg SDV 1000 MG IVP (20:26)
--- NOTE | 2024-03-14 20:41 | ECG_ITS ---
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 Measurements Intervals [place] Rate: 106 P: 152 DC: 134 QRS: 168 QRSD: 101 T: 96 QT: 304 QTc: 405 Interpretive Statements SINUS TACHYCARDIA ARM LEADS REVERSED [INVERTED P AND QRS IN I] ABNORMAL RHYTHM ECG Compared to ECG 05/31/2022 17:38:08 Sinus rhythm no longer present Incomplete right bundle-branch block no longer present T-wave abnormality no longer present Possible ischemia no longer present Electronically Signed On 03-14-2024 19:35:48 CORRUGATOR MACHINE OPERATOR by Kulwinder Vo M.D. [id number]
[2024-03-14 20:50] LABS: Bacteria Urine None Seen /hpf; Hyaline Casts Urine 0.81 /lpf; RBC Urine 0-2 /hpf (0-2); Squamous Epithelial Cell Urine 0-5 /hpf (0-5); WBC Urine 0-5 /hpf (0-5)
[2024-03-14 20:54] LABS: Add Urine Microscopic? YES; Bilirubin Urine Negative (Negative); Blood Urine Negative (Negative); Glucose Urine UA Negative (Normal); Ketones Urine Negative (Negative); Leukocyte Esterase Urine Negative (Negative); Nitrate Urine Negative (Negative); Protein Urine Negative (Negative); Urine Color Yellow (Yellow); Urobilinogen Urine 0.2 mg/dL (Negative); pH Urine 7.5 (5-7)
[2024-03-14 20:57] LABS: Urine Appearance Clear (CLEAR)
[2024-03-14 21:03] LABS: Troponin 5 2HR 6.42 ng/L (0-10)
[2024-03-14 21:11] LABS: Troponin 5 2HR Delta -0.58 ABS# (0-10)
--- NOTE | 2024-03-14 21:45 | PC.NURSE ---
Patient ambulated on 2lnc baseline per Provider Ethan guillen. Pt able to ambulate approx 20 feet before sats dropped to 86% and she became weak. Oxygen increased back to 4lnc and patient back in bed. Sats improved within minutes back to 93-94%. Provider notified of results.
--- NOTE | 2024-03-14 21:57 | P.HP_ITS ---
Providers/Chief Complaint 2 Primary Care Provider: Narcisa Tejeda MD Chief Complaint: SOB History of Present Illness Mely Wang is a 63 year old female with history of COPD, uses 2 L of oxygen at baseline, rheumatoid arthritis, recently finished steroid course last Tuesday, not an active smoker, lives with her , not up-to-date with her vaccination presented with chief complaint of worsening of shortness of breath low-grade fever. Patient is stating that she has been sick for the last few weeks and has gotten worse in last 2 to 3 days, she is bringing up more sputum, white, she is endorsing dyspnea on exertion no orthopnea PND, she has noticed low-grade fever at home 99.9, in the ER she was diagnosed with sepsis related to left lower lobe pneumonia. She is showing signs of hypoxia currently requiring 5 L of oxygen via nasal cannula, not using respiratory fisher crab muscles does have conversational dyspnea. Patient does not want to use BiPAP overnight. Troponin with negative delta no active chest pain. Respiratory panel negative. Her lactic acid is normal, I have requested septic bolus she has also received antibiotics, Review of Systems 2 Const: Reports: fever(s), chills and change in weight Eyes: Denies: change in vision ENMT: Denies: throat pain Card: Reports: dyspnea on exertion; Denies: palpitations GI: Denies: abdominal pain : Denies: flank pain Musc: Denies: neck pain Medications/Allergies Home Medications Medication Instructions Recorded Confirmed Last Taken Type methocarbamol 500 mg tablet 250 - 500 mg PO TID PRN Spasms 04/19/19 02/01/24 Unknown History multivitamin with minerals 1 tab PO DAILY 04/19/19 02/01/24 05/30/22 History (Hair,Skin and Nails tablet) magnesium oxide 250 mg PO DAILY 08/09/19 02/01/24 05/30/22 History fluticasone propionate 50 2 spray intranasal DAILY PRN 03/27/20 02/01/24 Unknown History mcg/actuation nasal Allergy Symptoms spray,suspension (Flonase Allergy Relief) cetirizine 10 mg tablet (Zyrtec) 10 mg PO BID 12/09/20 02/01/24 05/30/22 History duloxetine 60 mg capsule,delayed 60 mg PO BEDTIME 12/09/20 02/01/24 05/30/22 History release erenumab-aooe 70 mg/mL 70 mg SUBCUT Q30D 12/09/20 02/01/24 Unknown History subcutaneous auto-injector (Aimovig Autoinjector) ascorbic acid (vitamin C) 500 mg 500 mg PO DAILY 06/25/21 02/01/24 05/30/22 History tablet biotin 1 mg tablet 1 mg PO DAILY 06/25/21 02/01/24 05/30/22 History cholecalciferol (vitamin D3) 25 25 mcg PO DAILY 06/25/21 02/01/24 05/30/22 History mcg (1,000 unit) capsule roflumilast 500 mcg tablet 500 mcg PO DAILY 06/25/21 02/01/24 05/31/22 History (Daliresp) valacyclovir 1 gram tablet 1,000 mg PO BID PRN unknown 06/25/21 02/01/24 Unknown History vitamin B complex (B 1 tab PO DAILY 06/25/21 02/01/24 05/30/22 History Complex-Vitamin B12 tablet) amitriptyline 25 mg tablet 25 mg PO BEDTIME 08/11/21 02/01/24 05/30/22 History calcium carbonate 500 mg PO DAILY 08/11/21 02/01/24 05/30/22 History hydrocodone 7.5 mg-acetaminophen 1 - 2 tab PO Q4H PRN Pain 08/11/21 02/01/24 05/31/22 History 325 mg tablet pregabalin 200 mg capsule 200 mg PO TID 08/11/21 02/01/24 05/31/22 History albuterol sulfate 90 mcg/actuation 2 puff inhalation QID PRN 11/27/21 02/01/24 Unknown Rx aerosol inhaler (ProAir HFA) Shortness Of Breath #8.5 grams amlodipine 10 mg tablet 10 mg PO DAILY #90 tabs 09/21/23 02/01/24 Unknown Rx prednisone 20 mg tablet See Rx Instructions PO .COMPLEX 11/22/23 02/01/24 Unknown Rx PRN joint pain flare #30 tabs budesonide-formoterol HFA 80 2 puff inhalation BID 01/24/24 02/01/24 Unknown History mcg-4.5 mcg/actuation aerosol inhaler (Symbicort) tiotropium bromide 1.25 2 puff inhalation DAILY 01/24/24 02/01/24 Unknown History mcg/actuation mist for inhalation (Spiriva Respimat) diclofenac sodium 1 % topical gel 2 g topical QID PRN Pain #100 grams 02/01/24 02/01/24 Unknown Rx (Arthritis Pain (diclofenac)) infliximab-abda [Renflexis] IV 02/01/24 02/01/24 Unknown History leflunomide 20 mg tablet 20 mg PO DAILY #90 tabs 02/01/24 02/01/24 Unknown Rx omeprazole 20 mg capsule,delayed See Rx Instructions PO DAILY #90 02/01/24 02/01/24 Unknown Rx release caps prednisone 10 mg tablet 10 mg PO DAILY joint pain #90 tabs 02/01/24 02/01/24 Unknown Rx Allergies Allergy/AdvReac Type Severity Reaction Status Date / Time almond Allergy ALGY-Anaphy Verified 02/01/24 13:41 laxis aspirin Allergy Bleeding Verified 02/01/24 13:41 adalimumab [From Humira] AdvReac Intermediate skin Verified 02/01/24 13:41 reactions oranges Allergy Intermediate ALGY-Bliste Uncoded 02/01/24 13:41 r PFSH Acute 2 PFSH: Medical History Skin rash PsO? Immunization counseling Seronegative rheumatoid arthritis of both hands High risk medication use Hepatitis C antibody positive in blood Raynaud phenomenon Inflammatory arthritis Back pain Muscle spasm Allergies Kidney stones H/O nephrolithotomy with removal of calculi Chronic obstructive pulmonary disease Surgical History History of hysterectomy with bilateral oophorectomy History of delivery x2 Family History Other Acute rheumatoid arthritis CAD (coronary artery disease) Cancer Chronic kidney disease (CKD) Diabetes Hypertension Lung disease Stroke Denies family history of Lupus Hyperlipidemia Social History Smoking and tobacco/nicotine status: never used tobacco/nicotine Quit status (tobacco/nicotine): has quit using Year quit tobacco: 2020 - 1PPD x 42 Years Second hand smoke exposure: Yes Alcohol intake: never Substance/Drug Use: never Lives independently: Yes Household members: none Marital status: Legally Current occupational status: disabled Do you think of yourself as: Straight/Heterosexual Current gender identity: Female Vitals/I&O/Wt Last Vital Signs Temp 99.9 F H 03/14/24 19:53 Pulse 95 03/14/24 21:09 Resp 20 H 03/14/24 21:00 BP 129/76 03/14/24 20:30 Pulse Ox 95 03/14/24 21:00 O2 Del Method Nasal Cannula 03/14/24 21:00 O2 Flow Rate 4 03/14/24 21:00 Weight last 48 hrs Weight 60.328 kg Physical Exam 2 Narrative: Pleasant cooperative Looks more than stated age Does not look fluid overloaded Protein calorie malnourishment Sarcopenia Conversational dyspnea Decreased airflow bilaterally I do not hear wheezing Currently on 5 L nasal cannula S1, S2 tachycardia at the bedside Nonfocal neuroexam Abdomen soft Cap refill is normal, no sign of encephalopathy No skin rash no skin mottling Data 03/14/24 18:33 03/14/24 18:33 Micro: Microbiology 03/14/24 19:15 Blood Culture - Preliminary Blood SPECIMEN COLLECTED 03/14/24 19:11 Blood Culture - Preliminary Blood SPECIMEN COLLECTED A&P Assessment and plan (1) Raynaud phenomenon: Qualifiers: Raynaud?s-associated gangrene presence: without gangrene Qualified Code(s): I73.00 - Raynaud's syndrome without gangrene (2) Seronegative rheumatoid arthritis of both hands: (3) Inflammatory arthritis: (4) Chronic obstructive pulmonary disease: Qualifiers: COPD type: emphysema Emphysema type: centrilobular Qualified Code(s): J43.2 - Centrilobular emphysema (5) Chronic respiratory failure with hypoxia: (6) Acute exacerbation of chronic obstructive airways disease: (7) Community acquired pneumonia: (8) Sepsis: Plan Sepsis related to community-acquired pneumonia Immunocompromise Left lower lobe pneumonia Rheumatoid arthritis history I will put her on IV antibiotics, request pending cultures start septic bolus Lactic acid normal Criteria met with tachypnea tachycardia leukocytosis Patient finished steroid course last week Requested urine culture DuoNeb along IV steroids Acute on chronic hypoxia with underlying COPD Currently on 5 L nasal cannula Patient does not want to use BiPAP to decrease work of breathing Patient had conversational dyspnea during examination Troponin trending down discontinue 6-hour troponin No active chest pain Clinically patient looks dry continue IV fluids She does have leukocytosis with thrombocytosis Abnormal D-dimer however not high for her age holding off on CT chest for now Dehydration related hyponatremia: IV fluids to be continued for next 14 to 16 hours Rheumatoid arthritis: No acute flare patient stopped taking steroids last Tuesday, not on leflunomide anymore as per the patient Full code Cardiac diet DVT prophylaxis Lovenox Attestations 2 Medical Necessity Statement*: More than 2 midnights anticipated Diagnoses Raynaud's phenomenon without gangrene I73.00 Raynaud?s-associated gangrene presence: without gangrene Seronegative rheumatoid arthritis of both hands M06.041; M06.042 Inflammatory arthritis M19.90 Centrilobular emphysema J43.2 COPD type: emphysema Emphysema type: centrilobular Chronic respiratory failure with hypoxia J96.11 Acute exacerbation of chronic obstructive airways disease J44.1 Community acquired pneumonia J18.9 Sepsis A41.9
[2024-03-14 22:17] LABS: D Dimer 1.11 ug/mLFEU (0-0.59)
[2024-03-14 22:29] LABS: Procalcitonin 0.08 ng/mL (0-0.5)
[2024-03-14] MEDS: sodium chloride 0.9% 1,809.84 ML 999 ML IV (23:16)
[2024-03-14] MEDS: enoxaparin 40 mg/0.4 mL Syringe SUBCUT (23:19)
[2024-03-14] MEDS: sodium chloride 0.9% 1,000 ML 75 ML IV (23:20)
[2024-03-15] VITALS (19 sets, daily range): BP systolic 119–135; BP diastolic 75–80; PULSE 73–90; RESP 16–24; TEMP 36.4–37.1; O2SAT 92–97
[2024-03-15] MEDS: ipratropium-albuterol 3 mL Neb INHALATION ×7 (00:19→23:39)
--- NOTE | 2024-03-15 00:30 | ECG_ITS ---
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 Measurements Intervals [place] Rate: 81 P: 78 NV: 159 QRS: 45 QRSD: 102 T: 69 QT: 412 QTc: 480 Interpretive Statements SINUS RHYTHM INDETERMINATE AXIS INCOMPLETE RIGHT BUNDLE BRANCH BLOCK [90+ ms QRS DURATION, TERMINAL R IN V1/V2, 40+ ms S IN I/aVL/V4/V5/V6] MODERATE T-WAVE ABNORMALITY, CONSIDER ANTERIOR ISCHEMIA [-0.1+ mV T-WAVE IN V3/V4] Compared to ECG 03/14/2024 17:47:10 Indeterminate axis now present Incomplete right bundle-branch block now present T-wave abnormality now present Possible ischemia now present Sinus tachycardia no longer present Electronically Signed On 03-15-2024 14:49:46 MEDICAL DIRECTOR/HEAD TEAM PHYSICIAN by Demond Early M.D. [email or web address]
[2024-03-15 01:54] LABS: MRSA PCR OZH (swab) MRSA Detected (Not Detecte)
[2024-03-15 05:59] LABS: Basophils % 0.2 %; Hematocrit 37.1 % (36-47); Lymphocytes # 0.3 10^3/uL (0.8-4.8); Lymphocytes % 2.4 %; Mean Corpuscular HGB Conc 32.1 g/dL (30-55); Mean Corpuscular Hemoglobin 29.1 pg (27-33); Mean Corpuscular Volume 90.7 fl (85-98); Monocytes # 0.2 10^3/uL (0.2-0.9); Monocytes % 1.8 %; Neutrophils # 11.67 10^3/uL (1.8-7.7); Neutrophils % 94.8 %; Nucleated Red Blood Cells % 0 %; Platelet Count 468 10^3/cmm (157-399); Red Blood Count 4.09 10^6/uL (3.85-5.65); Red Cell Distribution Width 14.9 % (12.1-15.1); White Blood Count 12.31 10^3/uL (3.29-11.43)
[2024-03-15 06:17] LABS: Blood Urea Nitrogen 8 mg/dL (8-23); C Reactive Protein 84.8 mg/L (0.0-4.9); Calcium 8.8 mg/dL (8.5-10.5); Carbon Dioxide 26 mmol/L (22-29); Chloride 100 mmol/L (98-107); Creatinine Clr Calc Pharmacy 188.3968; Glomerular Filtration Rate 226.2 mL/min (90-130); Glucose 151 mg/dL (65-115); Magnesium 2.1 mg/dL (1.7-2.3); Osmolality Calculated 287 mOsm/kg (285-295); Sodium 138 mmol/L (136-145)
[2024-03-15 06:28] LABS: Anion Gap 16.4 (5-19); Potassium 4.4 mmol/L (3.5-5.1)
[2024-03-15] MEDS: methylPREDNISolone sod succ 40 mg/mL INJ IVP ×2 (11:54→21:51)
[2024-03-15] MEDS: azithromycin 250 mg Tablet 500 MG PO (11:54)
--- NOTE | 2024-03-15 12:21 | CTR_ITS ---
PROCEDURE INFORMATION: Exam: CTA Chest With Contrast Exam date and time: 03/15/2024 5:44 PM Age: 63 years old Clinical indication: Shortness of breath; Additional info: SOB TECHNIQUE: Imaging protocol: Computed tomographic angiography of the chest with contrast. Exam focused on the arteries. 3D rendering (Not supervised by radiologist): MIP and/or 3D reconstructed images were created by the technologist. Radiation optimization: All CT scans at this facility use at least one of these dose optimization techniques: automated exposure control; mA and/or kV adjustment per patient size (includes targeted exams where dose is matched to clinical indication); or iterative reconstruction. Contrast material: OMNI 350; Contrast volume: 100 ml; Contrast route: INTRAVENOUS (IV); COMPARISON: CT angio chest PE protcl [id number] 08/11/2021 3:04 PM RADIATION DOSE METRICS: Total DLP (mGy-cm): 203.69 FINDINGS: Pulmonary arteries: Normal. No pulmonary emboli. Aorta: Atherosclerosis of the thoracic aorta without evidence of aneurysm or dissection. Lungs: Severe emphysematous changes of the lungs. There is some ground-glass opacities in the lung bases which may reflect superimposed infectious/inflammatory process. Pleural spaces: Unremarkable. No pneumothorax. No pleural effusion. Heart: No cardiomegaly. No pericardial effusion. Coronary arteries: Mild coronary artery calcifications. Lymph nodes: Small multi station mediastinal lymph nodes are present are likely reactive. Kidneys: Punctate nonobstructing right-sided renal calculi. Bones/joints: Stable chronic height of the superior endplate T12. This is mild. Soft tissues: Unremarkable. CT/CT angio chest PE protcl [id number] IMPRESSION: 1. No pulmonary embolism. No acute process involving the thoracic aorta. 2. Severe pulmonary emphysematous changes. No lobar consolidation. Subtle ground-glass opacities of the lung bases which may reflect an infectious/inflammatory etiology versus atelectasis. 3. Mild mediastinal lymph nodes are likely reactive. 4. Additional incidental/chronic findings as above. COMMENTS: The presence of pulmonary emphysema on CT is an independent risk factor for lung cancer. In the absence of a history or active diagnosis of lung cancer, it is recommended that this patient with emphysema be evaluated for enrollment in a low dose CT lung cancer screening program.
--- NOTE | 2024-03-15 13:08 | P.PN_ITS ---
Subjective 2 Subjective: Patient was seen this morning, continues to complain of fatigue, tiredness, shortness of breath, wheezing, subjective chills, no fevers Vitals/I&O/Wt Last Vital Signs Temp 98.2 F 03/15/24 11:56 Pulse 75 03/15/24 11:56 Resp 19 H 03/15/24 11:56 BP 130/77 03/15/24 11:56 Pulse Ox 96 03/15/24 11:56 O2 Del Method Nasal Cannula 03/15/24 11:56 O2 Flow Rate 3 03/15/24 11:16 03/14/24 03/15/24 03/15/24 22:59 06:59 14:59 Intake Total 250 / 250 1809.84 / 2058.84 Balance 250 / 250 1809.84 / 2058. Weight last 48 hrs Weight 59.103 kg Weight 59.058 kg Weight 60.328 kg Physical Exam 2 Const: COMMON NORMALS: no acute distress and patient oriented x3 Resp: COMMON NORMALS: normal respiratory effort, No retractions and No use of accessory muscles AUSCULTATION: crackles and wheezes Cardio: COMMON NORMALS: regular rate, regular rhythm, S1 normal heart sound present and S2 normal heart sound present RATE: regular rate RHYTHM: r egular rhythm HEART SOUNDS: S1 normal heart sound present and S2 normal heart sound present GI: COMMON NORMALS: Normal to inspection, nondistended, normoactive bowel sounds present and non-tender Extremity: COMMON NORMALS: no pedal edema Neuro: COMMON NORMALS: patient oriented x3 Psych: COMMON NORMALS: mental status grossly normal Data 03/15/24 05:14 03/15/24 05:14 Micro: Microbiology 03/14/24 20:37 Legionella Urinary Antigen - Final Urine,Voided Bacterial Antigens - Final 03/14/24 19:15 Blood Culture - Preliminary Blood SPECIMEN COLLECTED 03/14/24 19:11 Blood Culture - Preliminary Blood SPECIMEN COLLECTED A&P Assessment and plan (1) Raynaud phenomenon: Qualifiers: Raynaud?s-associated gangrene presence: without gangrene Qualified Code(s): I73.00 - Raynaud's syndrome without gangrene (2) Seronegative rheumatoid arthritis of both hands: (3) Inflammatory arthritis: (4) Chronic obstructive pulmonary disease: Qualifiers: COPD type: emphysema Emphysema type: centrilobular Qualified Code(s): J43.2 - Centrilobular emphysema (5) Chronic respiratory failure with hypoxia: (6) Acute exacerbation of chronic obstructive airways disease: (7) Community acquired pneumonia: (8) Sepsis: Plan Sepsis related to community-acquired pneumonia Immunocompromise Left lower lobe pneumonia Rheumatoid arthritis history Continue IV Rocephin, Zithromycin CT angiogram of the chest Lactic acid normal Criteria met with tachypnea tachycardia leukocytosis Patient finished steroid course last week Requested urine culture DuoNeb along IV steroids Acute on chronic hypoxia with underlying COPD Currently on 5 L nasal cannula Patient does not want to use BiPAP to decrease work of breathing Patient had conversational dyspnea during examination Troponin trending down discontinue 6-hour troponin No active chest pain CTA of the chest Clinically patient looks dry continue IV fluids She does have leukocytosis with thrombocytosis Abnormal D-dimer CT of the chest Dehydration related hyponatremia: IV fluids to be continued for next 14 to 16 hours Rheumatoid arthritis: No acute flare patient stopped taking steroids last Tuesday, not on leflunomide anymore as per the patient Full code Cardiac diet DVT prophylaxis Lovenox Attestations 2 Medical Necessity Statement*: Patient requires hospitalization for acute hypoxic respiratory failure and sepsis secondary to pneumonia, COPD Diagnoses Raynaud's phenomenon without gangrene I73.00 Raynaud?s-associated gangrene presence: without gangrene Seronegative rheumatoid arthritis of both hands M06.041; M06.042 Inflammatory arthritis M19.90 Centrilobular emphysema J43.2 COPD type: emphysema Emphysema type: centrilobular Chronic respiratory failure with hypoxia J96.11 Acute exacerbation of chronic obstructive airways disease J44.1 Community acquired pneumonia J18.9 Sepsis A41.9
[2024-03-15] MEDS: iohexol 350 mg/mL 500 mL Btl (per mL) IV (17:53)
[2024-03-15] MEDS: OXcarbazepine 300 mg Tablet PO (18:00)
[2024-03-15] MEDS: enoxaparin 40 mg/0.4 mL Syringe SUBCUT (21:50)
[2024-03-15] MEDS: ropinirole 0.25 mg Tablet PO (21:51)
[2024-03-15] MEDS: pregabalin 100 mg Capsule 200 MG PO (21:51)
[2024-03-15] MEDS: cefTRIAXone 1,000 MG in sodium chloride 0.9% (plus) 50 ML 100 MG IV (21:51)
[2024-03-15] MEDS: HYDROcodone-acetaminophen 10-325 mg Tablet 1 TAB PO (21:51)
[2024-03-15] MEDS: duloxetine 60 mg Capsule PO (21:51)
[2024-03-15] MEDS: amitriptyline 25 mg Tablet PO (21:51)
[2024-03-16] VITALS (13 sets, daily range): BP systolic 119–143; BP diastolic 66–83; PULSE 72–97; RESP 14–18; TEMP 36.4–36.6; O2SAT 92–97
[2024-03-16] MEDS: ipratropium-albuterol 3 mL Neb INHALATION ×5 (04:05→20:21)
--- NOTE | 2024-03-16 06:31 | P.PN_ITS ---
Subjective 2 Subjective: Patient was seen this morning continues to have a cough, has chills, no fevers overnight, reported shortness of breath Vitals/I&O/Wt Last Vital Signs Temp 97.9 F 03/16/24 04:00 Pulse 88 03/16/24 04:08 Resp 18 03/16/24 04:08 BP 126/77 03/16/24 04:00 Pulse Ox 97 03/16/24 04:08 O2 Del Method Nasal Cannula 03/16/24 04:08 O2 Flow Rate 2 03/16/24 04:08 03/15/24 03/15/24 03/16/24 14:59 22:59 06:59 Intake Total 360 / 360 1530 / 1890 Balance 360 / 360 1530 / 1890 Weight last 48 hrs Weight 59.194 kg Weight 59.103 kg Weight 59.058 kg Weight 60.328 kg Physical Exam 2 Const: COMMON NORMALS: no acute distress and patient oriented x3 Resp: COMMON NORMALS: normal respiratory effort, No retractions and No use of accessory muscles AUSCULTATION: crackles and wheezes Cardio: COMMON NORMALS: regular rate, regular rhythm, S1 normal heart sound present and S2 normal heart sound present RATE: regular rate RHYTHM: r egular rhythm HEART SOUNDS: S1 normal heart sound present and S2 normal heart sound present GI: COMMON NORMALS: Normal to inspection, nondistended, normoactive bowel sounds present and non-tender Extremity: COMMON NORMALS: no pedal edema Neuro: COMMON NORMALS: patient oriented x3 Psych: COMMON NORMALS: mental status grossly normal Data 03/15/24 05:14 03/15/24 05:14 Micro: Microbiology 03/14/24 19:15 Blood Culture - Preliminary Blood NEGATIVE TO DATE 03/14/24 19:11 Blood Culture - Preliminary Blood NEGATIVE TO DATE 03/15/24 08:00 Gram Stain - Final Sputum - Expectorated Sputum 03/14/24 20:37 Legionella Urinary Antigen - Final Urine,Voided Bacterial Antigens - Final A&P Assessment and plan (1) Raynaud phenomenon: Qualifiers: Raynaud?s-associated gangrene presence: without gangrene Qualified Code(s): I73.00 - Raynaud's syndrome without gangrene (2) Seronegative rheumatoid arthritis of both hands: (3) Inflammatory arthritis: (4) Chronic obstructive pulmonary disease: Qualifiers: COPD type: emphysema Emphysema type: centrilobular Qualified Code(s): J43.2 - Centrilobular emphysema (5) Chronic respiratory failure with hypoxia: (6) Acute exacerbation of chronic obstructive airways disease: (7) Community acquired pneumonia: (8) Sepsis: Plan Sepsis related to community-acquired pneumonia Immunocompromise Left lower lobe pneumonia Rheumatoid arthritis history Continue IV Rocephin, Zithromycin CT angiogram of the chest CT/CT angio chest PE protcl [id number] IMPRESSION: 1. No pulmonary embolism. No acute process involving the thoracic aorta. 2. Severe pulmonary emphysematous changes. No lobar consolidation. Subtle ground-glass opacities of the lung bases which may reflect an infectious/inflammatory etiology versus atelectasis. 3. Mild mediastinal lymph nodes are likely reactive. 4. Additional incidental/chronic findings as above Lactic acid normal Criteria met with tachypnea tachycardia leukocytosis Patient finished steroid course last week Requested urine culture DuoNeb along IV steroids Acute on chronic hypoxia with underlying COPD Currently on 5 L nasal cannula Patient does not want to use BiPAP to decrease work of breathing Patient had conversational dyspnea during examination Troponin trending down discontinue 6-hour troponin No active chest pain CTA of the chest Clinically patient looks dry continue IV fluids She does have leukocytosis with thrombocytosis Abnormal D-dimer CT of the chest Dehydration related hyponatremia IV fluids stopped Rheumatoid arthritis: No acute flare patient stopped taking steroids last Tuesday, not on leflunomide anymore as per the patient Full code Cardiac diet DVT prophylaxis Lovenox Plan for today, continue IV antibiotics, up out of bed, continue steroids, nebulizer treatment Attestations 2 Medical Necessity Statement*: Patient requires hospitalization for sepsis related to [facility] pneumonia, COPD exacerbation Diagnoses Raynaud's phenomenon without gangrene I73.00 Raynaud?s-associated gangrene presence: without gangrene Seronegative rheumatoid arthritis of both hands M06.041; M06.042 Inflammatory arthritis M19.90 Centrilobular emphysema J43.2 COPD type: emphysema Emphysema type: centrilobular Chronic respiratory failure with hypoxia J96.11 Acute exacerbation of chronic obstructive airways disease J44.1 Community acquired pneumonia J18.9 Sepsis A41.9
[2024-03-16] MEDS: HYDROcodone-acetaminophen 10-325 mg Tablet 1 TAB PO ×3 (06:39→20:12)
[2024-03-16 06:57] LABS: Basophils % 0.2 %; Hematocrit 36.9 % (36-47); Lymphocytes # 0.5 10^3/uL (0.8-4.8); Lymphocytes % 4.1 %; Mean Corpuscular HGB Conc 32.2 g/dL (30-55); Mean Corpuscular Hemoglobin 29.5 pg (27-33); Mean Corpuscular Volume 91.6 fl (85-98); Mean Platelet Volume 8.9 fL (7.4-10.4); Monocytes # 0.5 10^3/uL (0.2-0.9); Monocytes % 3.8 %; Neutrophils # 11.65 10^3/uL (1.8-7.7); Nucleated Red Blood Cells % 0 %; Platelet Count 475 10^3/cmm (157-399); Red Blood Count 4.03 10^6/uL (3.85-5.65); Red Cell Distribution Width 15.1 % (12.1-15.1); White Blood Count 12.79 10^3/uL (3.29-11.43)
[2024-03-16 07:15] LABS: C Reactive Protein 34.3 mg/L (0.0-4.9)
[2024-03-16 07:18] LABS: Anion Gap 14.1 (5-19); Blood Urea Nitrogen 9 mg/dL (8-23); Calcium 9.8 mg/dL (8.5-10.5); Carbon Dioxide 26 mmol/L (22-29); Chloride 99 mmol/L (98-107); Creatinine Clr Calc Pharmacy 141.3825; Glomerular Filtration Rate 162.3 mL/min (90-130); Glucose 120 mg/dL (65-115); Osmolality Calculated 278 mOsm/kg (285-295); Potassium 5.1 mmol/L (3.5-5.1); Sodium 134 mmol/L (136-145)
[2024-03-16 07:24] LABS: Procalcitonin 0.07 ng/mL (0-0.5)
[2024-03-16] MEDS: methylPREDNISolone sod succ 40 mg/mL INJ IVP ×2 (08:29→20:12)
[2024-03-16] MEDS: OXcarbazepine 300 mg Tablet PO ×2 (08:29→17:31)
[2024-03-16] MEDS: amlodipine 10 mg Tablet PO (08:29)
[2024-03-16] MEDS: pregabalin 100 mg Capsule 200 MG PO ×3 (08:29→20:12)
[2024-03-16] MEDS: azithromycin 250 mg Tablet 500 MG PO (08:29)
[2024-03-16] MEDS: roflumilast 500 mcg Tablet PO (08:29)
[2024-03-16] MEDS: methocarbamol 500 mg Tablet PO ×2 (09:01→14:19)
[2024-03-16] MEDS: ropinirole 0.25 mg Tablet PO (20:12)
[2024-03-16] MEDS: duloxetine 60 mg Capsule PO (20:12)
[2024-03-16] MEDS: cefTRIAXone 1,000 MG in sodium chloride 0.9% (plus) 50 ML 100 MG IV (20:13)
[2024-03-16] MEDS: amitriptyline 25 mg Tablet PO (20:13)
[2024-03-16] MEDS: enoxaparin 40 mg/0.4 mL Syringe SUBCUT (23:02)
[2024-03-17] VITALS (7 sets, daily range): BP systolic 132–143; BP diastolic 72–85; PULSE 73–94; RESP 14–18; TEMP 36.5–36.7; O2SAT 93–98
[2024-03-17] MEDS: ipratropium-albuterol 3 mL Neb INHALATION ×3 (00:39→12:08)
[2024-03-17 05:41] LABS: Basophils % 0.2 %; Hematocrit 35.9 % (36-47); Lymphocytes # 0.7 10^3/uL (0.8-4.8); Lymphocytes % 6.1 %; Mean Corpuscular HGB Conc 31.8 g/dL (30-55); Mean Corpuscular Hemoglobin 28.7 pg (27-33); Mean Corpuscular Volume 90.4 fl (85-98); Mean Platelet Volume 9.5 fL (7.4-10.4); Monocytes # 0.8 10^3/uL (0.2-0.9); Monocytes % 7.3 %; Neutrophils # 9.53 10^3/uL (1.8-7.7); Neutrophils % 85.8 %; Nucleated Red Blood Cells % 0 %; Platelet Count 507 10^3/cmm (157-399); Red Blood Count 3.97 10^6/uL (3.85-5.65); Red Cell Distribution Width 15.2 % (12.1-15.1); White Blood Count 11.11 10^3/uL (3.29-11.43)
[2024-03-17 06:01] LABS: Anion Gap 11.6 (5-19); Blood Urea Nitrogen 12 mg/dL (8-23); Calcium 9.6 mg/dL (8.5-10.5); Carbon Dioxide 28 mmol/L (22-29); Chloride 100 mmol/L (98-107); Creatinine Clr Calc Pharmacy 187.7688; Glomerular Filtration Rate 226.2 mL/min (90-130); Glucose 116 mg/dL (65-115); Osmolality Calculated 281 mOsm/kg (285-295); Potassium 4.6 mmol/L (3.5-5.1); Sodium 135 mmol/L (136-145)
[2024-03-17 06:03] LABS: Procalcitonin 0.07 ng/mL (0-0.5)
[2024-03-17 06:04] LABS: C Reactive Protein 12.4 mg/L (0.0-4.9)
[2024-03-17] MEDS: azithromycin 250 mg Tablet 500 MG PO (07:37)
[2024-03-17] MEDS: HYDROcodone-acetaminophen 10-325 mg Tablet 1 TAB PO ×2 (07:37→12:03)
[2024-03-17] MEDS: OXcarbazepine 300 mg Tablet PO (07:37)
[2024-03-17] MEDS: pregabalin 100 mg Capsule 200 MG PO (07:37)
[2024-03-17] MEDS: amlodipine 10 mg Tablet PO (07:37)
[2024-03-17] MEDS: methocarbamol 500 mg Tablet PO (07:37)
[2024-03-17] MEDS: methylPREDNISolone sod succ 40 mg/mL INJ IVP (07:38)
[2024-03-17] MEDS: roflumilast 500 mcg Tablet PO (07:38)
--- NOTE | 2024-03-17 14:32 | PM.DCS ---
Discharge Providers Date of Admission: 03/14/24 21:59 Date of Discharge: March 17, 2024 Attending Provider at Admission: Ashly Holder MD Attending Provider at Discharge: Yocasta Dennis MD Primary Care Provider: Narcisa Tejeda MD Diagnoses at Discharge Discharge Diagnosis (1) Raynaud phenomenon: Status: Acute Qualifiers: Raynaud?s-associated gangrene presence: without gangrene Qualified Code(s): I73.00 - Raynaud's syndrome without gangrene (2) Seronegative rheumatoid arthritis of both hands: Status: Acute (3) Inflammatory arthritis: Status: Acute (4) Chronic obstructive pulmonary disease: Status: Acute Qualifiers: COPD type: emphysema Emphysema type: centrilobular Qualified Code(s): J43.2 - Centrilobular emphysema (5) Chronic respiratory failure with hypoxia: Status: Acute (6) Acute exacerbation of chronic obstructive airways disease: Status: Acute (7) Community acquired pneumonia: Status: Acute (8) Sepsis: Status: Acute Reason for Visit Reason for Visit: SOB Hospital Course Hospital Course Mely Wang is a 63 year old female with history of COPD, uses 2 L of oxygen at baseline, rheumatoid arthritis hide who presented to the hospital on March 14, 2024 with chief complaints of worsening shortness of breath and low-grade fever. Her symptoms were progressive over the last 2 to 3 days prior to admission. She had recently been treated for COPD exacerbation but continued to have symptoms and therefore presented to the emergency room. CTA was negative for PE. She was treated with IV antibiotics, IV steroids, scheduled nebulization and appears clinically improved today. CTA did show scattered infiltrates which may be concerning for early infection versus inflammation. She is back to using 2 L/min supplemental O2. She is eager to be discharged home today given her clinical improvement. She is being discharged with recommendations to continue scheduled nebulization with DuoNeb and budesonide. She can hold Trelegy while she is doing scheduled nebulization and then resume it after 45 days. Additionally leflunomide has been placed on hold for the next 5 days when she recovers from her acute infection. Augmentin and doxycycline have been prescribed at discharge along with a prednisone taper. Physical Exam Narrative: General: No acute distress, AO x3 HEENT: PERRLA, pupils bilaterally equal and reactive, pallors not present Chest: Normal vesicular breath sounds, no added sounds, equal good air entry bilaterally CVS: S1-S2 regular, no murmurs, no tachycardia, no gallops, no rubs Abdomen: Soft, nontender, no organomegaly, bowel sounds present Neuro: No focal deficits, no facial deformity, AO x3, power 5/5 in all limbs Discharge Data Studies Completed and Pending Completed Studies During Hospitalization Category Date Time Status CT angio chest PE protcl [id number] Routine Cat Scan 03/15/24 12:21 Completed XR chest 1V [id number] Stat Exams 03/14/24 17:54 Completed Pending at discharge Category Date Time Status Blood Culture Stat Lab 03/14/24 19:15 Results Sputum Culture and Gram Stain Stat Lab 03/15/24 08:00 Results Radiology Impressions Chest X-Ray 03/14/24 17:54 IMPRESSION: 1. Left basilar hazy opacities compatible with atelectasis or developing infection in the proper clinical setting. 2. Severe emphysematous changes Chest CTA 03/15/24 12:21 IMPRESSION: 1. No pulmonary embolism. No acute process involving the thoracic aorta. 2. Severe pulmonary emphysematous changes. No lobar consolidation. Subtle ground-glass opacities of the lung bases which may reflect an infectious/inflammatory etiology versus atelectasis. 3. Mild mediastinal lymph nodes are likely reactive. 4. Additional incidental/chronic findings as above. COMMENTS: The presence of pulmonary emphysema on CT is an independent risk factor for lung cancer. In the absence of a history or active diagnosis of lung cancer, it is recommended that this patient with emphysema be evaluated for enrollment in a low dose CT lung cancer screening program. Laboratory Results WBC 11.11 10^3/uL (3.29-11.43) 03/17/24 04:56 RBC 3.97 10^6/uL (3.85-5.65) 03/17/24 04:56 Hgb 11.40 g/dL (11.27-16.99) 03/17/24 04:56 Hct 35.9 % (36-47) L 03/17/24 04:56 MCV 90.4 fl (85-98) 03/17/24 04:56 MCH 28.7 pg (27-33) 03/17/24 04:56 MCHC 31.8 g/dL (30-55) 03/17/24 04:56 RDW 15.2 % (12.1-15.1) H 03/17/24 04:56 Plt Count 507 10^3/cmm (157-399) H 03/17/24 04:56 MPV 9.5 fL (7.4-10.4) 03/17/24 04:56 Neut % (Auto) 85.8 % 03/17/24 04:56 Lymph % (Auto) 6.1 % 03/17/24 04:56 [place] % (Auto) 7.3 % 03/17/24 04:56 Eos % (Auto) 0.0 % 03/17/24 04:56 Baso % (Auto) 0.2 % 03/17/24 04:56 Neut # (Auto) 9.53 10^3/uL (1.8-7.7) H 03/17/24 04:56 Lymph # (Auto) 0.7 10^3/uL (0.8-4.8) L 03/17/24 04:56 [place] # (Auto) 0.8 10^3/uL (0.2-0.9) 03/17/24 04:56 Eos # (Auto) 0.0 10^3/uL (0.0-0.8) 03/17/24 04:56 Baso # (Auto) 0.0 10^3/uL (0.0-0.1) 03/17/24 04:56 Nucleated RBC % (auto) 0 % 03/17/24 04:56 Nucleated RBCs # 0.0 /100WBC 03/17/24 04:56 D-Dimer 1.11 ug/mLFEU (0-0.59) H 03/14/24 18:33 Specimen Type Arterial 03/14/24 18:54 Sample Site Radial, right 03/14/24 18:54 ABG pH 7.41 (7.35-7.45) 03/14/24 18:54 ABG pCO2 51.2 mmHg (35-45) H 03/14/24 18:54 ABG pO2 77.8 mmHg (80.0-100.0) L 03/14/24 18:54 ABG PO2/FiO2 Ratio 216 03/14/24 18:54 ABG HCO3 32.0 mmol/L (22-26) H 03/14/24 18:54 ABG Base Excess 6.0 mmol/L (-2.0-2.0) H 03/14/24 18:54 Shayan Test Pos 03/14/24 18:54 Hematocrit 40.1 % (37-47) 03/14/24 18:54 O2 Delivery Device Nc 03/14/24 18:54 O2 Liters/Min 4.0 % 03/14/24 18:54 FiO2 36.0 % 03/14/24 18:54 Thermodynamics Teacher ID glc 03/14/24 18:54 Sodium 135 mmol/L (136-145) L 03/17/24 04:56 Potassium 4.6 mmol/L (3.5-5.1) 03/17/24 04:56 Chloride 100 mmol/L (98-107) 03/17/24 04:56 Carbon Dioxide 28 mmol/L (22-29) 03/17/24 04:56 Anion Gap 11.6 (5-19) 03/17/24 04:56 BUN 12 mg/dL (8-23) 03/17/24 04:56 Creatinine 0.3 mg/dL (0.5-0.9) L 03/17/24 04:56 GFR Calculation 226.2 mL/min (90-130) H 03/17/24 04:56 Glucose 116 mg/dL (65-115) H 03/17/24 04:56 Calculated Osmolality 281 mOsm/kg (285-295) L 03/17/24 04:56 Lactic Acid 0.6 mmol/L (0.5-2.2) 03/14/24 18:33 Calcium 9.6 mg/dL (8.5-10.5) 03/17/24 04:56 Magnesium 2.1 mg/dL (1.7-2.3) 03/15/24 05:14 Total Bilirubin 0.3 mg/dL (0.15-1.2) 03/14/24 18:33 AST 19 U/L (0-32) 03/14/24 18:33 ALT 14 U/L (0-33) 03/14/24 18:33 Alkaline Phosphatase 122 U/L (35-105) H 03/14/24 18:33 Troponin T Baseline 7 ng/L (0-10) 03/14/24 18:33 Troponin T 120 Minute 6.42 ng/L (0-10) 03/14/24 20:36 Delta Troponin T -0.58 ABS# (0-10) L 03/14/24 20:36 C-Reactive Protein 12.4 mg/L (0.0-4.9) H 03/17/24 04:56 NT-Pro-B Natriuret Pep 45 pg/mL (0-125) 03/14/24 18:33 Total Protein 6.7 g/dL (6.6-8.7) 03/14/24 18:33 Albumin 3.9 g/dL (3.5-5.2) 03/14/24 18:33 Globulin 2.8 g/dL (1.3-4.6) 03/14/24 18:33 Procalcitonin 0.07 ng/mL (0-0.5) 03/17/24 04:56 Urine Color Yellow (Yellow) 03/14/24 20:37 Urine Appearance Clear (CLEAR) 03/14/24 20:37 Urine pH 7.5 (5-7) 03/14/24 20:37 Ur Specific [place] 1.010 (1.005-1.030) 03/14/24 20:37 Urine Protein Negative (Negative) 03/14/24 20:37 Urine Glucose (UA) Negative (Normal) 03/14/24 20:37 Urine Ketones Negative (Negative) 03/14/24 20:37 Urine Blood Negative (Negative) 03/14/24 20:37 Urine Nitrate Negative (Negative) 03/14/24 20:37 Urine Bilirubin Negative (Negative) 03/14/24 20:37 Urine Urobilinogen 0.2 mg/dL (Negative) 03/14/24 20:37 Ur Leukocyte Esterase Negative (Negative) 03/14/24 20:37 Urine RBC 0-2 /hpf (0-2) 03/14/24 20:37 Urine WBC 0-5 /hpf (0-5) 03/14/24 20:37 Ur Squamous Epith Cells 0-5 /hpf (0-5) 03/14/24 20:37 Amorphous Sediment Not Reportable 03/14/24 20:37 Urine Bacteria None seen /hpf (NONE) 03/14/24 20:37 Hyaline Casts 0.81 /lpf 03/14/24 20:37 Nasal MRSA (PCR) Mrsa detected (Not Detecte) A 03/14/24 00:20 Coronavirus (PCR) Negative (Negative) 03/14/24 18:42 Influenza A (PCR) Negative (Negative) 03/14/24 18:42 Influenza Type B (PCR) Negative (Negative) 03/14/24 18:42 RSV (PCR) Negative (Negative) 03/14/24 18:42 Vitals Last Vital Signs Temp 98.0 F 03/17/24 12:00 Pulse 94 03/17/24 13:29 Resp 18 03/17/24 12:00 BP 137/81 03/17/24 13:29 Pulse Ox 98 03/17/24 13:29 O2 Del Method Nasal Cannula 03/17/24 12:00 O2 Flow Rate 2 03/17/24 12:00 Discharge Plan Discharge Patient Disposition: Home Condition: Stable Prescriptions: New ipratropium-albuterol 0.5 mg-3 mg(2.5 mg base)/3 mL Solution For Nebulization 3 ml inhalation Q6H 5 Days Qty: 20 0RF budesonide [Pulmicort] 0.5 mg/2 mL suspension for nebulization 0.5 mg inhalation Q12H 5 Days Qty: 20 0RF amoxicillin-pot clavulanate 875-125 mg tablet 1 tab PO BID 5 Days Qty: 10 0RF doxycycline hyclate 100 mg capsule 100 mg PO Q12H 5 Days Qty: 10 0RF prednisone 10 mg tablet See Taper PO BID Qty: 42 0RF Taper: predniSONE 60-10 60 mg Daily for 2 Days and 0 Hour 50 mg Daily for 2 Days and 0 Hour 40 mg Daily for 2 Days and 0 Hour 30 mg Daily for 2 Days and 0 Hour 20 mg Daily for 2 Days and 0 Hour 10 mg Daily for 2 Days and 0 Hour Continued fluticasone propionate [Flonase Allergy Relief] 50 mcg/actuation spray,suspension 2 spray intranasal DAILY PRN (Reason: Allergy Symptoms) Rx Instructions: administer into each nostril Aimovig Autoinjector 70 mg/mL auto-injector 70 mg SUBCUT Q30D duloxetine 60 mg capsule,delayed release(DR/EC) 60 mg PO BEDTIME cetirizine [Zyrtec] 10 mg tablet 10 mg PO BID multivitamin with minerals [Hair,Skin and Nails] Tablet 1 tab PO DAILY methocarbamol 500 mg tablet 250 - 500 mg PO TID PRN (Reason: Spasms) biotin 1 mg tablet 1 mg PO DAILY Daliresp 500 mcg tablet 500 mcg PO DAILY magnesium oxide 250 mg magnesium tablet 250 mg PO DAILY cholecalciferol (vitamin D3) 25 mcg (1,000 unit) capsule 25 mcg PO DAILY ascorbic acid (vitamin C) 500 mg tablet 500 mg PO DAILY amlodipine 10 mg tablet 10 mg PO DAILY Qty: 90 1RF diclofenac sodium [Arthritis Pain (diclofenac)] 1 % gel 2 g topical QID PRN (Reason: Pain) Qty: 100 1RF Rx Instructions: apply to single elbow, wrist or hand; for hand includes palm/fingers/back of hand amitriptyline 25 mg tablet 25 mg PO BEDTIME calcium carbonate 500 mg calcium (1,250 mg) Tablet 500 mg PO DAILY pregabalin 200 mg capsule 200 mg PO TID albuterol sulfate 90 mcg/actuation HFA aerosol inhaler 2 puff INHALATION QID PRN (Reason: Shortness Of Breath) alendronate 70 mg tablet 70 mg PO Q7D Rx Instructions: on Tuesday oxcarbazepine 300 mg tablet 300 mg PO BID hydrocodone-acetaminophen 10-325 mg tablet 1 - 2 tab PO .Q4-6H PRN (Reason: Pain) ropinirole 0.25 mg tablet 0.25 mg PO BEDTIME vitamin B complex Tablet 1 tab PO DAILY Held leflunomide 20 mg tablet 20 mg PO DAILY Qty: 90 1RF Hold Instructions: Resume on 03/22/24. hold until recovered from pneumonia. Follow up with PCP before resuming Trelegy Ellipta 200-62.5-25 mcg blister with device 1 inh INHALATION DAILY Hold Instructions: Resume on 03/22/24. hold while on duoneb and budesonide via nebulizer, then resume Discontinued prednisone 20 mg tablet See Rx Instructions .ROUTE .COMPLEX Rx Instructions: TAKE 2 TABS DAILY FOR 7 DAYS NEEDED FOR ARTHRITIS FLARE. Discharge Orders: Discharge Order (Routine); Ordered 03/17/24 Ordered By: Yocasta Dennis Referrals: Narcisa Tejeda MD [Primary Care Provider] - 4-7 days (We have notified your physician's clinic of the need for a follow-up appointment to be scheduled. If you have not heard from them within the next 2 business days, please call them directly. If you already have an appointment scheduled for Tuesday please keep it. ) Discharge Diet: Usual diet Discharge Activity: Resume usual activity and Increase activity as tolerated Patient Instructions: Doxycycline (By mouth), Ipratropium (By breathing), Prednisone (By mouth), Amoxicillin/Clavulanate Potassium (By mouth), Budesonide (By breathing), COPD (Chronic Obstructive Pulmonary Disease) (DC), Opioid Safety Discharge Attestations Time Spent in Discharge Care*: greater than 30 min Quality Metrics Clinical Quality Measures [ No reported AMI, CVA or VTE this stay] Coding Level of Care Code Acute Code for Chg Fwd Diagnoses Raynaud's phenomenon without gangrene I73.00 Raynaud?s-associated gangrene presence: without gangrene Seronegative rheumatoid arthritis of both hands M06.041; M06.042 Inflammatory arthritis M19.90 Centrilobular emphysema J43.2 COPD type: emphysema Emphysema type: centrilobular Chronic respiratory failure with hypoxia J96.11 Acute exacerbation of chronic obstructive airways disease J44.1 Community acquired pneumonia J18.9 Sepsis A41.9
== END 2024-03-17 13:30 | disposition home or self-care (01) | DRG 871 ==
LOC: ER 22:06 → MEDSURG 22:17
PROVIDERS: Family Medicine; Admitting Provider Internal Medicine; Emergency Provider Physician Assistant; PCP Internal Medicine; Visit Provider Student in an Organized Health Care Education/Training Program
DX: A41.9 Sepsis, unspecified organism (principal); J18.9 Pneumonia, unspecified organism; J96.21 Acute and chronic respiratory failure with hypoxia; J44.1 Chronic obstructive pulmonary disease with (acute) exacerbation; J44.0 Chronic obstructive pulmonary disease with (acute) lower respiratory infection; E46 Unspecified protein-calorie malnutrition; D84.821 Immunodeficiency due to drugs; E87.1 Hypo-osmolality and hyponatremia; M06.00 Rheumatoid arthritis without rheumatoid factor, unspecified site; I73.00 Raynaud's syndrome without gangrene; R79.89 Other specified abnormal findings of blood chemistry; E86.0 Dehydration; J43.2 Centrilobular emphysema; Z99.81 Dependence on supplemental oxygen; Z79.61 Long term (current) use of immunomodulator; Z79.51 Long term (current) use of inhaled steroids; Z86.19 Personal history of other infectious and parasitic diseases; Z87.442 Personal history of urinary calculi; Z90.710 Acquired absence of both cervix and uterus; Z90.722 Acquired absence of ovaries, bilateral; Z83.3 Family history of diabetes mellitus; Z82.61 Family history of arthritis; Z82.49 Family history of ischemic heart disease and other diseases of the circulatory system; Z80.9 Family history of malignant neoplasm, unspecified; Z68.20 Body mass index [BMI] 20.0-20.9, adult; Z82.3 Family history of stroke
CPT/HCPCS: 0241U; 36415; 36600; 71045; 71275; 80048; 80053; 81001; 82803; 83605; 83735; 83880; 84145; 84484; 85025; 85378; 86140; 86403; 87040; 87070; 87077; 87186; 87205; 87449; 93005; 94640; 94664; 96372; J0456; J0696; J1650; J2919; J7030; J7050; Q0144

== ENCOUNTER 2024-04-10 11:49 | Oncology outpatient (recurring) (ONCR) | payer MEDICARE, MEDICAID, SELFPAY ==
[2024-04-10] VITALS (9 sets, daily range): BP systolic 106–149; BP diastolic 66–80; PULSE 71–83; RESP 15–16; TEMP 36.2–36.9; O2SAT 94–97
[2024-04-10] MEDS: sodium chloride 0.9% 250 ML 75 ML IV (13:25)
[2024-04-10] MEDS: diphenhydrAMINE 50 mg/mL SDV 1mL 25 MG IVP (13:26)
[2024-04-10] MEDS: acetaminophen 325 mg Tablet 650 MG PO (13:26)
[2024-04-10] MEDS: methylPREDNISolone sod succ 40 mg/mL INJ IVP (13:34)
[2024-04-10] MEDS: INFLIXIMAB IV (14:17)
[2024-04-10] MEDS: SODIUM CHLORIDE 0.9% IV (14:17)
== END 2024-04-10 23:59 | disposition home or self-care (01) ==
PROVIDERS: PCP Internal Medicine; Visit Provider Internal Medicine Rheumatology
DX: Z79.899 Other long term (current) drug therapy (principal); M06.042 Rheumatoid arthritis without rheumatoid factor, left hand; M06.041 Rheumatoid arthritis without rheumatoid factor, right hand
CPT/HCPCS: 96375; 96413; 96415; J1200; J1745; J2919; J7050

== ENCOUNTER 2024-04-24 11:39 | Oncology outpatient (recurring) (ONCR) | payer MEDICARE, MEDICAID, SELFPAY ==
[2024-04-24] VITALS (8 sets, daily range): BP systolic 113–134; BP diastolic 60–85; PULSE 82–94; RESP 16–18; TEMP 36.1–36.9; O2SAT 93–98
[2024-04-24] MEDS: acetaminophen 325 mg Tablet 650 MG PO (12:58)
[2024-04-24] MEDS: sodium chloride 0.9% 250 ML 75 ML IV (12:58)
[2024-04-24] MEDS: diphenhydrAMINE 50 mg/mL SDV 1mL 25 MG IVP (12:59)
[2024-04-24] MEDS: methylPREDNISolone sod succ 40 mg/mL INJ IVP (13:07)
[2024-04-24] MEDS: SODIUM CHLORIDE 0.9% IV (13:45)
[2024-04-24] MEDS: INFLIXIMAB IV (13:45)
== END 2024-05-11 23:59 | disposition home or self-care (01) ==
PROVIDERS: PCP Internal Medicine; Visit Provider Internal Medicine Rheumatology
DX: M06.042 Rheumatoid arthritis without rheumatoid factor, left hand (principal); M06.041 Rheumatoid arthritis without rheumatoid factor, right hand; Z79.620 Long term (current) use of immunosuppressive biologic
CPT/HCPCS: 96375; 96413; 96415; A4222; J1200; J1745; J2919; J7050

== ENCOUNTER 2024-05-04 16:49 | Inpatient (IN) | payer MEDICARE, MEDICAID, SELFPAY ==
[2024-05-04] VITALS (10 sets, daily range): BP systolic 135–154; BP diastolic 82–90; PULSE 96–113; RESP 16–22; TEMP 36.4–36.9; O2SAT 85–97
--- NOTE | 2024-05-04 17:10 | ECG_ITS ---
[facility] Test Date: 2024-05-04 Pat Name: Mely Wang Department: Room: Gender: Female Superintendent Institution: : [id number] Requested By: Vickey Roger Order Number: [id number] Howard MD: Demond Early M.D. Measurements Intervals [place] Rate: 96 P: 82 SD: 143 QRS: 69 QRSD: 101 T: 80 QT: 349 QTc: 442 Interpretive Statements SINUS RHYTHM POSSIBLE LEFT ATRIAL ENLARGEMENT [-0.1mV P-WAVE IN V1/V2] INCOMPLETE RIGHT BUNDLE BRANCH BLOCK [90+ ms QRS DURATION, TERMINAL R IN V1/V2, 40+ ms S IN I/aVL/V4/V5/V6] MODERATE T-WAVE ABNORMALITY, CONSIDER ANTEROLATERAL ISCHEMIA [-0.1+ mV T-WAVE IN V3-V6] Compared to ECG 03/15/2024 00:30:13 Indeterminate axis no longer present T-wave abnormality still present Possible ischemia still present Electronically Signed On 05-05-2024 23:07:15 FILM WASHER by Demond Early M.D. [email or web address]
--- NOTE | 2024-05-04 17:45 | XRR_ITS ---
PROCEDURE INFORMATION: Exam: XR Chest Exam date and time: 05/04/2024 6:10 PM Age: 63 years old Clinical indication: Shortness of breath; Patient HX: C/O SOB TECHNIQUE: Imaging protocol: Radiologic exam of the chest. Views: 1 view. COMPARISON: CT angio chest PE protcl [id number] 03/15/2024 5:44 PM FINDINGS: Lungs: There is pulmonary hyperinflation suggesting COPD. There is mild coarsening of the interstitial markings in the mid to lower lung zones bilaterally, similar in appearance compared to the prior study. Focal increased density is seen peripherally in the right mid lung, new since the prior study, suspicious for a developing infiltrate. Pleural spaces: No significant pleural effusion. Heart/Mediastinum: Unremarkable. No cardiomegaly. Bones/joints: Unremarkable. XR/XR chest 1V portable [id number] IMPRESSION: 1. COPD. 2. Focal increased density peripherally in the right mid lung, new since March 14, 2024, suspicious for developing infiltrate. 3. Coarsened interstitial markings in the mid to lower lung zones bilaterally, not significantly changed.
--- NOTE | 2024-05-04 17:53 | W.ED.SOB ---
HPI - SOB/Dyspnea General: Chief Complaint: Shortness of Breath/Dyspnea Stated Complaint: SOB Time Seen by Provider: 05/04/24 17:42 History of Present Illness: HPI Narrative: 63-year-old female presents with shortness of breath. Patient has had increasing shortness of breath over the last week but quite a bit worse today. Patient has a rescue inhaler at home that she is used a little bit but not much. Patient is typically on 2 L nasal cannula. She presented to triage with O2 saturation 85% on her baseline 2 L. Reports increased cough and chills. Just does not feel well. Associated symptoms: Deny abdominal pain, chest pain, nausea, palpitations or vomiting Related Data Home Medications Medication Instructions Recorded Confirmed methocarbamol 500 mg tablet 250 - 500 mg PO TID PRN Spasms 04/19/19 03/15/24 multivitamin with minerals 1 tab PO DAILY 04/19/19 03/15/24 (Hair,Skin and Nails tablet) magnesium oxide 250 mg PO DAILY 08/09/19 03/15/24 fluticasone propionate 50 2 spray intranasal DAILY PRN 03/27/20 03/15/24 mcg/actuation nasal Allergy Symptoms spray,suspension (Flonase Allergy Relief) cetirizine 10 mg tablet (Zyrtec) 10 mg PO BID 12/09/20 03/15/24 duloxetine 60 mg capsule,delayed 60 mg PO BEDTIME 12/09/20 03/15/24 release erenumab-aooe 70 mg/mL 70 mg SUBCUT Q30D 12/09/20 03/15/24 subcutaneous auto-injector (Aimovig Autoinjector) ascorbic acid (vitamin C) 500 mg 500 mg PO DAILY 06/25/21 03/15/24 tablet biotin 1 mg tablet 1 mg PO DAILY 06/25/21 03/15/24 cholecalciferol (vitamin D3) 25 25 mcg PO DAILY 06/25/21 03/15/24 mcg (1,000 unit) capsule roflumilast 500 mcg tablet 500 mcg PO DAILY 06/25/21 03/15/24 (Daliresp) amitriptyline 25 mg tablet 25 mg PO BEDTIME 08/11/21 03/15/24 calcium carbonate 500 mg PO DAILY 08/11/21 03/15/24 pregabalin 200 mg capsule 200 mg PO TID 08/11/21 03/15/24 albuterol sulfate 90 mcg/actuation 2 puff inhalation QID PRN 03/15/24 03/15/24 aerosol inhaler Shortness Of Breath alendronate 70 mg tablet 70 mg PO Q7D 03/15/24 03/15/24 fluticasone fur. 200 mcg-umeclid 1 inh inhalation DAILY 03/15/24 03/15/24 62.5 mcg-vilant 25 mcg inhalat.powder (Trelegy Ellipta) hydrocodone 10 mg-acetaminophen 1 - 2 tab PO .Q4-6H PRN Pain 03/15/24 03/15/24 325 mg tablet oxcarbazepine 300 mg tablet 300 mg PO BID 03/15/24 03/15/24 ropinirole 0.25 mg tablet 0.25 mg PO BEDTIME 03/15/24 03/15/24 vitamin B complex 1 tab PO DAILY 03/15/24 03/15/24 Previous Rx's Medication Instructions Recorded diclofenac sodium 1 % topical gel 2 g topical QID PRN Pain #100 grams 02/01/24 (Arthritis Pain (diclofenac)) leflunomide 20 mg tablet 20 mg PO DAILY #90 tabs 02/01/24 prednisone 10 mg tablet See Taper PO BID #42 tabs 03/17/24 amlodipine 10 mg tablet 10 mg PO DAILY #90 tabs 03/19/24 Allergies Allergy/AdvReac Type Severity Reaction Status Date / Time almond Allergy ALGY-Anaphy Verified 05/04/24 17:08 laxis aspirin Allergy Bleeding Verified 05/04/24 17:08 adalimumab [From Humira] AdvReac Intermediate skin Verified 05/04/24 17:08 reactions oranges Allergy Intermediate ALGY-Bliste Uncoded 05/04/24 17:08 r Review of Systems Const: Reports: chills, body aches, fatigue and malaise Card: Denies: chest pain or palpitations Resp: Reports: dyspnea, non-productive cough and wheezing GI: Denies: abdominal pain, nausea or vomiting : Denies: flank pain or difficulty voiding Musc: Denies: neck pain or back pain Neuro: Denies: headache(s) or numbness in extremities PFSH ED PFSH: Medical History Skin rash PsO? Immunization counseling Seronegative rheumatoid arthritis of both hands High risk medication use Hepatitis C antibody positive in blood Raynaud phenomenon Inflammatory arthritis Back pain Muscle spasm Allergies Kidney stones H/O nephrolithotomy with removal of calculi Chronic obstructive pulmonary disease Surgical History History of hysterectomy with bilateral oophorectomy History of delivery x2 Family History Other Acute rheumatoid arthritis CAD (coronary artery disease) Cancer Chronic kidney disease (CKD) Diabetes Hypertension Lung disease Stroke Denies family history of Lupus Hyperlipidemia Social History Smoking and tobacco/nicotine status: never used tobacco/nicotine Quit status (tobacco/nicotine): has quit using Year quit tobacco: 2020 1PPD x 42 Years Second hand smoke exposure: Yes Alcohol intake: never Substance/Drug Use: never Lives independently: Yes Household members: none Marital status: Legally Current occupational status: disabled Do you think of yourself as: Straight/Heterosexual Current gender identity: Female Physical Exam Const: GENERAL APPEARANCE: frail appearing and appears older than stated age Resp: AUSCULTATION: diminished lung sounds diffuse Cardio: COMMON NORMALS: regular rhythm RATE: tachycardic RHYTHM: regular rhythm GI: COMMON NORMALS: Soft to palpation and non-tender PALPATION: Yes Soft to palpation Neuro: COMMON NORMALS: no focal motor deficits and no sensory deficits noted Psych: COMMON NORMALS: mental status grossly normal, normal affect and speech normal SPEECH: Yes normal speech Skin: COMMON NORMALS: no rashes or lesions noted GENERAL SKIN EXAM: no rashes or lesions noted Course Vital Signs: Vital signs: Vital Signs Temperature 98.4 F 05/04/24 17:03 Pulse Rate 113 H 05/04/24 19:08 Respiratory Rate 21 H 05/04/24 19:08 Blood Pressure 153/85 05/04/24 19:08 Pulse Oximetry 90 05/04/24 19:08 Oxygen Delivery Me thod Nasal Cannula 05/04/24 18:01 Oxygen Flow Rate 4 05/04/24 18:01 MDM - SOB/Dyspnea Medical Decision Making Patient x-ray shows suspicious early pneumonia. She does have continued increased work of breathing despite DuoNebs x 2 and IV steroids. She does have increased O2 need from her baseline. Patient to be admitted to Dr. Valencia for further inpatient management. She was given Rocephin and azithromycin in the ER for community-acquired pneumonia. She was stable upon admission. Lab Data 05/04/24 18:27 05/04/24 18:27 Labs/Radiology: Radiology Impressions Chest X-Ray 05/04/24 17:45 IMPRESSION: 1. COPD. 2. Focal increased density peripherally in the right mid lung, new since March 14, 2024, suspicious for developing infiltrate. 3. Coarsened interstitial markings in the mid to lower lung zones bilaterally, not significantly changed. Laboratory Results WBC 12.05 10^3/uL (3.29-11.43) H 05/04/24 18:27 RBC 4.29 10^6/uL (3.85-5.65) 05/04/24 18:27 Hgb 12.30 g/dL (11.27-16.99) 05/04/24 18:27 Hct 38.1 % (36-47) 05/04/24 18:27 MCV 88.8 fl (85-98) 05/04/24 18:27 MCH 28.7 pg (27-33) 05/04/24 18:27 MCHC 32.3 g/dL (30-55) 05/04/24 18:27 RDW 13.6 % (12.1-15.1) 05/04/24 18:27 Plt Count 455 10^3/cmm (157-399) H 05/04/24 18:27 MPV 9.4 fL (7.4-10.4) 05/04/24 18:27 Neut % (Auto) 74.2 % 05/04/24 18:27 Lymph % (Auto) 9.0 % 05/04/24 18:27 [place] % (Auto) 15.1 % 05/04/24 18:27 Eos % (Auto) 0.7 % 05/04/24 18:27 Baso % (Auto) 0.5 % 05/04/24 18:27 Neut # (Auto) 8.94 10^3/uL (1.8-7.7) H 05/04/24 18:27 Lymph # (Auto) 1.1 10^3/uL (0.8-4.8) 05/04/24 18:27 [place] # (Auto) 1.8 10^3/uL (0.2-0.9) H 05/04/24 18:27 Eos # (Auto) 0.1 10^3/uL (0.0-0.8) 05/04/24 18:27 Baso # (Auto) 0.1 10^3/uL (0.0-0.1) 05/04/24 18:27 Nucleated RBC % (auto) 0 % 05/04/24 18:27 Nucleated RBCs # 0.0 /100WBC 05/04/24 18:27 Sodium 134 mmol/L (136-145) L 05/04/24 18:27 Potassium 3.9 mmol/L (3.5-5.1) 05/04/24 18:27 Chloride 91 mmol/L (98-107) L 05/04/24 18:27 Carbon Dioxide 30 mmol/L (22-29) H 05/04/24 18:27 Anion Gap 16.9 (5-19) 05/04/24 18:27 BUN 8 mg/dL (8-23) 05/04/24 18:27 Creatinine 0.2 mg/dL (0.5-0.9) L 05/04/24 18:27 GFR Calculation 361.1 mL/min (90-130) H 05/04/24 18:27 Glucose 101 mg/dL (65-115) 05/04/24 18:27 Calculated Osmolality 276 mOsm/kg (285-295) L 05/04/24 18:27 Lactic Acid 0.8 mmol/L (0.5-2.2) 05/04/24 18:27 Calcium 9.5 mg/dL (8.5-10.5) 05/04/24 18:27 Magnesium 1.7 mg/dL (1.7-2.3) 05/04/24 18:27 Total Bilirubin 0.5 mg/dL (0.15-1.2) 05/04/24 18:27 AST 14 U/L (0-32) 05/04/24 18:27 ALT 9 U/L (0-33) 05/04/24 18:27 Alkaline Phosphatase 124 U/L (35-105) H 05/04/24 18:27 Total Protein 7.2 g/dL (6.6-8.7) 05/04/24 18:27 Albumin 3.5 g/dL (3.5-5.2) 05/04/24 18:27 Globulin 3.7 g/dL (1.3-4.6) 05/04/24 18:27 Coronavirus (PCR) Negative (Negative) 05/04/24 17:54 Influenza A (PCR) Negative (Negative) 05/04/24 17:54 Influenza Type B (PCR) Negative (Negative) 05/04/24 17:54 RSV (PCR) Negative (Negative) 05/04/24 17:54 All radiology interpretation(s) finalized by discharge Discharge Plan Discharge Patient Disposition: Admitted As Inpatient Clinical Impression: Community acquired pneumonia Chronic obstructive pulmonary disease Qualifiers: COPD type: emphysema Emphysema type: centrilobular Qualified Code(s): J43.2 - Centrilobular emphysema Condition: Stable Coding Level of Care Code ED Warp Tying Machine Knotter for Jacinto Costello
[2024-05-04] MEDS: ipratropium-albuterol 3 mL Neb INHALATION ×2 (17:58→21:02)
[2024-05-04] MEDS: methylPREDNISolone sod succ 125 mg/2 mL INJ 80 MG IV (18:16)
[2024-05-04 18:36] LABS: Basophils # 0.1 10^3/uL (0.0-0.1); Basophils % 0.5 %; Eosinophils # 0.1 10^3/uL (0.0-0.8); Eosinophils % 0.7 %; Hematocrit 38.1 % (36-47); Lymphocytes # 1.1 10^3/uL (0.8-4.8); Mean Corpuscular HGB Conc 32.3 g/dL (30-55); Mean Corpuscular Hemoglobin 28.7 pg (27-33); Mean Corpuscular Volume 88.8 fl (85-98); Mean Platelet Volume 9.4 fL (7.4-10.4); Monocytes # 1.8 10^3/uL (0.2-0.9); Monocytes % 15.1 %; Neutrophils # 8.94 10^3/uL (1.8-7.7); Neutrophils % 74.2 %; Nucleated Red Blood Cells % 0 %; Platelet Count 455 10^3/cmm (157-399); Red Blood Count 4.29 10^6/uL (3.85-5.65); Red Cell Distribution Width 13.6 % (12.1-15.1); White Blood Count 12.05 10^3/uL (3.29-11.43)
[2024-05-04 18:42] LABS: Covid PCR NEGATIVE (Negative); Influenza A NEGATIVE (Negative); Influenza B NEGATIVE (Negative); Respiratory Syncytial Virus Ce NEGATIVE (Negative)
[2024-05-04 18:55] LABS: Alanine Aminotransferase 9 U/L (0-33); Albumin Level 3.5 g/dL (3.5-5.2); Alkaline Phosphatase 124 U/L (35-105); Anion Gap 16.9 (5-19); Aspartate Amino Transferase 14 U/L (0-32); Blood Urea Nitrogen 8 mg/dL (8-23); Calcium 9.5 mg/dL (8.5-10.5); Carbon Dioxide 30 mmol/L (22-29); Chloride 91 mmol/L (98-107); Creatinine Clr Calc Pharmacy 275.5724; Globulin 3.7 g/dL (1.3-4.6); Glomerular Filtration Rate 361.1 mL/min (90-130); Glucose 101 mg/dL (65-115); Magnesium 1.7 mg/dL (1.7-2.3); Osmolality Calculated 276 mOsm/kg (285-295); Potassium 3.9 mmol/L (3.5-5.1); Sodium 134 mmol/L (136-145); Total Bilirubin 0.5 mg/dL (0.15-1.2); Total Protein 7.2 g/dL (6.6-8.7)
--- NOTE | 2024-05-04 18:56 | PC.NURSE ---
Assumed care from Aby FISHER at this time.
[2024-05-04 18:57] LABS: Lactic Sepsis W/Reflex 0.8 mmol/L (0.5-2.2)
--- NOTE | 2024-05-04 20:06 | P.HP_ITS ---
Providers/Chief Complaint 2 Admitting Physician: Minerva Carter MD Primary Care Provider: Narcisa Tejeda MD Chief Complaint: SOB History of Present Illness Mely Wang is a 63 yo woman w/ Seronegative rheumatoid arthritis, likely Raynaud's phenomenon, Emphysema, chronic hypoxic respiratory failure on 2L O2, who was brought to the ED by her on 05/04/2024 for 2 days of progressive dyspnea and malaise. The patient states that she started feeling short of breath, especially around her R. anterior lower ribs. She felt that she could not get air to circulate down there. Associated symptoms include chest tightness, productive cough of green sputum, subjective fever, chills, She took Tylenol and mucinex, but it did not alleviate her symptoms. She tells me that she is a Borderline hemophiliac from . When asked to explain further, she states that when she had her tonsils out at age 15, she was told that she is a borderline hemophiliac b/c she kept bleeding. In the ED, the patient's vital signs were significant for tachycardia to 113, tachypnea to 22, and hypoxic to 85% on 2L, so it was increased to 4L. Her CXR was concerning for a developing infiltrate in the R. mid-lung.She was given DuoNebs x 1, 80 mg of Solu-Medrol, 1 g of ceftriaxone and 500 mg of azithromycin and admitted for further management. Review of Systems 2 Const: Reports: fever(s) and chills; Denies: change in appetite Eyes: Denies: change in vision or blurry vision ENMT: Reports: nasal discharge (chronic) and other (no sore throat); Denies: odynophagia or ear or mastoid pain Card: Denies: chest pain, palpitations, lightheadedness or syncope Resp: Reports: dyspnea and productive cough; Denies: wheezing GI: Denies: abdominal pain, nausea, vomiting, diarrhea, constipation, hematochezia or melena : Denies: difficulty voiding, dysuria, urinary frequency, urinary urgency or hematuria Musc: Reports: joint pain (hands, wrists, elbows, neck, everywhere ) and other Skin/Breast: Reports: sores (sores in her mouth); Denies: rash or new lesions Neuro: Denies: headache(s) or dizziness Psych: Denies: suicidal ideation or homicidal ideation Endo: Denies: cold intolerance or heat intolerance Familia/Lymph: Reports: easy bleeding; Denies: easy bruising Medications/Allergies Home Medications Medication Instructions Recorded Confirmed Last Taken Type methocarbamol 500 mg tablet 250 - 500 mg PO TID PRN Spasms 04/19/19 03/15/24 Unknown History multivitamin with minerals 1 tab PO DAILY 04/19/19 03/15/24 03/14/24 History (Hair,Skin and Nails tablet) magnesium oxide 250 mg PO DAILY 08/09/19 03/15/24 03/14/24 History fluticasone propionate 50 2 spray intranasal DAILY PRN 03/27/20 03/15/24 03/14/24 History mcg/actuation nasal Allergy Symptoms spray,suspension (Flonase Allergy Relief) cetirizine 10 mg tablet (Zyrtec) 10 mg PO BID 12/09/20 03/15/24 03/14/24 History duloxetine 60 mg capsule,delayed 60 mg PO BEDTIME 12/09/20 03/15/24 03/14/24 History release erenumab-aooe 70 mg/mL 70 mg SUBCUT Q30D 12/09/20 03/15/24 03/08/24 History subcutaneous auto-injector (Aimovig Autoinjector) ascorbic acid (vitamin C) 500 mg 500 mg PO DAILY 06/25/21 03/15/24 03/14/24 History tablet biotin 1 mg tablet 1 mg PO DAILY 06/25/21 03/15/24 03/14/24 History cholecalciferol (vitamin D3) 25 25 mcg PO DAILY 06/25/21 03/15/24 03/14/24 History mcg (1,000 unit) capsule roflumilast 500 mcg tablet 500 mcg PO DAILY 06/25/21 03/15/24 03/14/24 History (Daliresp) amitriptyline 25 mg tablet 25 mg PO BEDTIME 08/11/21 03/15/24 03/14/24 History calcium carbonate 500 mg PO DAILY 08/11/21 03/15/24 03/14/24 History pregabalin 200 mg capsule 200 mg PO TID 08/11/21 03/15/24 03/14/24 History diclofenac sodium 1 % topical gel 2 g topical QID PRN Pain #100 grams 02/01/24 03/15/24 Unknown Rx (Arthritis Pain (diclofenac)) leflunomide 20 mg tablet 20 mg PO DAILY #90 tabs 02/01/24 03/15/24 03/14/24 Rx albuterol sulfate 90 mcg/actuation 2 puff inhalation QID PRN 03/15/24 03/15/24 Unknown History aerosol inhaler Shortness Of Breath alendronate 70 mg tablet 70 mg PO Q7D 03/15/24 03/15/24 03/12/24 History fluticasone fur. 200 mcg-umeclid 1 inh inhalation DAILY 03/15/24 03/15/24 03/14/24 History 62.5 mcg-vilant 25 mcg inhalat.powder (Trelegy Ellipta) hydrocodone 10 mg-acetaminophen 1 - 2 tab PO .Q4-6H PRN Pain 03/15/24 03/15/24 03/14/24 History 325 mg tablet oxcarbazepine 300 mg tablet 300 mg PO BID 03/15/24 03/15/24 03/14/24 History ropinirole 0.25 mg tablet 0.25 mg PO BEDTIME 03/15/24 03/15/24 03/14/24 History vitamin B complex 1 tab PO DAILY 03/15/24 03/15/24 03/14/24 History prednisone 10 mg tablet See Taper PO BID #42 tabs 03/17/24 Unknown Rx amlodipine 10 mg tablet 10 mg PO DAILY #90 tabs 03/19/24 Unknown Rx Allergies Allergy/AdvReac Type Severity Reaction Status Date / Time almond Allergy ALGY-Anaphy Verified 05/04/24 17:08 laxis aspirin Allergy Bleeding Verified 05/04/24 17:08 adalimumab [From Humira] AdvReac Intermediate skin Verified 05/04/24 17:08 reactions oranges Allergy Intermediate ALGY-Bliste Uncoded 05/04/24 17:08 r PFSH Acute 2 PFSH: Medical History (Updated 05/04/24 @ 22:07 by Jessica Carter MD) Skin rash PsO? Immunization counseling Seronegative rheumatoid arthritis of both hands High risk medication use Hepatitis C antibody positive in blood Raynaud phenomenon Inflammatory arthritis Back pain Muscle spasm Allergies Kidney stones H/O nephrolithotomy with removal of calculi Chronic obstructive pulmonary disease Surgical History (Updated 05/04/24 @ 21:25 by Jessica Carter MD) History of total right hip arthroplasty History of tonsillectomy at age 15. She states that she bled profusely and was told that she is a borderline hemophiliac. History of hysterectomy with bilateral oophorectomy History of delivery x2 Family History Other Acute rheumatoid arthritis CAD (coronary artery disease) Cancer Chronic kidney disease (CKD) Diabetes Hypertension Lung disease Stroke Denies family history of Lupus Hyperlipidemia Social History Smoking and tobacco/nicotine status: never used tobacco/nicotine Quit status (tobacco/nicotine): has quit using Year quit tobacco: 2020 - 1PPD x 42 Years Second hand smoke exposure: Yes Alcohol intake: never Substance/Drug Use: never Lives independently: Yes Household members: none Marital status: Legally Current occupational status: disabled Do you think of yourself as: Straight/Heterosexual Current gender identity: Female Vitals/I&O/Wt Last Vital Signs Temp 98.4 F 05/04/24 17:03 Pulse 113 H 05/04/24 19:08 Resp 21 H 05/04/24 19:08 BP 153/85 05/04/24 19:08 Pulse Ox 90 05/04/24 19:08 O2 Del Method Nasal Cannula 05/04/24 18:01 O2 Flow Rate 4 05/04/24 18:01 Weight last 48 hrs Weight 55.338 kg Physical Exam 2 Const: GENERAL APPEARANCE: cooperative and comfortable O RIENTATION/CONSCIOUSNESS: Yes awake, Yes oriented to person, Yes oriented to place and Yes oriented to time HENMT: HEAD & SCALP: normocephalic and atraumatic NOSE: Normal external nose present EXTERNAL EAR: Yes external ears normal OTHER: Dry oropharynx Eye: OTHER: PERRL, EOMI, Pale conjunctiva bilaterally Neck/C-Spine: GENERAL: Yes normal visual inspection and Yes trachea midline THYROID: Thyroid normal CAROTIDS: No bruit CERVICAL SPINE: Yes cervical ROM normal Lymph: OTHER: No cervical or supra clavicular LAD Resp: OTHER: Diminished breath sounds throughout all lung dawson bilaterally.Patient in visible respiratory distress using accessory neck and chest muscles to breathe. Cardio: OTHER: Tachycardic, regular rhythm. No murmurs, no rubs, no gallops, or clicks. 2+ radial and DP pulses bilaterally. GI: OTHER: BS+, NT, ND, No guarding, no rigidity, no rebound tenderness, no hepatosplenomegaly. Extremity: GENERAL: No clubbing, No cyanosis and No edema Neuro: CRANIAL NERVES: Yes CN normal except as noted SPEECH: speech normal SENSORY EXAM: No sensory level loss detected MOTOR EXAM: 5/5 motor strength present throughout and Normal motor muscle tone present throughout Psych: APPEARANCE: Yes grossly normal ATTITUDE: Yes calm and Yes engaged ACTIVITY/MOTOR BEHAVIOR: Yes appropriate eye contact SPEECH: Yes normal speech MOOD & AFFECT: Yes euthymic mood THOUGHT PROCESS: Normal thought process present THOUGHT CONTENT: Yes Normal thought content present A TTENTION/CONCENTRATION: Yes attention grossly intact Skin: GENERAL SKIN EXAM: no rashes or lesions noted Data 05/04/24 18:27 05/04/24 18:27 A&P Assessment and plan (1) Acute on chronic hypoxic respiratory failure: (2) Acute exacerbation of chronic obstructive airways disease: (3) Gram-negative pneumonia: (4) Sepsis: Plan Mely Wang is a 63 yo woman w/ Seronegative rheumatoid arthritis, Raynaud's phenomenon, Emphysema, chronic hypoxic respiratory failure on 2L O2, who was brought to the ED by her on 05/04/2024 for 2 days of progressive dyspnea and malaise. #Acute on chronic hypoxic respiratory failure: On 4L NC. Wean as tolerateed #Sepsis - F/u BCx, UA - both collected after she received ceftriaxone and azithromycin in the ED. Give 1L NS at 200cc/hr #Likely gram negative Pneumonia -F/u sputum cx. - Ordered Zosyn and continued Azithromycin #Acute COPD exacerbation - duoneb, abx, H2 keila, Solumedrol. #Seronegative rheumatoid arthritis # Raynaud's phenomenon - likely Primary according to her Natural Resource Officer #Hepatitis C - Patient was very surprised when I asked her whether she was HepC positive. She stated that she had never heard of it before. I will order acute hepatitis panel and hepc virus pcr. #She tells me that she is a Borderline hemophiliac from . When asked to explain further, she states that when she had her tonsils out at age 15, she was told that she is a borderline hemophiliac b/c she kept bleeding. - Ordered PT/PTT. DVT ppx: scd GI ppx: Famotidine Attestations 2 Medical Necessity Statement*: > Patient needs to be hospitalized for greater than 2 midnights for sepsis secondary to pneumonia, COPD exacerbation, acute on chronic hypoxic respiratory failure. Time Spent in Patient Care: >70mins was spent on chart review, patient interview, physical exam, lab/image review, plan formulation and discussion with the patient, and coordination of care. Diagnoses Acute on chronic hypoxic respiratory failure J96.21 Acute exacerbation of chronic obstructive airways disease J44.1 Gram-negative pneumonia J15.69 Sepsis A41.9
--- NOTE | 2024-05-04 21:03 | PC.NURSE ---
Report was called to Anita RAMESH on Med-Surg. All questions and concerns were addressed at time of report.
[2024-05-04 21:07] LABS: INR 0.98 (0.8-1.2)
[2024-05-04 21:08] LABS: Partial Thromboplastin Time 37.1 SECONDS (23.9-36.7)
[2024-05-04] MEDS: sodium chloride 0.9% 1,000 ML 200 ML IV (22:38)
[2024-05-04] MEDS: AZITHROMYCIN ADD-Vantage 500 MG in 0.9% NaCl ADD-Vantage 250 ML 250 MG IV (22:38)
[2024-05-04] MEDS: ropinirole 0.25 mg Tablet PO (23:04)
[2024-05-04] MEDS: duloxetine 60 mg Capsule PO (23:04)
[2024-05-04] MEDS: levalbuterol 1.25 mg/3 mL Neb INHALATION (23:10)
[2024-05-04] MEDS: ipratropium 0.5 mg/2.5 mL Neb INHALATION (23:10)
[2024-05-04 23:26] LABS: ABG PCO2 48.9 mmHg (35-45); Alveolar-Arterial Oxygen Gradi 2.7 mmHg (5-10); Arterial Blood Gas Hematocrit 36.9 % (37-47); Base Excess ABG 4.6 mmol/L (-2.0-2.0); Blood Gas Allen Test Pos; Blood Gas Sample Site Radial, left; Blood Gas Sample Type Arterial; Carboxyhemoglobin 0.3 %THgb (0.4-20.1); HCO3 ABG 30.3 mmol/L (22-26); HGB O2 Sat 91.2 % (95-100); Ionized Calcium Level - ABG 1.2 mmol/L (1.1-1.4); Methemoglobin 0.5 % (0.4-1.5); Oxygen Device NC; PO2 ABG 70.2 mmHg (80.0-100.0); Potassium Level - ABG 2.9 mmol/L (3.5-5.0)
--- NOTE | 2024-05-04 23:36 | PC.NURSE ---
Addendum entered by Marry Valencia RN 05/04/24 23:41: Patient able to correctly answer name, birthday, location, year, and month at this time; patient remains intermittently lethargic. Original Note: This nurse started a new IV on the patient. During IV start and following physical assessment, patient was working hard to breathe, had a respiratory rate of 30, and seemed visibly distressed. Throughout the assessment the patient began dozing off, needing multiple attempts of calling her name in order to arouse her. She appeared to have difficulty following simple commands such as turning her arm over. This nurse called Dr. Carter tp notify her of the patient's change in status. Dr. Carter gave orders to hold lyrica and elavil, run the patient's fluids as a bolus, get a stat ABG, and call RT to administer a breathing tx.
[2024-05-05] VITALS (10 sets, daily range): BP systolic 137–167; BP diastolic 80–91; PULSE 73–104; RESP 16–21; TEMP 36.4–36.8; O2SAT 88–95
[2024-05-05 00:20] LABS: Lactate (Lactic Acid level) 3.2 mmol/L (0.5-2.2)
[2024-05-05 00:36] LABS: Hepatitis A Antibody IgM Non-Reactive (Nonreactive); Hepatitis B Core IgM Non-Reactive (Nonreactive); Hepatitis B Surface Antigen Non-Reactive (Nonreactive); Hepatitis C Virus Antibody Reactive (Nonreactive)
[2024-05-05] MEDS: vancomycin 1,250 MG/250 ML PIGGYBACK 166.67 MG IV (00:40)
[2024-05-05] MEDS: piperacillin-tazobactam 3.375 GM in sodium chloride 0.9% (plus) 50 ML IV ×3 (02:56→19:41)
[2024-05-05 03:37] LABS: Bilirubin Urine Negative (Negative); Blood Urine 3+ (Negative); Glucose Urine UA Negative (Normal); Ketones Urine 4+ (Negative); Leukocyte Esterase Urine Negative (Negative); Nitrate Urine Negative (Negative); Protein Urine 1+ (Negative); Specific Gravity, Urine 1.018 (1.005-1.030); Urine Appearance Clear (CLEAR); Urine Color Yellow (Yellow); Urobilinogen Urine 0.2 mg/dL (Negative); pH Urine 5.5 (5-7)
[2024-05-05 03:41] LABS: Add Urine Microscopic? YES; Bacteria Urine None Seen /hpf; Hyaline Casts Urine 1.21 /lpf; RBC Urine >100 /hpf (0-2); Squamous Epithelial Cell Urine 0-5 /hpf (0-5); WBC Urine 0-5 /hpf (0-5)
[2024-05-05 03:54] LABS: Add Urine Culture? Yes
[2024-05-05 05:59] LABS: Basophils % 0.4 %; Hematocrit 34.9 % (36-47); Lymphocytes # 0.5 10^3/uL (0.8-4.8); Mean Corpuscular HGB Conc 32.1 g/dL (30-55); Mean Corpuscular Hemoglobin 29.8 pg (27-33); Mean Corpuscular Volume 92.8 fl (85-98); Mean Platelet Volume 9.5 fL (7.4-10.4); Monocytes # 0.9 10^3/uL (0.2-0.9); Monocytes % 8.5 %; Neutrophils # 8.81 10^3/uL (1.8-7.7); Neutrophils % 85.5 %; Nucleated Red Blood Cells % 0 %; Platelet Count 429 10^3/cmm (157-399); Red Blood Count 3.76 10^6/uL (3.85-5.65); Red Cell Distribution Width 13.7 % (12.1-15.1); White Blood Count 10.31 10^3/uL (3.29-11.43)
[2024-05-05] MEDS: famotidine 20 mg Tablet PO ×2 (06:09→16:30)
[2024-05-05 06:19] LABS: Alanine Aminotransferase 9 U/L (0-33); Alkaline Phosphatase 116 U/L (35-105); Anion Gap 17.3 (5-19); Aspartate Amino Transferase 14 U/L (0-32); Blood Urea Nitrogen 8 mg/dL (8-23); Calcium 8.5 mg/dL (8.5-10.5); Carbon Dioxide 27 mmol/L (22-29); Chloride 96 mmol/L (98-107); Globulin 3.3 g/dL (1.3-4.6); Glomerular Filtration Rate 361.1 mL/min (90-130); Glucose 133 mg/dL (65-115); Magnesium 1.8 mg/dL (1.7-2.3); Osmolality Calculated 284 mOsm/kg (285-295); Phosphorus 1.4 mg/dL (2.5-4.5); Potassium 3.3 mmol/L (3.5-5.1); Sodium 137 mmol/L (136-145); Total Bilirubin 0.4 mg/dL (0.15-1.2); Total Protein 6.3 g/dL (6.6-8.7)
--- NOTE | 2024-05-05 06:19 | PHA.VACGOAL ---
Vancomycin Goal - Goal Vancomycin Goal:: 15-20 mg/L Vancomycin Indication:: Pneumonia (SEPSIS) - Therapy Current therapy:: Azithromycin, Pip/Tazo Day of therpy:: Day [1]of [] . Actual body weight (kg): 59.058 kg - Data Labs: WBC 10.31 10^3/uL (3.29-11.43) 05/05/24 05:49 RBC 3.76 10^6/uL (3.85-5.65) L 05/05/24 05:49 Hgb 11.20 g/dL (11.27-16.99) L 05/05/24 05:49 Hct 34.9 % (36-47) L 05/05/24 05:49 MCV 92.8 fl (85-98) 05/05/24 05:49 MCH 29.8 pg (27-33) 05/05/24 05:49 MCHC 32.1 g/dL (30-55) 05/05/24 05:49 RDW 13.7 % (12.1-15.1) 05/05/24 05:49 Sodium 137 mmol/L (136-145) 05/05/24 05:49 Potassium 3.9 mmol/L (3.5-5.1) 05/04/24 18:27 Chloride 91 mmol/L (98-107) L 05/04/24 18:27 Carbon Dioxide 27 mmol/L (22-29) 05/05/24 05:49 Anion Gap 17.3 (5-19) 05/05/24 05:49 BUN 8 mg/dL (8-23) 05/05/24 05:49 Creatinine 0.2 mg/dL (0.5-0.9) L 05/04/24 18:27 GFR Calculation 361.1 mL/min (90-130) H 05/04/24 18:27 Treatment plan:: new consult Regimen:: New start vancomycin for pneumonia/sepsis. No history of vancomycin found. Received 1250 mg load dose. Started on maintenance dose of 750 mg q8h based on population based pharmacokinetic nomogram.
[2024-05-05 06:21] LABS: Creatinine Clr Calc Pharmacy 282.5112
[2024-05-05] MEDS: VANCOMYCIN ADD-Vantage 750 MG in 0.9% NaCl ADD-Vantage 250 ML 250 MG IV ×3 (06:40→23:28)
[2024-05-05] MEDS: pregabalin 100 mg Capsule 200 MG PO ×3 (08:51→20:14)
[2024-05-05] MEDS: sennosides 8.6 mg Tablet 17.2 MG PO (08:51)
[2024-05-05] MEDS: cetirizine 10 mg Tablet PO ×2 (08:52→16:30)
[2024-05-05] MEDS: methylPREDNISolone sod succ 125 mg/2 mL INJ 60 MG IVP ×2 (08:52→17:55)
[2024-05-05] MEDS: OXcarbazepine 300 mg Tablet PO ×2 (08:52→16:30)
--- NOTE | 2024-05-05 10:16 | PC.CHAP ---
Pastoral Care Encounter/Spiritual Assessment Type of Contact [] Declined life guard visit [] Patient/Family/Request visit [] Outpatient visit [] Follow-up visit [] Physician referral [] Code/Alert [] Routine visit [] Staff referral [] Actively dying [x] Patient sleeping [] Family support [] [] Out of room [] Palliative care [] [] Receiving care in room [] Pre-surgical visit [] Trauma [] Long length of stay [] ICU visit [] Other: Relational/Emotional Strength [] Patient feels connected with others/family/visitors/staff [] Distress [] Loneliness/isolation [] Abandonment Spirituality of Patient [] Person of Candida [] Attends Hoahaoism of their Candida [] Believes in Prayer [] Reads Bible or Congregation materials [] There are Spiritual issues to be addressed Driver License Examiner Interventions [] Prayer [] Active listening [] Non-anxious presence [] Spiritual/emotional support [] Crisis/trauma care [] Spiritual counseling [] Bereavement support [] Provided bereavement packet [] Provided Bible/devotional materials [] Provided toy/stuffed animal, coloring book to patient or family member [] Provided Communion [] Anointing/[place] [] Salvation [] Completed spiritual assessment [] Other: Impact on Illness or Injury [] Angry [] Fearful [] Anxious [] Often cries [] Exhaustion [] Unable to work [] Unable to attend islam [] Unable to walk/stand [] Unable to read [] Unable to drive [] Unable to eat/drink [] Unable to sleep [] Unable to be with family [] Patient intubated [] Other: Summary Time spent with patient
[2024-05-05] MEDS: ipratropium-albuterol 3 mL Neb INHALATION ×3 (10:53→20:18)
--- NOTE | 2024-05-05 16:46 | PM.PN ---
Subjective Subjective: Overnight labs and H&P reviewed. Medications: Reviewed: Yes Vitals/I&O/Wt Last Vital Signs Temp 98.2 F 05/05/24 07:51 Pulse 100 05/05/24 15:36 Resp 20 H 05/05/24 15:27 BP 159/80 05/05/24 07:51 Pulse Ox 92 05/05/24 15:27 O2 Del Method Nasal Cannula 05/05/24 15:27 O2 Flow Rate 3 05/05/24 15:27 05/05/24 05/05/24 05/05/24 06:59 14:59 22:59 Intake Total 2060.000 / 2060.000 250 / 250 300 / 550 Balance 2060.000 / 2060.000 250 / 250 300 / 550 Weight last 48 hrs Weight 59.058 kg Weight 55.338 kg Physical Exam Narrative: General: No acute distress, AO x3 HEENT: PERRLA, pupils bilaterally equal and reactive, pallors not present Chest: Normal vesicular breath sounds, no added sounds, equal good air entry bilaterally CVS: S1-S2 regular, no murmurs, no tachycardia, no gallops, no rubs Abdomen: Soft, nontender, no organomegaly, bowel sounds present Neuro: No focal deficits, no facial deformity, AO x3, power 5/5 in all limbs Data 05/05/24 05:49 05/05/24 05:49 Micro: Microbiology 05/04/24 20:30 Blood Culture - Preliminary Blood SPECIMEN COLLECTED 05/04/24 20:30 Blood Culture - Preliminary Blood SPECIMEN COLLECTED A&P Assessment and plan (1) Acute on chronic hypoxic respiratory failure: (2) Acute exacerbation of chronic obstructive airways disease: (3) Gram-negative pneumonia: (4) Sepsis: Plan Mely Wang is a 63 yo woman w/ Seronegative rheumatoid arthritis, Raynaud's phenomenon, Emphysema, chronic hypoxic respiratory failure on 2L O2, who was brought to the ED by her on 05/04/2024 for 2 days of progressive dyspnea and malaise. #Acute on chronic hypoxic respiratory failure: On 4L NC. Wean as tolerateed #Sepsis - F/u BCx, UA - both collected after she received ceftriaxone and azithromycin in the ED. Give 1L NS at 200cc/hr #Likely gram negative Pneumonia -F/u sputum cx. - Ordered Zosyn and continued Azithromycin #Acute COPD exacerbation - duoneb, abx, H2 keila, Solumedrol. #Seronegative rheumatoid arthritis # Raynaud's phenomenon - likely Primary according to her Senior Solutions Workflow Consultant #Hepatitis C - Patient was very surprised when I asked her whether she was HepC positive. She stated that she had never heard of it before. I will order acute hepatitis panel and hepc virus pcr. #She tells me that she is a Borderline hemophiliac from . When asked to explain further, she states that when she had her tonsils out at age 15, she was told that she is a borderline hemophiliac b/c she kept bleeding. - Ordered PT/PTT. DVT ppx: scd GI ppx: Famotidine May 05, 2024 Currently on 3 L/min supplemental O2. Diffuse wheezing bilaterally. Continue current plan of treatment with IV antibiotics, IV steroids, scheduled nebulization. Increase steroids to 60 mg IV every 12 hours. Reassess next 24 hours for clinical improvement. 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 Past history of hep C antibody positivity noted. Patient has had an undetectable hep C PCR from September 2023 likely consistent with either treated or cleared infection. Attestations Medical Necessity Statement*: continued iv steroids, iv abx Coding Level of Care Code Acute Code for [facility] Diagnoses Acute on chronic hypoxic respiratory failure J96.21 Acute exacerbation of chronic obstructive airways disease J44.1 Gram-negative pneumonia J15.69 Sepsis A41.9
[2024-05-05] MEDS: amitriptyline 25 mg Tablet PO (20:14)
[2024-05-05] MEDS: ropinirole 0.25 mg Tablet PO (20:14)
[2024-05-05] MEDS: duloxetine 60 mg Capsule PO (20:14)
[2024-05-05] MEDS: AZITHROMYCIN ADD-Vantage 500 MG in 0.9% NaCl ADD-Vantage 250 ML 250 MG IV (22:15)
[2024-05-06] VITALS (12 sets, daily range): BP systolic 152–162; BP diastolic 82–88; PULSE 89–98; RESP 15–26; TEMP 36.7; O2SAT 92–95
[2024-05-06] MEDS: ipratropium-albuterol 3 mL Neb INHALATION ×4 (00:04→11:51)
[2024-05-06] MEDS: acetaminophen 325 mg Tablet 650 MG PO (02:30)
[2024-05-06] MEDS: piperacillin-tazobactam 3.375 GM in sodium chloride 0.9% (plus) 50 ML IV ×2 (03:50→12:01)
[2024-05-06 04:39] LABS: ABG PCO2 58.9 mmHg (35-45); ABG PH Result 7.39 (7.35-7.45); Alveolar-Arterial Oxygen Gradi 0.6 mmHg (5-10); Base Excess ABG 9.1 mmol/L (-2.0-2.0); Blood Gas Allen Test Pos; Blood Gas Sample Site Radial, right; Blood Gas Sample Type Arterial; Carboxyhemoglobin < 0.3 %THgb (0.4-20.1); HCO3 ABG 35.8 mmol/L (22-26); Ionized Calcium Level - ABG 1.2 mmol/L (1.1-1.4); Methemoglobin 1.2 % (0.4-1.5); Oxygen Device NC; Potassium Level - ABG 3.3 mmol/L (3.5-5.0); Total Hemoglobin 11.4 g/dL (12-16)
[2024-05-06 04:40] LABS: Basophils % 0.4 %; Lymphocytes # 0.5 10^3/uL (0.8-4.8); Lymphocytes % 4.2 %; Mean Corpuscular HGB Conc 31.3 g/dL (30-55); Mean Corpuscular Hemoglobin 29.2 pg (27-33); Mean Corpuscular Volume 93.1 fl (85-98); Mean Platelet Volume 9.8 fL (7.4-10.4); Monocytes # 1.1 10^3/uL (0.2-0.9); Monocytes % 9.5 %; Neutrophils # 9.46 10^3/uL (1.8-7.7); Neutrophils % 85.1 %; Nucleated Red Blood Cells % 0 %; Platelet Count 514 10^3/cmm (157-399); Red Blood Count 4.08 10^6/uL (3.85-5.65); Red Cell Distribution Width 13.8 % (12.1-15.1); White Blood Count 11.12 10^3/uL (3.29-11.43)
[2024-05-06] MEDS: methylPREDNISolone sod succ 125 mg/2 mL INJ 60 MG IVP (05:11)
[2024-05-06 05:17] LABS: Procalcitonin 0.11 ng/mL (0-0.5)
[2024-05-06 05:20] LABS: Blood Urea Nitrogen 7 mg/dL (8-23); Calcium 9.5 mg/dL (8.5-10.5); Carbon Dioxide 31 mmol/L (22-29); Chloride 98 mmol/L (98-107); Creatinine Clr Calc Pharmacy 282.1718; Glomerular Filtration Rate 361.1 mL/min (90-130); Glucose 127 mg/dL (65-115); Osmolality Calculated 292 mOsm/kg (285-295); Sodium 141 mmol/L (136-145)
[2024-05-06] MEDS: famotidine 20 mg Tablet PO (06:31)
[2024-05-06] MEDS: VANCOMYCIN ADD-Vantage 750 MG in 0.9% NaCl ADD-Vantage 250 ML 250 MG IV (07:59)
[2024-05-06] MEDS: pregabalin 100 mg Capsule 200 MG PO (08:02)
[2024-05-06] MEDS: OXcarbazepine 300 mg Tablet PO (08:02)
[2024-05-06] MEDS: cetirizine 10 mg Tablet PO (08:02)
--- NOTE | 2024-05-06 13:32 | PM.DCS ---
Discharge Providers Date of Admission: 05/04/24 20:04 Date of Discharge: May 06, 2024 Attending Provider at Admission: Jessica Carter MD Attending Provider at Discharge: Yocasta Dennis MD Primary Care Provider: Narcisa Tejeda MD Diagnoses at Discharge Discharge Diagnosis (1) Acute on chronic hypoxic respiratory failure: Status: Acute (2) Acute exacerbation of chronic obstructive airways disease: Status: Acute (3) Gram-negative pneumonia: Status: Acute (4) Sepsis: Status: Acute Reason for Visit Reason for Visit: SOB Brief History: Mely Wang is a 63 year old female with history of COPD, uses 2 L of oxygen at baseline, rheumatoid arthritis on Leflunomide who presented to the hospital on may 05, 2024 with chief complaints of worsening shortness of breath. CXR shoed developing RLL infiltrate, likely pneumonia . Influenza RSV and COVID PCR's were negative. She was treated with IV antibiotics, IV steroids, scheduled nebulization and appears clinically improved today. She is back to using 2-3 L/min supplemental O2. He states her breathing is 70% better compared to on admission. She is being discharged today with a switch to oral prednisone taper, oral antibiotics and recommendations to continue her inhalers as directed. Discussed with patient that over the past 2 months, this will be the third time she has been treated for a COPD exacerbation. She has needed to use intermittent steroids. Review of past notes from pulmonology showed that patient was on prednisone 5 mg daily, however patient currently denies being on any baseline steroids. 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 She has a follow-up appointment on May 09 with her PCP. Additionally if symptoms start to get worse, I would be concerned about atypical infections given her history of recent high-dose steroid use. In which case she would need CT of the chest and further diagnostics. Since she is currently improved, she is being discharged in a stable state with recommendations to follow closely with her outpatient doctors. Physical Exam Narrative: General: No acute distress, AO x3 HEENT: PERRLA, pupils bilaterally equal and reactive, pallors not present Chest: left clear, right lung with scattered wheezing. CVS: S1-S2 regular, no murmurs, no tachycardia, no gallops, no rubs Abdomen: Soft, nontender, no organomegaly, bowel sounds present Neuro: No focal deficits, no facial deformity, AO x3, power 5/5 in all limbs Discharge Data Studies Completed and Pending Completed Studies During Hospitalization Category Date Time Status XR chest 1V portable [id number] Stat Exams 05/04/24 17:45 Completed Pending at discharge Category Date Time Status Basic Metabolic Panel AM LABS Lab 05/07/24 04:00 Ordered Blood Culture Stat Lab 05/04/24 20:30 Results Complete Blood Count w/Auto AM LABS Lab 05/07/24 04:00 Ordered Hepatitis C RNA Viral Load Qnt Stat Lab 05/04/24 18:27 Received Sputum Culture and Gram Stain Stat Lab 05/04/24 21:52 Uncollected Urine Culture Stat Lab 05/05/24 03:06 Results Vancomycin Trough Routine Lab 05/06/24 15:00 Ordered Radiology Impressions Chest X-Ray 05/04/24 17:45 IMPRESSION: 1. COPD. 2. Focal increased density peripherally in the right mid lung, new since March 14, 2024, suspicious for developing infiltrate. 3. Coarsened interstitial markings in the mid to lower lung zones bilaterally, not significantly changed. Laboratory Results WBC 11.12 10^3/uL (3.29-11.43) 05/06/24 03:25 RBC 4.08 10^6/uL (3.85-5.65) 05/06/24 03:25 Hgb 11.90 g/dL (11.27-16.99) 05/06/24 03:25 Hct 38.0 % (36-47) 05/06/24 03:25 MCV 93.1 fl (85-98) 05/06/24 03:25 MCH 29.2 pg (27-33) 05/06/24 03:25 MCHC 31.3 g/dL (30-55) 05/06/24 03:25 RDW 13.8 % (12.1-15.1) 05/06/24 03:25 Plt Count 514 10^3/cmm (157-399) H 05/06/24 03:25 MPV 9.8 fL (7.4-10.4) 05/06/24 03:25 Neut % (Auto) 85.1 % 05/06/24 03:25 Lymph % (Auto) 4.2 % 05/06/24 03:25 [place] % (Auto) 9.5 % 05/06/24 03:25 Eos % (Auto) 0.0 % 05/06/24 03:25 Baso % (Auto) 0.4 % 05/06/24 03:25 Neut # (Auto) 9.46 10^3/uL (1.8-7.7) H 05/06/24 03:25 Lymph # (Auto) 0.5 10^3/uL (0.8-4.8) L 05/06/24 03:25 [place] # (Auto) 1.1 10^3/uL (0.2-0.9) H 05/06/24 03:25 Eos # (Auto) 0.0 10^3/uL (0.0-0.8) 05/06/24 03:25 Baso # (Auto) 0.0 10^3/uL (0.0-0.1) 05/06/24 03:25 Nucleated RBC % (auto) 0 % 05/06/24 03:25 Nucleated RBCs # 0.0 /100WBC 05/06/24 03:25 PT 13.60 SECONDS (12.1-14.9) 05/04/24 18:27 INR 0.98 (0.8-1.2) 05/04/24 18:27 APTT 37.1 SECONDS (23.9-36.7) H 05/04/24 18:27 Specimen Type Arterial 05/06/24 04:29 Sample Site Radial, right 05/06/24 04:29 ABG pH 7.39 (7.35-7.45) 05/06/24 04:29 ABG pCO2 58.9 mmHg (35-45) H 05/06/24 04:29 ABG pO2 75.0 mmHg (80.0-100.0) L 05/06/24 04:29 ABG HCO3 35.8 mmol/L (22-26) H 05/06/24 04:29 ABG O2 Saturation 93.0 05/06/24 04:29 ABG Base Excess 9.1 mmol/L (-2.0-2.0) H 05/06/24 04:29 Shayan Test Pos 05/06/24 04:29 A-a O2 Gradient 0.6 mmHg (5-10) L 05/06/24 04:29 Hematocrit 35.0 % (37-47) L 05/06/24 04:29 Hgb O2 Saturation 92.0 % (95-100) L 05/06/24 04:29 Carboxyhemoglobin < 0.3 %THgb (0.4-20.1) L 05/06/24 04:29 Methemoglobin 1.2 % (0.4-1.5) 05/06/24 04:29 Total Hemoglobin 11.4 g/dL (12-16) L 05/06/24 04:29 Sodium 143.0 mmol/L (131-143) 05/06/24 04:29 Potassium 3.3 mmol/L (3.5-5.0) L 05/06/24 04:29 Glucose 129.0 mg/dL (70-115) H 05/06/24 04:29 Ionized Calcium 1.2 mmol/L (1.1-1.4) 05/06/24 04:29 O2 Delivery Device Nc 05/06/24 04:29 O2 Liters/Min 4.0 % 05/06/24 04:29 Materials Buyer ID [email or web address] 05/06/24 04:29 Sodium 141 mmol/L (136-145) 05/06/24 03:25 Potassium 4.0 mmol/L (3.5-5.1) 05/06/24 03:25 Chloride 98 mmol/L (98-107) 05/06/24 03:25 Carbon Dioxide 31 mmol/L (22-29) H 05/06/24 03:25 Anion Gap 16.0 (5-19) 05/06/24 03:25 BUN 7 mg/dL (8-23) L 05/06/24 03:25 Creatinine 0.2 mg/dL (0.5-0.9) L 05/06/24 03:25 GFR Calculation 361.1 mL/min (90-130) H 05/06/24 03:25 Glucose 127 mg/dL (65-115) H 05/06/24 03:25 Calculated Osmolality 292 mOsm/kg (285-295) 05/06/24 03:25 Lactic Acid 0.8 mmol/L (0.5-2.2) 05/04/24 18:27 Lactate 3.2 mmol/L (0.5-2.2) H 05/04/24 23:54 Calcium 9.5 mg/dL (8.5-10.5) 05/06/24 03:25 Phosphorus 1.4 mg/dL (2.5-4.5) L 05/05/24 05:49 Magnesium 1.8 mg/dL (1.7-2.3) 05/05/24 05:49 Total Bilirubin 0.4 mg/dL (0.15-1.2) 05/05/24 05:49 AST 14 U/L (0-32) 05/05/24 05:49 ALT 9 U/L (0-33) 05/05/24 05:49 Alkaline Phosphatase 116 U/L (35-105) H 05/05/24 05:49 Total Protein 6.3 g/dL (6.6-8.7) L 05/05/24 05:49 Albumin 3.0 g/dL (3.5-5.2) L 05/05/24 05:49 Globulin 3.3 g/dL (1.3-4.6) 05/05/24 05:49 Procalcitonin 0.11 ng/mL (0-0.5) 05/06/24 03:25 Urine Color Yellow (Yellow) 05/05/24 03:06 Urine Appearance Clear (CLEAR) 05/05/24 03:06 Urine pH 5.5 (5-7) 05/05/24 03:06 Ur Specific [place] 1.018 (1.005-1.030) 05/05/24 03:06 Urine Protein 1+ (Negative) A 05/05/24 03:06 Urine Glucose (UA) Negative (Normal) 05/05/24 03:06 Urine Ketones 4+ (Negative) 05/05/24 03:06 Urine Blood 3+ (Negative) A 05/05/24 03:06 Urine Nitrate Negative (Negative) 05/05/24 03:06 Urine Bilirubin Negative (Negative) 05/05/24 03:06 Urine Urobilinogen 0.2 mg/dL (Negative) 05/05/24 03:06 Ur Leukocyte Esterase Negative (Negative) 05/05/24 03:06 Urine RBC >100 /hpf (0-2) H 05/05/24 03:06 Urine WBC 0-5 /hpf (0-5) 05/05/24 03:06 Ur Squamous Epith Cells 0-5 /hpf (0-5) 05/05/24 03:06 Amorphous Sediment Not Reportable 05/05/24 03:06 Urine Bacteria None seen /hpf (NONE) 05/05/24 03:06 Hyaline Casts 1.21 /lpf 05/05/24 03:06 Coronavirus (PCR) Negative (Negative) 05/04/24 17:54 Hepatitis A IgM Ab Non-reactive (Nonreactive) 05/04/24 18:27 Hep Bs Antigen Non-reactive (Nonreactive) 05/04/24 18:27 Hep B Core IgM Ab Non-reactive (Nonreactive) 05/04/24 18:27 Hepatitis C Antibody Reactive (Nonreactive) H 05/04/24 18:27 HCV RNA Qnt PCR Amp&Det Cancelled 05/05/24 00:37 HCV RNA (PCR) IUs/ml Cancelled 05/05/24 00:37 HCV RNA (PCR) IU log10 Cancelled 05/05/24 00:37 Influenza A (PCR) Negative (Negative) 05/04/24 17:54 Influenza Type B (PCR) Negative (Negative) 05/04/24 17:54 RSV (PCR) Negative (Negative) 05/04/24 17:54 Vitals Last Vital Signs Temp 98.1 F 05/06/24 12:00 Pulse 96 05/06/24 12:00 Resp 15 05/06/24 12:00 BP 159/88 05/06/24 12:00 Pulse Ox 93 05/06/24 12:00 O2 Del Method Nasal Cannula 05/06/24 12:00 O2 Flow Rate 3 05/06/24 11:53 Discharge Plan Discharge Patient Disposition: Home Condition: Stable Prescriptions: New levofloxacin 750 mg tablet 750 mg PO DAILY 5 Days Qty: 5 0RF prednisone 10 mg tablet See Taper PO BID Qty: 42 0RF Taper: predniSONE 60-10 60 mg Daily for 2 Days and 0 Hour 50 mg Daily for 2 Days and 0 Hour 40 mg Daily for 2 Days and 0 Hour 30 mg Daily for 2 Days and 0 Hour 20 mg Daily for 2 Days and 0 Hour 10 mg Daily for 2 Days and 0 Hour cefdinir 300 mg capsule 300 mg PO BID 5 Days Qty: 10 0RF Continued fluticasone propionate [Flonase Allergy Relief] 50 mcg/actuation spray,suspension 2 spray intranasal DAILY PRN (Reason: Allergy Symptoms) Rx Instructions: administer into each nostril Aimovig Autoinjector 70 mg/mL auto-injector 70 mg SUBCUT Q30D duloxetine 60 mg capsule,delayed release(DR/EC) 60 mg PO BEDTIME cetirizine [Zyrtec] 10 mg tablet 10 mg PO BID multivitamin with minerals [Hair,Skin and Nails] Tablet 1 tab PO DAILY methocarbamol 500 mg tablet 250 - 500 mg PO TID PRN (Reason: Spasms) biotin 1 mg tablet 1 mg PO DAILY magnesium oxide 250 mg magnesium tablet 250 mg PO DAILY cholecalciferol (vitamin D3) 25 mcg (1,000 unit) capsule 25 mcg PO DAILY ascorbic acid (vitamin C) 500 mg tablet 500 mg PO DAILY diclofenac sodium [Arthritis Pain (diclofenac)] 1 % gel 2 g topical QID PRN (Reason: Pain) Qty: 100 1RF Rx Instructions: apply to single elbow, wrist or hand; for hand includes palm/fingers/back of hand amlodipine 10 mg tablet 10 mg PO DAILY Qty: 90 1RF amitriptyline 25 mg tablet 25 mg PO BEDTIME calcium carbonate 500 mg calcium (1,250 mg) Tablet 500 mg PO DAILY pregabalin 200 mg capsule 200 mg PO TID albuterol sulfate 90 mcg/actuation HFA aerosol inhaler 2 puff INHALATION QID PRN (Reason: Shortness Of Breath) alendronate 70 mg tablet 70 mg PO Q7D Rx Instructions: on Tuesday oxcarbazepine 300 mg tablet 300 mg PO BID hydrocodone-acetaminophen 10-325 mg tablet 1 - 2 tab PO .Q4-6H PRN (Reason: Pain) ropinirole 0.25 mg tablet 0.25 mg PO BEDTIME vitamin B complex Tablet 1 tab PO DAILY Trelegy Ellipta 200-62.5-25 mcg blister with device 1 inh INHALATION DAILY Hold Instructions: Resume on 03/22/24. hold while on duoneb and budesonide via nebulizer, then resume omeprazole 20 mg capsule,delayed release(DR/EC) 20 mg PO DAILY roflumilast 500 mcg tablet 500 mcg PO DAILY Held leflunomide 20 mg tablet 20 mg PO DAILY Qty: 90 1RF Hold Instructions: Resume on 03/22/24. hold until recovered from pneumonia. Follow up with PCP before resuming Discharge Orders: Discharge Order (Routine); Ordered 05/06/24 Ordered By: Yocasta Dennis Referrals: Narcisa Tejeda MD [Primary Care Provider] - Discharge Diet: Usual diet Discharge Activity: Resume usual activity Patient Instructions: Opioid Safety Discharge Attestations Time Spent in Discharge Care*: greater than 30 min Quality Metrics Clinical Quality Measures [ No reported AMI, CVA or VTE this stay] Coding Level of Care Code Acute Code for Chg Fwd Diagnoses Acute on chronic hypoxic respiratory failure J96.21 Acute exacerbation of chronic obstructive airways disease J44.1 Gram-negative pneumonia J15.69 Sepsis A41.9
[2024-05-07 17:55] LABS: HEP C RNA Viral Load Quant <1.18 NOT DETECTED Log IU/mL (NOT DETECTED); HEP C RNA Viral Load Quant <15 NOT DETECTED IU/mL (NOT DETECTED)
== END 2024-05-06 15:37 | disposition home or self-care (01) | DRG 871 ==
LOC: ER 20:59 → MEDSURG 21:03
PROVIDERS: Admitting Provider Internal Medicine; Emergency Provider Student in an Organized Health Care Education/Training Program; PCP Internal Medicine; Visit Provider Student in an Organized Health Care Education/Training Program
DX: A41.9 Sepsis, unspecified organism (principal); J15.9 Unspecified bacterial pneumonia; J96.21 Acute and chronic respiratory failure with hypoxia; J44.1 Chronic obstructive pulmonary disease with (acute) exacerbation; J44.0 Chronic obstructive pulmonary disease with (acute) lower respiratory infection; M06.042 Rheumatoid arthritis without rheumatoid factor, left hand; M06.041 Rheumatoid arthritis without rheumatoid factor, right hand; I73.00 Raynaud's syndrome without gangrene; J43.9 Emphysema, unspecified; Z96.641 Presence of right artificial hip joint; B19.20 Unspecified viral hepatitis C without hepatic coma; Z99.81 Dependence on supplemental oxygen; Z79.60 Long term (current) use of unspecified immunomodulators and immunosuppressants; Z79.899 Other long term (current) drug therapy; Z79.51 Long term (current) use of inhaled steroids; Z79.891 Long term (current) use of opiate analgesic; Z87.442 Personal history of urinary calculi; Z87.891 Personal history of nicotine dependence
CPT/HCPCS: 36415; 36600; 71045; 80048; 80051; 80053; 80074; 81001; 82330; 82805; 83605; 83735; 84100; 84145; 85025; 85610; 85730; 87040; 87086; 87522; 87637; 93005; 94640; 96365; 96367; 96375; 99285; J0456; J2543; J2919; J3370; J7030; J7050; J7614; J7644

== ENCOUNTER → 2024-06-06 12:48 | Outpatient (BNVA) | payer MEDICARE, MEDICAID, SELFPAY | PROVIDERS: PCP Internal Medicine; Visit Provider Internal Medicine Rheumatology | DX: M06.041 Rheumatoid arthritis without rheumatoid factor, right hand (principal); M06.042 Rheumatoid arthritis without rheumatoid factor, left hand; Z79.899 Other long term (current) drug therapy; Z71.85 Encounter for immunization safety counseling; I73.00 Raynaud's syndrome without gangrene | CPT/HCPCS: 99214 ==

== ENCOUNTER 2024-07-06 14:58 | Outpatient (CLI) | payer MEDICARE, MEDICAID, SELFPAY ==
--- NOTE | 2024-07-06 15:04 | MM_ITS ---
WS: [id number] BILATERAL 3D TOMOSYNTHESIS DIGITAL SCREENING MAMMOGRAPHY WITH CAD CLINICAL INFORMATION: SCREENING HISTORY: Screening mammogram. No current complaints. COMPARISON: 2022 TECHNIQUE: Bilateral CC and MLO views. FINDINGS: Scattered fibroglandular densities bilaterally. No suspicious focal mass, asymmetry, calcifications, or architectural distortion. No evidence of malignancy. MM/MM scr BI tomosynthesis [id number] IMPRESSION: DENSITY: There are scattered areas of fibroglandular density. BI-RADS: 1 - Negative. FOLLOW UP: 1 Year Follow-up Recommend return to annual screening mammography.
== END 2024-07-06 14:59 | disposition home or self-care (01) ==
LOC: RAD 14:59
PROVIDERS: PCP Internal Medicine; Visit Provider Internal Medicine
DX: Z12.31 Encounter for screening mammogram for malignant neoplasm of breast (principal); R92.323 Mammographic fibroglandular density, bilateral breasts
CPT/HCPCS: 77063; 77067

== ENCOUNTER 2024-07-24 16:00 | Outpatient (CLI) | payer MEDICARE, MEDICAID, SELFPAY ==
--- NOTE | 2024-07-24 16:12 | CT_ITS ---
WS: [id number] CT ABDOMEN AND PELVIS WITH AND WITHOUT CONTRAST HISTORY: MICROSCOPIC HEMTURIA TECHNIQUE: Unenhanced 5 mm axial imaging first performed through the abdomen. Post contrast imaging through the abdomen and pelvis. Oral contrast has not been provided. Sagittal and coronal reformats are submitted. All CT scans at [facility] use at least one of these dose optimization techniques: automated exposure control; mA and/or kV adjustment per patient size (includes targeted exams where dose is matched to clinical indication); or iterative reconstruction. CONTRAST: Omnipaque 350; 95 mL IV. DLP: 822.63 mGy.cm COMPARISON: 09/18/2015 Hyperexpanded lungs. New small nodule at the RIGHT lung base measures 6 mm was not present on the CT of 03/15/2024. There is an additional pleural nodule which is 3 mm in the RIGHT lower lobe. Heart is normal size. Small hiatal hernia. RIGHT kidney: 11.0 cm in length. Normal size. No renal or ureteral calcification or obstruction. There are a few scattered very tiny cortical hypodensities which cannot be further characterized. No area of enhancement. No uroepithelial lesions are identified. On the delayed images there is intermittent contrast opacification of the RIGHT ureter. LEFT kidney: 10.5 cm in length. No renal calcifications. 10 mm cortical cyst superior pole. There are a few additional very tiny cortical hypodensities which are difficult to characterize further. No uroepithelial lesions or obstruction of the kidney. Intermittent opacification of the ureter. Urinary bladder: Nondistended and partially obscured by beam hardening artifact. On the delayed images there is only very minimal contrast to excreted into the bladder. Liver is slightly enlarged extending to the ileum. Normal gallbladder. Normal pancreas and spleen. No adrenal mass. Moderate atherosclerotic plaque aorta. Mild mesenteric artery atherosclerosis. No GI tract obstruction or ischemia. Constipation. No ascites or adenopathy. Status post RIGHT hip arthroplasty. T12 anterior compression. Hysterectomy. CT/CT abdomen pelvis wo/w [id number] IMPRESSION: 1. No renal calcification or ureteral calcification. 2. Bilateral renal cysts and too small to characterize cortical hypodensities. No solid mass identified or obstruction. 3. Minimally distended urinary bladder. Bladder neoplasm would be difficult to exclude. 4. Moderate atherosclerosis aorta and mesenteric arteries. 5. Prior hysterectomy. 6. New RIGHT lower lobe nodule measuring 6 mm. New since 03/15/2024. Recommend follow-up chest CT in 3 months with IV contrast to exclude a growing nodule.
[2024-07-24] MEDS: iohexol 350 mg/mL 500 mL Btl (per mL) IV (17:01)
== END 2024-07-24 16:01 | disposition home or self-care (01) ==
LOC: RAD 16:03
PROVIDERS: PCP Internal Medicine; Visit Provider Nurse Practitioner Family
DX: R31.29 Other microscopic hematuria (principal); N28.1 Cyst of kidney, acquired; I70.0 Atherosclerosis of aorta; K55.1 Chronic vascular disorders of intestine; Z90.710 Acquired absence of both cervix and uterus; R91.8 Other nonspecific abnormal finding of lung field; K44.9 Diaphragmatic hernia without obstruction or gangrene; R93.421 Abnormal radiologic findings on diagnostic imaging of right kidney; K59.00 Constipation, unspecified; Z96.89 Presence of other specified functional implants; R93.7 Abnormal findings on diagnostic imaging of other parts of musculoskeletal system
CPT/HCPCS: 74178

== ENCOUNTER → 2024-09-12 13:00 | Outpatient (BNVA) | payer MEDICARE, MEDICAID, SELFPAY | PROVIDERS: PCP Internal Medicine; Visit Provider Internal Medicine Rheumatology | DX: M06.041 Rheumatoid arthritis without rheumatoid factor, right hand (principal); M06.042 Rheumatoid arthritis without rheumatoid factor, left hand; Z79.899 Other long term (current) drug therapy; Z71.85 Encounter for immunization safety counseling; I73.00 Raynaud's syndrome without gangrene; J44.9 Chronic obstructive pulmonary disease, unspecified | CPT/HCPCS: 36415; 80076; 82565; 85025; 85651; 86140; 86480; 99214 ==

== ENCOUNTER 2024-12-25 11:34 | Outpatient (CLI) | payer MEDICARE, MEDICAID, SELFPAY ==
--- NOTE | 2024-12-25 11:45 | XR_ITS ---
WS: [email or web address] XR lumbar spine 6V w f/e [id number] REASON FOR EXAM: LUMBAR SPONDYLOSIS FINDINGS: Moderate rotatory levoscoliosis. Normal lumbar lordosis. No significant compression deformity or focal lesion of the lumbar vertebrae. Mild narrowing of the L4-L5 and L5-S1 disc spaces. Mild osteophytosis of the lumbar vertebrae L1-L5. No spondylolysis. No significant spondylolisthesis. Moderate degenerative arthropathy in the facet joints L4-S1. XR/XR lumbar spine 6V w f/e [id number] IMPRESSION: Degenerative spondylosis as above progressive in the lower lumbar spine with in creased scoliosis compared to 01/18/2019.
--- NOTE | 2024-12-25 11:45 | XR_ITS ---
WS: [email or web address] XR cervical spine min 6V [id number] REASON FOR EXAM: CERVICAL SPONDYLOSIS FINDINGS: Normal cervical lordosis. No compression deformity or focal lesion of the cervical vertebrae. Normal odontoid. Moderate narrowing of the C5-C6 disc space. Minimal anterolisthesis of C4 on C5 and C5 on C6. No significant vertebral body movement with flexion or extension. Mild osteophyte encroachment on the neuroforamina bilaterally C5-C6. Benign intracranial calcification. XR/XR cervical spine min 6V [id number] IMPRESSION: Cervical degenerative spondylosis as above.
== END 2024-12-25 11:35 | disposition home or self-care (01) ==
PROVIDERS: PCP Internal Medicine; Visit Provider Student in an Organized Health Care Education/Training Program
DX: M47.812 Spondylosis without myelopathy or radiculopathy, cervical region (principal)
CPT/HCPCS: 72052; 72114

== ENCOUNTER → 2025-01-09 12:37 | Outpatient (BNVA) | payer MEDICARE, MEDICAID, SELFPAY | PROVIDERS: PCP Internal Medicine; Visit Provider Internal Medicine Rheumatology | DX: M06.041 Rheumatoid arthritis without rheumatoid factor, right hand (principal); M06.042 Rheumatoid arthritis without rheumatoid factor, left hand; Z79.899 Other long term (current) drug therapy; Z71.85 Encounter for immunization safety counseling; I73.00 Raynaud's syndrome without gangrene; J44.9 Chronic obstructive pulmonary disease, unspecified | CPT/HCPCS: 36415; 80076; 82565; 85025; 85651; 86140; 99214 ==

== ENCOUNTER → 2025-03-28 09:02 | Outpatient (BNVA) | payer MEDICARE, MEDICAID, SELFPAY | PROVIDERS: PCP Internal Medicine; Referring Provider Internal Medicine; Visit Provider Internal Medicine | DX: J44.9 Chronic obstructive pulmonary disease, unspecified (principal); Z99.81 Dependence on supplemental oxygen; Z87.891 Personal history of nicotine dependence; T78.40XA Allergy, unspecified, initial encounter; X58.XXXA Exposure to other specified factors, initial encounter | CPT/HCPCS: 36415; 85004; 85048; 86003; 99214; Q3014 ==